=== PATIENT | male | born 1945 | race African-American/Black ===

== ENCOUNTER 2017-05-30 16:46 | Inpatient (IN) | payer MEDICARE ==
[2017-05-30] MEDS ORDERED: NORMAL SALINE 1000 ML 1,000 ML IV ONE (19:03)
--- NOTE | 2017-05-30 19:06 | ER Document Report ---
ED Medical Screen (RME) - General Chief Complaint: High Blood Pressure Stated Complaint: BLOOD PRESSURE ISSUES Time Seen by Provider: 05/30/17 19:02 Notes: Patient reports 4 days of malaise and weakness. He states he is also had fevers. He saw Dr. Newell today and patient had a fever 102 and there was blood in the urine. He states he was referred here for possible UTI. Patient denies abdominal pain, he denies vomiting, he denies diarrhea. He denies any dysuria urgency or frequency. He denies any cough cold or congestion. He denies any rashes. TRAVEL OUTSIDE OF THE [place] IN LAST 30 DAYS: No - Related Data Allergies/Adverse Reactions: No Known Allergies Allergy (Verified 05/30/17 18:52) Past Medical History - Social History Chew tobacco use (# tins/day): No Frequency of alcohol use: None Drug Abuse: None Renal/ Medical History: Denies: Hx Peritoneal Dialysis Physical Exam - Vital signs Vitals: Temp Pulse Resp BP Pulse Ox 98.5 F 121 H 20 159/96 H 96 05/30/17 17:35 05/30/17 17:35 05/30/17 17:35 05/30/17 17:35 05/30/17 17:35 Course - Vital Signs Vital signs: Temp Pulse Resp BP Pulse Ox 98.5 F 121 H 20 159/96 H 96 05/30/17 17:35 05/30/17 17:35 05/30/17 17:35 05/30/17 17:35 05/30/17 17:35
--- NOTE | 2017-05-30 19:48 | RADIOLOGY REPORT (SQ) ---
EXAM DESCRIPTION: CHEST PA/LAT COMPLETED DATE/TIME: 05/30/2017 7:40 pm REASON FOR STUDY: fever COMPARISON: None. EXAM PARAMETERS: NUMBER OF VIEWS: two views TECHNIQUE: Digital Frontal and Lateral radiographic views of the chest acquired. RADIATION DOSE: NA LIMITATIONS: none FINDINGS: LUNGS AND PLEURA: Diffuse parenchymal opacities in the left lung. Right lung is clear. MEDIASTINUM AND HILAR STRUCTURES: No masses or contour abnormalities. HEART AND VASCULAR STRUCTURES: Heart normal size. No evidence for failure. BONES: No acute findings. HARDWARE: None in the chest. OTHER: No other significant finding. IMPRESSION: Left lung pneumonia. TECHNICAL DOCUMENTATION: JOB ID: [id number] [employer]- All Rights Reserved
[2017-05-30 19:54] LABS: VENOUS BLOOD BASE EXCESS -13.5 mmol/L; VENOUS BLOOD HCO3 12.8 mmol/L (20-32); VENOUS BLOOD PCO2 31.3 mmHg (35-63); VENOUS BLOOD PH 7.23 (7.30-7.42)
[2017-05-30 20:00] LABS: HEMATOCRIT 34.3 % (37.9-51.0); HEMOGLOBIN 11.2 g/dL (13.5-17.0); HGB HCT DIFFERENCE -0.7; MEAN CORPUSCULAR HEMOGLOBIN 28.8 pg (27.0-33.4); MEAN CORPUSCULAR HGB CONC 32.6 g/dL (32.0-36.0); MEAN CORPUSCULAR VOLUME 88 fl (80-97); RED BLOOD COUNT 3.88 10^6/uL (4.35-5.55); RED CELL DISTRIBUTION WIDTH 14.6 % (11.5-14.0); WHITE BLOOD COUNT 18.5 10^3/uL (4.0-10.5)
[2017-05-30 20:12] LABS: ALANINE AMINOTRANSFERASE 30 U/L (21-72); ALBUMIN 4.2 g/dL (3.5-5.0); ALKALINE PHOSPHATASE 137 U/L (38-126); ASPARTATE AMINO TRANSFERASE 45 U/L (17-59); BILIRUBIN,DIRECT 0.5 mg/dL (0.0-0.4); BILIRUBIN,TOTAL 0.5 mg/dL (0.2-1.3); BLOOD UREA NITROGEN 91 mg/dL (7-20); CALCIUM 9.9 mg/dL (8.4-10.2); CREATININE RESULT 11.85 mg/dL (0.52-1.25)
[2017-05-30 20:19] LABS: CARBON DIOXIDE 12 mmol/L (22-30); CHLORIDE 100 mmol/L (98-107); POTASSIUM 4.5 mmol/L (3.6-5.0); SODIUM 135.5 mmol/L (137-145)
[2017-05-30 20:21] LABS: BAND NEUTROPHILS % (MANUAL) 1 % (3-5); BASOPHILS % (MANUAL) 0 % (0-2); EOSINOPHILS % (MANUAL) 0 % (0-6); LYMPHOCYTES % (MANUAL) 0 % (13-45); TOTAL CELLS COUNTED 100; TOXIC GRANULATION SLIGHT; TOXIC VACUOLATION PRESENT
[2017-05-30 20:22] LABS: ANISOCYTOSIS SLIGHT
[2017-05-30 20:23] LABS: ANION GAP 24 (5-19)
[2017-05-30 20:29] LABS: GLUCOSE 492 mg/dL (75-110)
[2017-05-30] MEDS ORDERED: CEFTRIAXONE 1 GM/D5W RTU 1 GM/50 ML RTUPB IV ONE (21:36)
[2017-05-30] MEDS ORDERED: CEFEPIME 1 GM/D5W RTU 1 GM/50 ML RTUPB IV ONE (21:38)
[2017-05-30] MEDS ORDERED: AZITHROMYCIN INJ 500 MG VIAL IV ONE (21:39)
--- NOTE | 2017-05-30 21:41 | ER Document Report ---
ED General - General Chief Complaint: High Blood Pressure Stated Complaint: BLOOD PRESSURE ISSUES Time Seen by Provider: 05/30/17 19:02 Mode of Arrival: Ambulatory Information source: Patient Notes: This is a 71-year-old man with no known medical problems who is very functional who presented to primary care doctor today with fever, chills, weakness for the past week. 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 He states that he started having fever, chills and postnasal drip after that time. He denies any shortness of breath. He denies any abdominal pain. TRAVEL OUTSIDE OF THE [place] IN LAST 30 DAYS: No - HPI Onset: Last week Onset/Duration: Gradual Quality of pain: No pain Severity: None Pain Level: Denies Associated symptoms: Chills, Fever, Weakness Exacerbated by: Denies Relieved by: Denies Similar symptoms previously: No Recently seen / treated by doctor: Yes - Related Data Allergies/Adverse Reactions: No Known Allergies Allergy (Verified 05/30/17 18:52) Past Medical History - General Information source: Patient - Social History Smoking Status: Never Smoker Cigarette use (# per day): No Chew tobacco use (# tins/day): No Frequency of alcohol use: None Drug Abuse: None Lives with: Family Family History: Reviewed & Not Pertinent Patient has suicidal ideation: No Patient has homicidal ideation: No - Medical History Medical History: Negative Renal/ Medical History: Denies: Hx Peritoneal Dialysis Surgical Hx: Negative Review of Systems - Review of Systems Constitutional: See HPI, Chills, Fever EENT: No symptoms reported Cardiovascular: No symptoms reported Respiratory: No symptoms reported Gastrointestinal: No symptoms reported Genitourinary: No symptoms reported Male Genitourinary: No symptoms reported Musculoskeletal: No symptoms reported Skin: No symptoms reported Hematologic/Lymphatic: No symptoms reported Neurological/Psychological: Weakness Physical Exam - Vital signs Vitals: Temp Pulse Resp BP Pulse Ox 98.5 F 121 H 20 159/96 H 96 05/30/17 17:35 05/30/17 17:35 05/30/17 17:35 05/30/17 17:35 05/30/17 17:35 Notes: Physical exam: GENERAL: 71-year-old man, alert and oriented 3, no acute distress HEAD: Atraumatic, normocephalic. EYES: Pupils equal round and reactive to light, extraocular movements intact, sclera anicteric, conjunctiva are normal. ENT: TMs normal, nares patent, oropharynx clear without exudates. Moist mucous membranes. NECK: Normal range of motion, supple without obvious mass or JVD. LUNGS: Crackles at the left base. HEART: Regular rate and rhythm without murmurs, rubs or gallops. ABDOMEN: Soft, normoactive bowel sounds. No tenderness to palpation. No guarding, no rebound. No masses appreciated. EXTREMITIES: Normal range of motion, no pitting or edema. No clubbing or cyanosis. NEUROLOGICAL: Cranial nerves II through XII grossly intact. Normal speech, moving all extremities. PSYCH: Normal mood, normal affect. SKIN: Warm, Dry, normal turgor, no rashes or lesions noted. Course - Re-evaluation Re-evalutation: 05/31/17 03:45 Note: I had multiple conversations with Dr. Newell about this patient. I had also discussed the case with Dr. Sevilla because of the acute renal failure. The patient was placed on IV antibiotics (broad-spectrum) for pneumonia. He was started on a bicarb drip because of acute renal failure. The general thought that this was most likely acute on chronic renal failure. The patient does apparently have a history of some high blood pressure and diabetes. Dr. Newell had agreed to admit the patient and Dr. Sevilla was going to see the patient in consultation. After arranging for a bed, the patient decided that he did not want to stay. I had to very long conversations with the patient and his son and his who are at the bedside. I made it absolutely clear that he should not go home. I made it absolutely clear that he could be risking irreversible kidney failure as well as . However, ultimately, the patient decided to go home. He signed an AMA form. His mentation was clear and he appeared competent through all of my interactions with him this evening. - Vital Signs Vital signs: Temp Pulse Resp BP Pulse Ox 98.5 F 121 H 22 H 172/123 H 100 05/30/17 17:35 05/30/17 17:35 05/30/17 23:29 05/30/17 23:29 05/30/17 23:29 - Laboratory Result Diagrams: 05/30/17 19:20 05/30/17 19:20 Laboratory results interpreted by me: 05/30/17 05/30/17 05/30/17 19:20 19:20 19:20 WBC 18.5 H RBC 3.88 L Hgb 11.2 L Hct 34.3 L RDW 14.6 H Seg Neuts % (Manual) 96 H Band Neutrophils % 1 L Lymphocytes % (Manual) 0 L Abs Neuts (Manual) 17.9 H Abs Lymphs (Manual) 0.0 L VBG pH 7.23 L VBG pCO2 31.3 L VBG HCO3 12.8 L Sodium 135.5 L Carbon Dioxide 12 L Anion Gap 24 H BUN 91 H Creatinine 11.85 H Est GFR ( Amer) 5 L Est GFR (Non-Af Amer) 4 L Glucose 492 H* Hemoglobin A1c % Direct Bilirubin 0.5 H Alkaline Phosphatase 137 H Total Protein 9.0 H 05/30/17 19:20 WBC RBC Hgb Hct RDW Seg Neuts % (Manual) Band Neutrophils % Lymphocytes % (Manual) Abs Neuts (Manual) Abs Lymphs (Manual) VBG pH VBG pCO2 VBG HCO3 Sodium Carbon Dioxide Anion Gap BUN Creatinine Est GFR ( Amer) Est GFR (Non-Af Amer) Glucose Hemoglobin A1c % 6.5 H Direct Bilirubin Alkaline Phosphatase Total Protein - Diagnostic Test Radiology reviewed: Image reviewed, Reports reviewed - Chest x-ray shows a left- sided pneumonia - EKG Interpretation by Me Rate: Tachycardia Rhythm: NSR - EKG shows sinus tachycardia with a ventricular rate of 106, signs of LVH Critical Care Note - Critical Care Note Total time excluding time spent on procedures (mins): 60 Discharge - Discharge Clinical Impression: Pneumonia, Acute renal failure Condition: Serious Disposition: AGAINST MEDICAL ADVICE Admitting Provider: Newell Unit Admitted: [facility]
--- NOTE | 2017-05-30 22:00 | RADIOLOGY REPORT (SQ) ---
EXAM DESCRIPTION: CT ABD/PELVIS NO ORAL OR IV COMPLETED DATE/TIME: 05/30/2017 9:49 pm REASON FOR STUDY: acute renal failure COMPARISON: None. TECHNIQUE: CT scan of the abdomen and pelvis performed without intravenous or oral contrast. Images reviewed with lung, soft tissue, and bone windows. Reconstructed coronal and sagittal MPR images revi ewed. All images stored on PACS. All CT scanners at this facility use dose modulation, iterative reconstruction, and/or weight based d osing when appropriate to reduce radiation dose to as low as reasonably achievable (ALARA). [facility]: Dose Right [facility]: CareDose [facility]: Dose Right [facility]: Teradose 4D [facility]: [employer] RADIATION DOSE: Up-to-date CT equipment and radiation dose reduction techniques were employed. CTDIv ol: 7.0 mGy. DLP: 394 mGy-cm.mGy. LIMITATIONS: None. FINDINGS: LOWER CHEST: Parenchymal opacity lingular segment of the left upper lobe. NON-CONTRASTED LIVER, SPLEEN, ADRENALS: Evaluation limited by lack of IV contrast. No identified sign ificant masses. PANCREAS: No masses. No peripancreatic inflammatory changes. GALLBLADDER: No identified stones by CT criteria. No inflammatory changes to suggest cholecystitis. RIGHT KIDNEY AND URETER: Simple and hemorrhagic cysts. No significant calcifications. No hydronep hrosis or hydroureter. LEFT KIDNEY AND URETER: Cysts. No significant calcifications. No hydronephrosis or hydroureter. AORTA AND RETROPERITONEUM: No aneurysm. No retroperitoneal masses or adenopathy. BOWEL AND PERITONEAL CAVITY: No obvious masses or inflammatory changes. No free fluid. APPENDIX: Normal. PELVIS, BLADDER, AND ABDOMINAL WALL:No abnormal masses. No free fluid. Bladder normal. BONES: No significant findings. OTHER: No other significant finding. IMPRESSION: NO SIGNIFICANT OR ACUTE PROCESS IN THE ABDOMEN OR PELVIS. COMMENT: Quality ID # [id number]: Final reports with documentation of one or more dose reduction techniques (e.g., Automated exposure control, adjustment of the mA and/or kV according to patient size, use of iterative reconstruction technique) TECHNICAL DOCUMENTATION: JOB ID: [id number] [employer]- All Rights Reserved
[2017-05-30] MEDS ORDERED: ONDANSETRON HCL INJ/PF 4 MG/2 ML SDV IV PRN (22:48)
[2017-05-30] MEDS ORDERED: DEXTROSE 10%-WATER 1,000 ML IV PRN (22:48)
[2017-05-30] MEDS ORDERED: ACETAMINOPHEN 325 MG TABLET PO PRN (22:48)
[2017-05-30] MEDS ORDERED: INSULIN LISPRO 100 UNIT/ML 3 ML VIAL SUBCUT PRN (22:53)
[2017-05-30] MEDS ORDERED: DEXTROSE 50%-WATER 25 GM/50 ML DISP.SYRIN IV PRN ×2 (22:53)
[2017-05-30] MEDS ORDERED: GLUCAGON,HUMAN RECOMB 1 MG INJ IM PRN (22:53)
[2017-05-30] MEDS ORDERED: DEXTROSE 40% GEL 15 GM TUBE PO PRN ×2 (22:53)
[2017-05-30] MEDS ORDERED: 1/2 NORMAL SALINE IV ONE ×2 (22:55)
[2017-05-30] MEDS ORDERED: SODIUM BICARBONATE IV ONE ×2 (22:55)
[2017-05-30] MEDS ORDERED: HYDRALAZINE HCL INJ/PF 20 MG/1 ML SDV IV PRN (23:08)
[2017-05-31 00:18] VITALS: BP 172/123
[2017-05-31] MEDS ORDERED: HEPARIN SOD (PORCINE) 5,000 UNIT/ML 1 ML SYRINGE SUBCUT SCH (06:00)
[2017-05-31] MEDS ORDERED: LANSOPRAZOLE 15 MG TAB.RAP.DR PO SCH (06:00)
--- NOTE | 2017-05-31 08:13 | EKG REPORT ---
SEVERITY:- ABNORMAL ECG - SINUS TACHYCARDIA LEFT AXIS DEVIATION LVH WITH SECONDARY REPOLARIZATION ABNORMALITY ANTERIOR ST ELEVATION, PROBABLY DUE TO LVH : Confirmed by: Silviano Caceres MD 31-May-2017 08:11:58
[2017-05-31] MEDS ORDERED: CEFEPIME 1 GM/D5W RTU 1 GM/50 ML RTUPB IV SCH (10:00)
[2017-05-31] MEDS ORDERED: DOCUSATE SODIUM 100 MG CAPSULE PO SCH (10:00)
[2017-05-31] MEDS ORDERED: AMLODIPINE BESYLATE 5 MG TABLET PO SCH ×2 (10:00)
== END 2017-05-30 23:12 | disposition left against medical advice (07) | DRG 682 ==
LOC: ER 16:46 → EH 22:48 → UNDOADMIN 23:09
PROVIDERS: ADMIT Family Medicine; ATTEND Family Medicine
DX: N17.9 Acute kidney failure, unspecified (principal); J18.9 Pneumonia, unspecified organism; E11.22 Type 2 diabetes mellitus with diabetic chronic kidney disease; I12.9 Hypertensive chronic kidney disease with stage 1 through stage 4 chronic kidney disease, or unspecified chronic kidney disease; N18.9 Chronic kidney disease, unspecified
CPT/HCPCS: 36415; 71020; 74176; 80053; 82803; 83036; 83605; 85025; 87040; 87077; 87186; 93005; 93010; 96365; 99291; J0692; J7030

== ENCOUNTER 2017-05-31 10:35 | Inpatient (IN) | payer MEDICARE ==
[2017-05-31] MEDS ORDERED: NORMAL SALINE 1000 ML 1,000 ML IV ONE (12:32)
--- NOTE | 2017-05-31 13:26 | XCELERA REPORT ---
[address] [address] Transthoracic Echocardiogram Report Name: DAMON ALEXANDER Age: 71 yrs Gender: Male : 1945 Patient Status: Inpatient Patient Location: [place] [address]^A Study Date: 05/31/2017 11:17 AM Height: 75 in Weight: 171 lb BSA: 2.1 m2 Procedure: A complete two-dimensional transthoracic echocardiogram was performed (2D, M-mode, spectral and color flow Doppler). The study was technically adequate with some images being suboptimal in quality. Reason For Study: esrd/uncontrol htn Ordering Physician: AMY ISIDRO Performed By: Baldomero Burton Interpretation Summary The left ventricular ejection fraction is normal. There is mild concentric left ventricular hypertrophy. Doppler measurements suggest pseudonormalized left ventricular relaxation, which is associated with grade II/IV or mild to moderate diastolic dysfunction The left ventricle is grossly normal size. Wall motion cannot be accurately commented on, but no definite regional wall motion abnormalities noted. The right ventricular systolic function is normal. The left atrium is borderline dilated. The right atrium is normal in size There is a trace to mild amount of mitral regurgitation There is no mitral valve stenosis. There is a trace to mild amount of aortic regurgitation There is no aortic valve stenosis There is a trace to mild amount of tricuspid regurgitation Tricuspid regurgitation jet envelope not well defined to measure RV systolic pressure accurately. The aortic root is not well visualized. The inferior vena cava was not well visualized Minimal pericardial effusion. MMode/2D Measurements & Calculations RVDd: 2.6 cm LVIDd: 4.9 cm FS: 24.8 % Ao root diam: 3.2 cm IVSd: 1.3 cm LVIDs: 3.7 cm EDV(Teich): 112.8 ml LVPWd: 1.3 cm ESV(Teich): 57.5 ml Ao root area: 7.8 cm2 EF(Teich): 49.0 % Doppler Measurements & Calculations MV E max kerry: MV dec slope: Ao V2 max: AI max kerry: 55.4 cm/sec 160.5 cm/sec 554.7 cm/sec MV A max kerry: 277.4 cm/sec2 Ao max PG: AI max P.5 cm/sec MV dec time: 10.3 mmHg 123.1 mmHg MV E/A: 0.53 0.20 sec AI dec slope: 438.1 cm/sec2 AI P1/2t: 370.8 msec LV V1 max PG: PA V2 max: TR max kerry: RAP systole: 4.5 mmHg 90.9 cm/sec 251.4 cm/sec 5.0 mmHg LV V1 max: PA max P.3 mmHgTR max P.4 cm/sec 25.3 mmHg RVSP(TR): 30.3 mmHg Left Ventricle The left ventricle is grossly normal size. There is mild concentric left ventricular hypertrophy. The left ventricular ejection fraction is normal. Doppler measurements suggest pseudonormalized left ventricular relaxation, which is associated with grade II/IV or mild to moderate diastolic dysfunction. Wall motion cannot be accurately commented on, but no definite regional wall motion abnormalities noted. Right Ventricle The right ventricle is grossly normal size. There is normal right ventricular wall thickness. The right ventricular systolic function is normal. Atria The right atrium is normal in size. The left atrium is borderline dilated. Interarterial septum not well visualized and not well dopplered. Cannot comment on ASD/PFO presence. Mitral Valve The mitral valve is grossly normal. There is no mitral valve stenosis. There is a trace to mild amount of mitral regurgitation. Aortic Valve The aortic valve is grossly normal. There is no aortic valve stenosis. There is a trace to mild amount of aortic regurgitation. Tricuspid Valve The tricuspid valve is not well visualized, but is grossly normal. There is no tricuspid stenosis. There is a trace to mild amount of tricuspid regurgitation. Tricuspid regurgitation jet envelope not well defined to measure RV systolic pressure accurately. Pulmonic Valve The pulmonic valve is not well visualized. Great Vessels The aortic root is not well visualized. The inferior vena cava was not well visualized. Effusions Minimal pericardial effusion. : AMY ISIDRO > Tano Palmer
[2017-05-31 13:52] LABS: HEMATOCRIT 32.9 % (37.9-51.0); HEMOGLOBIN 10.8 g/dL (13.5-17.0); HGB HCT DIFFERENCE -0.5; MEAN CORPUSCULAR HEMOGLOBIN 28.7 pg (27.0-33.4); MEAN CORPUSCULAR HGB CONC 32.9 g/dL (32.0-36.0); MEAN CORPUSCULAR VOLUME 87 fl (80-97); RED BLOOD COUNT 3.77 10^6/uL (4.35-5.55); RED CELL DISTRIBUTION WIDTH 14.8 % (11.5-14.0); WHITE BLOOD COUNT 17.2 10^3/uL (4.0-10.5)
[2017-05-31 14:12] LABS: BASOPHILS % (MANUAL) 0 % (0-2); EOSINOPHILS % (MANUAL) 0 % (0-6); LYMPHOCYTES % (MANUAL) 6 % (13-45); TOTAL CELLS COUNTED 100
[2017-05-31 14:15] LABS: ANISOCYTOSIS SLIGHT; POIKILOCYTOSIS 2+; TOXIC GRANULATION 1+; TOXIC VACUOLATION PRESENT
[2017-05-31 14:16] LABS: BURR CELLS 1+; OVALOCYTES 1+
[2017-05-31] MEDS ORDERED: AZITHROMYCIN INJ 500 MG VIAL IV ONE (15:11)
[2017-05-31] MEDS ORDERED: CEFTRIAXONE 1 GM/D5W RTU 1 GM/50 ML RTUPB IV ONE (15:11)
--- NOTE | 2017-05-31 15:14 | ER Document Report ---
ED General - General Chief Complaint: General Weakness Stated Complaint: BODY WEAKNESS Time Seen by Provider: 05/31/17 12:28 Notes: The patient is a 71-year-old male who presents with cough. He was in the emergency room yesterday and found to have a left lower lobe pneumonia, hyperglycemia and acute on chronic renal failure. He decided to leave AMA after extensive discussions and stated he would return today for admission. Patient denies chest pain, shortness of breath, nausea, vomiting, abdominal pain , fevers or back pain. TRAVEL OUTSIDE OF THE [place] IN LAST 30 DAYS: No - Related Data Allergies/Adverse Reactions: No Known Allergies Allergy (Verified 05/31/17 11:08) Past Medical History - General Information source: Patient - Social History Smoking Status: Former Smoker Frequency of alcohol use: None Drug Abuse: None Family History: Reviewed & Not Pertinent Renal/ Medical History: Denies: Hx Peritoneal Dialysis Review of Systems - Review of Systems Notes: REVIEW OF SYSTEMS: CONSTITUTIONAL: -fevers, -chills EENT: -eye pain, -difficulty swallowing, -nasal congestion CARDIOVASCULAR:-chest pain, -syncope. RESPIRATORY: +cough, -SOB GASTROINTESTINAL: -abdominal pain, -nausea, -vomiting, -diarrhea GENITOURINARY: -dysuria, -hematuria MUSCULOSKELETAL: -back pain, -neck pain SKIN: -rash or skin lesions. HEMATOLOGIC: -easy bruising or bleeding. LYMPHATIC: -swollen, enlarged glands. NEUROLOGICAL: -altered mental status or loss of consciousness, -headache, - neurologic symptoms PSYCHIATRIC: -anxiety, -depression. ALL OTHER SYSTEMS REVIEWED AND NEGATIVE. Physical Exam - Vital signs Vitals: Temp Pulse Resp BP Pulse Ox 98.0 F 91 18 181/90 H 98 05/31/17 11:07 05/31/17 11:07 05/31/17 11:07 05/31/17 11:07 05/31/17 11:07 - Notes Notes: PHYSICAL EXAMINATION: GENERAL: Well-appearing, well-nourished and in no acute distress. HEAD: Atraumatic, normocephalic. EYES: Pupils equal round and reactive to light, extraocular movements intact, sclera anicteric, conjunctiva are normal. ENT: nares patent, oropharynx clear without exudates. Moist mucous membranes. NECK: Normal range of motion, supple without lymphadenopathy LUNGS: No respiratory distress. LLL crackles. HEART: Regular rate and rhythm without murmurs ABDOMEN: Soft, nontender, normoactive bowel sounds. No guarding, no rebound. No masses appreciated. EXTREMITIES: Normal range of motion, no pitting or edema. No cyanosis. NEUROLOGICAL: Cranial nerves grossly intact. Normal speech, normal gait. Normal sensory and motor exams. PSYCH: Normal mood, normal affect. SKIN: Warm, Dry, normal turgor, no rashes or lesions noted. Course - Re-evaluation Re-evalutation: Patient with renal failure but no need for emergent dialysis at this time. Antibiotics started for his pneumonia discovered yesterday and he appears to be in no respiratory distress. Patient will also be restarted on a bicarb drip due to his acidosis that was recommended by Dr. Sevilla last night. Dr. Sevilla and Dr. Newell are aware of the patient. Will admit to [facility] as inpatient for further evaluation and treatment. - Vital Signs Vital signs: Temp Pulse Resp BP Pulse Ox 98.0 F 91 19 188/92 H 99 05/31/17 11:07 05/31/17 11:07 05/31/17 16:14 05/31/17 16:14 05/31/17 16:14 - Laboratory Result Diagrams: 05/31/17 13:40 05/31/17 15:25 Laboratory results interpreted by me: 05/31/17 05/31/17 13:40 15:25 WBC 17.2 H RBC 3.77 L Hgb 10.8 L Hct 32.9 L RDW 14.8 H Seg Neuts % (Manual) 90 H Lymphocytes % (Manual) 6 L Abs Neuts (Manual) 15.5 H Sodium 136.9 L Carbon Dioxide 9 L* Anion Gap 23 H BUN 92 H Creatinine 12.08 H Est GFR ( Amer) 5 L Est GFR (Non-Af Amer) 4 L Glucose 303 H Direct Bilirubin 0.5 H Albumin 3.4 L Discharge - Discharge Clinical Impression: [place] (acute kidney injury) Pneumonia Qualifiers: Pneumonia type: due to unspecified organism Laterality: left Lung location: lower lobe of lung Qualified Code(s): J18.1 - Lobar pneumonia, unspecified organism Condition: Stable Disposition: ADMITTED INPATIENT Admitting Provider: Reece Unit Admitted: [facility]
[2017-05-31 16:16] LABS: ALANINE AMINOTRANSFERASE 54 U/L (21-72); ALBUMIN 3.4 g/dL (3.5-5.0); ALKALINE PHOSPHATASE 112 U/L (38-126); ASPARTATE AMINO TRANSFERASE 53 U/L (17-59); BILIRUBIN,DIRECT 0.5 mg/dL (0.0-0.4); BILIRUBIN,TOTAL 0.5 mg/dL (0.2-1.3); BLOOD UREA NITROGEN 92 mg/dL (7-20); CALCIUM 8.7 mg/dL (8.4-10.2); CREATININE RESULT 12.08 mg/dL (0.52-1.25); GLUCOSE 303 mg/dL (75-110); TOTAL PROTEIN 6.9 g/dL (6.3-8.2)
[2017-05-31 16:28] LABS: CHLORIDE 105 mmol/L (98-107); POTASSIUM 4.4 mmol/L (3.6-5.0); SODIUM 136.9 mmol/L (137-145)
[2017-05-31 16:34] LABS: ANION GAP 23 (5-19)
[2017-05-31 16:36] LABS: CARBON DIOXIDE 9 mmol/L (22-30)
[2017-05-31] MEDS ORDERED: 1/2 NORMAL SALINE IV ONE ×2 (16:51)
[2017-05-31] MEDS ORDERED: SODIUM BICARBONATE IV ONE ×2 (16:51)
[2017-05-31] MEDS ORDERED: 1/2 NORMAL SALINE 1,000 ML IV PRN (16:55)
[2017-05-31] MEDS ORDERED: ACETAMINOPHEN 325 MG TABLET PO PRN (16:55)
[2017-05-31] MEDS ORDERED: IPRATROPIUM/ALBUTEROL 0.5-2.5 MG/3 ML AMPUL NEB PRN (16:55)
[2017-05-31] MEDS ORDERED: GLUCAGON,HUMAN RECOMB 1 MG INJ IM PRN (16:59)
[2017-05-31] MEDS ORDERED: DEXTROSE 40% GEL 15 GM TUBE PO PRN ×2 (16:59)
[2017-05-31] MEDS ORDERED: DEXTROSE 50%-WATER 25 GM/50 ML DISP.SYRIN IV PRN ×2 (16:59)
[2017-05-31] MEDS ORDERED: HYDRALAZINE HCL INJ/PF 20 MG/1 ML SDV IV PRN (17:00)
--- NOTE | 2017-05-31 17:12 | PDOC H&P ---
History of Present Illness Patient complains of: Generalized weaknessThe fever History of Present Illness: DAMON ALEXANDER is a 71 year old male This is a 71-year-old male with the no previous any medical problems not seen the physicians for a long time came to my office yesterday with a complaint of a fever and chills and not feeling well the patient's fever was 102 And at that point patient's urine was persistent with some hematuria in the sugarAnd at this point patient was sent to the emergency departments and the patient's came to the ER yesterday and patient's creatinine was more than 11 and patient's bicarb was less than 10 with a severe metabolic acidosis with the acute renal failure on possible chronic kidney diseaseAnd patient's white count was also elevated with a persistent with the pneumonia and patient was given some antibiotic and patient was started on IV sodium bicarb drip and a nephrology was consulted but patients left the ER AMA and patients came back today because patient started feeling more weak but other than that denied any chest pain denied any shortness of the breath At this time patients decided to stay and discussed with the family about patient having multiple issues with not seen physicians Recent hemoglobin A1c was 6.5 and blood sugar was 400 range yesterday Patient have echocardiogram was done yesterday was all stable Today's patient's blood work is all stable as usual yesterday and ER physician discussed with the nephrology and agree for the consult and admitting in the [facility] Social History Information Source: Patient, Relative Smoking Status: Former Smoker Frequency of Alcohol Use: None Hx Recreational Drug Use: No Hx Prescription Drug Abuse: No Family History Family History: Reviewed & Not Pertinent Parental Family History Reviewed: Yes Children Family History Reviewed: Yes Sibling(s) Family History Reviewed.: Yes Medication/Allergy Allergies/Adverse Reactions: No Known Allergies Allergy (Verified 05/31/17 11:08) Review of Systems Constitutional: PRESENT: chills, fatigue, weakness. ABSENT: fever(s), headache( s), weight gain, weight loss Eyes: ABSENT: visual disturbances Ears: ABSENT: hearing changes Cardiovascular: ABSENT: chest pain, dyspnea on exertion, edema, orthropnea, palpitations Respiratory: PRESENT: cough. ABSENT: hemoptysis Gastrointestinal: ABSENT: abdominal pain, constipation, diarrhea, hematemesis, hematochezia, nausea, vomiting Genitourinary: ABSENT: dysuria, hematuria Musculoskeletal: ABSENT: joint swelling Integumentary: ABSENT: rash, wounds Neurological: ABSENT: abnormal gait, abnormal speech, confusion, dizziness, focal weakness, syncope Psychiatric: ABSENT: anxiety, depression, homidical ideation, suicidal ideation Endocrine: ABSENT: cold intolerance, heat intolerance, menstrual abnormalities, polydipsia, polyuria Hematologic/Lymphatic: ABSENT: easy bleeding, easy bruising, lymphadenopathy Physical Exam Vital Signs: Temp Pulse Resp BP Pulse Ox 98.0 F 91 19 188/92 H 99 05/31/17 11:07 05/31/17 11:07 05/31/17 16:14 05/31/17 16:14 05/31/17 16:14 Intake & Output 05/30/17 05/31/17 06/01/17 06:59 06:59 06:59 Weight 77.9 kg General appearance: PRESENT: no acute distress, well-developed, well-nourished Head exam: PRESENT: atraumatic, normocephalic Eye exam: PRESENT: conjunctiva pink, EOMI, PERRLA. ABSENT: scleral icterus Ear exam: PRESENT: normal external ear exam Mouth exam: PRESENT: moist, tongue midline Neck exam: PRESENT: full ROM. ABSENT: carotid bruit, JVD, lymphadenopathy, thyromegaly Respiratory exam: PRESENT: clear to auscultation lala Cardiovascular exam: PRESENT: RRR. ABSENT: diastolic murmur, rubs, systolic murmur Pulses: PRESENT: normal dorsalis pedis pul, +2 pedal pulses bilateral Vascular exam: PRESENT: normal capillary refill GI/Abdominal exam: PRESENT: normal bowel sounds, soft. ABSENT: distended, guarding, mass, organolmegaly, rebound, tenderness Rectal exam: PRESENT: deferred Extremities exam: ABSENT: pedal edema Musculoskeletal exam: PRESENT: ambulatory Neurological exam: PRESENT: alert, awake, oriented to person, oriented to place , oriented to time, oriented to situation, CN II-XII grossly intact. ABSENT: motor sensory deficit Psychiatric exam: PRESENT: appropriate affect, normal mood. ABSENT: homicidal ideation, suicidal ideation Skin exam: PRESENT: dry, intact, warm. ABSENT: cyanosis, rash Results Laboratory Results: 05/31/17 13:40 05/31/17 15:25 05/31/17 05/31/17 05/31/17 13:40 13:40 15:25 WBC 17.2 H RBC 3.77 L Hgb 10.8 L Hct 32.9 L MCV 87 MCH 28.7 MCHC 32.9 RDW 14.8 H Plt Count 252 Seg Neutrophils % Not Reportable Lymphocytes % Not Reportable Monocytes % Not Reportable Eosinophils % Not Reportable Basophils % Not Reportable Absolute Neutrophils Not Reportable Absolute Lymphocytes Not Reportable Absolute Monocytes Not Reportable Absolute Eosinophils Not Reportable Absolute Basophils Not Reportable Sodium Cancelled 136.9 L Potassium Cancelled 4.4 Chloride Cancelled 105 Carbon Dioxide Cancelled 9 L* Anion Gap Cancelled 23 H BUN Cancelled 92 H Creatinine Cancelled 12.08 H Est GFR ( Amer) Cancelled 5 L Est GFR (Non-Af Amer) Cancelled 4 L Glucose Cancelled 303 H Calcium Cancelled 8.7 Total Bilirubin Cancelled 0.5 AST Cancelled 53 ALT Cancelled 54 Alkaline Phosphatase Cancelled 112 Total Protein Cancelled 6.9 Albumin Cancelled 3.4 L Assessment & Plan - Diagnosis (1) LORENA (acute kidney injury) Is this a current diagnosis for this admission?: Yes Plan: Most likely up from chronic kidney disease with acute renal failure patient's most likely needed dialysis admit the patient in the IMCU consulted Dr. Sevilla and start the patient on IV fluid and sodium bicarb drip (2) Metabolic acidosis Is this a current diagnosis for this admission?: Yes Plan: Due to the most likely acute renal failure start the patient on sodium bicarb drip (3) Type 2 diabetes mellitus Qualifiers: Diabetes mellitus complication status: with unspecified complications Is this a current diagnosis for this admission?: Yes Plan: With this new onset will continues a sliding scale (4) Fever Qualifiers: Encounter type: initial encounter Is this a current diagnosis for this admission?: Yes Plan: Most likely related to the pneumonia start the patient on IV antibiotic (5) Pneumonia Qualifiers: Pneumonia type: due to unspecified organism Laterality: left Lung location: lower lobe of lung Qualified Code(s): J18.1 - Lobar pneumonia, unspecified organism Is this a current diagnosis for this admission?: Yes Plan: Start the patient in the cefepime and Zithromax (6) Hypertension Qualifiers: Hypertension type: essential hypertension Qualified Code(s): I10 - Essential (primary) hypertension Is this a current diagnosis for this admission?: Yes Plan: The patient and the Norvasc and as needed hydralazine - Time Time Spent: 50 to 70 Minutes Medications reviewed and adjusted accordingly: Yes Anticipated discharge: Home Within: Other - Inpatient Certification Medical Necessity: Need Close Monitoring Due to Risk of Patient Decompensation, Need For IV Fluids, Need for IV Antibiotics Post Hospital Care: D/C 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
[2017-05-31] MEDS ORDERED: SODIUM BICARBONATE 8.4% INJ 50 MEQ/50 ML DISP.SYRIN ONE ×2 (17:15→17:19)
[2017-05-31] MEDS: AMLODIPINE BESYLATE 5 MG TABLET PO SCH (18:43)
--- NOTE | 2017-05-31 21:14 | PDOC CONSULTATION ---
Consultation Consult Date: 05/31/17 Attending physician:: AMY ISIDRO Consult reason:: I was asked by Dr. Isidro to see the patient because of renal failure. History of Present Illness Admission Date/PCP: 05/31/17 16:55 History of Present Illness: Patient is a 71-year-old -[place] gentleman with no known past medical history presented to the emergency room again for the second time tonight because of some worsening symptoms from yesterday. Patient said that since about a week ago he noted fever and has just not feeling well with chills. He denies any cough, shortness of breath, dysuria, abdominal pain, nausea, vomiting , no chest pains. There was a note of some loose stools which has been going on for the last 6-7 months depending on what he eats. He initially presented himself to the emergency room yesterday with above symptoms. Initial workup yesterday showed an elevated BUN of 91 and a creatinine of 11.85 with estimated GFR 5 and a CO2 of 12. She was advised admission with these findings however the patient signed out AMA. Patient said he had to take care of some things at home that is why he went home with the plan of coming back today anyways. Today he did not have any additional complaints aside from the above. He denies any urgency, urinary frequency, no gross hematuria. Patient denies any previous kidney problems or kidney nor kidney stones in the past. He denies history of hepatitis. Denies any leg swelling. confirms that for the last 3-4 days patient has decreased appetite with decreased oral solids and fluid intake. When he presented today he has a BUN of 92 and creatinine of 12.08 with estimated GFR of 5 with CO2 of 9. Fortunately his potassium level is within normal limits. CT scan of the abdomen that was done yesterday did not show any hydronephrosis. Of note the patient has not seen a doctor for many years since Dr. Hal Way left the area. He just started seeing Dr. Isidro 2-3 days prior to presentation. In the emergency room patient was noted to be hypertensive. His blood sugar was also elevated, yesterday it was 400 and today it was around 300. Patient was started on bicarbonate drip. He was also given IV antibiotics initially with ceftriaxone and now on cefepime. Patient claims that he feels better with the IV antibiotics. Past Medical History Medical History: None Past Surgical History Past Surgical History: Reports: None Social History Information Source: Patient Smoking Status: Never Smoker Frequency of Alcohol Use: None Hx Recreational Drug Use: No Hx Prescription Drug Abuse: No - Advance Directive Resuscitation Status: Full Code Family History Family History: None Parental Family History Reviewed: Yes Children Family History Reviewed: Yes Sibling(s) Family History Reviewed.: Yes Medication/Allergy Home Medications: No Home Medications 05/31/17 Allergies/Adverse Reactions: No Known Allergies Allergy (Verified 05/31/17 11:08) Review of Systems All systems: reviewed and no additional remarkable complaints except as stated Review of Systems: Constitutional: ABSENT: fatigue, headache(s), weight gain, weight loss; admits fever and chills, admits not feeling well. Eyes: ABSENT: visual disturbances Ears: ABSENT: hearing changes Cardiovascular: ABSENT: chest pain, dyspnea on exertion, edema, orthropnea, palpitations Respiratory: ABSENT: cough, dyspnea, hemoptysis Gastrointestinal: ABSENT: abdominal pain, constipation, diarrhea, hematemesis, hematochezia, nausea, vomiting Genitourinary: ABSENT: dysuria, hematuria Musculoskeletal: ABSENT: joint swelling Integumentary: ABSENT: rash, wounds Neurological: ABSENT: abnormal gait, abnormal speech, confusion, dizziness, focal weakness, numbness, syncope Psychiatric: ABSENT: anxiety, depression Endocrine: ABSENT: cold intolerance, heat intolerance, polydipsia, polyuria Hematologic/Lymphatic: ABSENT: easy bleeding, easy bruising, lymphadenopathy Physical Exam Vital Signs: Temp Pulse Resp BP Pulse Ox 98.0 F 89 20 189/104 H 98 05/31/17 11:07 05/31/17 15:14 05/31/17 20:01 05/31/17 20:01 05/31/17 20:01 Exam: General appearance: no acute distress, cooperative, well-developed, well- nourished Head exam: PRESENT: atraumatic, normocephalic Eye exam: PRESENT: Conjunctiva [place], EOMI, PERRLA. ABSENT: conjunctival injection, scleral icterus Mouth exam: PRESENT: moist, neck supple, tongue midline, he does have a uremic breath Neck exam: PRESENT: full ROM. ABSENT: carotid bruit, JVD, lymphadenopathy, thyromegaly Respiratory exam: PRESENT: clear to auscultation bilaterally. ABSENT: rales, rhonchi, stridor, wheezes Cardiovascular exam: PRESENT: RRR, +S1, +S2. ABSENT: systolic murmur Pulses: PRESENT: normal radial pulses, normal dorsalis pedis pulses GI/Abdominal exam: PRESENT: normal bowel sounds, soft. ABSENT: guarding, mass, tenderness Rectal exam: deferred Extremities exam: PRESENT: full ROM. ABSENT: calf tenderness, pedal edema Musculoskeletal: PRESENT: full ROM. ABSENT: deformity Neurological exam: PRESENT: alert, Awake, Oriented to person, Oriented to place , Oriented to time, reflexes normal, CN II-XII grossly intact. ABSENT: motor sensory deficit Psychiatric exam: PRESENT: appropriate affect, normal mood. ABSENT: homicidal ideation, suicidal ideation Skin exam: PRESENT: intact, dry, warm. ABSENT: rash Results Laboratory Results: Laboratory 05/31/17 05/31/17 05/31/17 13:40 13:40 15:25 WBC 17.2 H RBC 3.77 L Hgb 10.8 L Hct 32.9 L MCV 87 MCH 28.7 MCHC 32.9 RDW 14.8 H Plt Count 252 Total Counted 100 Seg Neutrophils % Not Reportable Seg Neuts % (Manual) 90 H Lymphocytes % Not Reportable Lymphocytes % (Manual) 6 L Monocytes % Not Reportable Monocytes % (Manual) 4 Eosinophils % Not Reportable Eosinophils % (Manual) 0 Basophils % Not Reportable Basophils % (Manual) 0 Absolute Neutrophils Not Reportable Abs Neuts (Manual) 15.5 H Absolute Lymphocytes Not Reportable Abs Lymphs (Manual) 1.0 Absolute Monocytes Not Reportable Abs Monocytes (Manual) 0.7 Absolute Eosinophils Not Reportable Absolute Eos (Manual) 0.0 Absolute Basophils Not Reportable Abs Basophils (Manual) 0.0 Toxic Granulation 1+ Toxic Vacuolation PRESENT Giant Platelets PRESENT Platelet Comment ADEQUATE Poikilocytosis 2+ Anisocytosis SLIGHT Ovalocytes 1+ [place] Cells 1+ Sodium Cancelled 136.9 L Potassium Cancelled 4.4 Chloride Cancelled 105 Carbon Dioxide Cancelled 9 L* Anion Gap Cancelled 23 H BUN Cancelled 92 H Creatinine Cancelled 12.08 H Est GFR ( Amer) Cancelled 5 L Est GFR (Non-Af Amer) Cancelled 4 L Glucose Cancelled 303 H Calcium Cancelled 8.7 Total Bilirubin Cancelled 0.5 Direct Bilirubin Cancelled 0.5 H Indirect Bilirubin Cancelled Not Reportable Neonat Total Bilirubin Cancelled Not Reportable AST Cancelled 53 ALT Cancelled 54 Alkaline Phosphatase Cancelled 112 Total Protein Cancelled 6.9 Albumin Cancelled 3.4 L Assessment & Plan - Diagnosis (1) LORENA (acute kidney injury) Is this a current diagnosis for this admission?: Yes Plan: We do not have any previous records to know what the patient's baseline kidney function is. At this time were considering that this is an acute kidney injury however there can be an possibility that the patient does have an underlying chronic kidney disease. In fact there is a high likelihood that the patient has progressive kidney disease at this point. Aside from possible acute infection there does not seem to be any other possible cause for an acute worsening of kidney function. Risk factors for chronic kidney disease include untreated and undiagnosed diabetes mellitus and hypertension. Clinically this patient seems to be doing fine without much complains of uremic symptoms yet. However with the severe metabolic acidosis, I recommended that the patient undergo an acute renal replacement therapy in the form of acute hemodialysis. I discussed what hemodialysis is with the patient in the presence of his and children at bedside. I discussed the process, benefits, and risks. However the patient wanted to see how his get up being the next couple of days and declined to do any dialysis treatment at this time. With his decline in treatment, I discussed with him and the family the risk of further worsening of kidney function to the point of overt uremia. I also discussed the serious risk of severe metabolic acidosis including cardiac toxicity. However despite that the patient still wants to wait at least the next couple days before he decides. So at this point we will hold off of any hemodialysis treatment and just monitor the patient clinically and biochemically. I recommend monitoring the patient's kidney function daily. We will check the patient's basic metabolic panel, anemia workup, intact PTH, phosphorus, urinalysis and urine protein to creatinine ratio. We will put the patient in a prerenal diet. Agree with concomitant diabetic diet. Also need to monitor urine output daily. (2) Metabolic acidosis Is this a current diagnosis for this admission?: Yes Plan: Due to acute kidney injury with possible underlying chronic kidney disease. (3) Type 2 diabetes mellitus Qualifiers: Diabetes mellitus complication status: with unspecified complications Is this a current diagnosis for this admission?: Yes Plan: Defer management to Dr. Isidro. (4) Hypertension Qualifiers: Hypertension type: essential hypertension Qualified Code(s): I10 - Essential (primary) hypertension Is this a current diagnosis for this admission?: Yes Plan: Patient was started on amlodipine. I think the patient may need more than one blood pressure medication in the next few days. (5) Anemia Is this a current diagnosis for this admission?: Yes Plan: We will do anemia workup. (6) Pneumonia Qualifiers: Pneumonia type: due to unspecified organism Laterality: left Lung location: lower lobe of lung Qualified Code(s): J18.1 - Lobar pneumonia, unspecified organism Is this a current diagnosis for this admission?: Yes Plan: Currently IV antibiotics was initiated. - Notes Notes: Thank you very much for this consultation. I will follow the patient with you. - Time Time Spent: Greater than 70 Minutes
[2017-05-31] MEDS: CEFEPIME 1 GM/D5W RTU 1 GM/50 ML RTUPB IV SCH (23:55)
[2017-05-31] MEDS: HEPARIN SOD (PORCINE) 5,000 UNIT/ML 1 ML SYRINGE SUBCUT SCH (23:56)
[2017-06-01 00:55] LABS: APPEARANCE,URINE SLIGHTLY-CLOUDY; BILIRUBIN,URINE NEGATIVE (NEGATIVE); GLUCOSE, URINE >=500 mg/dL (NEGATIVE); KETONES,URINE NEGATIVE (NEGATIVE); LEUKOCYTE ESTERASE,URINE NEGATIVE (NEGATIVE); NITRITE,URINE NEGATIVE (NEGATIVE); PROTEIN,URINE >=500 mg/dL (NEGATIVE); URINE SPECIFIC GRAVITY 1.007; UROBILINOGEN,URINE NEGATIVE mg/dL (<2.0)
[2017-06-01 01:05] LABS: URINE CREATININE 57.4 mg/dL (22-328)
[2017-06-01 01:17] LABS: URINE PROTEIN 483.8 mg/dL (<12)
[2017-06-01] MEDS ORDERED: INFLUENZA ADLT QUAD (36MOS+) 2017-18 VAC 0.5 ML SYR IM PRN (03:11)
[2017-06-01] MEDS: LANSOPRAZOLE 15 MG TAB.RAP.DR PO SCH (05:35)
[2017-06-01] MEDS: HEPARIN SOD (PORCINE) 5,000 UNIT/ML 1 ML SYRINGE SUBCUT SCH ×3 (05:36→22:47)
[2017-06-01 06:24] LABS: HEMATOCRIT 26.5 % (37.9-51.0); HEMOGLOBIN 8.9 g/dL (13.5-17.0); HGB HCT DIFFERENCE 0.2; MEAN CORPUSCULAR HEMOGLOBIN 29.1 pg (27.0-33.4); MEAN CORPUSCULAR HGB CONC 33.7 g/dL (32.0-36.0); MEAN CORPUSCULAR VOLUME 87 fl (80-97); RED BLOOD COUNT 3.06 10^6/uL (4.35-5.55); RED CELL DISTRIBUTION WIDTH 14.8 % (11.5-14.0); WHITE BLOOD COUNT 13.6 10^3/uL (4.0-10.5)
[2017-06-01 06:38] LABS: ANION GAP 19 (5-19); BLOOD UREA NITROGEN 100 mg/dL (7-20); CALCIUM 8.4 mg/dL (8.4-10.2); CARBON DIOXIDE 11 mmol/L (22-30); CHLORIDE 105 mmol/L (98-107); CREATININE RESULT 12.27 mg/dL (0.52-1.25); GLUCOSE 294 mg/dL (75-110); MAGNESIUM 1.6 mg/dL (1.6-2.3); PHOSPHORUS 6.5 mg/dL (2.5-4.5); POTASSIUM 4.4 mmol/L (3.6-5.0); SODIUM 135.3 mmol/L (137-145)
[2017-06-01 06:52] LABS: BASOPHILS % (MANUAL) 0 % (0-2); EOSINOPHILS % (MANUAL) 0 % (0-6); LYMPHOCYTES % (MANUAL) 9 % (13-45); TOTAL CELLS COUNTED 100
[2017-06-01 06:54] LABS: ANISOCYTOSIS SLIGHT; BURR CELLS 1+; OVALOCYTES SLIGHT; POIKILOCYTOSIS 2+; POLYCHROMASIA SLIGHT; SCHISTOCYTES SLIGHT; TOXIC GRANULATION SLIGHT
[2017-06-01 07:44] LABS: FOLATE 9.74 ng/mL (>2.76)
--- NOTE | 2017-06-01 08:22 | PDOC PROGRESS REPORT ---
Subjective Progress Note for:: 06/01/17 Subjective:: Patient is currently doing well. Patient's denied any chest pain without any shortness of the breathOvernight patient does not have any feverSince kidney function is currently all stable Patient seen by nephrology and asked about the dialysis and patients to think about it and again discussed with myself of the patient's need of dialysis otherwise patient's develop a possible more complication and cardiac toxicity and may be a and patient understand very well and the family understand very well Physical Exam Vital Signs: Temp Pulse Resp BP Pulse Ox 98.2 F 90 22 H 164/79 H 100 06/01/17 07:21 06/01/17 07:21 06/01/17 07:21 06/01/17 07:21 06/01/17 07:21 Intake & Output 05/31/17 06/01/17 06/02/17 06:59 06:59 06:59 Intake Total 365 Balance 365 Weight 83.5 kg General appearance: PRESENT: no acute distress, well-developed, well-nourished Head exam: PRESENT: atraumatic, normocephalic Eye exam: PRESENT: conjunctiva pink, EOMI, PERRLA. ABSENT: scleral icterus Ear exam: PRESENT: normal external ear exam Mouth exam: PRESENT: moist, tongue midline Neck exam: PRESENT: full ROM. ABSENT: carotid bruit, JVD, lymphadenopathy, thyromegaly Respiratory exam: PRESENT: clear to auscultation lala Cardiovascular exam: PRESENT: RRR. ABSENT: diastolic murmur, rubs, systolic murmur Pulses: PRESENT: normal dorsalis pedis pul, +2 pedal pulses bilateral Vascular exam: PRESENT: normal capillary refill GI/Abdominal exam: PRESENT: normal bowel sounds, soft. ABSENT: distended, guarding, mass, organolmegaly, rebound, tenderness Rectal exam: PRESENT: deferred Musculoskeletal exam: PRESENT: ambulatory Neurological exam: PRESENT: alert, awake, oriented to person, oriented to place , oriented to time, oriented to situation, CN II-XII grossly intact. ABSENT: motor sensory deficit Psychiatric exam: PRESENT: appropriate affect, normal mood. ABSENT: homicidal ideation, suicidal ideation Skin exam: PRESENT: dry, intact, warm. ABSENT: cyanosis, rash Results Laboratory Results: 06/01/17 05:43 06/01/17 05:43 06/01/17 06/01/17 06/01/17 00:30 05:43 05:43 WBC 13.6 H RBC 3.06 L Hgb 8.9 L Hct 26.5 L MCV 87 MCH 29.1 MCHC 33.7 RDW 14.8 H Plt Count 209 Seg Neutrophils % Not Reportable Lymphocytes % Not Reportable Monocytes % Not Reportable Eosinophils % Not Reportable Basophils % Not Reportable Absolute Neutrophils Not Reportable Absolute Lymphocytes Not Reportable Absolute Monocytes Not Reportable Absolute Eosinophils Not Reportable Absolute Basophils Not Reportable Retic Count (auto) 0.94 Absolute Retic 0.029 Sodium 135.3 L Potassium 4.4 Chloride 105 Carbon Dioxide 11 L Anion Gap 19 BUN 100 H Creatinine 12.27 H Est GFR ( Amer) 5 L Est GFR (Non-Af Amer) 4 L Glucose 294 H Calcium 8.4 Phosphorus 6.5 H Magnesium 1.6 Iron 71.8 TIBC 154 L % Saturation 47 Ferritin > 1000.00 H Vitamin B12 857.0 Folate 9.74 Urine Color STRAW Urine Appearance SLIGHTLY-CLOUDY Urine pH 5.0 Ur Specific [place] 1.007 Urine Protein >=500 H Urine Glucose (UA) >=500 H Urine Ketones NEGATIVE Urine Blood MODERATE H Urine Nitrite NEGATIVE Ur Leukocyte Esterase NEGATIVE Urine WBC (Auto) 5 Urine RBC (Auto) 38 Assessment & Plan - Diagnosis (1) LORENA (acute kidney injury) Is this a current diagnosis for this admission?: Yes Plan: Follow with the nephrology again discussed with the patient and the family about the possible need of dialysis and patient still think about it patients may develop a uremia and cardiac toxicity and possible and patient understand and the family understand very wellCoordinate care with the Dr. cameron (2) Metabolic acidosis Is this a current diagnosis for this admission?: Yes Plan: Due to the most likely acute renal failure start the patient on sodium bicarb drip (3) Type 2 diabetes mellitus Qualifiers: Diabetes mellitus complication status: with unspecified complications Is this a current diagnosis for this admission?: Yes Plan: With this new onset will continues a sliding scale (4) Fever Qualifiers: Encounter type: initial encounter Is this a current diagnosis for this admission?: Yes Plan: Is coming down from the pneumonia (5) Pneumonia Qualifiers: Pneumonia type: due to unspecified organism Laterality: left Lung location: lower lobe of lung Qualified Code(s): J18.1 - Lobar pneumonia, unspecified organism Is this a current diagnosis for this admission?: Yes Plan: Continues to IV antibiotic (6) Hypertension Qualifiers: Hypertension type: essential hypertension Qualified Code(s): I10 - Essential (primary) hypertension Is this a current diagnosis for this admission?: Yes Plan: The patient and the Norvasc and as needed hydralazine - Time Time Spent with patient: 15-24 minutes Medications reviewed and adjusted accordingly: Yes Anticipated discharge: Home Within: Other - Inpatient Certification Medical Necessity: Need Close Monitoring Due to Risk of Patient Decompensation, Need For IV Fluids, Need for IV Antibiotics Post Hospital Care: D/C 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
[2017-06-01] MEDS: AMLODIPINE BESYLATE 5 MG TABLET PO SCH ×2 (10:10→17:25)
[2017-06-01] MEDS: CEFEPIME 1 GM/D5W RTU 1 GM/50 ML RTUPB IV SCH ×2 (10:10→22:49)
[2017-06-01] MEDS ORDERED: SODIUM BICARBONATE IV ONE ×2 (10:30)
[2017-06-01] MEDS ORDERED: 1/2 NORMAL SALINE IV ONE ×2 (10:30)
[2017-06-01] MEDS: INSULIN LISPRO 100 UNIT/ML 3 ML VIAL SUBCUT PRN ×3 (12:13→22:47)
[2017-06-01] MEDS: AZITHROMYCIN 500 MG in DEXTROSE 5%-WATER 250 ML IV SCH (12:14)
--- NOTE | 2017-06-01 17:11 | Operative Report ---
Operative Report DATE OF SURGERY: 06/01/17 PREOPERATIVE DIAGNOSIS: 1. Renal failure acute on chronic. 2. Diabetes mellitus type 2. 3. Hypertension. POSTOPERATIVE DIAGNOSIS: 1. Renal failure acute on chronic. 2. Diabetes mellitus type 2. 3. Hypertension. OPERATION: 1. Ultrasound evaluation of the right common femoral vein. 2. Insertion of temporary hemodialysis catheter via real-time ultrasound access in the right femoral vein. SURGEON: STEVE CARVAJAL MIRROR MACHINE FEEDER: None ANESTHESIA: Local TISSUE REMOVED OR ALTERED: Not applicable COMPLICATIONS: None ESTIMATED BLOOD LOSS: 5 mL. INTRAOPERATIVE FINDINGS: Of a deep placed femoral vein, ultrasound of great value and safe access. Satisfactory access again. There was was easy egress of blood and ingress of heparinized solution. PROCEDURE: After obtaining informed consent, the patient was positioned supine at bedside. The[ left groin] and adjacent areas were prepared with chlorhexidine and draped out with sterile linen. After the universal timeout the procedure commenced. A steriley sheathed ultrasound probe was used to evaluate the right femoral vein]. Local anesthesia was infiltrated adjacent to the probe. Access into the right femoral was accomplished using a micropuncture needle followed, by micropuncture wire and then with a micropuncture catheter. This was followed by introduction of a 0.035 guidewire, the skin opening was enlarged slightly, serially larger dilators were now placed followed by introduction of a triaysis catheter. All of these transitions were smooth. Each lumen was aspirated of blood and irrigated with heparinized solution. The catheter was now sutured to the skin using 3-0 nylon. A Bio A patch was now applied, followed by sterile dressings. Caps were placed on the end of the each of the lumens. The procedure concluded. Copies dictated operative report to Dr. Steve Blank MD.
[2017-06-01] MEDS ORDERED: EPOETIN ALFA INJ 20000 UNIT/1 ML VIAL (RENAL) IV PRN (18:08)
[2017-06-01] MEDS ORDERED: NORMAL SALINE 1000 ML 1,000 ML IV PRN (18:08)
--- NOTE | 2017-06-01 18:49 | PDOC PROGRESS REPORT ---
Subjective Progress Note for:: 06/01/17 Subjective:: I saw the patient early this morning and talked to him the need for initiation of hemodialysis today due to persistent severe metabolic acidosis with renal failure. I again explained to him the risk and benefits of doing hemodialysis. I told him that the severe acidosis can cause arrhythmia and ultimately . Initially this morning the patient was still telling me that he wants to think about it. I discussed this with Dr. Newell and made him aware to the patient would not consent to initiation of dialysis yet this morning. However after his current nurse continued to talk to him about the importance of doing hemodialysis today and possibly after discussing with his family, his nurse informed me that he finally agreed to do hemodialysis at around noon time today. So immediately we made arrangements for trialysis catheter placement by her surgeon. He underwent trialysis catheter placement with the help of Dr. Jung Blank this afternoon. Currently I am seeing him on initiation of hemodialysis. He feels comfortable and confirmed that he now wanted to do this so that he can feel better. He did not really have any much complaints. His blood pressure remains to be elevated. Physical Exam Vital Signs: Temp Pulse Resp BP Pulse Ox 97.1 F 98 18 173/81 H 98 06/01/17 17:36 06/01/17 17:36 06/01/17 17:36 06/01/17 17:36 06/01/17 17:36 Intake & Output 05/31/17 06/01/17 06/02/17 06:59 06:59 06:59 Intake Total 365 1155 Balance 365 1155 Weight 83.5 kg Vital signs at this time: Blood pressure 180/83, heart rate of 85, temperature 98.2, blood flow rate 250 mL/min, dialysate flow rate 500 mL/min. Exam: General appearance: PRESENT: no acute distress, cooperative, well-developed, well-nourished Head exam: PRESENT: atraumatic, normocephalic Eye exam: PRESENT: conjunctiva slightly pale, PERRLA. ABSENT: scleral icterus Neck exam: ABSENT: JVD Respiratory exam: PRESENT: Normal breath sounds. ABSENT: crackles, rales, rhonchi, unlabored, wheezes Cardiovascular exam: PRESENT: Regular rate rhythm -+S1, +S2. ABSENT: diastolic murmur, systolic murmur GI/Abdominal exam: PRESENT: normal bowel sounds, soft. ABSENT: guarding, mass, tenderness Extremities exam: ABSENT: No edema Neurological exam: PRESENT: alert, awake, oriented to person, place and time. Skin exam: PRESENT: dry, warm, Results Laboratory Results: 06/01/17 05:43 06/01/17 05:43 06/01/17 06/01/17 06/01/17 00:30 05:43 05:43 WBC 13.6 H RBC 3.06 L Hgb 8.9 L Hct 26.5 L MCV 87 MCH 29.1 MCHC 33.7 RDW 14.8 H Plt Count 209 Seg Neutrophils % Not Reportable Lymphocytes % Not Reportable Monocytes % Not Reportable Eosinophils % Not Reportable Basophils % Not Reportable Absolute Neutrophils Not Reportable Absolute Lymphocytes Not Reportable Absolute Monocytes Not Reportable Absolute Eosinophils Not Reportable Absolute Basophils Not Reportable Retic Count (auto) 0.94 Absolute Retic 0.029 Sodium 135.3 L Potassium 4.4 Chloride 105 Carbon Dioxide 11 L Anion Gap 19 BUN 100 H Creatinine 12.27 H Est GFR ( Amer) 5 L Est GFR (Non-Af Amer) 4 L Glucose 294 H Calcium 8.4 Phosphorus 6.5 H Magnesium 1.6 Iron 71.8 TIBC 154 L % Saturation 47 Ferritin 4660.00 H Vitamin B12 857.0 Folate 9.74 Urine Color STRAW Urine Appearance SLIGHTLY-CLOUDY Urine pH 5.0 Ur Specific [place] 1.007 Urine Protein >=500 H Urine Glucose (UA) >=500 H Urine Ketones NEGATIVE Urine Blood MODERATE H Urine Nitrite NEGATIVE Ur Leukocyte Esterase NEGATIVE Urine WBC (Auto) 5 Urine RBC (Auto) 38 Assessment & Plan - Diagnosis (1) LORENA (acute kidney injury) Is this a current diagnosis for this admission?: Yes Plan: We do not have any previous records to know what the patient's baseline kidney function is. At this time were considering that this is an acute kidney injury however there can be an possibility that the patient does have an underlying chronic kidney disease. In fact there is a high likelihood that the patient has progressive kidney disease at this point. Aside from possible acute infection there does not seem to be any other possible cause for an acute worsening of kidney function. Risk factors for chronic kidney disease include untreated and undiagnosed diabetes mellitus and hypertension. Clinically this patient seems to be doing fine without much complains of uremic symptoms yet. However with the severe metabolic acidosis, I recommended that the patient undergo an acute renal replacement therapy in the form of acute hemodialysis. Patient finally consented to do hemodialysis today. Initial labs today ordered showed that the patient has urine protein to creatinine ratio significant at 8.4, he also does have anemia and hyperphosphatemia which points to underlying chronic kidney disease. The proteinuria points to likelihood of diabetic nephropathy with contribution of hypertension in this patient. We will check patient for any paraproteinemia. We will do dialysis today for 2.5 hours, using the patient's right femoral trialysis catheter, with 2 potassium bath, blood flow rate of 250 mL per minute , dialysate flow rate of 500 mL per minute, ultrafiltration 1-2 L as tolerated, no heparin and Procrit with 20,000 units units during dialysis intravenously. We will monitor the patient very closely. We will also order hepatitis panel and PPD just in case the patient ends up requiring chronic dialysis treatment moving forward. (2) Metabolic acidosis Is this a current diagnosis for this admission?: Yes Plan: Due to acute kidney injury with possible underlying chronic kidney disease. I continue the patient's sodium bicarbonate drip earlier. We will discontinue it now that we are initiating hemodialysis. (3) Type 2 diabetes mellitus Qualifiers: Diabetes mellitus complication status: with unspecified complications Is this a current diagnosis for this admission?: Yes Plan: Defer management to Dr. Newell. (4) Hypertension Qualifiers: Hypertension type: essential hypertension Qualified Code(s): I10 - Essential (primary) hypertension Is this a current diagnosis for this admission?: Yes Plan: Patient was started on amlodipine. I think the patient may need more than one blood pressure medication in the next few days. Start clonidine 0.1 mg p.o. every 12 hours. (5) Anemia Qualifiers: Chronic kidney disease stage: unspecified stage Is this a current diagnosis for this admission?: Yes Plan: We will do anemia workup. Iron panel are acceptable. We will give Procrit 20, 000 units intravenously during dialysis today. (6) Hyperphosphatemia Is this a current diagnosis for this admission?: Yes Plan: Start PhosLo 667 mg 2 capsules with meals. (7) Pneumonia Qualifiers: Pneumonia type: due to unspecified organism Laterality: left Lung location: lower lobe of lung Qualified Code(s): J18.1 - Lobar pneumonia, unspecified organism Is this a current diagnosis for this admission?: Yes Plan: Currently IV antibiotics was initiated. - Notes Notes: Patient's case has been discussed repeatedly with Dr. Newell, his floor nurse and our dialysis nurse. - Time Time with patient: Greater than 35 minutes
[2017-06-01] MEDS ORDERED: TUBERCULIN,PURIF.PROT.DERIV. 5 TU/0.1 ML TEST 1 ML VIAL ID ONE (19:00)
[2017-06-01] MEDS ORDERED: HEPARIN SOD (PORCINE) 1,000 UNIT/ML 10 ML VIAL MC PRN (19:24)
[2017-06-01] MEDS: CLONIDINE HCL 0.1 MG TABLET PO SCH (22:50)
[2017-06-02 05:45] LABS: TRANSFERRIN 101 mg/dL (200-370)
[2017-06-02 06:09] LABS: ANION GAP 18 (5-19); CARBON DIOXIDE 18 mmol/L (22-30); CHLORIDE 104 mmol/L (98-107); CREATININE RESULT 8.84 mg/dL (0.52-1.25); GLUCOSE 173 mg/dL (75-110); MAGNESIUM 1.5 mg/dL (1.6-2.3); POTASSIUM 3.7 mmol/L (3.6-5.0); SODIUM 139.7 mmol/L (137-145)
[2017-06-02 06:11] LABS: ABSOLUTE EOSINOPHILS # (AUTO) 0.1 10^3/uL (0.0-0.6); ABSOLUTE LYMPHOCYTES (AUTO) 0.7 10^3/uL (0.5-4.7); ABSOLUTE NEUT (AUTO) 8.1 10^3/uL (1.7-8.2); BASOPHILS % (AUTO) 0.1 % (0-2); EOSINOPHILS % (AUTO) 0.8 % (0-6); HEMATOCRIT 25.3 % (37.9-51.0); HEMOGLOBIN 8.7 g/dL (13.5-17.0); HGB HCT DIFFERENCE 0.8; LYMPHOCYTES % (AUTO) 6.8 % (13-45); MEAN CORPUSCULAR HGB CONC 34.4 g/dL (32.0-36.0); MEAN CORPUSCULAR VOLUME 84 fl (80-97); MONOCYTES % (AUTO) 10.4 % (3-13); RED CELL DISTRIBUTION WIDTH 14.1 % (11.5-14.0); SEGMENTED NEUTROPHILS % (AUTO) 81.9 % (42-78); WHITE BLOOD COUNT 9.9 10^3/uL (4.0-10.5)
[2017-06-02] MEDS: HEPARIN SOD (PORCINE) 5,000 UNIT/ML 1 ML SYRINGE SUBCUT SCH ×3 (06:30→21:37)
[2017-06-02] MEDS: LANSOPRAZOLE 15 MG TAB.RAP.DR PO SCH (06:30)
[2017-06-02 07:05] LABS: BLOOD UREA NITROGEN 70 mg/dL (7-20)
[2017-06-02 07:14] LABS: PTH INTACT 747 pg/mL (15-65)
--- NOTE | 2017-06-02 08:16 | PDOC PROGRESS REPORT ---
Subjective Progress Note for:: 06/02/17 Subjective:: Patient is currently doing much better. Patient underwent for the hemodialysis yesterday. Patient's acidosis is also improving Patient's denied any chest pain without any shortness of breath Patient's denied any cough and no fever Physical Exam Vital Signs: Temp Pulse Resp BP Pulse Ox 99.1 F 94 21 H 161/79 H 100 06/02/17 07:31 06/02/17 07:31 06/02/17 07:31 06/02/17 07:31 06/02/17 07:31 Intake & Output 06/01/17 06/02/17 06/03/17 06:59 06:59 06:59 Intake Total 365 1205 Output Total 1200 Balance 365 5 Weight 83.5 kg 79.1 kg General appearance: PRESENT: no acute distress, well-developed, well-nourished Head exam: PRESENT: atraumatic, normocephalic Eye exam: PRESENT: conjunctiva pink, EOMI, PERRLA. ABSENT: scleral icterus Ear exam: PRESENT: normal external ear exam Mouth exam: PRESENT: moist, tongue midline Neck exam: PRESENT: full ROM. ABSENT: carotid bruit, JVD, lymphadenopathy, thyromegaly Respiratory exam: PRESENT: clear to auscultation lala Cardiovascular exam: PRESENT: RRR. ABSENT: diastolic murmur, rubs, systolic murmur Pulses: PRESENT: normal dorsalis pedis pul, +2 pedal pulses bilateral Vascular exam: PRESENT: normal capillary refill GI/Abdominal exam: PRESENT: normal bowel sounds, soft. ABSENT: distended, guarding, mass, organolmegaly, rebound, tenderness Rectal exam: PRESENT: deferred Extremities exam: ABSENT: pedal edema Musculoskeletal exam: PRESENT: ambulatory Neurological exam: PRESENT: alert, awake, oriented to person, oriented to place , oriented to time, oriented to situation, CN II-XII grossly intact. ABSENT: motor sensory deficit Psychiatric exam: PRESENT: appropriate affect, normal mood. ABSENT: homicidal ideation, suicidal ideation Skin exam: PRESENT: dry, intact, warm. ABSENT: cyanosis, rash Results Laboratory Results: 06/02/17 04:04 06/02/17 04:04 06/01/17 06/01/17 06/02/17 05:43 05:43 04:04 WBC 9.9 RBC 3.00 L Hgb 8.7 L Hct 25.3 L MCV 84 MCH 29.0 MCHC 34.4 RDW 14.1 H Plt Count 207 Seg Neutrophils % 81.9 H Lymphocytes % 6.8 L Monocytes % 10.4 Eosinophils % 0.8 Basophils % 0.1 Absolute Neutrophils 8.1 Absolute Lymphocytes 0.7 Absolute Monocytes 1.0 Absolute Eosinophils 0.1 Absolute Basophils 0.0 Sodium Potassium Chloride Carbon Dioxide Anion Gap BUN Creatinine Est GFR ( Amer) Est GFR (Non-Af Amer) Glucose Calcium Magnesium Transferrin 101 L Ferritin 4660.00 H PTH Intact 747 H 06/02/17 04:04 WBC RBC Hgb Hct MCV MCH MCHC RDW Plt Count Seg Neutrophils % Lymphocytes % Monocytes % Eosinophils % Basophils % Absolute Neutrophils Absolute Lymphocytes Absolute Monocytes Absolute Eosinophils Absolute Basophils Sodium 139.7 Potassium 3.7 Chloride 104 Carbon Dioxide 18 L Anion Gap 18 BUN 70 H D Creatinine 8.84 H Est GFR ( Amer) 7 L Est GFR (Non-Af Amer) 6 L Glucose 173 H Calcium 8.0 L Magnesium 1.5 L Transferrin Ferritin PTH Intact Assessment & Plan - Diagnosis (1) LORENA (acute kidney injury) Is this a current diagnosis for this admission?: Yes Plan: Currently started on hemodialysis per nephrology and currently doing well (2) Metabolic acidosis Is this a current diagnosis for this admission?: Yes Plan: After the hemodialysis all improving (3) Type 2 diabetes mellitus Qualifiers: Diabetes mellitus complication status: with unspecified complications Is this a current diagnosis for this admission?: Yes Plan: Consider start the patient on the Tradjenta if the patient have a part be insurance approval otherwise will start the patient on the glipizideDischarge (4) Fever Qualifiers: Encounter type: initial encounter Is this a current diagnosis for this admission?: Yes Plan: [place] all resolved due to the pneumonia (5) Pneumonia Qualifiers: Pneumonia type: due to unspecified organism Laterality: left Lung location: lower lobe of lung Qualified Code(s): J18.1 - Lobar pneumonia, unspecified organism Is this a current diagnosis for this admission?: Yes Plan: We will repeat the chest x-ray and if is all clearing the pneumonia start the patient on the p.o. antibiotic (6) Hypertension Qualifiers: Hypertension type: essential hypertension Qualified Code(s): I10 - Essential (primary) hypertension Is this a current diagnosis for this admission?: Yes Plan: The patient and the Norvasc and as needed hydralazine - Time Time Spent with patient: 15-24 minutes Medications reviewed and adjusted accordingly: Yes Anticipated discharge: Home Within: within 24 hours - Inpatient Certification Medical Necessity: Need Close Monitoring Due to Risk of Patient Decompensation, Need for IV Antibiotics Post Hospital Care: D/C [facility] Documentation - Plan Summary Plan Summary: Discussed with the patient and the on the bedside and coordinate care with the nephrology and very extensive discussion with the son and other family member yesterday regarding the patient's current conditions Will get a chest x-ray today switch IV to the p.o. antibiotic discussed with the nursing staff to consult the telecommunications network planner regarding the how to do the outpatients dialysis coverage
--- NOTE | 2017-06-02 09:36 | RADIOLOGY REPORT (SQ) ---
EXAM DESCRIPTION: CHEST PA/LAT COMPLETED DATE/TIME: 06/02/2017 9:15 am REASON FOR STUDY: pnemonia COMPARISON: 05/30/2017 chest films EXAM PARAMETERS: NUMBER OF VIEWS: two views TECHNIQUE: Digital Frontal and Lateral radiographic views of the chest acquired. RADIATION DOSE: NA LIMITATIONS: none FINDINGS: LUNGS AND PLEURA: Partial clearing of the left upper lobe pneumonia compared to 05/30/2017. There is still increased parenchymal density at the left lung apex which should be followed to radi ographic clearing. Right lung well inflated and free of focal infiltrates. No pleural effusion. No pneumothorax. MEDIASTINUM AND HILAR STRUCTURES: No masses or contour abnormalities. HEART AND VASCULAR STRUCTURES: Heart normal size. No evidence for failure. BONES: No acute findings. HARDWARE: None in the chest. OTHER: No other significant finding. IMPRESSION: Partial clearing of the left upper lobe pneumonia compared to 05/30/2017. There is persi stent left apical parenchymal density. This should be followed to radiographic clearing to exclude u nderlying lung mass TECHNICAL DOCUMENTATION: JOB ID: [id number] [employer]- All Rights Reserved
[2017-06-02] MEDS: AMLODIPINE BESYLATE 5 MG TABLET PO SCH ×2 (10:52→21:37)
[2017-06-02] MEDS: CALCIUM ACETATE 667 MG CAPSULE PO SCH ×3 (10:53→17:28)
[2017-06-02] MEDS: CLONIDINE HCL 0.1 MG TABLET PO SCH ×2 (10:53→21:37)
[2017-06-02] MEDS: INSULIN LISPRO 100 UNIT/ML 3 ML VIAL SUBCUT PRN ×3 (10:53→21:37)
[2017-06-02] MEDS: CEFEPIME 1 GM/D5W RTU 1 GM/50 ML RTUPB IV SCH (10:54)
[2017-06-02] MEDS: AZITHROMYCIN 500 MG in DEXTROSE 5%-WATER 250 ML IV SCH (13:26)
--- NOTE | 2017-06-02 14:59 | Physician Advisory Note ---
Physician Advisor ProgressNote .: Pursuant to the plan for [facility], I have reviewed the medical record for this patient. Physician Advisor Statement: Please consider documentin. "LLL pneumonia, suspect ___" [gram-negative? gram-positive? ... - tx'ing with Zithromax & Cefepime] - Any pneumonia needs type of organism specified. 2. "Acute metabolic acidosis due to LORENA" 3. "Mild hyponatremia, suspect due to ___" Thanks! CK
[2017-06-02] MEDS ORDERED: ACETAMINOPHEN 325 MG TABLET PO PRN (15:00)
[2017-06-02] MEDS ORDERED: INFLUENZA ADLT QUAD (36MOS+) 2017-18 VAC 0.5 ML SYR IM PRN (15:00)
--- NOTE | 2017-06-02 17:39 | PDOC PROGRESS REPORT ---
Subjective Progress Note for:: 06/02/17 Subjective:: Patient said he feels better today. He denies shortness of breath nor coughing. His blood pressure is better controlled today. He still makes some urine but not quantified. He did tolerate his first hemodialysis treatment yesterday. He does not have any other complaints. Physical Exam Vital Signs: Temp Pulse Resp BP Pulse Ox 97.3 F 80 16 141/73 H 95 06/02/17 15:31 06/02/17 16:25 06/02/17 16:25 06/02/17 15:31 06/02/17 16:25 Intake & Output 06/01/17 06/02/17 06/03/17 06:59 06:59 06:59 Intake Total 365 1205 118 Output Total 1200 Balance 365 5 118 Weight 83.5 kg 79.1 kg Exam: General appearance: PRESENT: no acute distress, cooperative, well-developed, well-nourished Head exam: PRESENT: atraumatic, normocephalic Eye exam: PRESENT: conjunctiva pale, PERRLA. ABSENT: scleral icterus Neck exam: ABSENT: JVD Respiratory exam: PRESENT: Normal breath sounds. ABSENT: crackles, rales, rhonchi, unlabored, wheezes Cardiovascular exam: PRESENT: Regular rate rhythm -+S1, +S2. ABSENT: diastolic murmur, systolic murmur GI/Abdominal exam: PRESENT: normal bowel sounds, soft. ABSENT: guarding, mass, tenderness Extremities exam: ABSENT: No edema Neurological exam: PRESENT: alert, awake, oriented to person, place and time. Skin exam: PRESENT: dry, warm, Results Laboratory Results: 06/02/17 04:04 06/02/17 04:04 06/01/17 06/02/17 06/02/17 05:43 04:04 04:04 WBC 9.9 RBC 3.00 L Hgb 8.7 L Hct 25.3 L MCV 84 MCH 29.0 MCHC 34.4 RDW 14.1 H Plt Count 207 Seg Neutrophils % 81.9 H Lymphocytes % 6.8 L Monocytes % 10.4 Eosinophils % 0.8 Basophils % 0.1 Absolute Neutrophils 8.1 Absolute Lymphocytes 0.7 Absolute Monocytes 1.0 Absolute Eosinophils 0.1 Absolute Basophils 0.0 Sodium 139.7 Potassium 3.7 Chloride 104 Carbon Dioxide 18 L Anion Gap 18 BUN 70 H D Creatinine 8.84 H Est GFR ( Amer) 7 L Est GFR (Non-Af Amer) 6 L Glucose 173 H Calcium 8.0 L Magnesium 1.5 L Transferrin 101 L PTH Intact 747 H Impressions: Chest X-Ray 06/02/17 00:00 IMPRESSION: Partial clearing of the left upper lobe pneumonia compared to 2016. There is persistent left apical parenchymal density. This should be followed to radiographic clearing to exclude underlying lung mass Assessment & Plan - Diagnosis (1) LORENA (acute kidney injury) Is this a current diagnosis for this admission?: Yes Plan: We do not have any previous records to know what the patient's baseline kidney function is. At this time were considering that this is an acute kidney injury however there can be an possibility that the patient does have an underlying chronic kidney disease. In fact there is a high likelihood that the patient has progressive kidney disease at this point. Aside from possible acute infection there does not seem to be any other possible cause for an acute worsening of kidney function. Risk factors for chronic kidney disease include untreated and undiagnosed diabetes mellitus and hypertension. Clinically this patient seems to be doing fine without much complains of uremic symptoms yet. He tolerated dialysis yesterday and course was unremarkable. Initial labs today ordered showed that the patient has urine protein to creatinine ratio significant at 8.4, he also does have anemia and hyperphosphatemia which points to underlying chronic kidney disease. The proteinuria points to likelihood of diabetic nephropathy with contribution of hypertension in this patient. We will check patient for any paraproteinemia. We will plan for another hemodialysis treatment tomorrow. We will then monitor the patient's kidney function over the weekend. I feel strongly that this is actually a chronic progressive kidney disease and not only an acute kidney injury. So there is a high likelihood that the patient would need chronic hemodialysis treatment after this hospitalization. We will decide on further need for outpatient hemodialysis treatment early next week and plan for PermCath placement and arrangement for outpatient hemodialysis at [facility]. (2) Metabolic acidosis Is this a current diagnosis for this admission?: Yes Plan: Due to acute kidney injury with possible underlying chronic kidney disease. Improved after dialysis but still suboptimal. (3) Type 2 diabetes mellitus Qualifiers: Diabetes mellitus complication status: with unspecified complications Is this a current diagnosis for this admission?: Yes (4) Hypertension Qualifiers: Hypertension type: essential hypertension Qualified Code(s): I10 - Essential (primary) hypertension Is this a current diagnosis for this admission?: Yes Plan: Patient was started on amlodipine. I started clonidine 0.1 mg p.o. every 12 hours. Currently improved. (5) Anemia Qualifiers: Chronic kidney disease stage: unspecified stage Is this a current diagnosis for this admission?: Yes Plan: Iron panel are acceptable. We will give Procrit 20,000 units intravenously during dialysis as needed. (6) Hyperphosphatemia Is this a current diagnosis for this admission?: Yes Plan: Start PhosLo 667 mg 2 capsules with meals. (7) Pneumonia Qualifiers: Pneumonia type: due to unspecified organism Laterality: left Lung location: lower lobe of lung Qualified Code(s): J18.1 - Lobar pneumonia, unspecified organism Is this a current diagnosis for this admission?: Yes Plan: Currently IV antibiotics was initiated. (8) Secondary hyperparathyroidism (of renal origin) Is this a current diagnosis for this admission?: Yes Plan: We will give Zemplar intravenously during dialysis. - Time Time with patient: 15-25 minutes
[2017-06-02] MEDS ORDERED: FOLIC ACID/VITAMIN B COMP W-C CAPSULE PO ONE (18:00)
[2017-06-02] MEDS ORDERED: MAGNESIUM OXIDE 400 MG TABLET PO ONE (18:30)
[2017-06-03] MEDS ORDERED: HEPARIN SOD (PORCINE) 1,000 UNIT/ML 10 ML VIAL IV PRN (05:00)
[2017-06-03] MEDS ORDERED: EPOETIN ALFA INJ 20000 UNIT/1 ML VIAL (RENAL) IV PRN (05:00)
[2017-06-03] MEDS ORDERED: NORMAL SALINE 1000 ML 1,000 ML IV PRN (05:00)
[2017-06-03] MEDS ORDERED: PARICALCITOL INJ/PF 5 MCG/1 ML SDV IV PRN (05:00)
[2017-06-03] MEDS: HEPARIN SOD (PORCINE) 5,000 UNIT/ML 1 ML SYRINGE SUBCUT SCH ×3 (05:14→21:38)
[2017-06-03] MEDS: LANSOPRAZOLE 15 MG TAB.RAP.DR PO SCH (05:14)
[2017-06-03 05:31] LABS: HEMOGLOBIN 8.2 g/dL (13.5-17.0); HGB HCT DIFFERENCE 0.6; MEAN CORPUSCULAR HEMOGLOBIN 29.3 pg (27.0-33.4); MEAN CORPUSCULAR HGB CONC 34.3 g/dL (32.0-36.0); MEAN CORPUSCULAR VOLUME 85 fl (80-97); RED BLOOD COUNT 2.81 10^6/uL (4.35-5.55); RED CELL DISTRIBUTION WIDTH 14.6 % (11.5-14.0); WHITE BLOOD COUNT 10.1 10^3/uL (4.0-10.5)
[2017-06-03 05:42] LABS: ANION GAP 16 (5-19); BLOOD UREA NITROGEN 87 mg/dL (7-20); CALCIUM 7.6 mg/dL (8.4-10.2); CARBON DIOXIDE 18 mmol/L (22-30); CHLORIDE 102 mmol/L (98-107); CREATININE RESULT 10.81 mg/dL (0.52-1.25); GLUCOSE 246 mg/dL (75-110); MAGNESIUM 1.5 mg/dL (1.6-2.3); POTASSIUM 3.6 mmol/L (3.6-5.0)
[2017-06-03 06:09] LABS: BASOPHILS % (MANUAL) 0 % (0-2); EOSINOPHILS % (MANUAL) 2 % (0-6); LYMPHOCYTES % (MANUAL) 13 % (13-45); TOTAL CELLS COUNTED 100
[2017-06-03 06:11] LABS: ANISOCYTOSIS SLIGHT; OVALOCYTES SLIGHT; PLATELET CLUMPS PRESENT; POIKILOCYTOSIS SLIGHT
[2017-06-03] MEDS: INSULIN LISPRO 100 UNIT/ML 3 ML VIAL SUBCUT PRN ×4 (06:18→21:37)
--- NOTE | 2017-06-03 08:13 | EKG REPORT ---
SEVERITY:- ABNORMAL ECG - SINUS RHYTHM LEFT AXIS DEVIATION LVH WITH SECONDARY REPOLARIZATION ABNORMALITY BORDERLINE PROLONGED QT INTERVAL : Confirmed by: Silviano Caceres MD 03-Jun-2017 08:12:46
--- NOTE | 2017-06-03 08:30 | PDOC PROGRESS REPORT ---
Subjective Progress Note for:: 06/03/17 Subjective:: Patient is currently doing fair. Patient's denied any chest pain without any shortness of the breath Recent is currently on hemodialysis scheduled today [facility] the [facility] patients going to stay in a weekend and will continues to monitor the patient's kidney functions and anemia and reevaluate on a Tuesday for further dialysis Physical Exam Vital Signs: Temp Pulse Resp BP Pulse Ox 97.6 F 87 19 142/79 H 100 06/03/17 07:37 06/03/17 07:37 06/03/17 07:37 06/03/17 07:37 06/03/17 07:37 Intake & Output 06/02/17 06/03/17 06/04/17 06:59 06:59 06:59 Intake Total 1205 1510 Output Total 1200 Balance 5 1510 Weight 79.1 kg 80.3 kg General appearance: PRESENT: no acute distress, well-developed, well-nourished Head exam: PRESENT: atraumatic, normocephalic Eye exam: PRESENT: conjunctiva pink, EOMI, PERRLA. ABSENT: scleral icterus Ear exam: PRESENT: normal external ear exam Mouth exam: PRESENT: moist, tongue midline Neck exam: PRESENT: full ROM. ABSENT: carotid bruit, JVD, lymphadenopathy, thyromegaly Respiratory exam: PRESENT: clear to auscultation lala Cardiovascular exam: PRESENT: RRR. ABSENT: diastolic murmur, rubs, systolic murmur Pulses: PRESENT: normal dorsalis pedis pul, +2 pedal pulses bilateral Vascular exam: PRESENT: normal capillary refill GI/Abdominal exam: PRESENT: normal bowel sounds, soft. ABSENT: distended, guarding, mass, organolmegaly, rebound, tenderness Rectal exam: PRESENT: deferred Extremities exam: ABSENT: pedal edema Musculoskeletal exam: PRESENT: ambulatory Neurological exam: PRESENT: alert, awake, oriented to person, oriented to place , oriented to time, oriented to situation, CN II-XII grossly intact. ABSENT: motor sensory deficit Psychiatric exam: PRESENT: appropriate affect, normal mood. ABSENT: homicidal ideation, suicidal ideation Skin exam: PRESENT: dry, intact, warm. ABSENT: cyanosis, rash Results Laboratory Results: 06/03/17 04:54 06/03/17 04:54 10/13/17 10/13/17 04:54 04:54 WBC 10.1 RBC 2.81 L Hgb 8.2 L Hct 24.0 L MCV 85 MCH 29.3 MCHC 34.3 RDW 14.6 H Plt Count 208 Seg Neutrophils % Not Reportable Lymphocytes % Not Reportable Monocytes % Not Reportable Eosinophils % Not Reportable Basophils % Not Reportable Absolute Neutrophils Not Reportable Absolute Lymphocytes Not Reportable Absolute Monocytes Not Reportable Absolute Eosinophils Not Reportable Absolute Basophils Not Reportable Sodium 136.0 L Potassium 3.6 Chloride 102 Carbon Dioxide 18 L Anion Gap 16 BUN 87 H Creatinine 10.81 H Est GFR ( Amer) 6 L Est GFR (Non-Af Amer) 5 L Glucose 246 H Calcium 7.6 L Magnesium 1.5 L Impressions: Chest X-Ray 06/02/17 00:00 IMPRESSION: Partial clearing of the left upper lobe pneumonia compared to 2016. There is persistent left apical parenchymal density. This should be followed to radiographic clearing to exclude underlying lung mass Assessment & Plan - Diagnosis (1) LORENA (acute kidney injury) Is this a current diagnosis for this admission?: Yes Plan: Currently on hemodialysis (2) Metabolic acidosis Is this a current diagnosis for this admission?: Yes Plan: Due to the above conditions currently all resolved (3) Type 2 diabetes mellitus Qualifiers: Diabetes mellitus complication status: with unspecified complications Is this a current diagnosis for this admission?: Yes Plan: The patient on the glipizide and continues a sliding scale (4) Fever Qualifiers: Encounter type: initial encounter Is this a current diagnosis for this admission?: Yes Plan: The pneumonia currently all resolved (5) Pneumonia Qualifiers: Pneumonia type: due to unspecified organism Laterality: left Lung location: lower lobe of lung Qualified Code(s): J18.1 - Lobar pneumonia, unspecified organism Is this a current diagnosis for this admission?: Yes Plan: Continues to antibiotic (6) Hypertension Qualifiers: Hypertension type: essential hypertension Qualified Code(s): I10 - Essential (primary) hypertension Is this a current diagnosis for this admission?: Yes Plan: Continues current medication - Time Time Spent with patient: 15-24 minutes Medications reviewed and adjusted accordingly: Yes Anticipated discharge: Home Within: Other - Inpatient Certification Medical Necessity: Need Close Monitoring Due to Risk of Patient Decompensation, Need for IV Antibiotics Post Hospital Care: D/C Wrapper [facility] Documentation - Plan Summary Plan Summary: Discussed with the patient and the about current conditions and patients going to stay in the weekend in the hospital
[2017-06-03] MEDS: MAGNESIUM OXIDE 400 MG TABLET PO SCH (12:09)
[2017-06-03] MEDS: GLIPIZIDE XL 2.5 MG TAB.ER.24 PO SCH ×2 (12:09→16:30)
[2017-06-03] MEDS: AMLODIPINE BESYLATE 5 MG TABLET PO SCH ×2 (12:10→21:38)
[2017-06-03] MEDS: CALCIUM ACETATE 667 MG CAPSULE PO SCH ×3 (12:10→16:30)
[2017-06-03] MEDS: CLONIDINE HCL 0.1 MG TABLET PO SCH ×2 (12:10→21:38)
[2017-06-03] MEDS: AZITHROMYCIN 500 MG in DEXTROSE 5%-WATER 250 ML IV SCH (12:11)
[2017-06-03] MEDS: CEFEPIME 1 GM/D5W RTU 1 GM/50 ML RTUPB IV SCH (12:18)
--- NOTE | 2017-06-03 14:07 | PDOC PROGRESS REPORT ---
Subjective Progress Note for:: 06/03/17 Subjective:: I saw the patient during dialysis at around 8:30 AM this morning. Patient is doing well and does not have any complaints. He reports that he is feeling " excellent". He tolerated the whole dialysis well this morning. His blood pressure is improved. Physical Exam Vital Signs: Temp Pulse Resp BP Pulse Ox 97.3 F 98 20 169/92 H 100 06/03/17 12:42 06/03/17 12:42 06/03/17 12:42 06/03/17 12:42 06/03/17 12:42 Intake & Output 06/02/17 06/03/17 06/04/17 06:59 06:59 06:59 Intake Total 1205 1510 Output Total 1200 1200 Balance 5 1510 -1200 Weight 79.1 kg 80.3 kg Vitals during dialysis this morning: Blood pressure 167/82, heart rate of 77, blood flow rate of 250 mL/min, dialysate flow rate 500 mL/min. Exam: General appearance: PRESENT: no acute distress, cooperative, well-developed, well-nourished Head exam: PRESENT: atraumatic, normocephalic Eye exam: PRESENT: conjunctiva slightly pale, PERRLA. ABSENT: scleral icterus Neck exam: ABSENT: JVD Respiratory exam: PRESENT: Normal breath sounds. ABSENT: crackles, rales, rhonchi, unlabored, wheezes Cardiovascular exam: PRESENT: Regular rate rhythm -+S1, +S2. ABSENT: diastolic murmur, systolic murmur GI/Abdominal exam: PRESENT: normal bowel sounds, soft. ABSENT: guarding, mass, tenderness Extremities exam: ABSENT: No edema Neurological exam: PRESENT: alert, awake, oriented to person, place and time. Skin exam: PRESENT: dry, warm, Results Laboratory Results: 06/03/17 04:54 06/03/17 04:54 06/03/17 06/03/17 04:54 04:54 WBC 10.1 RBC 2.81 L Hgb 8.2 L Hct 24.0 L MCV 85 MCH 29.3 MCHC 34.3 RDW 14.6 H Plt Count 208 Seg Neutrophils % Not Reportable Lymphocytes % Not Reportable Monocytes % Not Reportable Eosinophils % Not Reportable Basophils % Not Reportable Absolute Neutrophils Not Reportable Absolute Lymphocytes Not Reportable Absolute Monocytes Not Reportable Absolute Eosinophils Not Reportable Absolute Basophils Not Reportable Sodium 136.0 L Potassium 3.6 Chloride 102 Carbon Dioxide 18 L Anion Gap 16 BUN 87 H Creatinine 10.81 H Est GFR ( Amer) 6 L Est GFR (Non-Af Amer) 5 L Glucose 246 H Calcium 7.6 L Magnesium 1.5 L 06/01/17 00:30 Clean Catch Midstream Urine Culture - Final NO GROWTH 2 DAYS 06/01/17 00:25 Sputum Gram Stain - Final 06/01/17 00:25 Sputum Sputum Culture - Final NORMAL BENJI Impressions: Chest X-Ray 06/02/17 00:00 IMPRESSION: Partial clearing of the left upper lobe pneumonia compared to 2016. There is persistent left apical parenchymal density. This should be followed to radiographic clearing to exclude underlying lung mass Assessment & Plan - Diagnosis (1) LORENA (acute kidney injury) Is this a current diagnosis for this admission?: Yes Plan: We do not have any previous records to know what the patient's baseline kidney function is. At this time were considering that this is an acute kidney injury however there can be an possibility that the patient does have an underlying chronic kidney disease. In fact there is a high likelihood that the patient has progressive kidney disease at this point. Aside from possible acute infection there does not seem to be any other possible cause for an acute worsening of kidney function. Risk factors for chronic kidney disease include untreated and undiagnosed diabetes mellitus and hypertension. Clinically this patient seems to be doing fine without much complains of uremic symptoms yet. He tolerated dialysis yesterday and course was unremarkable. Initial labs today ordered showed that the patient has urine protein to creatinine ratio significant at 8.4, he also does have anemia and hyperphosphatemia which points to underlying chronic kidney disease. The proteinuria points to likelihood of diabetic nephropathy with contribution of hypertension in this patient. We will check patient for any paraproteinemia. We will then monitor the patient's kidney function over the weekend. I feel strongly that this is actually a chronic progressive kidney disease and not only an acute kidney injury. So there is a high likelihood that the patient would need chronic hemodialysis treatment after this hospitalization. We will decide on further need for outpatient hemodialysis treatment early next week and plan for PermCath placement and arrangement for outpatient hemodialysis at [facility]. We did will do dialysis today for 3 hours, using the patient's trialysis catheter, with 3 potassium bath, blood flow rate of 250 mL per minute, dialysate flow rate of 500 mL per minute, ultrafiltration 1-2 L as tolerated, no heparin and Procrit with 20,000 units during dialysis intravenously. Patient is also given 3 calcium bath. (2) Metabolic acidosis Is this a current diagnosis for this admission?: Yes Plan: Due to acute kidney injury with possible underlying chronic kidney disease. Improved after dialysis but still suboptimal. (3) Type 2 diabetes mellitus Qualifiers: Diabetes mellitus complication status: with unspecified complications Is this a current diagnosis for this admission?: Yes Plan: Defer management to Dr. Newell. (4) Hypertension Qualifiers: Hypertension type: essential hypertension Qualified Code(s): I10 - Essential (primary) hypertension Is this a current diagnosis for this admission?: Yes Plan: Patient was started on amlodipine. I started clonidine 0.1 mg p.o. every 12 hours. Currently improved. (5) Anemia Qualifiers: Chronic kidney disease stage: unspecified stage Is this a current diagnosis for this admission?: Yes Plan: Iron panel are acceptable. We will give Procrit 20,000 units intravenously during dialysis as needed. (6) Hyperphosphatemia Is this a current diagnosis for this admission?: Yes Plan: Start PhosLo 667 mg 2 capsules with meals. (7) Pneumonia Qualifiers: Pneumonia type: due to unspecified organism Laterality: left Lung location: lower lobe of lung Qualified Code(s): J18.1 - Lobar pneumonia, unspecified organism Is this a current diagnosis for this admission?: Yes Plan: Currently IV antibiotics was initiated. (8) Secondary hyperparathyroidism (of renal origin) Is this a current diagnosis for this admission?: Yes Plan: We will give Zemplar intravenously during dialysis. - Time Time with patient: 15-25 minutes
[2017-06-03 15:38] LABS: HEPATITIS C QUANTITATION HCV Not Detected IU/mL (.)
[2017-06-03] MEDS: FOLIC ACID/VITAMIN B COMP W-C CAPSULE PO SCH (16:30)
[2017-06-04] MEDS: HEPARIN SOD (PORCINE) 5,000 UNIT/ML 1 ML SYRINGE SUBCUT SCH ×3 (06:40→21:33)
[2017-06-04] MEDS: LANSOPRAZOLE 15 MG TAB.RAP.DR PO SCH (06:41)
[2017-06-04] MEDS: CALCIUM ACETATE 667 MG CAPSULE PO SCH ×3 (08:03→17:21)
[2017-06-04] MEDS: GLIPIZIDE XL 2.5 MG TAB.ER.24 PO SCH ×2 (08:03→17:21)
[2017-06-04] MEDS: INSULIN LISPRO 100 UNIT/ML 3 ML VIAL SUBCUT PRN ×4 (08:04→23:48)
[2017-06-04] MEDS: CEFEPIME 1 GM/D5W RTU 1 GM/50 ML RTUPB IV SCH (09:49)
[2017-06-04] MEDS: AMLODIPINE BESYLATE 5 MG TABLET PO SCH ×2 (09:49→21:33)
[2017-06-04] MEDS: MAGNESIUM OXIDE 400 MG TABLET PO SCH (09:49)
[2017-06-04] MEDS: CLONIDINE HCL 0.1 MG TABLET PO SCH ×2 (09:49→21:33)
[2017-06-04] MEDS: AZITHROMYCIN 500 MG in DEXTROSE 5%-WATER 250 ML IV SCH (09:50)
--- NOTE | 2017-06-04 17:08 | PDOC PROGRESS REPORT ---
Subjective Progress Note for:: 06/04/17 Subjective:: Patient was seen by the bedside, he was admitted for the management of pneumonia , acute kidney injury probable chronic kidney disease. He denies any complaint today. Physical Exam Vital Signs: Temp Pulse Resp BP Pulse Ox 98.0 F 78 18 140/64 H 100 06/04/17 16:35 06/04/17 16:35 06/04/17 16:35 06/04/17 16:35 06/04/17 16:35 Intake & Output 06/03/17 06/04/17 06/05/17 06:59 06:59 06:59 Intake Total 1510 1699 658 Output Total 1200 Balance 1510 499 658 Weight 80.3 kg 78.4 kg General appearance: PRESENT: no acute distress, well-developed, well-nourished Head exam: PRESENT: atraumatic, normocephalic Eye exam: PRESENT: conjunctiva pink, EOMI, PERRLA Ear exam: PRESENT: normal external ear exam Mouth exam: PRESENT: moist, tongue midline Neck exam: PRESENT: full ROM Respiratory exam: PRESENT: clear to auscultation lala Cardiovascular exam: PRESENT: RRR, +S1, +S2 Pulses: PRESENT: normal dorsalis pedis pul, +2 pedal pulses bilateral Vascular exam: PRESENT: normal capillary refill GI/Abdominal exam: PRESENT: normal bowel sounds, soft Rectal exam: PRESENT: deferred Neurological exam: PRESENT: alert, awake, oriented to person, oriented to place , oriented to time, oriented to situation, CN II-XII grossly intact. ABSENT: motor sensory deficit Psychiatric exam: PRESENT: appropriate affect, normal mood Skin exam: PRESENT: dry, intact, warm. ABSENT: cyanosis, rash Results Laboratory Results: 06/03/17 04:54 06/03/17 04:54 Impressions: Chest X-Ray 06/02/17 00:00 IMPRESSION: Partial clearing of the left upper lobe pneumonia compared to 2016. There is persistent left apical parenchymal density. This should be followed to radiographic clearing to exclude underlying lung mass Assessment & Plan - Diagnosis (1) LORENA (acute kidney injury) Is this a current diagnosis for this admission?: Yes (2) Anemia Qualifiers: Chronic kidney disease stage: unspecified stage Is this a current diagnosis for this admission?: Yes (3) Fever Qualifiers: Encounter type: initial encounter Is this a current diagnosis for this admission?: Yes (4) Hyperphosphatemia Is this a current diagnosis for this admission?: Yes (5) Hypertension Qualifiers: Hypertension type: essential hypertension Qualified Code(s): I10 - Essential (primary) hypertension Is this a current diagnosis for this admission?: Yes (6) Metabolic acidosis Is this a current diagnosis for this admission?: Yes (7) Pneumonia Qualifiers: Pneumonia type: due to unspecified organism Laterality: left Lung location: lower lobe of lung Qualified Code(s): J18.1 - Lobar pneumonia, unspecified organism Is this a current diagnosis for this admission?: Yes (8) Secondary hyperparathyroidism (of renal origin) Is this a current diagnosis for this admission?: Yes - Plan Summary Plan Summary: Continue IV antibiotic and other treatment
[2017-06-04] MEDS: FOLIC ACID/VITAMIN B COMP W-C CAPSULE PO SCH (17:21)
[2017-06-05] MEDS: LANSOPRAZOLE 15 MG TAB.RAP.DR PO SCH (06:12)
[2017-06-05] MEDS: HEPARIN SOD (PORCINE) 5,000 UNIT/ML 1 ML SYRINGE SUBCUT SCH ×2 (06:12→16:56)
[2017-06-05 06:21] LABS: ANION GAP 14 (5-19); BLOOD UREA NITROGEN 63 mg/dL (7-20); CALCIUM 8.6 mg/dL (8.4-10.2); CARBON DIOXIDE 23 mmol/L (22-30); CHLORIDE 98 mmol/L (98-107); CREATININE RESULT 8.78 mg/dL (0.52-1.25); GLUCOSE 188 mg/dL (75-110); POTASSIUM 3.4 mmol/L (3.6-5.0); SODIUM 134.5 mmol/L (137-145)
[2017-06-05] MEDS: CALCIUM ACETATE 667 MG CAPSULE PO SCH ×3 (08:12→16:50)
[2017-06-05] MEDS: INSULIN LISPRO 100 UNIT/ML 3 ML VIAL SUBCUT PRN ×3 (08:13→16:53)
[2017-06-05] MEDS: GLIPIZIDE XL 2.5 MG TAB.ER.24 PO SCH ×2 (08:13→16:50)
[2017-06-05] MEDS: CEFEPIME 1 GM/D5W RTU 1 GM/50 ML RTUPB IV SCH (09:07)
[2017-06-05] MEDS: CLONIDINE HCL 0.1 MG TABLET PO SCH ×2 (09:08→22:15)
[2017-06-05] MEDS: MAGNESIUM OXIDE 400 MG TABLET PO SCH (09:08)
[2017-06-05] MEDS: AMLODIPINE BESYLATE 5 MG TABLET PO SCH ×2 (09:08→22:14)
[2017-06-05] MEDS: AZITHROMYCIN 500 MG in DEXTROSE 5%-WATER 250 ML IV SCH (09:08)
[2017-06-05] MEDS ORDERED: POTASSIUM CHLORIDE 10 MEQ TABLET.SA PO ONE (14:45)
[2017-06-05] MEDS: FOLIC ACID/VITAMIN B COMP W-C CAPSULE PO SCH (16:50)
[2017-06-05] MEDS ORDERED: CEFAZOLIN 1 GM/D5W RTU 1 GM/50 ML RTUPB IV SCH (19:00)
--- NOTE | 2017-06-05 20:58 | PDOC PROGRESS REPORT ---
Subjective Progress Note for:: 06/05/17 Subjective:: Patient was seen by the bedside, there is no new complaints Physical Exam Vital Signs: Temp Pulse Resp BP Pulse Ox 97.4 F 80 20 157/71 H 99 06/05/17 19:22 06/05/17 19:22 06/05/17 19:22 06/05/17 19:22 06/05/17 19:22 Intake & Output 06/04/17 06/05/17 06/06/17 06:59 06:59 06:59 Intake Total 1699 1977 718 Output Total 1200 350 200 Balance 499 1627 518 Weight 78.4 kg 79.4 kg General appearance: PRESENT: no acute distress, well-developed, well-nourished Head exam: PRESENT: atraumatic, normocephalic Eye exam: PRESENT: conjunctiva pink, EOMI, PERRLA Ear exam: PRESENT: normal external ear exam Mouth exam: PRESENT: moist, tongue midline Neck exam: PRESENT: full ROM Respiratory exam: PRESENT: clear to auscultation lala Cardiovascular exam: PRESENT: RRR, +S1, +S2 Vascular exam: PRESENT: normal capillary refill GI/Abdominal exam: PRESENT: normal bowel sounds, soft Rectal exam: PRESENT: deferred Neurological exam: PRESENT: alert, CN II-XII grossly intact Psychiatric exam: PRESENT: appropriate affect, normal mood Skin exam: PRESENT: dry, intact, warm. ABSENT: cyanosis, rash Results Laboratory Results: 06/03/17 04:54 06/05/17 05:28 06/05/17 05:28 Sodium 134.5 L Potassium 3.4 L Chloride 98 Carbon Dioxide 23 Anion Gap 14 BUN 63 H Creatinine 8.78 H Est GFR ( Amer) 7 L Est GFR (Non-Af Amer) 6 L Glucose 188 H Calcium 8.6 05/31/17 19:46 Blood Blood Culture - Final NO GROWTH IN 5 DAYS Impressions: Chest X-Ray 06/02/17 00:00 IMPRESSION: Partial clearing of the left upper lobe pneumonia compared to 2016. There is persistent left apical parenchymal density. This should be followed to radiographic clearing to exclude underlying lung mass Assessment & Plan - Diagnosis (1) LORENA (acute kidney injury) Is this a current diagnosis for this admission?: Yes (2) Anemia Qualifiers: Chronic kidney disease stage: unspecified stage Is this a current diagnosis for this admission?: Yes (3) Fever Qualifiers: Encounter type: initial encounter Is this a current diagnosis for this admission?: Yes (4) Hyperphosphatemia Is this a current diagnosis for this admission?: Yes (5) Hypertension Qualifiers: Hypertension type: essential hypertension Qualified Code(s): I10 - Essential (primary) hypertension Is this a current diagnosis for this admission?: Yes (6) Metabolic acidosis Is this a current diagnosis for this admission?: Yes (7) Pneumonia Qualifiers: Pneumonia type: due to unspecified organism Laterality: left Lung location: lower lobe of lung Qualified Code(s): J18.1 - Lobar pneumonia, unspecified organism Is this a current diagnosis for this admission?: Yes (8) Secondary hyperparathyroidism (of renal origin) Is this a current diagnosis for this admission?: Yes
[2017-06-06] MEDS ORDERED: PARICALCITOL INJ/PF 5 MCG/1 ML SDV IV PRN (05:00)
[2017-06-06] MEDS ORDERED: NORMAL SALINE 1000 ML 1,000 ML IV PRN (05:00)
[2017-06-06] MEDS ORDERED: HEPARIN SOD (PORCINE) 1,000 UNIT/ML 10 ML VIAL IV PRN (05:00)
[2017-06-06] MEDS ORDERED: EPOETIN ALFA INJ 20000 UNIT/1 ML VIAL (RENAL) IV PRN (05:00)
[2017-06-06] MEDS: LANSOPRAZOLE 15 MG TAB.RAP.DR PO SCH (05:15)
[2017-06-06 05:34] LABS: HEMATOCRIT 24.3 % (37.9-51.0); HGB HCT DIFFERENCE -0.3; MEAN CORPUSCULAR HEMOGLOBIN 28.7 pg (27.0-33.4); MEAN CORPUSCULAR VOLUME 87 fl (80-97); RED CELL DISTRIBUTION WIDTH 13.9 % (11.5-14.0); WHITE BLOOD COUNT 12.8 10^3/uL (4.0-10.5)
[2017-06-06 05:37] LABS: ANION GAP 16 (5-19); BLOOD UREA NITROGEN 67 mg/dL (7-20); CARBON DIOXIDE 21 mmol/L (22-30); CHLORIDE 94 mmol/L (98-107); CREATININE RESULT 9.09 mg/dL (0.52-1.25); GLUCOSE 248 mg/dL (75-110); SODIUM 131.1 mmol/L (137-145)
[2017-06-06 06:08] LABS: BAND NEUTROPHILS % (MANUAL) 1 % (3-5); BASOPHILS % (MANUAL) 0 % (0-2); EOSINOPHILS % (MANUAL) 2 % (0-6); LYMPHOCYTES % (MANUAL) 13 % (13-45); TOTAL CELLS COUNTED 100
[2017-06-06 06:10] LABS: ANISOCYTOSIS SLIGHT; HYPOCHROMASIA SLIGHT; OVALOCYTES SLIGHT; POIKILOCYTOSIS SLIGHT; TOXIC GRANULATION 1+
--- NOTE | 2017-06-06 08:50 | PDOC PROGRESS REPORT ---
Subjective Progress Note for:: 06/06/17 Subjective:: Patient is currently doing well patient's denied any chest pain denied any cough denied any shortness of the breath. Patient's currently on hemodialysis discussed with the nephrology going for the permacath placement Physical Exam Vital Signs: Temp Pulse Resp BP Pulse Ox 98.6 F 81 16 142/68 H 99 06/06/17 04:06 06/06/17 07:00 06/06/17 04:06 06/06/17 04:06 06/06/17 04:06 Intake & Output 06/05/17 06/06/17 06/07/17 06:59 06:59 06:59 Intake Total 1977 738 Output Total 350 200 Balance 1627 538 Weight 79.4 kg 80.2 kg General appearance: PRESENT: no acute distress, well-developed, well-nourished Head exam: PRESENT: atraumatic, normocephalic Eye exam: PRESENT: conjunctiva pink, EOMI, PERRLA. ABSENT: scleral icterus Ear exam: PRESENT: normal external ear exam Mouth exam: PRESENT: moist, tongue midline Neck exam: PRESENT: full ROM. ABSENT: carotid bruit, JVD, lymphadenopathy, thyromegaly Respiratory exam: PRESENT: clear to auscultation lala Cardiovascular exam: PRESENT: RRR. ABSENT: diastolic murmur, rubs, systolic murmur Pulses: PRESENT: normal dorsalis pedis pul, +2 pedal pulses bilateral Vascular exam: PRESENT: normal capillary refill GI/Abdominal exam: PRESENT: normal bowel sounds, soft. ABSENT: distended, guarding, mass, organolmegaly, rebound, tenderness Rectal exam: PRESENT: deferred Extremities exam: ABSENT: pedal edema Musculoskeletal exam: PRESENT: ambulatory Neurological exam: PRESENT: alert, awake, oriented to person, oriented to place , oriented to time, oriented to situation, CN II-XII grossly intact. ABSENT: motor sensory deficit Psychiatric exam: PRESENT: appropriate affect, normal mood. ABSENT: homicidal ideation, suicidal ideation Skin exam: PRESENT: dry, intact, warm. ABSENT: cyanosis, rash Results Laboratory Results: 06/06/17 04:58 06/06/17 04:58 06/06/17 06/06/17 04:58 04:58 WBC 12.8 H RBC 2.80 L Hgb 8.0 L Hct 24.3 L MCV 87 MCH 28.7 MCHC 33.0 RDW 13.9 Plt Count 262 Seg Neutrophils % Not Reportable Lymphocytes % Not Reportable Monocytes % Not Reportable Eosinophils % Not Reportable Basophils % Not Reportable Absolute Neutrophils Not Reportable Absolute Lymphocytes Not Reportable Absolute Monocytes Not Reportable Absolute Eosinophils Not Reportable Absolute Basophils Not Reportable Sodium 131.1 L Potassium 4.0 Chloride 94 L Carbon Dioxide 21 L Anion Gap 16 BUN 67 H Creatinine 9.09 H Est GFR ( Amer) 7 L Est GFR (Non-Af Amer) 6 L Glucose 248 H Calcium 9.0 05/31/17 19:46 Blood Blood Culture - Final NO GROWTH IN 5 DAYS Impressions: Chest X-Ray 06/02/17 00:00 IMPRESSION: Partial clearing of the left upper lobe pneumonia compared to 2016. There is persistent left apical parenchymal density. This should be followed to radiographic clearing to exclude underlying lung mass Assessment & Plan - Diagnosis (1) LORENA (acute kidney injury) Is this a current diagnosis for this admission?: Yes Plan: on hd per nephrology (2) Metabolic acidosis Is this a current diagnosis for this admission?: Yes (3) Type 2 diabetes mellitus Qualifiers: Diabetes mellitus complication status: with unspecified complications Is this a current diagnosis for this admission?: Yes Plan: Will get the dietary consult some diabetic education's (4) Fever Qualifiers: Encounter type: initial encounter Is this a current diagnosis for this admission?: Yes Plan: The pneumonia currently all resolved (5) Pneumonia Qualifiers: Pneumonia type: due to unspecified organism Laterality: left Lung location: lower lobe of lung Qualified Code(s): J18.1 - Lobar pneumonia, unspecified organism Is this a current diagnosis for this admission?: Yes Plan: We will repeat the chest x-ray and switch to the p.o. antibiotic (6) Hypertension Qualifiers: Hypertension type: essential hypertension Qualified Code(s): I10 - Essential (primary) hypertension Is this a current diagnosis for this admission?: Yes Plan: Continues current medication - Time Time Spent with patient: 15-24 minutes Medications reviewed and adjusted accordingly: Yes Anticipated discharge: Home Within: within 24 hours - Inpatient Certification Medical Necessity: Need Close Monitoring Due to Risk of Patient Decompensation, Need for IV Antibiotics Post Hospital Care: D/C Manager [facility] Documentation - Plan Summary Plan Summary: Discussed with the nephrology patient is going for the permacath placement and according to the nephrology patient's current discharge later
[2017-06-06] MEDS ORDERED: MIDAZOLAM 2 MG/2 ML INJ ONE (11:08)
[2017-06-06] MEDS ORDERED: FENTANYL CITRATE INJ/PF 100 MCG/2 ML AMPUL ONE (11:08)
[2017-06-06] MEDS ORDERED: PROPOFOL INJ 200 MG/20 ML VIAL IV ONE (11:09)
[2017-06-06] MEDS ORDERED: BUPIVACAINE HCL 0.25 % INJ/PF (2.5 MG/1 ML) 30 ML VIAL ONE (13:00)
[2017-06-06] MEDS ORDERED: BACITRACIN INJ 50,000 UNIT VIAL ONE (13:00)
[2017-06-06] MEDS ORDERED: LIDOCAINE 0.5% INJ-PF (5 MG/ML) 50 ML SDV ONE (13:00)
[2017-06-06] MEDS: AZITHROMYCIN 500 MG in DEXTROSE 5%-WATER 250 ML IV SCH (13:06)
[2017-06-06] MEDS: CEFEPIME 1 GM/D5W RTU 1 GM/50 ML RTUPB IV SCH (13:07)
[2017-06-06] MEDS ORDERED: CEFAZOLIN INJ 1 GM VIAL ONE (13:58)
[2017-06-06] MEDS ORDERED: OXYCODONE-ACETAMINOPHEN 5-325 MG TABLET PO PRN ×3 (14:58→16:15)
[2017-06-06] MEDS ORDERED: DIPHENHYDRAMINE HCL 50 MG/ML VIAL IV PRN (14:58)
[2017-06-06] MEDS ORDERED: PROMETHAZINE HCL INJ 25 MG/1 ML VIAL IV PRN ×2 (14:58)
[2017-06-06] MEDS ORDERED: MEPERIDINE HCL/PF INJ 25 MG/1 ML DISP.SYRIN IV PRN (14:58)
[2017-06-06] MEDS ORDERED: FENTANYL CITRATE INJ/PF 100 MCG/2 ML AMPUL IV PRN ×3 (14:58)
[2017-06-06] MEDS ORDERED: MORPHINE SULFATE 10 MG/ML INJ IV PRN (14:58)
--- NOTE | 2017-06-06 16:02 | Operative Report ---
Operative Report DATE OF SURGERY: 06/06/17 PREOPERATIVE DIAGNOSIS: 1. Renal failure acute on chronic. 2. Diabetes mellitus type 2. 3. Hypertension. POSTOPERATIVE DIAGNOSIS: 1. Renal failure acute on chronic. 2. Diabetes mellitus type 2. 3. Hypertension. OPERATION: 1. Ultrasound evaluation of the right internal jugular vein. 2. Insertion of permacatheter catheter via real-time ultrasound access in the right internal jugular vein. 3. Angiogram and interpretation. SURGEON: STEVE CARVAJAL SURFACE ROOM SHOP OPTICIAN: None ANESTHESIA: LMAC TISSUE REMOVED OR ALTERED: Not applicable COMPLICATIONS: None ESTIMATED BLOOD LOSS: 5 mL. INTRAOPERATIVE FINDINGS: Of a satisfactory right internal jugular vein, ultrasound of great value and safe access. Satisfactory access again. There was was easy egress of blood and ingress of heparinized solution. The catheter actually had its tip down in the hepatic system and was withdrawn to within the right atrium. The right atrium is on the small side and one of the 2 ports is a little difficult to put back on. This may be difficult to amend because of the patient's relatively small sized right atrium. PROCEDURE: After obtaining informed consent, the patient was taken to the [Fire Supervisor] and positioned supine. The [right neck] and chest were prepared with chlorhexidine and draped out with sterile linen. After the " universal timeout", in which it was verified that the patient continued to receive antibiotic, the procedure commenced. A steriley sheathed ultrasound probe was used to evaluate the [ right internal jugular] vein. Local anesthesia was infiltrated adjacent to the probe. Access into the [right internal jugular] vein was obtained using a micropuncture needle, followed by micropuncture wire and then a micropuncture catheter. This was followed by introduction of a 0.035 guidewire the tip of which was placed down into the inferior vena cava . A 23 cm long [split catheter] was now positioned over the chest and an exit site marked and locally anesthetized ,the catheter was placed between the 2 incisions. Proximally, the catheter was now positioned using a peel-away sheath, after dilation. Easy ingress of heparinized solution and egress of blood obtained through both ports. A completion angiogram was done by injecting contrast. The findings were as dictated. The chest incision was extended through 3 cm allowing for pulling back catheter 3 cm. It was closed with interrupted 3-0 PDS to the subcutaneous tissues and continuous 4-0 Monocryl to the skin. Reinforced with Steri-Strips. The neck incision was now closed using interrupted 3-0 PDS to the subcutaneous tissues, the catheter was anchored at the exit site using 3-0 PDS. A Biopatch device was now placed adjacent to the catheter. Dressings were applied and the procedure concluded. Exposure time: [1.3 minutes]. Exposure: [13.1 mg] per centimeters squared. Contrast amount: [18 mL] of [id number] low osmolality. Copies of the dictated operative report for Dr. Steve Blank MD.concluded. Copies of the dictated operative report for Dr. Steve Blank MD.
--- NOTE | 2017-06-06 16:03 | RADIOLOGY REPORT (SQ) ---
EXAM DESCRIPTION: CHEST SINGLE VIEW COMPLETED DATE/TIME: 06/06/2017 3:50 pm REASON FOR STUDY: S/P PERMCATH COMPARISON: 06/02/2017 EXAM PARAMETERS: NUMBER OF VIEWS: One view. TECHNIQUE: Single frontal radiographic view of the chest acquired. RADIATION DOSE: NA LIMITATIONS: None. FINDINGS: LUNGS AND PLEURA: No opacities, masses or pneumothorax. No pleural effusion. MEDIASTINUM AND HILAR STRUCTURES: No masses. Contour normal. HEART AND VASCULAR STRUCTURES: Heart normal in size. Normal vasculature. BONES: No acute findings. HARDWARE: A dual-lumen catheter is present on the right. OTHER: No other significant finding. IMPRESSION: A dual-lumen catheter is in good position. TECHNICAL DOCUMENTATION: JOB ID: [id number]
--- NOTE | 2017-06-06 16:05 | RADIOLOGY REPORT (SQ) ---
EXAM DESCRIPTION: FLUORO/CV PLACEMENT COMPLETED DATE/TIME: 06/06/2017 3:56 pm REASON FOR STUDY: PERMCATH COMPARISON: AP chest 06/02/2017 FLUOROSCOPY TIME: 1.3 minutes 4 digital C-arm images saved to PACS. TECHNIQUE: Intra-operative images acquired during surgical procedure to evaluate progress. NUMBER OF IMAGES: Cine fluoroscopic images. LIMITATIONS: None. FINDINGS: Intra procedural imaging and fluoro during placement of a right subclavian central venous dialysis catheter by Dr. Blank. Please see the operative report for further details IMPRESSION: Intra procedural imaging and fluoro COMMENT: Quality ID [id number]: Final reports for procedures using fluoroscopy that document radiation exp osure indices, or exposure time and number of fluorographic images (if radiation exposure indices are not available) Please consult full operative report of the attending physician for description of the procedure. TECHNICAL DOCUMENTATION: JOB ID: [id number] [employer]- All Rights Reserved
[2017-06-06] MEDS: FOLIC ACID/VITAMIN B COMP W-C CAPSULE PO SCH (17:54)
[2017-06-06] MEDS: GLIPIZIDE XL 2.5 MG TAB.ER.24 PO SCH (17:54)
[2017-06-06] MEDS: CALCIUM ACETATE 667 MG CAPSULE PO SCH ×2 (17:54→18:47)
[2017-06-06] MEDS: MAGNESIUM OXIDE 400 MG TABLET PO SCH (17:54)
[2017-06-06] MEDS: AMLODIPINE BESYLATE 5 MG TABLET PO SCH ×2 (17:55→22:00)
[2017-06-06] MEDS: CLONIDINE HCL 0.1 MG TABLET PO SCH ×2 (17:56→22:02)
--- NOTE | 2017-06-06 18:23 | PDOC PROGRESS REPORT ---
Subjective Progress Note for:: 06/06/17 Subjective:: I saw the patient is morning at around 8:25 AM while he is receiving hemodialysis treatment. He was doing fine and has no complaints currently. He said he feels pretty good. He was a little anxious about the PermCath placement that took place later this afternoon. Other than that his blood pressure seems to be better. He does not have any other complaints. Physical Exam Vital Signs: Temp Pulse Resp BP Pulse Ox 98.1 F 90 18 142/69 H 100 06/06/17 16:52 06/06/17 16:52 06/06/17 16:52 06/06/17 16:52 06/06/17 16:52 Intake & Output 06/05/17 06/06/17 06/07/17 06:59 06:59 06:59 Intake Total 3950 235 5768 Output Total 944 052 0491 Balance 1627 538 -100 Weight 79.4 kg 80.2 kg Vitals during dialysis: Blood pressure 171/80, heart rate of 90, blood flow rate of 250 mL/min, dialysate flow rate of 500 mL/min. Exam: General appearance: PRESENT: no acute distress, cooperative, well-developed, well-nourished Head exam: PRESENT: atraumatic, normocephalic Eye exam: PRESENT: conjunctiva pink, PERRLA. ABSENT: scleral icterus Neck exam: ABSENT: JVD Respiratory exam: PRESENT: Normal breath sounds. ABSENT: crackles, rales, rhonchi, unlabored, wheezes Cardiovascular exam: PRESENT: Regular rate rhythm -+S1, +S2. ABSENT: diastolic murmur, systolic murmur GI/Abdominal exam: PRESENT: normal bowel sounds, soft. ABSENT: guarding, mass, tenderness Extremities exam: ABSENT: No edema Neurological exam: PRESENT: alert, awake, oriented to person, place and time. Skin exam: PRESENT: dry, warm, Results Laboratory Results: 06/06/17 04:58 06/06/17 04:58 06/06/17 06/06/17 04:58 04:58 WBC 12.8 H RBC 2.80 L Hgb 8.0 L Hct 24.3 L MCV 87 MCH 28.7 MCHC 33.0 RDW 13.9 Plt Count 262 Seg Neutrophils % Not Reportable Lymphocytes % Not Reportable Monocytes % Not Reportable Eosinophils % Not Reportable Basophils % Not Reportable Absolute Neutrophils Not Reportable Absolute Lymphocytes Not Reportable Absolute Monocytes Not Reportable Absolute Eosinophils Not Reportable Absolute Basophils Not Reportable Sodium 131.1 L Potassium 4.0 Chloride 94 L Carbon Dioxide 21 L Anion Gap 16 BUN 67 H Creatinine 9.09 H Est GFR ( Amer) 7 L Est GFR (Non-Af Amer) 6 L Glucose 248 H Calcium 9.0 05/31/17 19:46 Blood Blood Culture - Final NO GROWTH IN 5 DAYS Impressions: Chest X-Ray 06/06/17 00:00 IMPRESSION: A dual-lumen catheter is in good position. Guidance Fluoroscopy 06/06/17 00:00 IMPRESSION: Intra procedural imaging and fluoro Assessment & Plan - Diagnosis (1) Chronic kidney disease, stage V requiring chronic dialysis Is this a current diagnosis for this admission?: Yes Plan: Initially thought to be secondary to acute kidney injury due to absence of any previous records since the patient has not seen a doctor for 10 years. However considering the patient's course here in the hospital I think the patient does have end-stage renal disease now requiring chronic hemodialysis treatment. He has nephrotic range proteinuria consistent with diabetic nephropathy with contribution of hypertensive nephrosclerosis. Protein electrophoresis is still pending. His kidney function has not really significantly improved despite dialysis since last week. His kidney function is still at the level of stage V. He has all the complications of chronic kidney disease including anemia, hyperphosphatemia, initial hyperkalemia, and metabolic acidosis. We did dialysis today for 3 hours, using the patient's right groin trialysis catheter, with 3 potassium bath, blood flow rate of 250 mL per minute, dialysate flow rate of 500 mL per minute, ultrafiltration 1-2 L as tolerated, no heparin and Procrit with 20,000 units during dialysis intravenously. Patient will have PermCath placement this afternoon care of Dr. Blank. We are awaiting acceptance of the patient at [facility] outpatient hemodialysis center for continued chronic dialysis treatment. Once the patient is accepted by [facility] I think patient can be discharged home. Explained the plan to the patient and the need for chronic dialysis treatment. Patient understood. (2) Metabolic acidosis Is this a current diagnosis for this admission?: Yes Plan: Due to acute kidney injury with possible underlying chronic kidney disease. Improved after dialysis but still suboptimal. (3) Type 2 diabetes mellitus Qualifiers: Diabetes mellitus complication status: with unspecified complications Is this a current diagnosis for this admission?: Yes Plan: Defer management to Dr. Newell. (4) Hypertension Qualifiers: Hypertension type: essential hypertension Qualified Code(s): I10 - Essential (primary) hypertension Is this a current diagnosis for this admission?: Yes Plan: Patient was started on amlodipine. I started clonidine 0.1 mg p.o. every 12 hours. Currently improved. (5) Anemia Qualifiers: Chronic kidney disease stage: unspecified stage Is this a current diagnosis for this admission?: Yes Plan: Iron panel are acceptable. We will give Procrit 20,000 units intravenously during dialysis as needed. (6) Hyperphosphatemia Is this a current diagnosis for this admission?: Yes Plan: Start PhosLo 667 mg 2 capsules with meals. (7) Pneumonia Qualifiers: Pneumonia type: due to unspecified organism Laterality: left Lung location: lower lobe of lung Qualified Code(s): J18.1 - Lobar pneumonia, unspecified organism Is this a current diagnosis for this admission?: Yes (8) Secondary hyperparathyroidism (of renal origin) Is this a current diagnosis for this admission?: Yes Plan: We will give Zemplar intravenously during dialysis. - Notes Notes: Discussed plan with Dr. Newell and the patient. - Time Time with patient: 15-25 minutes
[2017-06-06] MEDS: INSULIN LISPRO 100 UNIT/ML 3 ML VIAL SUBCUT PRN ×2 (18:49→22:00)
[2017-06-07] MEDS: LANSOPRAZOLE 15 MG TAB.RAP.DR PO SCH (05:05)
[2017-06-07 06:40] LABS: HEMATOCRIT 23.8 % (37.9-51.0); HGB HCT DIFFERENCE -0.1; MEAN CORPUSCULAR HEMOGLOBIN 28.8 pg (27.0-33.4); MEAN CORPUSCULAR HGB CONC 33.1 g/dL (32.0-36.0); MEAN CORPUSCULAR VOLUME 87 fl (80-97); RED BLOOD COUNT 2.73 10^6/uL (4.35-5.55); RED CELL DISTRIBUTION WIDTH 13.7 % (11.5-14.0); WHITE BLOOD COUNT 13.6 10^3/uL (4.0-10.5)
[2017-06-07 06:44] LABS: HEMOGLOBIN 7.9 g/dL (13.5-17.0)
[2017-06-07 06:50] LABS: ANION GAP 13 (5-19); BLOOD UREA NITROGEN 51 mg/dL (7-20); CALCIUM 9.2 mg/dL (8.4-10.2); CARBON DIOXIDE 25 mmol/L (22-30); CHLORIDE 98 mmol/L (98-107); CREATININE RESULT 8.02 mg/dL (0.52-1.25); GLUCOSE 137 mg/dL (75-110); POTASSIUM 3.9 mmol/L (3.6-5.0); SODIUM 136.1 mmol/L (137-145)
[2017-06-07 07:37] LABS: BASOPHILS % (MANUAL) 0 % (0-2); EOSINOPHILS % (MANUAL) 4 % (0-6); LYMPHOCYTES % (MANUAL) 4 % (13-45); TOTAL CELLS COUNTED 100
[2017-06-07 07:38] LABS: OVALOCYTES SLIGHT; POLYCHROMASIA SLIGHT; TOXIC GRANULATION SLIGHT
[2017-06-07] MEDS: GLIPIZIDE XL 2.5 MG TAB.ER.24 PO SCH ×2 (08:21→17:28)
[2017-06-07] MEDS: CALCIUM ACETATE 667 MG CAPSULE PO SCH ×3 (08:22→17:28)
--- NOTE | 2017-06-07 09:05 | PDOC PROGRESS REPORT ---
Subjective Progress Note for:: 06/07/17 Subjective:: Patient is currently doing much better. Patient underwent for the permacath placements Patient's denied any chest pain denied any shortness of the breath Physical Exam Vital Signs: Temp Pulse Resp BP Pulse Ox 98.6 F 95 18 165/72 H 100 06/07/17 08:11 06/07/17 08:11 06/07/17 08:11 06/07/17 08:11 06/07/17 08:11 Intake & Output 06/06/17 06/07/17 06/08/17 06:59 06:59 06:59 Intake Total 738 1401 Output Total 200 1310 Balance 538 91 Weight 80.2 kg 79.3 kg General appearance: PRESENT: no acute distress, well-developed, well-nourished Head exam: PRESENT: atraumatic, normocephalic Eye exam: PRESENT: conjunctiva pink, EOMI, PERRLA. ABSENT: scleral icterus Ear exam: PRESENT: normal external ear exam Mouth exam: PRESENT: moist, tongue midline Neck exam: PRESENT: full ROM. ABSENT: carotid bruit, JVD, lymphadenopathy, thyromegaly Respiratory exam: PRESENT: clear to auscultation lala Cardiovascular exam: PRESENT: RRR. ABSENT: diastolic murmur, rubs, systolic murmur Pulses: PRESENT: normal dorsalis pedis pul, +2 pedal pulses bilateral Vascular exam: PRESENT: normal capillary refill GI/Abdominal exam: PRESENT: normal bowel sounds, soft. ABSENT: distended, guarding, mass, organolmegaly, rebound, tenderness Rectal exam: PRESENT: deferred Extremities exam: ABSENT: pedal edema Musculoskeletal exam: PRESENT: ambulatory Neurological exam: PRESENT: alert, awake, oriented to person, oriented to place , oriented to time, oriented to situation, CN II-XII grossly intact. ABSENT: motor sensory deficit Psychiatric exam: PRESENT: appropriate affect, normal mood. ABSENT: homicidal ideation, suicidal ideation Skin exam: PRESENT: dry, intact, warm. ABSENT: cyanosis, rash Results Laboratory Results: 06/07/17 05:49 06/07/17 05:49 06/07/17 06/07/17 05:49 05:49 WBC 13.6 H RBC 2.73 L Hgb 7.9 L Hct 23.8 L MCV 87 MCH 28.8 MCHC 33.1 RDW 13.7 Plt Count 273 Seg Neutrophils % Not Reportable Lymphocytes % Not Reportable Monocytes % Not Reportable Eosinophils % Not Reportable Basophils % Not Reportable Absolute Neutrophils Not Reportable Absolute Lymphocytes Not Reportable Absolute Monocytes Not Reportable Absolute Eosinophils Not Reportable Absolute Basophils Not Reportable Sodium 136.1 L Potassium 3.9 Chloride 98 Carbon Dioxide 25 Anion Gap 13 BUN 51 H Creatinine 8.02 H Est GFR ( Amer) 8 L Est GFR (Non-Af Amer) 7 L Glucose 137 H Calcium 9.2 Impressions: Chest X-Ray 06/06/17 00:00 IMPRESSION: A dual-lumen catheter is in good position. Guidance Fluoroscopy 06/06/17 00:00 IMPRESSION: Intra procedural imaging and fluoro Assessment & Plan - Diagnosis (1) LORENA (acute kidney injury) Is this a current diagnosis for this admission?: Yes Plan: Currently on hemodialysis (2) Metabolic acidosis Is this a current diagnosis for this admission?: Yes Plan: All resolved (3) Type 2 diabetes mellitus Qualifiers: Diabetes mellitus complication status: with unspecified complications Is this a current diagnosis for this admission?: Yes Plan: Continues current medications (4) Fever Qualifiers: Encounter type: initial encounter Is this a current diagnosis for this admission?: Yes (5) Pneumonia Qualifiers: Pneumonia type: due to unspecified organism Laterality: left Lung location: lower lobe of lung Qualified Code(s): J18.1 - Lobar pneumonia, unspecified organism Is this a current diagnosis for this admission?: Yes Plan: Start the patient on a p.o. antibiotic (6) Hypertension Qualifiers: Hypertension type: essential hypertension Qualified Code(s): I10 - Essential (primary) hypertension Is this a current diagnosis for this admission?: Yes Plan: Continues current medication (7) Anemia Qualifiers: Chronic kidney disease stage: unspecified stage Is this a current diagnosis for this admission?: Yes Plan: Transfused 1 unit of the blood - Time Time Spent with patient: 15-24 minutes Medications reviewed and adjusted accordingly: Yes Anticipated discharge: Home Within: within 24 hours - Inpatient Certification Medical Necessity: Need Close Monitoring Due to Risk of Patient Decompensation Post Hospital Care: D/C Intelligence Clerk Documentation - Plan Summary Plan Summary: Discussed with the patient's and the family regarding the patient's current conditions
[2017-06-07] MEDS ORDERED: AZITHROMYCIN 250 MG TABLET PO SCH (10:00)
[2017-06-07] MEDS: AMLODIPINE BESYLATE 5 MG TABLET PO SCH ×2 (10:19→22:54)
[2017-06-07] MEDS: CLONIDINE HCL 0.1 MG TABLET PO SCH ×2 (10:20→22:55)
[2017-06-07] MEDS: CEFEPIME 1 GM/D5W RTU 1 GM/50 ML RTUPB IV SCH (10:20)
[2017-06-07] MEDS: MAGNESIUM OXIDE 400 MG TABLET PO SCH (10:20)
[2017-06-07 17:11] LABS: HEMATOCRIT 30.8 % (37.9-51.0); HGB HCT DIFFERENCE -0.2; MEAN CORPUSCULAR HEMOGLOBIN 29.2 pg (27.0-33.4); MEAN CORPUSCULAR HGB CONC 33.1 g/dL (32.0-36.0); MEAN CORPUSCULAR VOLUME 88 fl (80-97); RED BLOOD COUNT 3.49 10^6/uL (4.35-5.55); RED CELL DISTRIBUTION WIDTH 14.5 % (11.5-14.0); WHITE BLOOD COUNT 13.5 10^3/uL (4.0-10.5)
[2017-06-07 17:13] LABS: HEMOGLOBIN 10.2 g/dL (13.5-17.0)
[2017-06-07] MEDS: INSULIN LISPRO 100 UNIT/ML 3 ML VIAL SUBCUT PRN ×2 (17:25→22:54)
[2017-06-07] MEDS: FOLIC ACID/VITAMIN B COMP W-C CAPSULE PO SCH (17:28)
[2017-06-07 17:49] LABS: BAND NEUTROPHILS % (MANUAL) 1 % (3-5); BASOPHILS % (MANUAL) 0 % (0-2); EOSINOPHILS % (MANUAL) 3 % (0-6); LYMPHOCYTES % (MANUAL) 8 % (13-45); TOTAL CELLS COUNTED 100
[2017-06-07 17:51] LABS: ANISOCYTOSIS SLIGHT; POIKILOCYTOSIS SLIGHT; POLYCHROMASIA SLIGHT; STOMATOCYTES SLIGHT; TOXIC GRANULATION SLIGHT
--- NOTE | 2017-06-07 19:59 | PDOC PROGRESS REPORT ---
Subjective Progress Note for:: 06/07/17 Subjective:: Patient is doing well and stable. said that the patient seems to be eating better. Patient denies any chest pains no shortness of breath no any other complaints. Physical Exam Vital Signs: Temp Pulse Resp BP Pulse Ox 98.0 F 81 18 148/66 H 99 06/07/17 15:49 06/07/17 15:49 06/07/17 15:49 06/07/17 15:49 06/07/17 15:49 Intake & Output 06/06/17 06/07/17 06/08/17 06:59 06:59 06:59 Intake Total 738 1401 1768 Output Total 200 1310 0 Balance 742 38 3900 Weight 80.2 kg 79.3 kg Exam: General appearance: PRESENT: no acute distress, cooperative, well-developed, well-nourished Head exam: PRESENT: atraumatic, normocephalic Eye exam: PRESENT: conjunctiva pink, PERRLA. ABSENT: scleral icterus Neck exam: ABSENT: JVD; PermCath in place in the right side of the chest Respiratory exam: PRESENT: Normal breath sounds. ABSENT: crackles, rales, rhonchi, unlabored, wheezes Cardiovascular exam: PRESENT: Regular rate rhythm -+S1, +S2. ABSENT: diastolic murmur, systolic murmur GI/Abdominal exam: PRESENT: normal bowel sounds, soft. Right groin trialysis catheter still present. ABSENT: guarding, mass, tenderness Extremities exam: ABSENT: No edema Neurological exam: PRESENT: alert, awake, oriented to person, place and time. Skin exam: PRESENT: dry, warm, Results Laboratory Results: 06/07/17 16:54 06/07/17 05:49 06/07/17 06/07/17 06/07/17 05:49 05:49 09:27 WBC 13.6 H RBC 2.73 L Hgb 7.9 L Hct 23.8 L MCV 87 MCH 28.8 MCHC 33.1 RDW 13.7 Plt Count 273 Seg Neutrophils % Not Reportable Lymphocytes % Not Reportable Monocytes % Not Reportable Eosinophils % Not Reportable Basophils % Not Reportable Absolute Neutrophils Not Reportable Absolute Lymphocytes Not Reportable Absolute Monocytes Not Reportable Absolute Eosinophils Not Reportable Absolute Basophils Not Reportable Sodium 136.1 L Potassium 3.9 Chloride 98 Carbon Dioxide 25 Anion Gap 13 BUN 51 H Creatinine 8.02 H Est GFR ( Amer) 8 L Est GFR (Non-Af Amer) 7 L Glucose 137 H Calcium 9.2 Blood Type O POSITIVE Antibody Screen NEGATIVE 06/07/17 16:54 WBC 13.5 H RBC 3.49 L Hgb 10.2 L D Hct 30.8 L MCV 88 MCH 29.2 MCHC 33.1 RDW 14.5 H Plt Count 302 Seg Neutrophils % Not Reportable Lymphocytes % Not Reportable Monocytes % Not Reportable Eosinophils % Not Reportable Basophils % Not Reportable Absolute Neutrophils Not Reportable Absolute Lymphocytes Not Reportable Absolute Monocytes Not Reportable Absolute Eosinophils Not Reportable Absolute Basophils Not Reportable Sodium Potassium Chloride Carbon Dioxide Anion Gap BUN Creatinine Est GFR ( Amer) Est GFR (Non-Af Amer) Glucose Calcium Blood Type Antibody Screen Impressions: Chest X-Ray 06/06/17 00:00 IMPRESSION: A dual-lumen catheter is in good position. Guidance Fluoroscopy 06/06/17 00:00 IMPRESSION: Intra procedural imaging and fluoro Assessment & Plan - Diagnosis (1) Chronic kidney disease, stage V requiring chronic dialysis Is this a current diagnosis for this admission?: Yes Plan: Initially thought to be secondary to acute kidney injury due to absence of any previous records since the patient has not seen a doctor for 10 years. However considering the patient's course here in the hospital I think the patient does have end-stage renal disease now requiring chronic hemodialysis treatment. He has nephrotic range proteinuria consistent with diabetic nephropathy with contribution of hypertensive nephrosclerosis. Protein electrophoresis is still pending. His kidney function has not really significantly improved despite dialysis since last week. His kidney function is still at the level of stage V. He has all the complications of chronic kidney disease including anemia, hyperphosphatemia, initial hyperkalemia, and metabolic acidosis. Explained to the patient and regarding the need for chronic dialysis treatment. We are awaiting acceptance by [facility] for chronic dialysis treatment. I also discussed the option of kidney transplant today. Patient is not sure if he would want to have that so he will think about it. Patient and understood. We will plan to do dialysis tomorrow. If patient is accepted at [facility] tomorrow then I think patient can be discharged home tomorrow afternoon after dialysis at the earliest if not . (2) Metabolic acidosis Is this a current diagnosis for this admission?: Yes Plan: Due to acute kidney injury with possible underlying chronic kidney disease. Resolved.. (3) Type 2 diabetes mellitus Qualifiers: Diabetes mellitus complication status: with unspecified complications Is this a current diagnosis for this admission?: Yes Plan: Defer management to Dr. Newell. (4) Hypertension Qualifiers: Hypertension type: essential hypertension Qualified Code(s): I10 - Essential (primary) hypertension Is this a current diagnosis for this admission?: Yes Plan: Patient was started on amlodipine. I started clonidine 0.1 mg p.o. every 12 hours. Currently improved. (5) Anemia Qualifiers: Chronic kidney disease stage: unspecified stage Is this a current diagnosis for this admission?: Yes Plan: Iron panel are acceptable. I transfuse the patient 1 unit of packed RBC today. We will continue to give the patient Procrit as needed during dialysis. (6) Hyperphosphatemia Is this a current diagnosis for this admission?: Yes Plan: Start PhosLo 667 mg 2 capsules with meals. (7) Pneumonia Qualifiers: Pneumonia type: due to unspecified organism Laterality: left Lung location: lower lobe of lung Qualified Code(s): J18.1 - Lobar pneumonia, unspecified organism Is this a current diagnosis for this admission?: Yes Plan: Currently IV antibiotics was initiated. (8) Secondary hyperparathyroidism (of renal origin) Is this a current diagnosis for this admission?: Yes Plan: We will give Zemplar intravenously during dialysis. - Time Time with patient: 15-25 minutes
[2017-06-07] MEDS: CEPHALEXIN 500 MG CAPSULE PO SCH (22:54)
[2017-06-08] MEDS ORDERED: PARICALCITOL INJ/PF 5 MCG/1 ML SDV IV PRN (05:00)
[2017-06-08] MEDS ORDERED: EPOETIN ALFA INJ 20000 UNIT/1 ML VIAL (RENAL) IV PRN (05:00)
[2017-06-08] MEDS ORDERED: HEPARIN SOD (PORCINE) 1,000 UNIT/ML 10 ML VIAL IV PRN ×2 (05:00→10:30)
[2017-06-08] MEDS ORDERED: EPOETIN ALFA 10,000 UNIT in SYRINGE, DISPOSABLE, 1 EACH IV PRN (05:00)
[2017-06-08] MEDS ORDERED: NORMAL SALINE 1000 ML 1,000 ML IV PRN (05:00)
[2017-06-08] MEDS: CEPHALEXIN 500 MG CAPSULE PO SCH ×3 (05:19→21:21)
[2017-06-08] MEDS: LANSOPRAZOLE 15 MG TAB.RAP.DR PO SCH (05:19)
[2017-06-08 05:37] LABS: HEMATOCRIT 27.7 % (37.9-51.0); HEMOGLOBIN 9.2 g/dL (13.5-17.0); HGB HCT DIFFERENCE -0.1; MEAN CORPUSCULAR HGB CONC 33.4 g/dL (32.0-36.0); MEAN CORPUSCULAR VOLUME 87 fl (80-97); RED BLOOD COUNT 3.19 10^6/uL (4.35-5.55); RED CELL DISTRIBUTION WIDTH 14.2 % (11.5-14.0); WHITE BLOOD COUNT 14.6 10^3/uL (4.0-10.5)
[2017-06-08 05:51] LABS: ANION GAP 15 (5-19); BLOOD UREA NITROGEN 61 mg/dL (7-20); CARBON DIOXIDE 23 mmol/L (22-30); CHLORIDE 100 mmol/L (98-107); CREATININE RESULT 9.18 mg/dL (0.52-1.25); GLUCOSE 152 mg/dL (75-110); SODIUM 137.7 mmol/L (137-145)
[2017-06-08] MEDS: GLIPIZIDE XL 2.5 MG TAB.ER.24 PO SCH ×2 (07:41→16:38)
[2017-06-08] MEDS: CALCIUM ACETATE 667 MG CAPSULE PO SCH ×3 (07:41→17:14)
[2017-06-08] MEDS: CLONIDINE HCL 0.1 MG TABLET PO SCH ×2 (11:58→21:21)
[2017-06-08] MEDS: MAGNESIUM OXIDE 400 MG TABLET PO SCH (11:58)
[2017-06-08] MEDS: AMLODIPINE BESYLATE 5 MG TABLET PO SCH ×2 (11:58→21:21)
--- NOTE | 2017-06-08 12:59 | PDOC PROGRESS REPORT ---
Subjective Progress Note for:: 06/08/17 Subjective:: Patient is currently doing well. Patient's denied any chest pain without any shortness of breath Patient underwent for hemodialysis today Patient's white count is slightly elevated today Since denied any chest pain denied any shortness of the breath Physical Exam Vital Signs: Temp Pulse Resp BP Pulse Ox 99.1 F 80 18 156/65 H 97 06/08/17 07:30 06/08/17 07:30 06/08/17 07:30 06/08/17 07:30 06/08/17 07:30 Intake & Output 06/07/17 06/08/17 06/09/17 06:59 06:59 06:59 Intake Total 1401 1773 Output Total 1310 1300 Balance 91 473 Weight 79.3 kg 78.4 kg General appearance: PRESENT: no acute distress, well-developed, well-nourished Head exam: PRESENT: atraumatic, normocephalic Eye exam: PRESENT: conjunctiva pink, EOMI, PERRLA. ABSENT: scleral icterus Ear exam: PRESENT: normal external ear exam Mouth exam: PRESENT: moist, tongue midline Neck exam: PRESENT: full ROM. ABSENT: carotid bruit, JVD, lymphadenopathy, thyromegaly Respiratory exam: PRESENT: clear to auscultation lala Cardiovascular exam: PRESENT: RRR. ABSENT: diastolic murmur, rubs, systolic murmur Pulses: PRESENT: normal dorsalis pedis pul, +2 pedal pulses bilateral Vascular exam: PRESENT: normal capillary refill GI/Abdominal exam: PRESENT: normal bowel sounds, soft. ABSENT: distended, guarding, mass, organolmegaly, rebound, tenderness Rectal exam: PRESENT: deferred Extremities exam: ABSENT: pedal edema Musculoskeletal exam: PRESENT: ambulatory Neurological exam: PRESENT: alert, awake, oriented to person, oriented to place , oriented to time, oriented to situation, CN II-XII grossly intact. ABSENT: motor sensory deficit Psychiatric exam: PRESENT: appropriate affect, normal mood. ABSENT: homicidal ideation, suicidal ideation Skin exam: PRESENT: dry, intact, warm. ABSENT: cyanosis, rash Results Laboratory Results: 06/08/17 04:56 06/08/17 04:56 06/07/17 06/08/17 06/08/17 16:54 04:56 04:56 WBC 13.5 H 14.6 H RBC 3.49 L 3.19 L Hgb 10.2 L D 9.2 L Hct 30.8 L 27.7 L MCV 88 87 MCH 29.2 29.0 MCHC 33.1 33.4 RDW 14.5 H 14.2 H Plt Count 302 296 Seg Neutrophils % Not Reportable Lymphocytes % Not Reportable Monocytes % Not Reportable Eosinophils % Not Reportable Basophils % Not Reportable Absolute Neutrophils Not Reportable Absolute Lymphocytes Not Reportable Absolute Monocytes Not Reportable Absolute Eosinophils Not Reportable Absolute Basophils Not Reportable Sodium 137.7 Potassium 4.0 Chloride 100 Carbon Dioxide 23 Anion Gap 15 BUN 61 H Creatinine 9.18 H Est GFR ( Amer) 7 L Est GFR (Non-Af Amer) 6 L Glucose 152 H Calcium 9.0 Impressions: Chest X-Ray 06/06/17 00:00 IMPRESSION: A dual-lumen catheter is in good position. Guidance Fluoroscopy 06/06/17 00:00 IMPRESSION: Intra procedural imaging and fluoro Assessment & Plan - Diagnosis (1) LORENA (acute kidney injury) Is this a current diagnosis for this admission?: Yes Plan: Currently on hemodialysis (2) Metabolic acidosis Is this a current diagnosis for this admission?: Yes Plan: All resolved (3) Type 2 diabetes mellitus Qualifiers: Diabetes mellitus complication status: with unspecified complications Is this a current diagnosis for this admission?: Yes Plan: Continues current medications (4) Fever Qualifiers: Encounter type: initial encounter Is this a current diagnosis for this admission?: Yes Plan: The pneumonia currently all resolved (5) Pneumonia Qualifiers: Pneumonia type: due to unspecified organism Laterality: left Lung location: lower lobe of lung Qualified Code(s): J18.1 - Lobar pneumonia, unspecified organism Is this a current diagnosis for this admission?: Yes Plan: We will get the CT of the chest (6) Hypertension Qualifiers: Hypertension type: essential hypertension Qualified Code(s): I10 - Essential (primary) hypertension Is this a current diagnosis for this admission?: Yes Plan: Continues current medication (7) Anemia Qualifiers: Chronic kidney disease stage: unspecified stage Is this a current diagnosis for this admission?: Yes Plan: Transfused 1 unit of the blood - Time Time Spent with patient: 15-24 minutes Medications reviewed and adjusted accordingly: Yes Anticipated discharge: Home Within: within 24 hours - Inpatient Certification Medical Necessity: Need Close Monitoring Due to Risk of Patient Decompensation Post Hospital Care: D/C [employer] Documentation - Plan Summary Plan Summary: We will check a CT of the chestRepeat the CBC in the morning
--- NOTE | 2017-06-08 14:13 | RADIOLOGY REPORT (SQ) ---
EXAM DESCRIPTION: CT CHEST WITHOUT COMPLETED DATE/TIME: 06/08/2017 1:47 pm REASON FOR STUDY: pnemonia COMPARISON: Chest x-ray dated 06/06/2017 TECHNIQUE: CT scan performed of the chest without intravenous contrast. Images reviewed with lung, soft tissue and bone windows. Reconstructed coronal and sagittal MPR images reviewed. All images st ored on PACS. All CT scanners at this facility use dose modulation, iterative reconstruction, and/or weight based d osing when appropriate to reduce radiation dose to as low as reasonably achievable (ALARA). [facility]: Dose Right [facility]: CareDose [facility]: Dose Right [facility]: Teradose 4D [facility]: Smart [employer] Products RADIATION DOSE: Up-to-date CT equipment and radiation dose reduction techniques were employed. CTDIv ol: 6.5 mGy. DLP: 229 mGy-cm. mGy. LIMITATIONS: No technical limitations. FINDINGS: LUNGS AND PLEURA: There are irregular somewhat linear areas of increased density in the le ft upper lobe which appear chronic in nature although the possibility of an acute process superimpose d on chronic underlying changes cannot be excluded. Remaining lung javier are clear. No pleural eff usions are identified. No pneumothorax is seen HILAR AND MEDIASTINAL STRUCTURES: Couple borderline enlarged mediastinal lymph nodes are identified. HEART AND VASCULAR STRUCTURES: No aneurysm. No pericardial effusion. UPPER ABDOMEN: No significant findings. Limited exam. THYROID AND OTHER SOFT TISSUES: There is diffuse enlargement of the thyroid gland suggesting a thyroi d goiter. BONES: No significant finding. HARDWARE: Dual lumen central line is identified. OTHER: No other significant findings. IMPRESSION: There are regular somewhat linear areas of increased density in the left upper lobe as n oted above which appear chronic in nature although the possibility of an acute process superimposed o n chronic underlying changes cannot be excluded. Remaining lung javier are clear. Other findings as noted above TECHNICAL DOCUMENTATION: JOB ID: [id number] Quality ID # [id number]: Final reports with documentation of one or more dose reduction techniques (e.g., Au tomated exposure control, adjustment of the mA and/or kV according to patient size, use of iterative reconstruction technique) 2010 [employer]- All Rights Reserved
[2017-06-08 15:39] LABS: ALBUMIN 3 2.2 g/dL (2.9-4.4); ALPHA-1-GLOBULIN 0.4 g/dL (0.0-0.4); ALPHA-2-GLOBULIN 3 1.2 g/dL (0.4-1.0); BETA GLOBULIN 0.9 g/dL (0.7-1.3); GLOBULIN TTL 3.5 g/dL (2.2-3.9); IMMUNOGLOBULIN A 265 mg/dL (61-437); IMMUNOGLOBULIN G 993 mg/dL (700-1600); IMMUNOGLOBULIN M 55 mg/dL (15-143); MONOCLONAL-SPIKE Not Observed g/dL (Not Observed); PROTEIN TOTAL SERUM 5.7 g/dL (6.0-8.5)
[2017-06-08] MEDS ORDERED: LEVOFLOXACIN 500 MG TABLET PO ONE (16:00)
[2017-06-08] MEDS: FOLIC ACID/VITAMIN B COMP W-C CAPSULE PO SCH (16:38)
--- NOTE | 2017-06-08 16:53 | PDOC PROGRESS REPORT ---
Subjective Progress Note for:: 06/08/17 Subjective:: I saw the patient during dialysis at around 8:45 AM this morning. He is very comfortable and does not really have much complaints. He is afebrile and has been tolerating dialysis well without any problems. Patient does have slowly rising white count. Physical Exam Vital Signs: Temp Pulse Resp BP Pulse Ox 97.8 F 86 18 166/79 H 100 06/08/17 11:59 06/08/17 14:00 06/08/17 11:59 06/08/17 11:59 06/08/17 11:59 Intake & Output 06/07/17 06/08/17 06/09/17 06:59 06:59 06:59 Intake Total 1401 1773 222 Output Total 1310 1300 0 Balance 91 473 222 Weight 79.3 kg 78.4 kg Vitals during dialysis when I saw him: Blood pressure 135/75, heart rate of 82, blood flow rate of 250 mL/min, dialysate flow rate of 500 mL/min. Exam: General appearance: PRESENT: no acute distress, cooperative, well-developed, well-nourished Head exam: PRESENT: atraumatic, normocephalic Eye exam: PRESENT: conjunctiva slightly pale, PERRLA. ABSENT: scleral icterus Neck exam: ABSENT: JVD Respiratory exam: PRESENT: Diminished breath sounds. ABSENT: crackles, rales, rhonchi, unlabored, wheezes Cardiovascular exam: PRESENT: Regular rate rhythm -+S1, +S2. ABSENT: diastolic murmur, systolic murmur GI/Abdominal exam: PRESENT: normal bowel sounds, soft. ABSENT: guarding, mass, tenderness Extremities exam: ABSENT: No edema Neurological exam: PRESENT: alert, awake, oriented to person, place and time. Skin exam: PRESENT: dry, warm, Results Laboratory Results: 06/08/17 04:56 06/08/17 04:56 06/07/17 06/08/17 06/08/17 16:54 04:56 04:56 WBC 13.5 H 14.6 H RBC 3.49 L 3.19 L Hgb 10.2 L D 9.2 L Hct 30.8 L 27.7 L MCV 88 87 MCH 29.2 29.0 MCHC 33.1 33.4 RDW 14.5 H 14.2 H Plt Count 302 296 Seg Neutrophils % Not Reportable Lymphocytes % Not Reportable Monocytes % Not Reportable Eosinophils % Not Reportable Basophils % Not Reportable Absolute Neutrophils Not Reportable Absolute Lymphocytes Not Reportable Absolute Monocytes Not Reportable Absolute Eosinophils Not Reportable Absolute Basophils Not Reportable Sodium 137.7 Potassium 4.0 Chloride 100 Carbon Dioxide 23 Anion Gap 15 BUN 61 H Creatinine 9.18 H Est GFR ( Amer) 7 L Est GFR (Non-Af Amer) 6 L Glucose 152 H Calcium 9.0 Impressions: Chest X-Ray 06/06/17 00:00 IMPRESSION: A dual-lumen catheter is in good position. Guidance Fluoroscopy 06/06/17 00:00 IMPRESSION: Intra procedural imaging and fluoro Chest CT 06/08/17 00:00 IMPRESSION: There are regular somewhat linear areas of increased density in the left upper lobe as noted above which appear chronic in nature although the possibility of an acute process superimposed on chronic underlying changes cannot be excluded. Remaining lung javier are clear. Other findings as noted above Assessment & Plan - Diagnosis (1) Chronic kidney disease, stage V requiring chronic dialysis Is this a current diagnosis for this admission?: Yes Plan: Initially thought to be secondary to acute kidney injury due to absence of any previous records since the patient has not seen a doctor for 10 years. However considering the patient's course here in the hospital I think the patient does have end-stage renal disease now requiring chronic hemodialysis treatment. He has nephrotic range proteinuria consistent with diabetic nephropathy with contribution of hypertensive nephrosclerosis. Protein electrophoresis is still pending. His kidney function has not really significantly improved despite dialysis since last week. His kidney function is still at the level of stage V. He has all the complications of chronic kidney disease including anemia, hyperphosphatemia, initial hyperkalemia, and metabolic acidosis. Explained to the patient and regarding the need for chronic dialysis treatment. I also discussed the option of kidney transplant today. Patient is not sure if he would want to have that so he will think about it. Patient and understood. Patient has been accepted to [facility] for chronic outpatient hemodialysis treatment. We did dialysis today for 3 hours, using the patient's right IJ PermCath, with 3 potassium bath, blood flow rate of 250 until 300 mL per minute, dialysate flow rate of 500 mL per minute, ultrafiltration up to dry weight of 77 kg, no heparin and Procrit with 10,000 units during dialysis intravenously. If patient gets discharged tomorrow his next dialysis will be at [facility] on Tuesday. He needs to be there at 2 PM for paperwork's and subsequent hemodialysis treatment. However if the patient stays here for whatever reason then his next dialysis will be on Tuesday here in the hospital. (2) Metabolic acidosis Is this a current diagnosis for this admission?: Yes Plan: Due to acute kidney injury with possible underlying chronic kidney disease. Resolved.. (3) Type 2 diabetes mellitus Qualifiers: Diabetes mellitus complication status: with unspecified complications Is this a current diagnosis for this admission?: Yes Plan: Defer management to Dr. Newell. (4) Hypertension Qualifiers: Hypertension type: essential hypertension Qualified Code(s): I10 - Essential (primary) hypertension Is this a current diagnosis for this admission?: Yes Plan: Patient was started on amlodipine. I started clonidine 0.1 mg p.o. every 12 hours. Currently improved. (5) Anemia Qualifiers: Chronic kidney disease stage: unspecified stage Is this a current diagnosis for this admission?: Yes Plan: Iron panel are acceptable. I transfuse the patient 1 unit of packed RBC today. We will continue to give the patient Procrit as needed during dialysis. (6) Hyperphosphatemia Is this a current diagnosis for this admission?: Yes Plan: Start PhosLo 667 mg 2 capsules with meals. (7) Pneumonia Qualifiers: Pneumonia type: due to unspecified organism Laterality: left Lung location: lower lobe of lung Qualified Code(s): J18.1 - Lobar pneumonia, unspecified organism Is this a current diagnosis for this admission?: Yes Plan: Currently IV antibiotics was initiated. Patient is slowly rising WBC count. CT scan was done today which shows left upper lobe infiltrates. Defer to Dr. Newell for management. (8) Secondary hyperparathyroidism (of renal origin) Is this a current diagnosis for this admission?: Yes Plan: We will give Zemplar intravenously during dialysis. - Time Time with patient: 15-25 minutes
[2017-06-08] MEDS ORDERED: TUBERCULIN,PURIF.PROT.DERIV. 5 TU/0.1 ML TEST 1 ML VIAL ID ONE (17:00)
[2017-06-08] MEDS: INSULIN LISPRO 100 UNIT/ML 3 ML VIAL SUBCUT PRN ×2 (17:14→21:33)
[2017-06-09] MEDS: LANSOPRAZOLE 15 MG TAB.RAP.DR PO SCH (05:16)
[2017-06-09] MEDS: CEPHALEXIN 500 MG CAPSULE PO SCH (05:16)
[2017-06-09 05:54] LABS: ABSOLUTE BASOPHILS # (AUTO) 0.1 10^3/uL (0.0-0.2); ABSOLUTE EOSINOPHILS # (AUTO) 0.2 10^3/uL (0.0-0.6); ABSOLUTE LYMPHOCYTES (AUTO) 1.3 10^3/uL (0.5-4.7); ABSOLUTE MONOCYTES (AUTO) 1.4 10^3/uL (0.1-1.4); ABSOLUTE NEUT (AUTO) 9.5 10^3/uL (1.7-8.2); BASOPHILS % (AUTO) 0.5 % (0-2); EOSINOPHILS % (AUTO) 1.7 % (0-6); HEMATOCRIT 27.6 % (37.9-51.0); HEMOGLOBIN 9.2 g/dL (13.5-17.0); LYMPHOCYTES % (AUTO) 10.4 % (13-45); MEAN CORPUSCULAR HEMOGLOBIN 29.3 pg (27.0-33.4); MEAN CORPUSCULAR HGB CONC 33.4 g/dL (32.0-36.0); MEAN CORPUSCULAR VOLUME 88 fl (80-97); MONOCYTES % (AUTO) 11.4 % (3-13); RED BLOOD COUNT 3.15 10^6/uL (4.35-5.55); RED CELL DISTRIBUTION WIDTH 14.3 % (11.5-14.0); WHITE BLOOD COUNT 12.6 10^3/uL (4.0-10.5)
[2017-06-09 06:11] LABS: ANION GAP 14 (5-19); BLOOD UREA NITROGEN 39 mg/dL (7-20); CARBON DIOXIDE 28 mmol/L (22-30); CHLORIDE 98 mmol/L (98-107); CREATININE RESULT 6.52 mg/dL (0.52-1.25); GLUCOSE 209 mg/dL (75-110); POTASSIUM 4.3 mmol/L (3.6-5.0); SODIUM 139.8 mmol/L (137-145)
[2017-06-09] MEDS: INSULIN LISPRO 100 UNIT/ML 3 ML VIAL SUBCUT PRN (07:36)
[2017-06-09] MEDS: CALCIUM ACETATE 667 MG CAPSULE PO SCH ×2 (07:36→11:51)
[2017-06-09] MEDS: GLIPIZIDE XL 2.5 MG TAB.ER.24 PO SCH (07:36)
[2017-06-09] MEDS: MAGNESIUM OXIDE 400 MG TABLET PO SCH (09:17)
[2017-06-09] MEDS: AMLODIPINE BESYLATE 5 MG TABLET PO SCH (09:17)
[2017-06-09] MEDS: CLONIDINE HCL 0.1 MG TABLET PO SCH (09:17)
[2017-06-09 09:36] VITALS: BP 153/66
--- NOTE | 2017-06-09 13:03 | PDOC DISCHARGE SUMMARY ---
General - Admit/Disc Date/PCP Admission Date/Primary Care Provider: 05/31/17 16:55 Discharge Date: 06/09/17 - Discharge Diagnosis (1) LORENA (acute kidney injury) Is this a current diagnosis for this admission?: Yes Summary: Currently on hemodialysisFollow outpatient hemodialysis and follow with the nephrology (2) Metabolic acidosis Is this a current diagnosis for this admission?: Yes Summary: All resolved (3) Type 2 diabetes mellitus Is this a current diagnosis for this admission?: Yes Summary: Currently the glipizide 2.5 mg p.o. twice a day and adjust the medications next week (4) Fever Is this a current diagnosis for this admission?: Yes Summary: Due to the pneumonia all resolved (5) Pneumonia Is this a current diagnosis for this admission?: Yes Summary: Currently all resolving continues to p.o. antibiotic for another 7 days (6) Hypertension Is this a current diagnosis for this admission?: Yes Summary: Continues to current medications (7) Anemia Is this a current diagnosis for this admission?: Yes Summary: Chronic kidney disease currently stable follow outpatient may need endoscopy and colonoscopy for further evaluations - Additional Information Resuscitation Status: Full Code Discharge Diet: Cardiac Discharge Activity: Activity As Tolerated Home Medications: Amlodipine Besylate [Norvasc 5 mg Tablet] 5 mg PO Q12 #60 tablet 06/09/17 Blood Sugar Diagnostic [Blood Glucose Test Strip] 1 strip [facility] PRN #1 Cephalexin Monohydrate [Keflex 500 mg Capsule] 500 mg PO Q8 #15 capsule Clonidine HCl [Catapres 0.1 mg Tablet] 0.1 mg PO Q12 #60 tablet 06/09/17 Glipizide [Glucotrol Xl 2.5 mg Tab.er] 2.5 mg PO BIDACBS #60 tab.er.24 06/09/17 Levofloxacin [Levaquin 250 mg Tablet] 250 mg PO Q2DAYS@1000 #7 tablet 06/09/17 Magnesium Oxide [Mag-Ox 400 mg Tablet] 400 mg PO DAILY #30 tablet 06/09/17 History of Present Illness History of Present Illness: DAMON ALEXANDER is a 71 year old male This is a 71-year-old male with the no previous any medical problems not seen the physicians for a long time came to my office yesterday with a complaint of a fever and chills and not feeling well the patient's fever was 102 And at that point patient's urine was persistent with some hematuria in the sugarAnd at this point patient was sent to the emergency departments and the patient's came to the ER yesterday and patient's creatinine was more than 11 and patient's bicarb was less than 10 with a severe metabolic acidosis with the acute renal failure on possible chronic kidney diseaseAnd patient's white count was also elevated with a persistent with the pneumonia and patient was given some antibiotic and patient was started on IV sodium bicarb drip and a nephrology was consulted but patients left the ER AMA and patients came back today because patient started feeling more weak but other than that denied any chest pain denied any shortness of the breath At this time patients decided to stay and discussed with the family about patient having multiple issues with not seen physicians Recent hemoglobin A1c was 6.5 and blood sugar was 400 range yesterday Patient have echocardiogram was done yesterday was all stable Today's patient's blood work is all stable as usual yesterday and ER physician discussed with the nephrology and agree for the consult and admitting in the [facility] Hospital Course Hospital Course: This is a 71-year-old male presenting the emergency department with the fever within no medical history in the past diagnosed with a pneumonia and the renal failurePatient have most likely underlying chronic kidney disease patient underwent for the hemodialysis Patient also initially put on IV antibiotics for the pneumonia and change the p.o. antibiotic Patients remain afebrile white count is coming down Patient also underwent for the permacath placement Patient also diagnosed with a type 2 diabetes Patient all have a diabetic educations and dietary education is given in the hospital with his Patient's already arranged for the hemodialysis tomorrow as outpatient Very extensive discussed with the patient and the regarding the patient's current condition all test present in all prescriptions given to the patient Also discussed with the nephrology Physical Exam Vital Signs: Temp Pulse Resp BP Pulse Ox 98.5 F 73 18 153/66 H 96 06/09/17 09:34 06/09/17 09:34 06/09/17 09:34 06/09/17 09:34 06/09/17 09:34 Intake & Output 06/08/17 06/09/17 06/10/17 06:59 06:59 06:59 Intake Total 1773 1132 Output Total 1300 900 Balance 473 232 Weight 78.4 kg 77.5 kg General appearance: PRESENT: no acute distress, well-developed, well-nourished Head exam: PRESENT: atraumatic, normocephalic Eye exam: PRESENT: conjunctiva pink, EOMI, PERRLA. ABSENT: scleral icterus Ear exam: PRESENT: normal external ear exam Mouth exam: PRESENT: moist, tongue midline Neck exam: PRESENT: full ROM. ABSENT: carotid bruit, JVD, lymphadenopathy, thyromegaly Respiratory exam: PRESENT: clear to auscultation lala Cardiovascular exam: PRESENT: RRR. ABSENT: diastolic murmur, rubs, systolic murmur Pulses: PRESENT: normal dorsalis pedis pul, +2 pedal pulses bilateral Vascular exam: PRESENT: normal capillary refill GI/Abdominal exam: PRESENT: normal bowel sounds, soft. ABSENT: distended, guarding, mass, organolmegaly, rebound, tenderness Rectal exam: PRESENT: deferred Extremities exam: ABSENT: pedal edema Musculoskeletal exam: PRESENT: ambulatory Neurological exam: PRESENT: alert, awake, oriented to person, oriented to place , oriented to time, oriented to situation, CN II-XII grossly intact. ABSENT: motor sensory deficit Psychiatric exam: PRESENT: appropriate affect, normal mood. ABSENT: homicidal ideation, suicidal ideation Skin exam: PRESENT: dry, intact, warm. ABSENT: cyanosis, rash Results Laboratory Results: 06/09/17 05:13 06/09/17 05:13 06/02/17 06/09/17 06/09/17 04:04 05:13 05:13 WBC 12.6 H RBC 3.15 L Hgb 9.2 L Hct 27.6 L MCV 88 MCH 29.3 MCHC 33.4 RDW 14.3 H Plt Count 297 Seg Neutrophils % 76.0 Lymphocytes % 10.4 L Monocytes % 11.4 Eosinophils % 1.7 Basophils % 0.5 Absolute Neutrophils 9.5 H Absolute Lymphocytes 1.3 Absolute Monocytes 1.4 Absolute Eosinophils 0.2 Absolute Basophils 0.1 Sodium 139.8 Potassium 4.3 Chloride 98 Carbon Dioxide 28 Anion Gap 14 BUN 39 H Creatinine 6.52 H Est GFR ( Amer) 10 L Est GFR (Non-Af Amer) 8 L Glucose 209 H Calcium 9.0 Total Protein 5.7 L Albumin 2.2 L Impressions: Chest X-Ray 06/06/17 00:00 IMPRESSION: A dual-lumen catheter is in good position. Guidance Fluoroscopy 06/06/17 00:00 IMPRESSION: Intra procedural imaging and fluoro Chest CT 06/08/17 00:00 IMPRESSION: There are regular somewhat linear areas of increased density in the left upper lobe as noted above which appear chronic in nature although the possibility of an acute process superimposed on chronic underlying changes cannot be excluded. Remaining lung javier are clear. Other findings as noted above Plan Time Spent: Greater than 30 Minutes - Patient's discharge home with the stable conditions follow-up outpatients. Just the diabetes medications Follow hemodialysis tomorrow Repeat chest x-ray in a one-week
[2017-06-10] MEDS ORDERED: LEVOFLOXACIN 250 MG TABLET PO SCH (10:00)
== END 2017-06-09 13:11 | disposition home or self-care (01) | DRG 682 ==
LOC: ER 10:35 → EH 16:55 → UNDOADMIN 17:21 → 3S 21:19
PROVIDERS: ADMIT Family Medicine; ATTEND Family Medicine
PROC: 06HY33Z Insertion of Infusion Device into Lower Vein, Percutaneous Approach (ICD-10-PCS; principal; 2017-06-01)
PROC: 3E0F73Z Introduction of Anti-inflammatory into Respiratory Tract, Via Natural or Artificial Opening (ICD-10-PCS; 2017-06-01)
PROC: 5A1D70Z Performance of Urinary Filtration, Intermittent, Less than 6 Hours Per Day (ICD-10-PCS; 2017-06-01)
PROC: 5A1D70Z Performance of Urinary Filtration, Intermittent, Less than 6 Hours Per Day (ICD-10-PCS; 2017-06-03)
PROC: 06H033Z Insertion of Infusion Device into Inferior Vena Cava, Percutaneous Approach (ICD-10-PCS; 2017-06-06)
PROC: B549ZZA Ultrasonography of Inferior Vena Cava, Guidance (ICD-10-PCS; 2017-06-06)
PROC: 5A1D80Z Performance of Urinary Filtration, Prolonged Intermittent, 6-18 hours Per Day (ICD-10-PCS; 2017-06-06)
PROC: 30233N1 Transfusion of Nonautologous Red Blood Cells into Peripheral Vein, Percutaneous Approach (ICD-10-PCS; 2017-06-07)
PROC: 5A1D70Z Performance of Urinary Filtration, Intermittent, Less than 6 Hours Per Day (ICD-10-PCS; 2017-06-08)
DX: N17.9 Acute kidney failure, unspecified (principal); J18.1 Lobar pneumonia, unspecified organism; E87.2 Acidosis; I12.0 Hypertensive chronic kidney disease with stage 5 chronic kidney disease or end stage renal disease; N25.81 Secondary hyperparathyroidism of renal origin; N18.5 Chronic kidney disease, stage 5; E11.22 Type 2 diabetes mellitus with diabetic chronic kidney disease; D63.1 Anemia in chronic kidney disease; R31.9 Hematuria, unspecified; E83.39 Other disorders of phosphorus metabolism; Z79.899 Other long term (current) drug therapy; Z87.891 Personal history of nicotine dependence
CPT/HCPCS: 36415; 36430; 532; 71010; 71020; 71250; 77001; 80048; 80053; 81001; 82570; 82607; 82728; 82746; 82962; 83036; 83540; 83550; 83735; 83970; 84100; 84156; 84466; 85025; 85027; 85045; 86317; 86320; 86704; 86850; 86900; 86901; 86920; 87040; 87070; 87086; 87205; 87340; 87522; 93005; 93010; 93306; 96361; 96365; 96367; 99285; C1713; C1752; J0360; J0456; J0690; J0692; J0696; J1644; J1815; J2250; J2501; J2704; J3010; J3490; J7030; J7060; P9016; Q4081; Q9967

== ENCOUNTER 2017-07-05 05:15 | Day surgery (SDC) | payer MEDICARE ==
[2017-06-28 11:04] LABS: HEMATOCRIT 34.3 % (37.9-51.0); HEMOGLOBIN 11.3 g/dL (13.5-17.0); HGB HCT DIFFERENCE -0.4; MEAN CORPUSCULAR HGB CONC 32.9 g/dL (32.0-36.0); MEAN CORPUSCULAR VOLUME 88 fl (80-97); RED BLOOD COUNT 3.89 10^6/uL (4.35-5.55); RED CELL DISTRIBUTION WIDTH 14.8 % (11.5-14.0)
[2017-06-28 11:21] LABS: ANION GAP 15 (5-19); BLOOD UREA NITROGEN 24 mg/dL (7-20); CALCIUM 9.6 mg/dL (8.4-10.2); CARBON DIOXIDE 29 mmol/L (22-30); CHLORIDE 100 mmol/L (98-107); GLUCOSE 139 mg/dL (75-110); POTASSIUM 3.8 mmol/L (3.6-5.0); SODIUM 144.1 mmol/L (137-145)
--- NOTE | 2017-06-28 13:11 | EKG REPORT ---
SEVERITY:- ABNORMAL ECG - SINUS RHYTHM LEFT AXIS DEVIATION = LAFB LEFT VENTRICULAR HYPERTROPHY NONSPECIFIC ST-T CHANGES- INFEROLATERAL LEADS : Confirmed by: Silviano Caceres MD 28-Jun-2017 13:11:10
[~2017-07-05 05:15] MED LIST: CEFAZOLIN 1 GM/D5W RTU 1 GM/50 ML RTUPB IV PRN; NORMAL SALINE 1000 ML (RENAL PATIENTS) IV PRN
[2017-07-05] MEDS ORDERED: BUPIVACAINE HCL 0.25 % INJ/PF (2.5 MG/1 ML) 30 ML VIAL ONE (06:41)
[2017-07-05] MEDS ORDERED: LIDOCAINE 1% INJ-PF (10 MG/ML) 30 ML SDV ONE (06:41)
[2017-07-05] MEDS ORDERED: BACITRACIN INJ 50,000 UNIT VIAL ONE (06:41)
[2017-07-05] MEDS ORDERED: LIDOCAINE 0.5% INJ-PF (5 MG/ML) 50 ML SDV ONE (06:41)
[2017-07-05] MEDS ORDERED: HEPARIN SOD (PORCINE) 1,000 UNIT/ML 10 ML VIAL ONE (06:41)
[2017-07-05] MEDS ORDERED: KETAMINE HCL INJ 500 MG/10 ML VIAL ONE (06:55)
[2017-07-05] MEDS ORDERED: DEXMEDETOMIDINE INJ 80 MCG/20 ML VIAL IV ONE (06:56)
[2017-07-05] MEDS ORDERED: ACETAMINOPHEN 100 ML IV ONE (06:56)
[2017-07-05] MEDS ORDERED: PROPOFOL INJ 200 MG/20 ML VIAL IV ONE (06:56)
[2017-07-05] MEDS ORDERED: MIDAZOLAM 2 MG/2 ML INJ ONE ×2 (06:56→06:59)
[2017-07-05] MEDS ORDERED: FENTANYL CITRATE INJ/PF 100 MCG/2 ML AMPUL ONE (06:56)
[2017-07-05] MEDS ORDERED: NITROGLYCERIN/D5W 50 MG/250 ML RTUINJ IV ONE (07:20)
[2017-07-05] MEDS ORDERED: FENTANYL CITRATE INJ/PF 100 MCG/2 ML AMPUL IV PRN ×3 (08:35)
[2017-07-05] MEDS ORDERED: DIPHENHYDRAMINE HCL 50 MG/ML VIAL IV PRN (08:35)
[2017-07-05] MEDS ORDERED: PROMETHAZINE HCL INJ 25 MG/1 ML VIAL IV PRN (08:35)
[2017-07-05] MEDS ORDERED: MORPHINE SULFATE 10 MG/ML INJ IV PRN (08:35)
--- NOTE | 2017-07-05 09:52 | PDOC DISCHARGE SUMMARY ---
Discharge Summary (SDC) - Discharge Final Diagnosis: #[address] 2. End-stage renal disease on hemodialysis. 2. 3. Diabetes mellitus type 2. 4. Hypertension. Date of Surgery: 07/05/17 Discharge Date: 07/05/17 Condition: Fair Treatment or Instructions: Discharge home [after recovery per ASU criteria]. Diet , [renal],as tolerated, when fully awake advance as tolerated. Activities within moderation encouraged. Follow up in my office by appointment in about [1 week]. Call for appointment. Leave wounds [covered], [keep clean and dry, until office visit in 1 week]. Meds per med rec. Hold of on school/work [until evaluation in office]. May shower [in 48 hrs], [try to keep operated area as dry as possible]. Prescriptions: Oxycodone HCl/Acetaminophen [Percocet 5-325 mg Tablet] 1 tab PO ASDIR PRN #15 tab PRN Reason: Referrals: AMY ISIDRO MD [Primary Care Provider] - Discharge Diet: Other (Comments) - Renal Respiratory Treatments at Home: Deep Breathing/Coughing Discharge Activity: Activity As Tolerated Report the Following to Your Physician Immediately: Shortness of Breath, Unusual Bleeding
--- NOTE | 2017-07-05 09:58 | Operative Report ---
Operative Report DATE OF SURGERY: 07/05/17 PREOPERATIVE DIAGNOSIS: #[address] 2. End-stage renal disease on hemodialysis. 3. Diabetes mellitus type 2. 4. Hypertension. POSTOPERATIVE DIAGNOSIS: #[address] 2. End-stage renal disease on hemodialysis. 3. Diabetes mellitus type 2. 4. Hypertension. OPERATION: Insertion of left radiocephalic fistula, transposed. SURGEON: STEVE CARVAJAL SUPERINTENDENT INSTITUTION: None ANESTHESIA: LMAC TISSUE REMOVED OR ALTERED: Not applicable COMPLICATIONS: None ESTIMATED BLOOD LOSS: 5 mL. INTRAOPERATIVE FINDINGS: Of a very robust and thick-walled but relatively disease-free radial artery. Of a acceptable radial artery in the distal third of the forearm accepting a 3 mm coronary dilator without difficulty. Good bruit and good pulse in the vein after the procedure. The anatomy such that the cephalic vein ends up in the basilic, the cephalic and arm seems absent. The hope is for maturation to use in about 4 weeks. Otherwise maturation angioplasty may be needed. PROCEDURE: Operative Report PROCEDURE: After reviewing the procedure with the patient, he was taken to the operating room. The patient was sedated and the left upper extremity] prepared with chlorhexidine and draped out with sterile linen. After the "" universal timeout", in which it was verified that the patient [received IV antibiotics] the procedure commenced. The sterilely sheathed ultrasound probe was used to evaluate the left venous and arterial systems, pertinent to the previously done vein mapping. Local anesthesia was infiltrated and a longitudinal incision made over the distal third of forearm, over the most distal reasonable looking radial artery and cephalic vein. Dissection proceeded through the subcutaneous tissues down to the radial artery. This was dissected out proximally and distally for about 2 cm. . Rubber loops were placed on either end. The cephalic vein was now dissected out for a distance of about 6 cm, through a separate incision. The patient was given 2500 units of heparin intravenously. The cephalic vein was transected and irrigated with heparinized solution, after moving it medially to oppose the radial artery. The distal branches were clipped Coronary dilators were accepted [up to 3.0 mm]. The artery was controlled proximally and distally with rubber loops. The vein was transposed into the arterial incision . An arteriotomy approximately 1.2 cm in length was made, the artery was irrigated proximally and distally with heparinized solution. The transected vein was now opened adjacent to the artery and irrigated with heparinized solution and with nitroglycerin solution. An end vein to side artery anastomosis conducted in a single layer. This was done using a continuous suture of 6-0 Prolene. Controls of the fistula were now released and it was analyzed using a Doppler probe. Hemostasis was secured once optimal function was assured, the wound was irrigated with antibiotic containing solution and closed. Closure was done using interrupted 3-0 PDS for the subcutaneous tissues. The skin was closed, in either wound, using a continuous subcutaneous suture of 4-0 Monocryl which was reinforced with Steri-Strips over benzoin. I then left the operative field and returned with a stethoscope covered with a sterile Tegaderm dressing. This allowed external auscultation of the fistula. Auscultation was [satisfactory]. The procedure was concluded by applying a dressing over the surgical site. DICTATING PHYSICIAN: STEVE HURST M.D.
[2017-07-05 11:31] VITALS: BP 159/88
[2017-07-05] MEDS ORDERED: LIDOCAINE 2% INJ-PF (20 MG/ML) 2 ML AMPUL ONE (13:09)
== END 2017-07-05 11:30 | disposition home or self-care (01) ==
LOC: OROUT 05:15
PROVIDERS: ATTEND Surgery
PROC: 05SF0ZZ Reposition Left Cephalic Vein, Open Approach (ICD-10-PCS; principal; 2017-07-05 07:30)
DX: I12.0 Hypertensive chronic kidney disease with stage 5 chronic kidney disease or end stage renal disease (principal); E11.22 Type 2 diabetes mellitus with diabetic chronic kidney disease; N18.6 End stage renal disease; Z99.2 Dependence on renal dialysis; Z87.01 Personal history of pneumonia (recurrent); Z79.899 Other long term (current) drug therapy
CPT/HCPCS: 36821; 93005; 36415 ×2; 82962; 84132; 85027; 80048; 93010; J2250; J3490 ×6; J0690; J3010; J1644; J2704; J0131; 1844

== ENCOUNTER 2017-09-06 11:52 | Day surgery (SDC) | payer SELFPAY ==
[2017-09-06] MEDS ORDERED: OXYCODONE-ACETAMINOPHEN 5-325 MG TABLET ONE (12:42)
[2017-09-06] MEDS ORDERED: DIAZEPAM 5 MG TABLET ONE (12:42)
[2017-09-06] MEDS ORDERED: DIAZEPAM 5 MG TABLET PO ONE (12:45)
[2017-09-06] MEDS ORDERED: OXYCODONE-ACETAMINOPHEN 5-325 MG TABLET PO ONE (12:45)
[2017-09-06 13:05] LABS: HEMATOCRIT 37.7 % (37.9-51.0); HEMOGLOBIN 12.6 g/dL (13.5-17.0); MEAN CORPUSCULAR HEMOGLOBIN 28.9 pg (27.0-33.4); MEAN CORPUSCULAR HGB CONC 33.4 g/dL (32.0-36.0); MEAN CORPUSCULAR VOLUME 87 fl (80-97); PLATELET COUNT 202 10^3/uL (150-450); RED BLOOD COUNT 4.36 10^6/uL (4.35-5.55); RED CELL DISTRIBUTION WIDTH 16.2 % (11.5-14.0); WHITE BLOOD COUNT 6.3 10^3/uL (4.0-10.5)
[2017-09-06 13:37] LABS: ANION GAP 17 (5-19); BLOOD UREA NITROGEN 48 mg/dL (7-20); CALCIUM 9.9 mg/dL (8.4-10.2); CARBON DIOXIDE 25 mmol/L (22-30); CHLORIDE 101 mmol/L (98-107); GLUCOSE 101 mg/dL (75-110); SODIUM 142.8 mmol/L (137-145)
[2017-09-06] MEDS ORDERED: LIDOCAINE 0.5% INJ-PF (5 MG/ML) 50 ML SDV ONE (13:48)
[2017-09-06] MEDS ORDERED: HEPARIN SOD (PORCINE) 5,000 UNIT/ML 1 ML SYRINGE ONE (14:03)
[2017-09-06] MEDS ORDERED: FENTANYL CITRATE INJ/PF 100 MCG/2 ML AMPUL ONE (14:04)
[2017-09-06] MEDS ORDERED: MIDAZOLAM 2 MG/2 ML INJ ONE (14:04)
--- NOTE | 2017-09-06 15:44 | PDOC DISCHARGE SUMMARY ---
Discharge Summary (SDC) - Discharge Final Diagnosis: #1 malfunctioning AV fistula, left brachiocephalic. 2. End-stage renal disease on hemodialysis. 3. PermCath in place. 4. Diabetes mellitus type 2. 5. Hypertension. Date of Surgery: 09/06/17 Discharge Date: 09/06/17 Condition: Good Treatment or Instructions: Discharge home [after recovery per ASU criteria]. Diet , [renal],as tolerated, when fully awake advance as tolerated. Activities within moderation encouraged. Follow up in my office by appointment on in 2 weeks. Call for appointment. Leave wounds [covered], [keep clean and dry, until office visit in 1 week]. Hold of on school/work [until evaluation in office]. Meds per med rec. Remove icepack to left forearm at about 1600 hrs. No need to replace. May shower [in 48 hrs], [try to keep operated area as dry as possible]. Referrals: AMY ISIDRO MD [Primary Care Provider] - Discharge Diet: Other (Comments) - Renal diabetic. Respiratory Treatments at Home: Deep Breathing/Coughing Discharge Activity: Activity As Tolerated Report the Following to Your Physician Immediately: Shortness of Breath, Unusual Bleeding
--- NOTE | 2017-09-06 16:34 | RADIOLOGY REPORT (SQ) ---
EXAM DESCRIPTION: FISTULAGRAM W/PLASTY COMPLETED DATE/TIME: 09/06/2017 3:45 pm REASON FOR STUDY: T82.858A T82.858A STENOSIS OF OTHER VASCULAR PROSTH DEV/GRFT, INIT COMPARISON: None. FLUOROSCOPY TIME: 0.6 minutes 71 images saved to PACS. TECHNIQUE: Intra-operative images acquired during surgical procedure to evaluate progress. NUMBER OF IMAGES: 71 LIMITATIONS: None. FINDINGS: Intra procedural imaging and fluoro during evaluation and plasty of left upper extremity d ialysis access by Dr. Blank IMPRESSION: Intra procedural imaging and fluoro COMMENT: Quality ID [id number]: Final reports for procedures using fluoroscopy that document radiation exp osure indices, or exposure time and number of fluorographic images (if radiation exposure indices are not available) Please consult full operative report of the attending physician for description of the procedure. TECHNICAL DOCUMENTATION: JOB ID: [id number] [employer]- All Rights Reserved
[2017-09-06 17:27] VITALS: BP 138/60
--- NOTE | 2017-09-06 18:34 | Operative Report ---
Operative Report DATE OF SURGERY: 09/06/17 PREOPERATIVE DIAGNOSIS: #1 malfunctioning AV fistula, left brachiocephalic. 2. End-stage renal disease on hemodialysis. 3. PermCath in place. 4. Diabetes mellitus type 2. 5. Hypertension. POSTOPERATIVE DIAGNOSIS: #1 malfunctioning AV fistula, left brachiocephalic. 2. End-stage renal disease on hemodialysis. 3. PermCath in place. 4. Diabetes mellitus type 2. 5. Hypertension. OPERATION: 1. Ultrasound evaluation and real-time access into AV fistula. Left radiocephalic. 2. Fistula angioplasty. 3. Angiogram and interpretation. SURGEON: STEVE CARVAJAL BINDER STRIPPER MACHINE: None ANESTHESIA: Moderate Sedation TISSUE REMOVED OR ALTERED: Not applicable. COMPLICATIONS: Seemingly limited extravasation from fistula. After angioplasty. ESTIMATED BLOOD LOSS: 10 mL. INTRAOPERATIVE FINDINGS: Of a well founded left forearm radiocephalic fistula. Transposed. Quite good pulse in it but very narrow. Dilated using a 4 mm angioplasty balloon with satisfactory result. Between 5 and 15 cm for a 10 cm segment. Dilatation with a 6 mm balloon resulted in extravasation and the procedure was noted at that point. PROCEDURE: PROCEDURE: After verifying the procedure and having obtained informed consent, the patient's left arm and forearm were prepared with Chlorhexidine and draped out with sterile linen. Local anesthesia infiltrated. Percutaneous access into the fistula ,[retrograde], obtained about [20 cm] from the arteriovenous anastomosis using a micro puncture needle followed by micro puncture wire and then a micro puncture catheter. This was done on ultrasound guidance using real-time access into the vein. Ultrasound was also used to size the vein. Angiogram demonstrated the aforementioned findings. Angioplasty was elected. A 0.035 [place] wire was inserted, and over this, a 5 Latvian short introducer was placed, this was followed by a [4] millimeter angioplasty balloon . Angioplasty was now done, sequentially from 5 cm up to 15 cm as measured from the anastomosis. This was done very carefully using a 3 mL syringe and sustained for 2 minutes. Angiogram demonstrated improved outcome. The balloon was now swapped over the wire for a 6 mm angioplasty balloon. Angioplasty was Done at the distal 5-9 cm segment. Inflating with a 3 mils syringe for 2 minutes. The balloon was then moved up to the neck segment and inflation done. At this point a hematoma was noted and the procedure was rapidly concluded with gentle application of external pressure and cold compress this was sustained for about 20 minutes. At this time the fistula appeared to be functional with no further apparent extravasation.]. Dressings applied, procedure concluded. DICTATING PHYSICIAN: STEVE HURST M.D. cc: STEVE HURST M.D. ([id number]) >>
== END 2017-09-06 17:15 | disposition home or self-care (01) ==
LOC: CCL 11:52
PROVIDERS: ATTEND Surgery
PROC: 057F3DZ Dilation of Left Cephalic Vein with Intraluminal Device, Percutaneous Approach (ICD-10-PCS; principal; 2017-09-06)
DX: T82.858A Stenosis of other vascular prosthetic devices, implants and grafts, initial encounter (principal); Y83.2 Surgical operation with anastomosis, bypass or graft as the cause of abnormal reaction of the patient, or of later complication, without mention of misadventure at the time of the procedure; I12.0 Hypertensive chronic kidney disease with stage 5 chronic kidney disease or end stage renal disease; N18.6 End stage renal disease; E11.22 Type 2 diabetes mellitus with diabetic chronic kidney disease; Z79.899 Other long term (current) drug therapy
CPT/HCPCS: 36415; 82962; 85027; 80048; 36902; 76937; C1752; C1887; C1725; Q9967; C1769; J2250; J1644 ×2; J3010; J3490

== ENCOUNTER 2017-11-15 10:36 | Day surgery (SDC) | payer MEDICARE ==
[~2017-11-15 10:36] MED LIST changes: -CEFAZOLIN 1 GM/D5W RTU 1 GM/50 ML RTUPB IV PRN; +DIAZEPAM 5 MG TABLET PO PRN; -NORMAL SALINE 1000 ML (RENAL PATIENTS) IV PRN
[2017-11-15 11:38] LABS: HEMATOCRIT 30.6 % (37.9-51.0); HEMOGLOBIN 10.1 g/dL (13.5-17.0); MEAN CORPUSCULAR HEMOGLOBIN 28.8 pg (27.0-33.4); MEAN CORPUSCULAR VOLUME 87 fl (80-97); PLATELET COUNT 354 10^3/uL (150-450); RED CELL DISTRIBUTION WIDTH 15.8 % (11.5-14.0); WHITE BLOOD COUNT 8.5 10^3/uL (4.0-10.5)
[2017-11-15 12:02] LABS: ANION GAP 9 (5-19); BLOOD UREA NITROGEN 45 mg/dL (7-20); CALCIUM 10.6 mg/dL (8.4-10.2); CARBON DIOXIDE 31 mmol/L (22-30); CHLORIDE 101 mmol/L (98-107); GLUCOSE 111 mg/dL (75-110)
[2017-11-15] MEDS ORDERED: FENTANYL CITRATE INJ/PF 100 MCG/2 ML AMPUL ONE (12:51)
[2017-11-15] MEDS ORDERED: LIDOCAINE 0.5% INJ-PF (5 MG/ML) 50 ML SDV ONE (12:51)
[2017-11-15] MEDS ORDERED: HEPARIN SOD (PORCINE) 5,000 UNIT/ML 1 ML SYRINGE ONE (12:51)
[2017-11-15] MEDS ORDERED: MIDAZOLAM 2 MG/2 ML INJ ONE (12:51)
--- NOTE | 2017-11-15 14:49 | PDOC H&P ---
General Chief Complaint: The patient presents for angiogram and angioplasty in his existing left radiocephalic fistula. It is proved not sufficiently useful for removal of his CVC. - Current Medications/Allergies Allergies/Adverse Reactions: No Known Allergies Allergy (Verified 11/15/17 12:08) Past Medical History Cardiac Medical History: Reports: Hypertension Denies: Coronary Artery Disease, Myocardial Infarction Pulmonary Medical History: Reports: Pneumonia Denies: Asthma, Bronchitis, Chronic Obstructive Pulmonary Disease (COPD) Neurological Medical History: Denies: Seizures Musculoskeltal Medical History: Denies: Arthritis Hematology: Reports: Anemia Family History Family History: Reviewed & Not Pertinent Parental Family History Reviewed: No Children Family History Reviewed: No Sibling(s) Family History Reviewed.: No Social History Smoking Status: Never Smoker Frequency of Alcohol Use: None Hx Recreational Drug Use: No Hx Prescription Drug Abuse: No Physical Exam Vital Signs: Temp Pulse Resp BP Pulse Ox 97.7 F 77 16 151/69 H 98 11/15/17 11:30 11/15/17 11:30 11/15/17 11:30 11/15/17 11:30 11/15/17 11:30 Intake & Output 11/14/17 11/15/17 11/16/17 06:59 06:59 06:59 Weight 78.925 kg 78.93 kg Additional comments: Constitutional: Well-developed well-nourished -[place] gentleman, slim build. No apparent acute distress. Eyes: Mucous membranes pink and moist, pupils equal and reactive to light. Conjunctiva normal. Cornea normal. ENT: Hearing grossly normal. External pinna normal to inspection. Teeth mostly intact. Tongue normal to inspection. Cardiac: Heart sounds 1 and 2 normal. Respiratory breath sounds are present bilaterally, normal. Normal respiratory effort. Psychiatric: Judgment, memory, insight seem normal. Mood is pleasant and appropriate. Extremities: Upper extremities show normal range of movement. Pulses present noted to the radial arteries. Capillary refill normal. No cyanosis noted. No muscle wasting noted. Left upper extremity radiocephalic fistula in place. Easily palpable but for limited extent about 6 cm. Impression/Plan Plan: Angioplasty is recommended in this patient whose fistula is only partially matured. The plan is to get it useful so that his PermCath can be removed.
--- NOTE | 2017-11-15 14:50 | Discharge Summary ---
Discharge Summary (SDC) - Discharge Final Diagnosis: #1 malfunctioning AV fistula, left radiocephalic. 2. End-stage renal disease on hemodialysis. 3. Diabetes mellitus type 2. 4. Hypertension. Date of Surgery: 11/15/17 Discharge Date: 11/15/17 Condition: Good Treatment or Instructions: Discharge home [after recovery per ASU criteria]. Diet , [renal],as tolerated, when fully awake advance as tolerated. Activities within moderation encouraged. Follow up in my office by appointment in about [1 week]. Call for appointment. Leave wounds [covered], [keep clean and dry, until hemodialysis]. Hold of on school/work [until evaluation in office]. Meds per med rec. May shower [in 48 hrs], [try to keep operated area as dry as possible]. Referrals: AMY ISIDRO MD [Primary Care Provider] - Discharge Diet: Other (Comments) - Renal, diabetic. Respiratory Treatments at Home: Deep Breathing/Coughing Discharge Activity: Activity As Tolerated Report the Following to Your Physician Immediately: Shortness of Breath, Unusual Bleeding
--- NOTE | 2017-11-15 14:51 | RADIOLOGY REPORT (SQ) ---
EXAM DESCRIPTION: FISTULAGRAM W/PLASTY COMPLETED DATE/TIME: 11/15/2017 2:34 pm REASON FOR STUDY: T82.858A T82.858A STENOSIS OF OTHER VASCULAR PROSTH DEV/GRFT, INIT COMPARISON: None. FLUOROSCOPY TIME: 2.3 minutes 133 images saved to PACS. TECHNIQUE: Intra-operative images acquired during surgical procedure to evaluate progress. NUMBER OF IMAGES: Cine fluoroscopic images. LIMITATIONS: None. FINDINGS: Selected images from arteriography and balloon angioplasty forearm dialysis graft. IMPRESSION: IMAGE(S) OBTAINED DURING PROCEDURE. COMMENT: Quality ID 145: Final reports for procedures using fluoroscopy that document radiation exp osure indices, or exposure time and number of fluorographic images (if radiation exposure indices are not available) Please consult full operative report of the attending physician for description of the procedure. TECHNICAL DOCUMENTATION: JOB ID: [id number] [employer]- All Rights Reserved Reading location - IP/workstation name: [email or web address]
--- NOTE | 2017-11-15 15:11 | Operative Report ---
Operative Report DATE OF SURGERY: 11/15/17 PREOPERATIVE DIAGNOSIS: #1 malfunctioning AV fistula, left radiocephalic. 2. End-stage renal disease on hemodialysis. 3. Diabetes mellitus type 2. 4. Hypertension. POSTOPERATIVE DIAGNOSIS: #1 malfunctioning AV fistula, left radiocephalic. 2. End-stage renal disease on hemodialysis. 3. Diabetes mellitus type 2. 4. Hypertension. OPERATION: 1. Ultrasound evaluation and ultrasound-guided access into the arteriovenous fistula, left forearm. 2. Angioplasty. 3. Angiogram and interpretation. SURGEON: STEVE CARVAJAL BOOK JOGGER: None ANESTHESIA: Moderate Sedation TISSUE REMOVED OR ALTERED: Not applicable. COMPLICATIONS: None. ESTIMATED BLOOD LOSS: 5 mL. INTRAOPERATIVE FINDINGS: Of a well founded left forearm AV fistula. Easily palpable for about 6 cm only. Ultrasound demonstrated satisfactory dilatation in the short area. Otherwise the vein was really quite small 2.8 mm up to the elbow. After dilatation it was easily palpable and much larger. Real-time access was obtained in the vein under ultrasound guidance. Angiogram demonstrates a tight stenosis from the anastomosis for about the initial 4 cm of the fistula. The radial artery distal to the anastomosis was quite narrow. Proximally very nicely dilated. The anastomosis itself looks fine. Two veins draining the fistula from about 10 cm. The one accessed was dilated up to 6 mm with a very nice palpable nature after dilatation. Also noticed was typical edema after dilatation. The other major branch has a stenosis at its very origin and may need to be addressed at another time. It could be the major draining vessel. Overall the area of the fistula available for angioplasty should be increased to about 10 cm. The inflow was increased to allow for satisfactory access. Otherwise subsequently an antegrade approach to the secondary vein may be indicated. PROCEDURE: PROCEDURE: After verifying the procedure and having obtained informed consent, the patient's left arm and forearm were prepared with Chlorhexidine and draped out with sterile linen. Local anesthesia infiltrated. Percutaneous access into the fistula ,[retrograde], obtained about [20 cm] from the arteriovenous anastomosis using a micro puncture needle followed by micro puncture wire and then a micro puncture catheter. This was done on ultrasound guidance using real-time access into the vein. Ultrasound was also used to size the vein. Angiogram demonstrated the aforementioned findings. Angioplasty was elected. A 0.035 [place] wire was inserted, and over this, a 5 Luxembourgish short introducer was placed, this was followed by a Janay catheter which allowed access to into the [place] artery distal to the anastomosis. Based on the angiographic findings angioplasty was elected. [4] angioplasty balloon . Angioplasty was now done at the distal radial artery just before the anastomosis and over the anastomotic and perianastomotic segment. This was done very carefully using a 3 mils syringe, hand injection sustained for 2 minutes. Angiogram demonstrated successful outcome. The balloon was now swapped over the wire for a 6 mm angioplasty balloon. Angioplasty was serially done from the perianastomotic fistula up to the introducer. Inflating with a 3 mils syringe for 1-2 minutes at a time.]. Completion angiogram demonstrated [satisfactory result]. The instrumentation was now withdrawn over hand pressure for 10 minutes . Dressings applied, procedure concluded. DICTATING PHYSICIAN: STEVE HURST M.D. cc: STEVE HURST M.D. ([id number]) >>
[2017-11-15 16:59] VITALS: BP 156/79
== END 2017-11-15 16:00 | disposition home or self-care (01) ==
LOC: CCL 10:36
PROVIDERS: ATTEND Surgery
DX: T82.858A Stenosis of other vascular prosthetic devices, implants and grafts, initial encounter (principal); Y83.2 Surgical operation with anastomosis, bypass or graft as the cause of abnormal reaction of the patient, or of later complication, without mention of misadventure at the time of the procedure; I12.0 Hypertensive chronic kidney disease with stage 5 chronic kidney disease or end stage renal disease; E11.22 Type 2 diabetes mellitus with diabetic chronic kidney disease; D63.1 Anemia in chronic kidney disease; N18.6 End stage renal disease; Z99.2 Dependence on renal dialysis; Z87.01 Personal history of pneumonia (recurrent)
CPT/HCPCS: 36415; 82962; 85027; 80048; 36902; 76937; C1752; C1887; C1725; Q9967; C1769; J2250; J1644 ×2; A9270; J3010; J3490

== ENCOUNTER 2018-01-10 08:25 | Day surgery (SDC) | payer MEDICARE ==
[2018-01-10 11:55] LABS: HEMATOCRIT 35.9 % (37.9-51.0); MEAN CORPUSCULAR HEMOGLOBIN 30.6 pg (27.0-33.4); MEAN CORPUSCULAR HGB CONC 33.3 g/dL (32.0-36.0); MEAN CORPUSCULAR VOLUME 92 fl (80-97); PLATELET COUNT 310 10^3/uL (150-450); RED BLOOD COUNT 3.91 10^6/uL (4.35-5.55); RED CELL DISTRIBUTION WIDTH 14.4 % (11.5-14.0); WHITE BLOOD COUNT 6.6 10^3/uL (4.0-10.5)
[2018-01-10] MEDS ORDERED: DIAZEPAM 5 MG TABLET ONE (12:05)
[2018-01-10 12:11] LABS: BLOOD UREA NITROGEN 84 mg/dL (7-20); CALCIUM 9.9 mg/dL (8.4-10.2); CARBON DIOXIDE 25 mmol/L (22-30); CHLORIDE 99 mmol/L (98-107); GLUCOSE 137 mg/dL (75-110); POTASSIUM 4.6 mmol/L (3.6-5.0)
[2018-01-10 12:17] LABS: ANION GAP 20 (5-19)
[2018-01-10] MEDS ORDERED: LIDOCAINE 0.5% INJ-PF (5 MG/ML) 50 ML SDV ONE ×2 (12:23→15:10)
[2018-01-10] MEDS ORDERED: FENTANYL CITRATE INJ/PF 100 MCG/2 ML AMPUL ONE ×2 (12:24→15:44)
[2018-01-10] MEDS ORDERED: HEPARIN SOD (PORCINE) 5,000 UNIT/ML 1 ML SYRINGE ONE (12:24)
[2018-01-10] MEDS ORDERED: MIDAZOLAM 2 MG/2 ML INJ ONE (12:24)
[2018-01-10] MEDS ORDERED: ALTEPLASE INJ 2 MG VIAL (CATH CLEARANCE) ONE (13:36)
[2018-01-10] MEDS ORDERED: BACITRACIN INJ 50,000 UNIT VIAL ONE (15:10)
[2018-01-10] MEDS ORDERED: CEFAZOLIN INJ 1 GM VIAL ONE (15:11)
--- NOTE | 2018-01-10 16:09 | Discharge Summary ---
Discharge Summary (SDC) - Discharge Final Diagnosis: #1 clotted arteriovenous fistula left forearm. 2. End-stage renal disease on hemodialysis. 3. Diabetes mellitus type 2. 4. Hypertension. Date of Surgery: 01/10/18 Discharge Date: 01/10/18 Condition: Fair Forms: ASU Anesthesia D/C Instruction, Discharge POC-Surgical Service Treatment or Instructions: Discharge home [after recovery per ASU criteria]. Diet , [renal],as tolerated, when fully awake advance as tolerated. Activities within moderation encouraged. Follow up in my office by appointment in about [1 week]. Call for appointment. Leave wounds [covered], [keep clean and dry, until office visit in 1 week]. Hold of on school/work [until evaluation in office]. Meds per med rec. May shower [in 48 hrs], [try to keep operated area as dry as possible]. Referrals: STEVE HURST MD [ACTIVE STAFF] - Discharge Diet: Other (Comments) - Renal. Respiratory Treatments at Home: Deep Breathing/Coughing Discharge Activity: Activity As Tolerated Report the Following to Your Physician Immediately: Shortness of Breath
--- NOTE | 2018-01-10 16:21 | Operative Report ---
Operative Report DATE OF SURGERY: 01/10/18 PREOPERATIVE DIAGNOSIS: #1 clotted arteriovenous fistula left forearm. 2. End- stage renal disease on hemodialysis. 3. Diabetes mellitus type 2. 4. Hypertension. POSTOPERATIVE DIAGNOSIS: #1 clotted arteriovenous fistula left forearm. 2. End -stage renal disease on hemodialysis. 3. Diabetes mellitus type 2. 4. Hypertension. OPERATION: 1. Ultrasound evaluation and real-time access into the left forearm AV fistula. 2. Needle access into left forearm AV fistula. 3. Second needle access into left arm arteriovenous fistula. 3. AngioJet thrombectomy. 4. Balloon angioplasty. 5. Angiogram and interpretation. SURGEON: STEVE CARVAJAL ACCOUNTANT: None. ANESTHESIA: Moderate Sedation TISSUE REMOVED OR ALTERED: Thrombus. COMPLICATIONS: Failure of fistula. ESTIMATED BLOOD LOSS: 20 mL. INTRAOPERATIVE FINDINGS: Of a completely clotted left forearm radial to cephalic fistula. This was suggested by palpation and auscultation, there was no initial bruit. Evaluation by ultrasound showed that there was clot throughout the entire fistula up to the arteriovenous anastomosis. Antegrade access under ultrasound and the insertion of a 0.035 Glidewire to the level of the axilla without difficulty. Attempted antegrade angiogram showed only retrograde flow towards the artery. This antegrade venous anatomy was revealed by injecting a small amount 2 mg of cath flow. This was followed by 10 minutes of massage and aspiration and then AngioJet thrombectomy followed by angiogram. The angiographic findings were off very poor cephalic vein is very thin including an almost occluded segment just below the elbow. These were all dilated up to 6 mm which was anatomically successful. The flow through the fistula was very poor. Retrograde access was now obtained and angioplasty done at an area of 80% stenosis just above the arteriovenous anastomosis this resulted in very rewarding flow in the fistula itself however with relatively poor outflow. All of this was at the conclusion of about 2 hours of diligent work with thrombectomy, angioplasty and other ancillary measures. Based on the above it was decided to insert a PermCath as the fistula has almost certainly failed. PROCEDURE: PROCEDURE: After verifying the procedure and having obtained informed consent, the patient's left arm was prepared with Chlorhexidine and draped out with sterile linen. Local anesthesia infiltrated. Percutaneous access into the fistula ,[ antegrade], obtained about [2 cm] from the arteriovenous anastomosis using a micro puncture needle followed by micro puncture wire and then a micro puncture catheter. Under ultrasound guidance angiogram demonstrated the aforementioned findings. Ultrasound evaluation of the fistula was also done. Thrombectomy was elected. A 0.035 [place] wire was inserted, and over this, a 6 Guamanian short introducer was placed, this was followed by a AngioJet thrombectomy device angioplasty was now done at the area thrombosis from just below the elbow to the introducer. Angiogram was done demonstrating the tight extrinsic stenosis and relatively poor although multiple outflow. Angioplasty was now done with a 6 mm high- pressure balloon inflating for 2 minutes each segment with a 3 mils syringe. Completion angiogram was very satisfactory angiographically. There was some flow through the fistula although slow with only a faint pulse. It was therefore decided to do a retrograde access which was done about 3 cm below the elbow and under ultrasound guidance. A 6 Guamanian introducer was placed and a Glidewire was successfully passed through this into the lumbee arterial system. A [place] catheter was now to obtain angiograms and described the arteriovenous anastomosis. Based on this a 5 mm angioplasty balloon was inserted and placed over the culprit area. Inflation consult confirmed a significant waist. Inflation was done using a 3 mils syringe minutes. On release excellent pulses throughout the entire system. At this point maximal efforts had been taken. The procedure had taken two hours thus long and it was accepted. Hand-held for 10 minutes and then released. The system was analyzed and at this point although is pulsatile there was really no bruit.. Dressings applied , procedure concluded. Exposure time: 2.7 minutes Radiation: 18.82 Vikki xiong. Contrast: 55 mils of Isovue-300, low osmolality. Please note that these totals are for this procedure and the subsequent one of insertion of a permacatheter. DICTATING PHYSICIAN: STEVE HURST M.D. cc: STEVE HURST M.D. ([id number]) >>
--- NOTE | 2018-01-10 16:23 | Operative Report ---
Operative Report DATE OF SURGERY: 01/10/18 PREOPERATIVE DIAGNOSIS: #1 clotted arteriovenous fistula left forearm. 2. End- stage renal disease on hemodialysis. 3. Diabetes mellitus type 2. 4. Hypertension. POSTOPERATIVE DIAGNOSIS: #1 clotted arteriovenous fistula left forearm. 2. End -stage renal disease on hemodialysis. 3. Diabetes mellitus type 2. 4. Hypertension. OPERATION: 1. Ultrasound evaluation and real-time access into the right internal jugular vein. 2. Insertion of a permacatheter via real-time ultrasound guidance into the right internal jugular vein. 3. Angiogram and interpretation. SURGEON: STEVE CARVAJAL DIVERSITY INTERN: None. ANESTHESIA: Moderate Sedation TISSUE REMOVED OR ALTERED: None. COMPLICATIONS: None. ESTIMATED BLOOD LOSS: 5 mL. INTRAOPERATIVE FINDINGS: Of a satisfactory right internal jugular vein, right over the carotid artery. Ultrasound was of significant benefit in gaining safe access. Satisfactory access into the right internal jugular vein with good position the tip of the catheter just down in the right atrium. Easy egress of blood and ingress of heparinized solution through both ports. Angiogram demonstrates a relatively small atrium. Smooth smooth flow of contrast through the right atrium, ventricle and pulmonary outflow tract.
--- NOTE | 2018-01-10 16:25 | RADIOLOGY REPORT (SQ) ---
EXAM DESCRIPTION: FISTULAGRAM W/PLASTY/THROMBECT; GUIDANCE FLUOROSCOPIC COMPLETED DATE/TIME: 01/10/2018 4:03 pm; 01/10/2018 3:11 pm REASON FOR STUDY: T82.858A; NEED FOR VASCULAR ACCESS T82.858A STENOSIS OF OTHER VASCULAR PROSTH DEV /GRFT, INIT COMPARISON: 11/15/2017 FLUOROSCOPY TIME: 2.4 minutes 117 digital images saved to PACS. TECHNIQUE: Intra-operative images acquired during surgical procedure to evaluate progress. NUMBER OF IMAGES: 117 images LIMITATIONS: None. FINDINGS: Intra procedural imaging and fluoro during evaluation of left upper extremity dialysis acc ess. Please see the operative report from Dr. Blank IMPRESSION: Intra procedural imaging and fluoro COMMENT: Quality ID 145: Final reports for procedures using fluoroscopy that document radiation exp osure indices, or exposure time and number of fluorographic images (if radiation exposure indices are not available) Please consult full operative report of the attending physician for description of the procedure. TECHNICAL DOCUMENTATION: JOB ID: [id number] [employer]- All Rights Reserved Reading location - IP/workstation name: [email or web address]
--- NOTE | 2018-01-10 16:25 | RADIOLOGY REPORT (SQ) ---
EXAM DESCRIPTION: FISTULAGRAM W/PLASTY/THROMBECT; GUIDANCE FLUOROSCOPIC COMPLETED DATE/TIME: 01/10/2018 4:03 pm; 01/10/2018 3:11 pm REASON FOR STUDY: T82.858A; NEED FOR VASCULAR ACCESS T82.858A STENOSIS OF OTHER VASCULAR PROSTH DEV /GRFT, INIT COMPARISON: 11/15/2017 FLUOROSCOPY TIME: 2.4 minutes 117 digital images saved to PACS. TECHNIQUE: Intra-operative images acquired during surgical procedure to evaluate progress. NUMBER OF IMAGES: 117 images LIMITATIONS: None. FINDINGS: Intra procedural imaging and fluoro during evaluation of left upper extremity dialysis acc ess. Please see the operative report from Dr. Blank IMPRESSION: Intra procedural imaging and fluoro COMMENT: Quality ID 145: Final reports for procedures using fluoroscopy that document radiation exp osure indices, or exposure time and number of fluorographic images (if radiation exposure indices are not available) Please consult full operative report of the attending physician for description of the procedure. TECHNICAL DOCUMENTATION: JOB ID: [id number] [employer]- All Rights Reserved Reading location - IP/workstation name: [facility]-[email or web address]
--- NOTE | 2018-01-10 16:30 | RADIOLOGY REPORT (SQ) ---
EXAM DESCRIPTION: TUNNELED CENTRAL LINE COMPLETED DATE/TIME: 01/10/2018 4:03 pm REASON FOR STUDY: NEED FOR VASCULAR ACCESS T82.858A STENOSIS OF OTHER VASCULAR PROSTH DEV/GRFT, INI T COMPARISON: Left arm fistulogram same date FLUOROSCOPY TIME: 0.3 minutes 14 digital radiographic images saved to PACS. TECHNIQUE: Intra-operative images acquired during surgical procedure to evaluate progress. NUMBER OF IMAGES: 14 digital radiographic images LIMITATIONS: None. FINDINGS: Intra procedural imaging and fluoro during placement of a right-sided central venous dialy sis catheter with the tip in the right atrium. Please see the operative report for further details IMPRESSION: Intra procedural imaging and fluoro COMMENT: Quality ID 145: Final reports for procedures using fluoroscopy that document radiation exp osure indices, or exposure time and number of fluorographic images (if radiation exposure indices are not available) Please consult full operative report of the attending physician for description of the procedure. TECHNICAL DOCUMENTATION: JOB ID: [id number] [employer]- All Rights Reserved Reading location - IP/workstation name: [email or web address]
[2018-01-10 17:28] VITALS: BP 134/81
== END 2018-01-10 17:20 | disposition home or self-care (01) ==
LOC: CCL 08:25
PROVIDERS: ATTEND Surgery
DX: T82.858A Stenosis of other vascular prosthetic devices, implants and grafts, initial encounter (principal); Y83.2 Surgical operation with anastomosis, bypass or graft as the cause of abnormal reaction of the patient, or of later complication, without mention of misadventure at the time of the procedure; I12.0 Hypertensive chronic kidney disease with stage 5 chronic kidney disease or end stage renal disease; E11.22 Type 2 diabetes mellitus with diabetic chronic kidney disease; N18.6 End stage renal disease; Z99.2 Dependence on renal dialysis; Z87.01 Personal history of pneumonia (recurrent); Z79.899 Other long term (current) drug therapy
CPT/HCPCS: 36415; 85027; 80048; 36905; 36558; 76937; 77001; C1713; C1752; Q9967; J2997; J2250; J3490 ×2; J1644 ×2; J0690; A9270; J3010

== ENCOUNTER 2018-02-07 10:04 | Day surgery (SDC) | payer MEDICARE ==
[2018-02-02 11:20] LABS: HEMOGLOBIN 11.9 g/dL (13.5-17.0); MEAN CORPUSCULAR HEMOGLOBIN 30.2 pg (27.0-33.4); MEAN CORPUSCULAR VOLUME 91 fl (80-97); PLATELET COUNT 351 10^3/uL (150-450); RED BLOOD COUNT 3.94 10^6/uL (4.35-5.55); WHITE BLOOD COUNT 8.1 10^3/uL (4.0-10.5)
[2018-02-02 11:33] LABS: BLOOD UREA NITROGEN 34 mg/dL (7-20); CALCIUM 10.3 mg/dL (8.4-10.2); GLUCOSE 170 mg/dL (75-110); POTASSIUM 4.6 mmol/L (3.6-5.0)
[2018-02-02 11:44] LABS: ANION GAP 17 (5-19); CARBON DIOXIDE 31 mmol/L (22-30); CHLORIDE 98 mmol/L (98-107); SODIUM 146.2 mmol/L (137-145)
--- NOTE | 2018-02-02 12:27 | EKG REPORT ---
SEVERITY:- ABNORMAL ECG - SINUS RHYTHM LEFT AXIS DEVIATION LEFT VENTRICULAR HYPERTROPHY : Confirmed by: Silviano Caceres MD 02-Feb-2018 12:26:39
[~2018-02-07 10:04] MED LIST changes: +BACITRACIN INJ 50,000 UNIT VIAL ONE; +CEFAZOLIN 1 GM/D5W RTU 1 GM/50 ML RTUPB IV PRN; -DIAZEPAM 5 MG TABLET PO PRN; +HEPARIN SOD (PORCINE) 1,000 UNIT/ML 1 ML VIAL ONE; +HEPARIN SOD (PORCINE) 1,000 UNIT/ML 10 ML VIAL ONE; +LIDOCAINE 0.5% INJ-PF (5 MG/ML) 50 ML SDV ONE; +LIDOCAINE 1% INJ-PF (10 MG/ML) 30 ML SDV ONE; +NORMAL SALINE 1000 ML (RENAL PATIENTS) IV PRN
[2018-02-07] MEDS ORDERED: NITROGLYCERIN/D5W 0 MG/0 ML RTUINJ IV ONE (11:14)
[2018-02-07] MEDS ORDERED: FENTANYL CITRATE INJ/PF 100 MCG/2 ML AMPUL ONE (11:38)
[2018-02-07] MEDS ORDERED: PROPOFOL INJ 200 MG/20 ML VIAL IV ONE (11:39)
[2018-02-07] MEDS ORDERED: MIDAZOLAM 2 MG/2 ML INJ ONE ×2 (11:39)
[2018-02-07] MEDS ORDERED: MORPHINE SULFATE 10 MG/ML INJ IV PRN (12:31)
[2018-02-07] MEDS ORDERED: MEPERIDINE HCL/PF INJ 25 MG/1 ML DISP.SYRIN IV PRN (12:31)
[2018-02-07] MEDS ORDERED: DIPHENHYDRAMINE HCL 50 MG/ML VIAL IV PRN (12:31)
[2018-02-07] MEDS ORDERED: FENTANYL CITRATE INJ/PF 100 MCG/2 ML AMPUL IV PRN ×3 (12:31)
[2018-02-07] MEDS ORDERED: PROMETHAZINE HCL INJ 25 MG/1 ML VIAL IV PRN ×2 (12:31)
[2018-02-07] MEDS: BUPIVACAINE HCL 0.25 % INJ/PF (2.5 MG/1 ML) 30 ML VIAL ONE ×2 (12:54→12:57)
--- NOTE | 2018-02-07 13:42 | Discharge Summary ---
Discharge Summary (SDC) - Discharge Final Diagnosis: #[address] 2. End-stage renal disease on hemodialysis. 3. Diabetes mellitus type 2. 4. Hypertension. Date of Surgery: 02/07/18 Discharge Date: 02/07/18 Condition: Good Treatment or Instructions: Discharge home [after recovery per ASU criteria]. Diet , [renal],as tolerated, when fully awake advance as tolerated. Activities within moderation encouraged. Follow up in my office by appointment in about [1 week]. Call for appointment. Leave wounds [covered], [keep clean and dry, until office visit in 1 week]. Hold of on school/work [until evaluation in office]. Meds per med rec. Percocet. May shower [in 48 hrs], [try to keep operated area as dry as possible]. Prescriptions: Oxycodone HCl/Acetaminophen [Percocet 5-325 mg Tablet] 1 tab PO ASDIR PRN #15 tab PRN Reason: Referrals: AMY ISIDRO MD [Primary Care Provider] - Discharge Diet: Other (Comments) - Renal Respiratory Treatments at Home: Deep Breathing/Coughing Discharge Activity: Activity As Tolerated Report the Following to Your Physician Immediately: Shortness of Breath, Unusual Bleeding
--- NOTE | 2018-02-07 15:16 | Operative Report ---
Operative Report DATE OF SURGERY: 02/07/18 PREOPERATIVE DIAGNOSIS: #[address] 2. End-stage renal disease on hemodialysis. 3. Diabetes mellitus type 2. 4. Hypertension. POSTOPERATIVE DIAGNOSIS: #[address] 2. End-stage renal disease on hemodialysis. 3. Diabetes mellitus type 2. 4. Hypertension. OPERATION: Insertion of first stage basilic fistula in the right upper extremity. SURGEON: STEVE CARVAJAL MECHANIC INSULATOR: . None. ANESTHESIA: LMAC TISSUE REMOVED OR ALTERED: Not applicable. COMPLICATIONS: None. ESTIMATED BLOOD LOSS: 5 mL. INTRAOPERATIVE FINDINGS: Of a cephalic vein just below the antecubital fossa which measured out a 3.1 mm in ultrasound. Unfortunately the this vein was unusable for fistula as it would not accept a 3 mm coronary dilator and did not dilate. A somewhat thick-walled basilic which was attached to it was instead used for outflow and attached to the brachial artery which is immediately adjacent to it. This resulted in a satisfactory dilatation, dopplerable signal. The plan is to evaluate in about a week and then in 3 weeks for possible second stage transposition. PROCEDURE: Operative Report PROCEDURE: After reviewing the procedure with the patient, he was taken to the operating room. The patient was sedated and the [right upper extremity] prepared with chlorhexidine and draped out with sterile linen. After the "" universal timeout", in which it was verified that the patient [received IV antibiotics] the procedure commenced. The sterilely sheathed ultrasound probe was used to evaluate the right upper venous and arterial systems, pertinent to the previously done vein mapping. Local anesthesia was infiltrated and a l horizontal incision made just below the the antecubital fossa. Dissection proceeded through the subcutaneous tissues down to the cephalic vein and brachial vessels. The vein was dissected out proximally and distally for about 4 cm. It was now clipped at the junction with the basilic vein and opened. It was dilated with heparinized solution and then coronary dilator dilators passed. Unfortunately it was unable to accept a 3 mm which predicts an unacceptable vein. The opening in the vein was now closed using interrupted sutures of 6-0 Prolene. The clip was removed. The brachial artery dissected out for a distance of about 1.5 cm. Rubber loops were placed on either end. The patient was given 2500 units of heparin intravenously. An arteriotomy approximately [1.5 cm] in length was made, the artery was irrigated proximally and distally with heparinized solution. The transected vein was now spatulated, it was then anastomosed end to end to side into the brachial artery. This was done using a continuous suture of 6-0 Prolene. Controls of the fistula were now released and it was analyzed using a Doppler probe. Hemostasis was secured once optimal function was assured, the wound was irrigated with antibiotic containing solution and closed. Closure was done using interrupted 3-0 PDS for the subcutaneous tissues. The skin was closed using a continuous subcutaneous suture of 4-0 Monocryl which was reinforced with Steri-Strips over benzoin. I then left the operative field and returned with a stethoscope covered with a sterile Tegaderm dressing. This allowed external auscultation of the fistula. Auscultation was acceptable. The procedure was concluded by applying a Kerlix dressing over the surgical site. DICTATING PHYSICIAN: STEVE HURST M.D.
[2018-02-07 15:21] VITALS: BP 109/62
== END 2018-02-07 15:30 | disposition home or self-care (01) ==
LOC: OROUT 10:04
PROVIDERS: ATTEND Surgery
DX: E11.22 Type 2 diabetes mellitus with diabetic chronic kidney disease (principal); I12.0 Hypertensive chronic kidney disease with stage 5 chronic kidney disease or end stage renal disease; N18.6 End stage renal disease; Z99.2 Dependence on renal dialysis; Z79.01 Long term (current) use of anticoagulants; Z79.84 Long term (current) use of oral hypoglycemic drugs; Z79.899 Other long term (current) drug therapy
CPT/HCPCS: 93005; 36415; 82962; 85027; 80048; 93010; 36821; J2250; J3490 ×3; J0690; J3010; J1644; J2704; 1844

== ENCOUNTER 2018-03-21 10:34 | Day surgery (SDC) | payer MEDICARE ==
[2018-03-14 10:52] LABS: HEMATOCRIT 36.8 % (37.9-51.0); HEMOGLOBIN 12.3 g/dL (13.5-17.0); MEAN CORPUSCULAR HGB CONC 33.5 g/dL (32.0-36.0); MEAN CORPUSCULAR VOLUME 90 fl (80-97); PLATELET COUNT 303 10^3/uL (150-450); RED BLOOD COUNT 4.11 10^6/uL (4.35-5.55); RED CELL DISTRIBUTION WIDTH 14.2 % (11.5-14.0); WHITE BLOOD COUNT 8.2 10^3/uL (4.0-10.5)
[2018-03-14 11:08] LABS: ANION GAP 18 (5-19); BLOOD UREA NITROGEN 29 mg/dL (7-20); CALCIUM 10.5 mg/dL (8.4-10.2); CARBON DIOXIDE 31 mmol/L (22-30); CHLORIDE 95 mmol/L (98-107); GLUCOSE 152 mg/dL (75-110); POTASSIUM 4.1 mmol/L (3.6-5.0)
[~2018-03-21 10:34] MED LIST changes: +BUPIVACAINE HCL 0.25 % INJ/PF (2.5 MG/1 ML) 30 ML VIAL ONE; -HEPARIN SOD (PORCINE) 1,000 UNIT/ML 1 ML VIAL ONE
[2018-03-21] MEDS ORDERED: PHENYLEPHRINE HCL INJ/PF 10 MG/1 ML SDV ONE (11:21)
[2018-03-21] MEDS ORDERED: LIDOCAINE 0.5% INJ-PF (5 MG/ML) 50 ML SDV ONE (11:33)
[2018-03-21 12:02] LABS: POTASSIUM 4.3 mmol/L (3.6-5.0)
[2018-03-21] MEDS ORDERED: DIPHENHYDRAMINE HCL 50 MG/ML VIAL IV PRN (13:17)
[2018-03-21] MEDS ORDERED: FENTANYL CITRATE INJ/PF 100 MCG/2 ML AMPUL IV PRN ×3 (13:17)
[2018-03-21] MEDS ORDERED: PROMETHAZINE HCL INJ 25 MG/1 ML VIAL IV PRN (13:17)
--- NOTE | 2018-03-21 14:43 | Discharge Summary ---
Discharge Summary (SDC) - Discharge Final Diagnosis: 1. Immature arteriovenous fistula, left first stage transposed basilic. 2. End-stage renal disease on hemodialysis. 3. Diabetes mellitus type 2. 4. Hypertension. Date of Surgery: 03/21/18 Discharge Date: 03/21/18 Condition: Good Treatment or Instructions: Discharge home [after recovery per ASU criteria]. Diet , [renal],as tolerated, when fully awake advance as tolerated. Activities within moderation encouraged. Follow up in my office by appointment in about [1 week]. Call for appointment. Leave wounds [covered], [keep clean and dry, until office visit in 1 week]. Hold of on school/work [until evaluation in office]. Meds per med rec. Percocet. May shower [in 48 hrs], [try to keep operated area as dry as possible]. Prescriptions: Oxycodone HCl/Acetaminophen [Percocet 5-325 mg Tablet] 1 tab PO ASDIR PRN #15 tab PRN Reason: Referrals: AMY ISIDRO MD [Primary Care Provider] - Discharge Diet: Other (Comments) - Renal, diabetic. Respiratory Treatments at Home: Deep Breathing/Coughing Discharge Activity: Activity As Tolerated Report the Following to Your Physician Immediately: Shortness of Breath, Unusual Bleeding
[2018-03-21] MEDS ORDERED: MIDAZOLAM 2 MG/2 ML INJ ONE (14:57)
[2018-03-21] MEDS ORDERED: FENTANYL CITRATE INJ/PF 100 MCG/2 ML AMPUL ONE (14:57)
[2018-03-21] MEDS ORDERED: PROPOFOL INJ 200 MG/20 ML VIAL IV ONE (14:57)
--- NOTE | 2018-03-21 16:21 | Operative Report ---
Operative Report DATE OF SURGERY: 03/21/18 PREOPERATIVE DIAGNOSIS: 1. Immature arteriovenous fistula, left first stage transposed basilic. 2. End-stage renal disease on hemodialysis. 3. Diabetes mellitus type 2. 4. Hypertension. POSTOPERATIVE DIAGNOSIS: 1. Immature arteriovenous fistula, left first stage transposed basilic. 2. End-stage renal disease on hemodialysis. 3. Diabetes mellitus type 2. 4. Hypertension. OPERATION: Second stage right arm transposed basilic vein insertion. SURGEON: STEVE CARVAJAL ACCOUNTS PAYABLE OR RECEIVABLE CLERK: None. ANESTHESIA: LMAC TISSUE REMOVED OR ALTERED: Not applicable. COMPLICATIONS: None. ESTIMATED BLOOD LOSS: 20 mL. INTRAOPERATIVE FINDINGS: Of a well established basilic vein fistula. The vein dilated such that axis may well be possibly functional. The adjacent nerve studiously preserved. PROCEDURE: Operative Report PROCEDURE: After reviewing the procedure with the patient, and his family, he was taken to the operating room. The patient was sedated and the left upper extremity prepared with chlorhexidine and draped out with sterile linen. After the "" universal timeout", in which it was verified that the patient [received IV antibiotics] the procedure commenced. The sterilely sheathed ultrasound probe was used to evaluate the size and topographic location of the existing veins. The fistula function was noted. This was transcribed topographical using a marking pen. Local anesthesia was infiltrated and a longitudinal incision started just above the elbow and dissection proceeded down to the vein. Sequential infiltration of local anesthesia, incision and dissection of the vein proceeded up to the axillary fold. The basilic vein was now dissected away from its branches which were either clipped and/or ligated and divided. In this way the basilic vein was freed up for its entire visible length. Its length was now measured with a dry umbilical tape which was used to transpose a tunnel onto the skin anteriorly and laterally. With this marked in ink, local anesthesia was infiltrated in the skin and subcutaneous tissue of the tunnel. A Boone tunneler was now inserted and the tunnel exposed. Serial sutures of 3-0 PDS were placed at about 3 cm intervals and placed on clamps. These gave lateral traction. Cautery was now used to incise the subcutaneous tissues so as to reveal the Boone tunneler. The length of the basilic vein was now shifted into the tunnel and sustained there by interrupted sutures of 3-0 PDS placed from the subcutaneous tissue on one side of the tunnel to the other. Once this was done the lateral flap was now approximated to the medial flap using interrupted sutures of 3-0 PDS. The fistula was interrogated from time to time to make sure that it was patent. A 15 Lithuanian Anthony drain was placed deep in the wound and exiting inferiorly the it was sutured using 2-0 Prolene. The skin was closed with a continuous subcutaneous suture of 4-0 Monocryl. Steri-Strips were applied over benzoin and then a Kerlix wrap. The procedure was concluded. Copies dictated operative report to Dr. Steve Blank MD thank you. DICTATING PHYSICIAN: STEVE BLANK M.D
[2018-03-21 16:52] VITALS: BP 112/67
== END 2018-03-21 16:20 | disposition home or self-care (01) ==
LOC: OROUT 10:34
PROVIDERS: ATTEND Surgery
DX: T85.858A Stenosis due to other internal prosthetic devices, implants and grafts, initial encounter (principal); Y83.2 Surgical operation with anastomosis, bypass or graft as the cause of abnormal reaction of the patient, or of later complication, without mention of misadventure at the time of the procedure; I12.0 Hypertensive chronic kidney disease with stage 5 chronic kidney disease or end stage renal disease; E11.22 Type 2 diabetes mellitus with diabetic chronic kidney disease; N18.6 End stage renal disease; Z99.2 Dependence on renal dialysis; M19.90 Unspecified osteoarthritis, unspecified site; Z79.84 Long term (current) use of oral hypoglycemic drugs; Z79.899 Other long term (current) drug therapy
CPT/HCPCS: 36821; 36415 ×2; 82947; 84132; 85027; 80048; J2250; J3490 ×3; J0690; J3010; J1644; J2370; J2704; 1844

== ENCOUNTER → 2018-04-13 | Outpatient (CLI) | payer MEDICARE ==
--- NOTE | 2018-04-15 14:54 | XCELERA REPORT ---
[address] [address] Lower Extremity Arterial Evaluation Name: DAMON ALEXANDER JR Age: 72 yrs Gender: Male : 1945 Patient Status: Outpatient Patient Location: [facility] Study Date: 04/13/2018 02:26 PM Procedure: A color flow and duplex scan of the lower extremity arteries was performed bilaterally with velocity and waveform anaylsis. Reason For Study: ULCER Ordering Physician: STEVE BLANK Performed By: Ebony Chaudhari Measurements and Calculations Right Left CATERING SOUS CHEF PSV -81.1 131.2 cm/sec Prox PFA PSV 46.1 -119.4cm/sec Prox SFA PSV 49.6 -99.9 cm/sec Mid SFA PSV 84.0 -53.0 cm/sec Dist SFA PSV -63.3 -41.3 cm/sec Dist Pop A PSV -33.3 -27.9 cm/sec Mid CHAU PSV 12.2 cm/sec Mid BRICK PAVER PSV 41.8 -25.9 cm/sec Jay Pedis PSV 25.5 13.4 cm/sec Right Side Arterial Evaluation Normal velocity and triphasic waveforms noted in the Common Femoral artery. Biphasic with decreased waveforms from Popliteal to the Posterior Tibial. Monophasic with minimal flow in the Anterior Tibial artery.. 20-49% stenosis at the Femoral artery. With sequential changes. Ankle Brachial index was not done. Left Side Arterial Evaluation Normal velocity and triphasic waveforms noted in the Common Femoral artery. Biphasic with decreased waveforms from Popliteal to the Posterior Tibial. Monophasic with minimal flow in the Anterior Tibial artery.. 20-49% stenosis at the Femoral artery. With sequential changes. Ankle Brachial index was not done. Interpretation Summary Severe hemodynamically significant lesions in the bilateral lower extremities, on duplex imaging, at rest. Exhibiting, mostly distal, sequential disease. : STEVE BLANK > Steve Blank
== END ==
LOC: SP 14:32
PROVIDERS: ATTEND Surgery
DX: R09.89 Other specified symptoms and signs involving the circulatory and respiratory systems (principal); L97.509 Non-pressure chronic ulcer of other part of unspecified foot with unspecified severity
CPT/HCPCS: 93925

== ENCOUNTER 2018-04-17 16:53 | Inpatient (IN) | payer MEDICARE ==
--- NOTE | 2018-04-17 17:43 | ER Document Report ---
ED Medical Screen (RME) - General Chief Complaint: General Weakness Stated Complaint: WEAKNESS Time Seen by Provider: 04/17/18 17:33 Notes: 72-year-old male to the emergency department for evaluation of weakness and dizziness. Patient was very weak at dialysis. Had a hard time standing up. Complaining of pain in the right foot right foot swelling. Had a ultrasound/ vascular study performed on Tuesday. Has significant stenosis bilateral lower extremities. Followed by Dr. Isidro. I have greeted and performed a rapid initial assessment of this patient. A comprehensive ED assessment and evaluation of the patient, analysis of test results and completion of the medical decision making process will be conducted by additional ED providers. TRAVEL OUTSIDE OF THE [place] IN LAST 30 DAYS: No - Related Data Allergies/Adverse Reactions: No Known Allergies Allergy (Verified 02/02/18 09:14) Past Medical History - Past Medical History Cardiac Medical History: Reports: Hx Hypertension - ON MEDS Denies: Hx Coronary Artery Disease, Hx Heart Attack Pulmonary Medical History: Reports: Hx Pneumonia - HX. OF Denies: Hx Asthma, Hx Bronchitis, Hx COPD Neurological Medical History: Denies: Hx Cerebrovascular Accident, Hx Seizures Renal/ Medical History: Denies: Hx Peritoneal Dialysis Musculoskeltal Medical History: Denies Hx Arthritis - Immunizations Hx Diphtheria, Pertussis, Tetanus Vaccination: No History of Influenza Vaccine for 05/2017 - 10/2017 Season: No Physical Exam - Vital signs Vitals: Temp Pulse Resp BP Pulse Ox 99.4 F 99 16 121/67 97 04/17/18 17:06 04/17/18 17:06 04/17/18 17:06 04/17/18 17:06 04/17/18 17:06 - Extremities General lower extremity: Other - Right lower extremity with ulcer on the bottom of the right foot with necrotic looking third toe on the right foot. Extremely foul odor Course - Vital Signs Vital signs: Temp Pulse Resp BP Pulse Ox 99.4 F 99 16 121/67 97 04/17/18 17:06 04/17/18 17:06 04/17/18 17:06 04/17/18 17:06 04/17/18 17:06 Doctor's Discharge - Discharge Referrals: AMY ISIDRO MD [Primary Care Provider] - Follow up as needed
--- NOTE | 2018-04-17 18:42 | RADIOLOGY REPORT (SQ) ---
EXAM DESCRIPTION: FOOT RIGHT 2 VIEWS COMPLETED DATE/TIME: 04/17/2018 6:29 pm REASON FOR STUDY: foot ulcer COMPARISON: None. NUMBER OF VIEWS: Two views. TECHNIQUE: AP and lateral radiographic images acquired of the right foot. LIMITATIONS: None. FINDINGS: MINERALIZATION: Normal. BONES: No fracture. No evidence of osteomyelitis. JOINTS: No effusions. SOFT TISSUES: There is air in the soft tissues. OTHER: No other significant finding. IMPRESSION: There is air in the soft tissues. No acute osseous abnormalities demonstrated. TECHNICAL DOCUMENTATION: JOB ID: [id number] [employer]- All Rights Reserved Reading location - IP/workstation name: [email or web address]
--- NOTE | 2018-04-17 19:29 | EKG REPORT ---
SEVERITY:- ABNORMAL ECG - SINUS RHYTHM LEFT AXIS DEVIATION LVH WITH SECONDARY REPOLARIZATION ABNORMALITY : Confirmed by: Silviano Caceres MD 17-Apr-2018 19:28:40
[2018-04-17] MEDS ORDERED: VANCOMYCIN HCL INJ 1000 MG VIAL IV ONE (20:20)
[2018-04-17] MEDS ORDERED: PIPERACILLIN/TAZOBACTAM 2.25 GM VIAL IV ONE (20:20)
[2018-04-17 20:22] LABS: HEMATOCRIT 27.4 % (37.9-51.0); MEAN CORPUSCULAR HEMOGLOBIN 28.8 pg (27.0-33.4); MEAN CORPUSCULAR HGB CONC 32.9 g/dL (32.0-36.0); MEAN CORPUSCULAR VOLUME 88 fl (80-97); PLATELET COUNT 395 10^3/uL (150-450); RED BLOOD COUNT 3.13 10^6/uL (4.35-5.55); RED CELL DISTRIBUTION WIDTH 15.4 % (11.5-14.0); WHITE BLOOD COUNT 27.6 10^3/uL (4.0-10.5)
[2018-04-17 20:40] LABS: ABSOLUTE LYMPHOCYTES# (MANUAL) 1.7 10^3/uL (0.5-4.7); ABSOLUTE MONOCYTES # (MANUAL) 1.4 10^3/uL (0.1-1.4); ABSOLUTE NEUTROPHILS# (MANUAL) 24.6 10^3/uL (1.7-8.2); BASOPHILS % (MANUAL) 0 % (0-2); EOSINOPHILS % (MANUAL) 0 % (0-6); LYMPHOCYTES % (MANUAL) 6 % (13-45); MONOCYTES % (MANUAL) 5 % (3-13); SEGMENTED NEUTROPHILS % (MAN) 89 % (42-78); TOTAL CELLS COUNTED 100
[2018-04-17 20:42] LABS: ANISOCYTOSIS SLIGHT; PLATELET CLUMPS PRESENT; PLATELET COMMENT ADEQUATE
[2018-04-17 20:43] LABS: ALANINE AMINOTRANSFERASE 26 U/L (21-72); ALBUMIN 3.3 g/dL (3.5-5.0); ALKALINE PHOSPHATASE 122 U/L (38-126); ANION GAP 18 (5-19); ASPARTATE AMINO TRANSFERASE 26 U/L (17-59); BILIRUBIN,DIRECT 0.7 mg/dL (0.0-0.4); BILIRUBIN,TOTAL 0.7 mg/dL (0.2-1.3); BLOOD UREA NITROGEN 44 mg/dL (7-20); CALCIUM 9.5 mg/dL (8.4-10.2); CARBON DIOXIDE 28 mmol/L (22-30); CHLORIDE 94 mmol/L (98-107); GLUCOSE 240 mg/dL (75-110); POTASSIUM 3.3 mmol/L (3.6-5.0); SODIUM 140.4 mmol/L (137-145); TOTAL PROTEIN 7.1 g/dL (6.3-8.2)
--- NOTE | 2018-04-17 20:45 | ER Document Report ---
ED General - General Chief Complaint: General Weakness Stated Complaint: WEAKNESS Time Seen by Provider: 04/17/18 17:33 Notes: Patient is a 72-year-old male with a past medical history of diabetes, hypertension, dialysis dependent secondary to chronic kidney disease, peripheral arterial disease, who presents with low blood pressure and feeling very weak during dialysis. The patient is a poor historian as is his entire family. However patient states that he felt very weak and apparently could hardly even stand at dialysis prompting to bring him here to the emergency department. He has no history of similar symptoms in the past. Patient reports that he has several wounds to his right foot that have been followed by the vascular surgeon. He states that he has almost no sensation in his feet but does complain of a throbbing, aching, constant pain to the right foot worsened by attempts at walking. He has not had fever or constitutional symptoms at home. TRAVEL OUTSIDE OF THE [place] IN LAST 30 DAYS: No - Related Data Allergies/Adverse Reactions: No Known Allergies Allergy (Verified 02/02/18 09:14) Past Medical History - General Information source: Patient - Social History Smoking Status: Never Smoker Frequency of alcohol use: None Drug Abuse: None Lives with: Family Family History: Reviewed & Not Pertinent Patient has suicidal ideation: No Patient has homicidal ideation: No - Past Medical History Cardiac Medical History: Reports: Hx Hypertension - ON MEDS Denies: Hx Coronary Artery Disease, Hx Heart Attack Pulmonary Medical History: Reports: Hx Pneumonia - HX. OF Denies: Hx Asthma, Hx Bronchitis, Hx COPD Neurological Medical History: Denies: Hx Cerebrovascular Accident, Hx Seizures Renal/ Medical History: Denies: Hx Peritoneal Dialysis Musculoskeletal Medical History: Denies Hx Arthritis - Immunizations Hx Diphtheria, Pertussis, Tetanus Vaccination: No Review of Systems - Review of Systems Notes: Constitutional: Negative for fever. HENT: Negative for sore throat. Eyes: Negative for visual changes. Cardiovascular: Negative for chest pain. Positive for lightheadedness Respiratory: Negative for shortness of breath. Gastrointestinal: Negative for abdominal pain, vomiting or diarrhea. Genitourinary: Negative for dysuria. Musculoskeletal: Positive for right foot pain Skin: Positive for draining wounds of the right foot Neurological: Negative for headaches, weakness or numbness. 10 point ROS negative except as marked above and in HPI. Physical Exam - Vital signs Vitals: Temp Pulse Resp BP Pulse Ox 99.4 F 99 16 121/67 97 04/17/18 17:06 04/17/18 17:06 04/17/18 17:06 04/17/18 17:06 04/17/18 17:06 Interpretation: Normal Notes: PHYSICAL EXAMINATION: GENERAL: Chronically ill in appearance but in no acute distress HEAD: Atraumatic, normocephalic. EYES: Pupils equal round and reactive to light, extraocular movements intact, sclera anicteric, conjunctiva are normal. ENT: nares patent, oropharynx clear without exudates. Moderately dry mucous membranes. NECK: Normal range of motion, supple without lymphadenopathy LUNGS: Breath sounds clear to auscultation bilaterally and equal. No wheezes rales or rhonchi. HEART: Regular rate and rhythm, systolic ejection murmur ABDOMEN: Soft, nontender, normoactive bowel sounds. No guarding, no rebound. No masses appreciated. EXTREMITIES: There is diffuse swelling and crepitus of the distal right lower extremity starting just above the level of the ankle and over the entirety of the foot. There is a wound in the middle plantar surface of the right foot that is draining foul pus. There is multiple areas of necrotic skin tissue over both the dorsal and plantar surface of the foot. The second and third digits of the right foot are completely necrotic. There is no palpable pulse to the foot. NEUROLOGICAL: No focal neurological deficits. Moves all extremities spontaneously and on command. PSYCH: Normal mood, normal affect. SKIN: Warm, Dry, normal turgor, see above Course - Re-evaluation Re-evalutation: 04/17/18 20:44 The patient presents with generalized weakness worsening over the last 1 week. He had a venous and arterial Doppler of his bilateral lower extremities approximately 5 days ago that showed effectively no blood flow to either foot. He comes in today with a very malodorous, draining wound in the mid plantar surface of the foot, diffuse necrosis of the overlying dorsal plantar surface, and a necrotic second digit of the right toe. The entire foot is notably more swollen versus the left. An x-ray of the area does show gas in the soft tissue. His vitals are within acceptable limits at the time of my initial assessment without fever, tachycardia or hypotension. His lactate is normal. He does however have a marked leukocytosis. Patient is a dialysis patient, did have dialysis today. He is a difficult IV access candidate. We are working to establish definitive IV access at this time point. Will begin IV Zosyn, vancomycin, consult with the surgeon dimensional inspector and request admission through the hospitalist service given his multiple medical comorbidities and sepsis. 04/17/18 21:31 I have discussed with the surgeon dimensional inspector who has evaluated the patient. He plans to take the patient to the operating room of surgical management of the right foot. I will also discuss with the hospitalist for medical management. 04/17/18 21:[address] Newell who has accepted has accepted the patient for management after the patient has come out of the operating room in conjunction with surgical consultation. 04/17/18 23:08 I have spent over 40 minutes at the bedside with Dr. Eddy and Dr. Newell speaking to the patient and his family at length regarding the severity of his diagnosis and his guaranteed mortality with refusal of treatment. I have emphasized to the patient that he has a gangrenous infection of his right foot with minimal blood flow to the foot. I have emphasized that he is septic with an elevated white blood cell count and low blood pressure. We have reviewed the recommended treatment based on the opinion of both the surgeon Dr. Eddy , me as his treating emergency room physician, as well as his [facility] primary care doctor Dr. Newell of debridement versus possible amputation of his foot, inpatient admission for IV antibiotics, and transfer thereafter for revascularization of the limb. I have explained to the patient that without these interventions the infection will spread, he will develop progressive sepsis, and . The patient repeatedly states that he needs more time to think about the recommended treatment plan. We have emphasized at length that time is of the essence given his diagnosis and that delay of treatment could result in worsening course or . We have tried at length to understand any barriers to the care plan for any additional questions that the patient may have that he would like to think about. We have expressed everything to the patient's family as well and they have likewise tried to convince the patient. Despite these measures the patient has refused and will leave AGAINST MEDICAL ADVICE. The patient has capacity. He is alert, oriented 4. He states the reason he does not wish to have surgery is that he needs more time to think about such a large intervention. He has verbalized back to me an understanding that his infection will progress and lead to and that him going home increases the chance of these outcomes. - Vital Signs Vital signs: Temp Pulse Resp BP Pulse Ox 98.0 F 99 20 136/80 H 84 L 04/17/18 23:30 04/17/18 17:06 04/17/18 23:30 04/17/18 23:30 04/17/18 23:00 - Laboratory Result Diagrams: 04/17/18 19:50 04/17/18 19:50 Laboratory results interpreted by me: 04/17/18 04/17/18 19:50 19:50 WBC 27.6 H RBC 3.13 L Hgb 9.0 L Hct 27.4 L RDW 15.4 H Seg Neuts % (Manual) 89 H Lymphocytes % (Manual) 6 L Abs Neuts (Manual) 24.6 H ESR 118 H Potassium 3.3 L Chloride 94 L BUN 44 H Creatinine 7.14 H Est GFR ( Amer) 9 L Est GFR (Non-Af Amer) 8 L Glucose 240 H Direct Bilirubin 0.7 H C-Reactive Protein 348.2 H Albumin 3.3 L - Diagnostic Test Radiology reviewed: Image reviewed, Reports reviewed Radiology results interpreted by me: 04/18/18 04:28 Right foot x-ray: Soft tissue with gas Critical Care Note - Critical Care Note Total time excluding time spent on procedures (mins): 78 Comments: Critical care time spent obtaining history from patient or surrogate, discussions with consultants, development of treatment plan with patient or surrogate, evaluation of patient's response to treatment, examination of patient , ordering and performing treatments and interventions, ordering and review of laboratory studies, re-evaluation of patient's condition, ordering and review of radiographic studies and review of old charts Discharge - Discharge Clinical Impression: Chronic kidney disease, stage V requiring chronic dialysis, Gas gangrene, Right foot infection Condition: Critical Disposition: AGAINST MEDICAL ADVICE Admitting Provider: Reece - Unit Admitted: [facility]
[2018-04-17 20:59] LABS: ERYTHROCYTE SEDIMENTATION RATE 118 mm/hr (0-20)
[2018-04-17 21:23] LABS: C-REACTIVE PROTEIN 348.2 mg/L (<10.0)
[2018-04-17] MEDS ORDERED: NORMAL SALINE 500 ML IV ONE (21:40)
[2018-04-17] MEDS ORDERED: ONDANSETRON HCL INJ/PF 4 MG/2 ML SDV IV PRN (22:04)
[2018-04-17] MEDS ORDERED: LIDOCAINE 1% INJ-PF (10 MG/ML) 30 ML SDV ONE (22:04)
[2018-04-17] MEDS ORDERED: IPRATROPIUM/ALBUTEROL 0.5-2.5 MG/3 ML AMPUL NEB PRN (22:04)
[2018-04-17] MEDS ORDERED: ACETAMINOPHEN 325 MG TABLET PO PRN (22:04)
[2018-04-17] MEDS ORDERED: OXYCODONE-ACETAMINOPHEN 5-325 MG TABLET PO PRN (22:04)
[2018-04-17] MEDS ORDERED: DEXTROSE 50%-WATER 25 GM/50 ML DISP.SYRIN IV PRN ×2 (22:11)
[2018-04-17] MEDS ORDERED: INSULIN LISPRO 100 UNIT/ML 3 ML VIAL SUBCUT PRN (22:11)
[2018-04-17] MEDS ORDERED: DEXTROSE 40% GEL 15 GM TUBE PO PRN ×2 (22:11)
[2018-04-17] MEDS ORDERED: GLUCAGON,HUMAN RECOMB 1 MG INJ IM PRN (22:11)
[2018-04-17] MEDS ORDERED: VANCOMYCIN HCL 0 MG in DEXTROSE 5%-WATER 250 ML IV NR (22:15)
[2018-04-17] MEDS ORDERED: HEPARIN SOD (PORCINE) 5,000 UNIT/ML 1 ML SYRINGE SUBCUT ONE (22:30)
[2018-04-17] MEDS ORDERED: FAMOTIDINE INJ/PF 20 MG/2 ML SDV IV ONE (22:30)
--- NOTE | 2018-04-17 22:30 | PDOC CONSULTATION ---
Consultation Consult Date: 04/17/18 Attending physician:: DL TIPTON Consult reason:: Gangrene right foot History of Present Illness Admission Date/PCP: 04/17/18 21:44 AMY NEWELL MD History of Present Illness: DAMON ALEXANDER JR is a 72 year old male Presents emergency department via ground rescue complaining of inability to walk , pain and swelling right foot. Patient is a poor historian, and his capacity to carry on a conversation is poor. Apparently has been having pains in his right foot for some time. He is evaluated by Dr. Yasmin Blank, is a surgical clinic and had an arterial duplex study performed 4 days ago which shows severe peripheral vascular disease in the infrageniculate vessels. According to the patient arrangements were being made to transfer the patient to [facility], [place] to the care of Dr. Wan Bonilla, vascular surgeon. Patient dialyzes Tuesday and Tuesday, dialyzed today. His dialysis was cut short due to low blood pressure. Apparently reports he drives to dialysis, but required transportation home today. Patient seen in the emergency department where he is found to have a foul-smelling wet gangrenous right second toe, swelling tenderness, profound leukocytosis and foot x-ray showing gas gangrene. Surgery was consulted slightly after 9 PM for evaluation and treatment. Past Medical History Cardiac Medical History: Reports: Hypertension - ON MEDS Denies: Coronary Artery Disease, Myocardial Infarction Pulmonary Medical History: Reports: Pneumonia - HX. OF Denies: Asthma, Bronchitis, Chronic Obstructive Pulmonary Disease (COPD) Neurological Medical History: Denies: Seizures Musculoskeltal Medical History: Denies: Arthritis Hematology: Reports: Anemia Social History Smoking Status: Never Smoker Frequency of Alcohol Use: None Hx Recreational Drug Use: No Hx Prescription Drug Abuse: No Family History Family History: Reviewed & Not Pertinent Parental Family History Reviewed: Yes Children Family History Reviewed: Yes Sibling(s) Family History Reviewed.: Yes Medication/Allergy Home Medications: Amlodipine Besylate [Norvasc 5 mg Tablet] 5 mg PO Q12 #60 tablet 06/09/17 Clonidine HCl [Catapres 0.1 mg Tablet] 0.1 mg PO Q12 #60 tablet 06/09/17 Glipizide [Glucotrol Xl 2.5 mg Tab.er] 2.5 mg PO BIDACBS #60 tab.er.24 06/09/17 Magnesium Oxide [Mag-Ox 400 mg Tablet] 400 mg PO DAILY #30 tablet 06/09/17 Calcium Carbonate [Calcium] 500 mg PO DAILY 02/02/18 Cinacalcet HCl [Sensipar 30 mg Tablet] 30 mg PO DAILY 02/07/18 Oxycodone HCl/Acetaminophen [Percocet 5-325 mg Tablet] 1 tab PO ASDIR PRN #15 tab 03/21/18 Allergies/Adverse Reactions: No Known Allergies Allergy (Verified 02/02/18 09:14) Review of Systems ROS unobtainable: Due to mental status Physical Exam Vital Signs: Temp Pulse Resp BP Pulse Ox 99.6 F 99 15 139/69 H 97 04/17/18 22:01 04/17/18 17:06 04/17/18 22:01 04/17/18 22:00 04/17/18 17:06 General appearance: PRESENT: no acute distress Head exam: PRESENT: normocephalic Eye exam: PRESENT: EOMI Mouth exam: PRESENT: dry mucosa Neck exam: PRESENT: full ROM Respiratory exam: PRESENT: rales Cardiovascular exam: PRESENT: RRR Pulses: PRESENT: normal carotid pulses, normal radial pulses, normal femoral pulses, other - Palpable popliteal pulses right greater than left; no palpable pulses in the feet Musculoskeletal exam: PRESENT: other - Generalized swelling and tenderness; diabetic skin lesions bilaterally. Neurological exam: PRESENT: alert, awake, oriented to person, oriented to place , oriented to situation Psychiatric exam: PRESENT: other - Calm, alert and oriented 3; Wanders Focused psych exam: PRESENT: other - Some flight of ideas somewhat difficult to follow at times Results Impressions: Foot X-Ray 04/17/18 17:41 IMPRESSION: There is air in the soft tissues. No acute osseous abnormalities demonstrated. Assessment & Plan - Diagnosis (1) Gas gangrene Is this a current diagnosis for this admission?: Yes Plan: Impression: Wet gangrene of the right second toe with superimposed diabetic foot infection; forefoot in jeopardy,: Compromised vascular supply to the foot; recalcitrant personality Recommendations: 1. Explained to the patient, patient's , and son on 2 occasions over a 25 minute. The magnitude of this infection, extending beyond the right second toe to the forefoot, in a compromised diabetic end-stage renal failure patient. I explained the patient needs damage control sepsis source infection management which requires operative debridement at least of the second toe likely of more than the second toe possibly the forefoot. 2. Furthermore the patient had an arterial duplex study 4 days ago showing severe bilateral infrageniculate arterial disease. The patient will likely not heal a partial foot amputation and will require revascularization. I explained this to the patient and his family. 3. I provisionally made arrangements for the patient to be admitted to Dr. Newell,, with surgery consulting. I called in the operating room team who arrived with Malcolm. The patient was called from the emergency department but refused to come down to the operating room because he wanted more time to think about the action plan. I explained to the patient earlier that waiting 01/27/10 or 12 hours would put his foot in jeopardy and possibly his life. Dr. Newell has agreed to come in and speak to the patient. (2) Chronic kidney disease, stage V requiring chronic dialysis Is this a current diagnosis for this admission?: Yes - Time Time Spent: 50 to 70 Minutes Smoking Cessation Education: over 10 minutes Medications reviewed and adjusted accordingly: Yes Anticipated discharge: Home - Inpatient Certification Based on my medical assessment, after consideration of the patient's comorbidities, presenting symptoms, or acuity I expect that the services needed warrant INPATIENT care.: Yes I certify that my determination is in accordance with my understanding of Medicare's requirements for reasonable and necessary INPATIENT services [42 CFR 412.3e].: Yes Medical Necessity: Need For IV Fluids, Need for Pain Control, Need for IV Antibiotics, Need for Surgery
--- NOTE | 2018-04-17 22:55 | PDOC H&P ---
History of Present Illness Admission Date/PCP: 04/17/18 21:44 AMY ISIDRO MD Patient complains of: Weakness the right foot pain History of Present Illness: DAMON ALEXANDER JR is a 72 year old male This is a 72-year-old male with end-stage renal disease currently on hemodialysis type 2 diabetes mellitus with a hemoglobin A1c is 7.6 history of the hypertensions history of the hyperlipidemia history of the peripheral vascular disease currently noticed a right foot ulcer seen by Dr. Blank last week have ultrasound for the lower extremities done was to the severe hemodynamic stenosis patients went to the dialysis today not is very weak not feeling well came to the emergency department with the patient have a right second toe gangrene with a white count was 27,000 At this point patient seen by the general surgery and strongly suggest a surgical interventions because of the septic and a ganglion and the patient and family discussed about whether go for surgery or not even myself general surgery in the ER physicians long discussions with the patient and her family about not going to be surgery causing the septic shock and the within the next few hours patient understand very well family also understand very well will wait for the family at this point and the patient's to decide for going for the surgery Waiting for the surgery causing the disaster for the patient which no make any sense Patient's Leticia understand very well and the son understand very well patient still refusing going for the surgery Past Medical History Cardiac Medical History: Reports: Hypertension - ON MEDS Denies: Coronary Artery Disease, Myocardial Infarction Pulmonary Medical History: Reports: Pneumonia - HX. OF Denies: Asthma, Bronchitis, Chronic Obstructive Pulmonary Disease (COPD) Neurological Medical History: Denies: Seizures Endocrine Medical History: Reports: Diabetes Mellitus Type 2 Renal/ Medical History: Reports: Chronic Kidney Disease, End Stage Renal Disease Musculoskeltal Medical History: Denies: Arthritis Hematology: Reports: Anemia Past Surgical History Past Surgical History: Reports: Vascular Surgery Social History Smoking Status: Never Smoker Frequency of Alcohol Use: None Hx Recreational Drug Use: No Hx Prescription Drug Abuse: No Family History Family History: Reviewed & Not Pertinent Parental Family History Reviewed: Yes Children Family History Reviewed: Yes Sibling(s) Family History Reviewed.: Yes Medication/Allergy Home Medications: Amlodipine Besylate [Norvasc 5 mg Tablet] 5 mg PO Q12 #60 tablet 06/09/17 Clonidine HCl [Catapres 0.1 mg Tablet] 0.1 mg PO Q12 #60 tablet 06/09/17 Glipizide [Glucotrol Xl 2.5 mg Tab.er] 2.5 mg PO BIDACBS #60 tab.er.24 06/09/17 Magnesium Oxide [Mag-Ox 400 mg Tablet] 400 mg PO DAILY #30 tablet 06/09/17 Calcium Carbonate [Calcium] 500 mg PO DAILY 02/02/18 Cinacalcet HCl [Sensipar 30 mg Tablet] 30 mg PO DAILY 02/07/18 Oxycodone HCl/Acetaminophen [Percocet 5-325 mg Tablet] 1 tab PO ASDIR PRN #15 tab 03/21/18 Allergies/Adverse Reactions: No Known Allergies Allergy (Verified 02/02/18 09:14) Review of Systems Constitutional: PRESENT: weakness. ABSENT: chills, fever(s), headache(s), weight gain, weight loss Eyes: ABSENT: visual disturbances Ears: ABSENT: hearing changes Cardiovascular: ABSENT: chest pain, dyspnea on exertion, edema, orthropnea, palpitations Respiratory: ABSENT: cough, hemoptysis Gastrointestinal: ABSENT: abdominal pain, constipation, diarrhea, hematemesis, hematochezia, nausea, vomiting Genitourinary: ABSENT: dysuria, hematuria Musculoskeletal: ABSENT: joint swelling Integumentary: ABSENT: rash, wounds Neurological: ABSENT: abnormal gait, abnormal speech, confusion, dizziness, focal weakness, syncope Psychiatric: ABSENT: anxiety, depression, homidical ideation, suicidal ideation Endocrine: ABSENT: cold intolerance, heat intolerance, menstrual abnormalities, polydipsia, polyuria Hematologic/Lymphatic: ABSENT: easy bleeding, easy bruising, lymphadenopathy Physical Exam Vital Signs: Temp Pulse Resp BP Pulse Ox 99.6 F 99 15 139/69 H 97 04/17/18 22:01 04/17/18 17:06 04/17/18 22:01 04/17/18 22:00 04/17/18 17:06 General appearance: PRESENT: no acute distress Head exam: PRESENT: atraumatic, normocephalic Eye exam: PRESENT: conjunctiva pink, EOMI, PERRLA. ABSENT: scleral icterus Ear exam: PRESENT: normal external ear exam Mouth exam: PRESENT: moist, tongue midline Neck exam: PRESENT: full ROM. ABSENT: carotid bruit, JVD, lymphadenopathy, thyromegaly Respiratory exam: PRESENT: clear to auscultation lala Cardiovascular exam: PRESENT: RRR. ABSENT: diastolic murmur, rubs, systolic murmur Pulses: PRESENT: normal dorsalis pedis pul, +2 pedal pulses bilateral Vascular exam: PRESENT: normal capillary refill GI/Abdominal exam: PRESENT: normal bowel sounds, soft. ABSENT: distended, guarding, mass, organolmegaly, rebound, tenderness Rectal exam: PRESENT: deferred Additional comments: Right second toe black discolorations tender to touch foul-smelling wound is present Neurological exam: PRESENT: alert, awake, oriented to person, oriented to place , CN II-XII grossly intact. ABSENT: motor sensory deficit Psychiatric exam: PRESENT: appropriate affect, normal mood. ABSENT: homicidal ideation, suicidal ideation Skin exam: PRESENT: dry, intact, warm. ABSENT: cyanosis, rash Results Impressions: Foot X-Ray 04/17/18 17:41 IMPRESSION: There is air in the soft tissues. No acute osseous abnormalities demonstrated. Assessment & Plan - Diagnosis (1) Sepsis Qualifiers: Sepsis type: sepsis due to unspecified organism Qualified Code(s): A41.9 - Sepsis, unspecified organism Is this a current diagnosis for this admission?: Yes Plan: Due to the most likely for the gas gangrene Start the patient on IV Zosyn's and the vancomycin Patient understand that patients definitely need a surgery per surgical recommendations (2) Gas gangrene Is this a current diagnosis for this admission?: Yes Plan: Follow with the surgery (3) Right foot infection Is this a current diagnosis for this admission?: Yes (4) Hypertension Qualifiers: Hypertension type: essential hypertension Qualified Code(s): I10 - Essential (primary) hypertension Is this a current diagnosis for this admission?: Yes (5) Type 2 diabetes mellitus Qualifiers: Diabetes mellitus assisted insulin use: without longwall foreman use Is this a current diagnosis for this admission?: Yes Plan: Continues a sliding scale (6) End stage renal disease Is this a current diagnosis for this admission?: Yes Plan: Hemodialysis - Time Time Spent: Greater than 70 Minutes Medications reviewed and adjusted accordingly: Yes - AMA benefit there is no way Anticipated discharge: Other Within: Other - Inpatient Certification Medical Necessity: Need Close Monitoring Due to Risk of Patient Decompensation - Talk to him at [place], Need for IV Antibiotics Post Hospital Care: D/C [employer] [facility] Documentation - Plan Summary Plan Summary: Admit the patient in the IMCU Started on broad-spectrum antibiotic Patient still refusing for the surgery Which I do not see any make any sense Patient understand very well delaying the surgery causing the septic shock and potentially Family understand very well More than 70 minutes spent in the emergency department very extensive discussions with the patient and the family about the critical conditions not going for the surgery leached for potential complication and the
--- NOTE | 2018-04-17 23:18 | PDOC PROGRESS REPORT ---
Subjective Reason For Visit: SEPSIS See comments below Physical Exam Vital Signs: Temp Pulse Resp BP Pulse Ox 99.6 F 99 15 139/69 H 97 04/17/18 22:01 04/17/18 17:06 04/17/18 22:01 04/17/18 22:00 04/17/18 17:06 Results Impressions: Foot X-Ray 04/17/18 17:41 IMPRESSION: There is air in the soft tissues. No acute osseous abnormalities demonstrated. Assessment & Plan - Diagnosis (1) Gas gangrene Is this a current diagnosis for this admission?: Yes Plan: After approximately an hour and a half of IV fluids intravenous antibiotics and multiple discussions with nursing staff, physicians including Dr. TIPTON of the emergency department, Dr. Eddy, general surgeon, and Dr. Newell, internal medicine who came in from [facility], the patient adamantly refuses to undergo surgery. He states he needs to think about it some more. Multiple healthcare providers attempted to explain patient and his family that he was in a decision AGAINST MEDICAL ADVICE, and putting his leg and life in jeopardy. I have made no attempt to transfer this patient elsewhereas I feel it would be inappropriate as we have the resources to take care of him here night, specifically damage control surgical debridement and sepsis management. (2) Chronic kidney disease, stage V requiring chronic dialysis Is this a current diagnosis for this admission?: Yes (6) Type 2 diabetes mellitus Qualifiers: Diabetes mellitus desk assistant insulin use: without care home use Is this a current diagnosis for this admission?: Yes
[2018-04-17 23:40] VITALS: BP 136/80
[2018-04-18] MEDS ORDERED: PIPERACILLIN SODIUM/TAZOBACTAM 2.25 GM in NORMAL SALINE 50 ML IV SCH (03:00)
[2018-04-18] MEDS ORDERED: HEPARIN SOD (PORCINE) 5,000 UNIT/ML 1 ML SYRINGE SUBCUT SCH (06:00)
[2018-04-18] MEDS ORDERED: DOCUSATE SODIUM 100 MG CAPSULE PO SCH (10:00)
[2018-04-18] MEDS ORDERED: FAMOTIDINE INJ/PF 20 MG/2 ML SDV IV SCH (10:00)
== END 2018-04-18 05:06 | disposition left against medical advice (07) | DRG 871 ==
LOC: ER 16:53 → EH 21:44
PROVIDERS: ADMIT Internal Medicine; ATTEND Internal Medicine
DX: A41.9 Sepsis, unspecified organism (principal); A48.0 Gas gangrene; E11.52 Type 2 diabetes mellitus with diabetic peripheral angiopathy with gangrene; I12.0 Hypertensive chronic kidney disease with stage 5 chronic kidney disease or end stage renal disease; N18.5 Chronic kidney disease, stage 5; L97.518 Non-pressure chronic ulcer of other part of right foot with other specified severity; E11.621 Type 2 diabetes mellitus with foot ulcer; E11.22 Type 2 diabetes mellitus with diabetic chronic kidney disease; I73.9 Peripheral vascular disease, unspecified; R53.1 Weakness; Z99.2 Dependence on renal dialysis; Z79.84 Long term (current) use of oral hypoglycemic drugs; Z79.899 Other long term (current) drug therapy
CPT/HCPCS: 36415; 80053; 83605; 85025; 85652; 86140; 87040; 93005; 93010; 96365; J2543; J3370; J3490; J7040

== ENCOUNTER 2018-04-18 10:45 | Emergency (ER) | payer MEDICARE ==
--- NOTE | 2018-04-18 11:28 | ER Document Report ---
ED Medical Screen (RME) - General Chief Complaint: Foot Pain Stated Complaint: FOOT PAIN Time Seen by Provider: 04/18/18 11:16 Notes: RAPID MEDICAL EVALUATION DISCLOSURE I have seen this patient as part of a Rapid Medical Evaluation and, if applicable, placed any initially appropriate orders. The patient will be seen and fully evaluated, including a full history and physical exam, by a provider ( in Main ED or Fast Track) when a room becomes available. 72-year-old male with infected right foot was seen here yesterday however left against medical advice after ED staff and surgeon as well as career services director spoke with the patient about admission for surgical debridement and IV antibiotics. Patient states he had to go home and think about it and has returned because he is now agreeable to the recommendations from yesterday. EXAM Infected right foot (distal) TRAVEL OUTSIDE OF THE [place] IN LAST 30 DAYS: No - Related Data Allergies/Adverse Reactions: No Known Allergies Allergy (Verified 04/18/18 10:51) Past Medical History - Past Medical History Cardiac Medical History: Reports: Hx Hypertension - ON MEDS Denies: Hx Coronary Artery Disease, Hx Heart Attack Pulmonary Medical History: Reports: Hx Pneumonia - HX. OF Denies: Hx Asthma, Hx Bronchitis, Hx COPD Neurological Medical History: Denies: Hx Cerebrovascular Accident, Hx Seizures Endocrine Medical History: Reports: Hx Diabetes Mellitus Type 2 Renal/ Medical History: Reports: Hx End Stage Renal Disease. Denies: Hx Peritoneal Dialysis Musculoskeltal Medical History: Denies Hx Arthritis Past Surgical History: Reports: Hx Vascular Surgery - Immunizations Hx Diphtheria, Pertussis, Tetanus Vaccination: No History of Influenza Vaccine for 05/2017 - 10/2017 Season: No Doctor's Discharge - Discharge Referrals: AMY ISIDRO MD [Primary Care Provider] - Follow up as needed
[2018-04-18] MEDS ORDERED: PIPERACILLIN/TAZOBACTAM 2.25 GM VIAL IV ONE (12:15)
--- NOTE | 2018-04-18 12:16 | ER Document Report ---
ED Extremity Problem, Lower - General Chief Complaint: Foot Pain Stated Complaint: FOOT PAIN Time Seen by Provider: 04/18/18 11:16 Mode of Arrival: Wheelchair Information source: Patient, Relative Notes: Patient presents stating that he was here yesterday for sepsis as well as a diabetic foot ulcer and was told that he needed to have surgery due to concerns about gaseous gangrene. Patient states that initially he was concerned he would have to have the leg amputated and that he needed to go home and think about things. Patient states that he has had a chance to think about things and would like to have surgery to his foot. Patient denies taking any additional antibiotics since in the hospital AMA early this morning. Patient does admit to eating breakfast around 8:00 the family states that he did not eat much of it. Patient has not had any fever. Patient is a dialysis patient and normally dialyzes on Wednesdays and Fridays. Patient did dialyze on Tuesday. TRAVEL OUTSIDE OF THE [place] IN LAST 30 DAYS: No - HPI Patient complains to provider of: Other - Diabetic foot wound Location: Foot Quality of pain: Achy Pain Level: 1 Recent injury: No Associated symptoms: Unable to bear weight Exacerbated by: Movement - Related Data Allergies/Adverse Reactions: No Known Allergies Allergy (Verified 04/18/18 10:51) Past Medical History - General Information source: Patient, Relative - Social History Smoking Status: Former Smoker Chew tobacco use (# tins/day): No Frequency of alcohol use: None Drug Abuse: None Occupation: None Lives with: Family Family History: Reviewed & Not Pertinent Patient has suicidal ideation: No Patient has homicidal ideation: No - Past Medical History Cardiac Medical History: Reports: Hx Hypertension - ON MEDS Denies: Hx Coronary Artery Disease, Hx Heart Attack Pulmonary Medical History: Reports: Hx Pneumonia - HX. OF Denies: Hx Asthma, Hx Bronchitis, Hx COPD Neurological Medical History: Denies: Hx Cerebrovascular Accident, Hx Seizures Endocrine Medical History: Reports: Hx Diabetes Mellitus Type 2 Renal/ Medical History: Reports: Hx End Stage Renal Disease, Hx Hemodialysis. Denies: Hx Peritoneal Dialysis Musculoskeletal Medical History: Denies Hx Arthritis Past Surgical History: Reports: Hx Vascular Surgery - Immunizations Hx Diphtheria, Pertussis, Tetanus Vaccination: No Review of Systems - Review of Systems Constitutional: Recent illness - Septic from diabetic foot ulcer. denies: Fever EENT: No symptoms reported Cardiovascular: No symptoms reported Respiratory: No symptoms reported. denies: Cough, Short of breath Gastrointestinal: Vomiting - Occasionally after eating per family. denies: Abdominal pain Genitourinary: No symptoms reported Male Genitourinary: No symptoms reported Musculoskeletal: Other - Right foot ulcer Skin: Other - Diabetic foot ulcer to right foot Hematologic/Lymphatic: No symptoms reported Neurological/Psychological: No symptoms reported Physical Exam - Vital signs Vitals: Temp Pulse Resp BP Pulse Ox 99.1 F 86 16 135/57 H 98 04/18/18 11:00 04/18/18 11:00 04/18/18 11:00 04/18/18 11:00 04/18/18 11:00 - General General appearance: Appears well, Alert In distress: None - HEENT Head: Normocephalic, Atraumatic Eyes: Normal Nasal: Normal Mouth/Lips: Normal Mucous membranes: Normal Neck: Normal, Supple. No: Lymphadenopathy - Respiratory Respiratory status: No respiratory distress Chest status: Nontender Breath sounds: Normal. No: Rales, Rhonchi, Stridor, Wheezing Chest palpation: Normal - Cardiovascular Rhythm: Regular Heart sounds: S1 appreciated, S2 appreciated Pulses: Decreased: Dorsalis pedis - Right dorsalis pedis pulse obtained with Doppler - Abdominal Inspection: Normal Distension: No distension Tenderness: Nontender - Back Back: Normal, Nontender. No: CVA tenderness - Extremities General upper extremity: Normal ROM, Other - Dialysis graft site to right upper extremity General lower extremity: Normal ROM, Other - Diabetic foot ulcer to right foot Foot: Edema, Other - Patient with diabetic foot ulcer to plantar surface of right foot with a wound between the right great and second toes. Patient with 2 + edema and erythema extending up dorsal aspect of foot. Foul odor to wound, dorsalis pedis pulse obtained with Doppler - Neurological Neuro grossly intact: Yes Cognition: Normal [place] Com[place] Scale Eye Opening: Spontaneous [place] Com[place] Scale Verbal: Oriented [place] Com[place] Scale Motor: Obeys Commands [place] Coma Scale Total: 15 - Psychological Associated symptoms: Normal affect, Normal mood - Skin Skin Temperature: Warm Skin Moisture: Dry Skin Color: Erythema - Right foot Skin irregularity: other - Diabetic foot ulcer to plantar surface of right foot , wound is malodorous and draining serous purulent drainage, macerated area between right great toe and second toe Irregularity with: Warmth, Inflammation Course - Re-evaluation Re-evalutation: 04/18/18 12:15 Grain Packer paged patient's doctor Dr. Newell. Awaiting return call for likely readmission. 04/18/18 12:[address] Newell who states that patient needs to be transferred to a facility that has vascular surgery capabilities and that we cannot manage his condition here. Consulted with Dr. Eddy regarding patient presentation as Dr. Quiroz is involved in other surgical cases and cannot consult on patient presently and Dr. Eddy had just seen the patient earlier this morning. Dr. Eddy states that he will attempt to contact Dr. Bonilla to see if he will accept patient for transfer. 04/18/18 12:45 Call placed to transfer center, Dr. Bonilla is on-call for general surgery there. 04/18/18 13:08 Dr Eddy reports that Dr bonilla has agreed to accept pt for transfer, but requests giving report to Dr Rios PA, as dr Bonilla is presently in surgery. 04/18/18 13:25 Transfer center called stating that they have agreed to accept patient for transfer via air and patient will go to the OR. 04/18/18 13:25 Patient and family updated and agreeable with plan of care. RN is at bedside attempting vascular access. 04/18/18 13:54 Dr. Carter to bedside for evaluation, patient stable for transfer. Repeat vitals stable. Consulted with Dr. Bonilla and report given. - Vital Signs Vital signs: Temp Pulse Resp BP Pulse Ox 97.6 F 90 18 143/58 H 100 04/18/18 13:47 04/18/18 13:47 04/18/18 13:47 04/18/18 13:47 04/18/18 13:47 - Laboratory Laboratory results interpreted by me: Reviewed labs from yesterday's ER visit and admission - Diagnostic Test Radiology reviewed: Reports reviewed - Reviewed reports from yesterday's ER visit and admission Discharge - Discharge Clinical Impression: Right foot infection, End stage renal disease, Gas gangrene Type 2 diabetes mellitus Qualifiers: Diabetes mellitus ocean transportation intermediary insulin use: unspecified ocean transportation intermediary insulin use status Diabetes mellitus complication status: with skin complications Diabetes mellitus complication detail: with foot ulcer Qualified Code(s): E11.621 - Type 2 diabetes mellitus with foot ulcer Condition: Fair Disposition: [facility] Referrals: AMY NEWELL MD [Primary Care Provider] - Follow up as needed
[2018-04-18 19:27] VITALS: BP 143/58
== END 2018-04-18 13:55 | disposition short-term general hospital (02) ==
LOC: ER 10:45
DX: E11.621 Type 2 diabetes mellitus with foot ulcer (principal); L97.519 Non-pressure chronic ulcer of other part of right foot with unspecified severity; E11.52 Type 2 diabetes mellitus with diabetic peripheral angiopathy with gangrene; A48.0 Gas gangrene; E11.22 Type 2 diabetes mellitus with diabetic chronic kidney disease; I12.0 Hypertensive chronic kidney disease with stage 5 chronic kidney disease or end stage renal disease; N18.6 End stage renal disease; Z99.2 Dependence on renal dialysis; Z87.891 Personal history of nicotine dependence; R11.10 Vomiting, unspecified
CPT/HCPCS: 99285; 96365; 36415; 87040; J2543

== ENCOUNTER 2018-09-26 06:47 | Day surgery (SDC) | payer MEDICARE ==
[~2018-09-26 06:47] MED LIST changes: -BACITRACIN INJ 50,000 UNIT VIAL ONE; -BUPIVACAINE HCL 0.25 % INJ/PF (2.5 MG/1 ML) 30 ML VIAL ONE; -CEFAZOLIN 1 GM/D5W RTU 1 GM/50 ML RTUPB IV PRN; +DIAZEPAM 5 MG TABLET ONE; +DIAZEPAM 5 MG TABLET PO PRN; -HEPARIN SOD (PORCINE) 1,000 UNIT/ML 10 ML VIAL ONE; -LIDOCAINE 0.5% INJ-PF (5 MG/ML) 50 ML SDV ONE; -LIDOCAINE 1% INJ-PF (10 MG/ML) 30 ML SDV ONE; -NORMAL SALINE 1000 ML (RENAL PATIENTS) IV PRN; +OXYCODONE-ACETAMINOPHEN 5-325 MG TABLET ONE; +OXYCODONE-ACETAMINOPHEN 5-325 MG TABLET PO PRN
[2018-09-26 08:25] LABS: HEMATOCRIT 38.2 % (37.9-51.0); HEMOGLOBIN 11.9 g/dL (13.5-17.0); MEAN CORPUSCULAR HEMOGLOBIN 25.2 pg (27.0-33.4); MEAN CORPUSCULAR HGB CONC 31.1 g/dL (32.0-36.0); MEAN CORPUSCULAR VOLUME 81 fl (80-97); PLATELET COUNT 416 10^3/uL (150-450); RED BLOOD COUNT 4.71 10^6/uL (4.35-5.55); RED CELL DISTRIBUTION WIDTH 18.8 % (11.5-14.0); WHITE BLOOD COUNT 10.3 10^3/uL (4.0-10.5)
[2018-09-26 08:46] LABS: ANION GAP 11 (5-19); BLOOD UREA NITROGEN 32 mg/dL (7-20); CALCIUM 10.6 mg/dL (8.4-10.2); CARBON DIOXIDE 28 mmol/L (22-30); CHLORIDE 103 mmol/L (98-107); GLUCOSE 146 mg/dL (75-110); POTASSIUM 4.7 mmol/L (3.6-5.0); SODIUM 142.4 mmol/L (137-145)
[2018-09-26] MEDS ORDERED: HEPARIN SOD (PORCINE) 5,000 UNIT/ML 1 ML SYRINGE ONE (09:18)
[2018-09-26] MEDS ORDERED: FENTANYL CITRATE INJ/PF 100 MCG/2 ML AMPUL ONE (09:18)
[2018-09-26] MEDS ORDERED: LIDOCAINE 0.5% INJ-PF (5 MG/ML) 50 ML SDV ONE (09:18)
[2018-09-26] MEDS ORDERED: MIDAZOLAM 2 MG/2 ML INJ ONE (09:18)
--- NOTE | 2018-09-26 10:42 | PDOC H&P ---
General Chief Complaint: This patient was referred across because of decreased blood flows on hemodialysis. - Diagnosis (1) Dialysis AV fistula malfunction Is this a Current Diagnosis?: Yes (2) PAD (peripheral artery disease) Is this a Current Diagnosis?: Yes (3) Chronic kidney disease, stage V requiring chronic dialysis Is this a Current Diagnosis?: Yes - Current Medications/Allergies Home Medications: Cinacalcet HCl [Sensipar 30 mg Tablet] 30 mg PO DAILY 02/07/18 Amlodipine Besylate [Norvasc 5 mg Tablet] 10 mg PO DAILY 09/25/18 Aspirin [Aspirin 81 mg Chewable Tablet] 81 mg PO DAILY 09/25/18 Calcium Carbonate [Tums Chewable 500 mg Tab.chew] 500 mg PO DAILY 09/25/18 Insulin Detemir [Levemir Insulin 300 Units/3 ml Insuln.pen] 5 unit SUBCUT QAM 09/25/18 Insulin Lispro [Humalog Insulin 100 Unit/1 ml 3 ml Vial] unit SUBCUT .ASDIR 09/25/18 Linagliptin [Tradjenta] 5 mg PO DAILY 09/25/18 Sitagliptin Phosphate [Januvia 25 mg Tablet] 25 mg PO DAILY 09/25/18 Allergies/Adverse Reactions: No Known Allergies Allergy (Verified 04/18/18 10:51) Past Medical History Cardiac Medical History: Reports: Myocardial Infarction, Hypertension Denies: Coronary Artery Disease - PVD Pulmonary Medical History: Reports: Pneumonia - Hx of Denies: Asthma, Bronchitis, Chronic Obstructive Pulmonary Disease (COPD) Neurological Medical History: Denies: Seizures Endocrine Medical History: Reports: Diabetes Mellitus Type 2 Renal/ Medical History: Reports: End Stage Renal Disease GI Medical History: Reports: Gastroesophageal Reflux Disease Musculoskeltal Medical History: Denies: Arthritis Hematology: Reports: Anemia Past Surgical History Past Surgical History: Reports: Vascular Surgery Family History Family History: Reviewed & Not Pertinent Parental Family History Reviewed: No Children Family History Reviewed: No Sibling(s) Family History Reviewed.: No Social History Smoking Status: Never Smoker Frequency of Alcohol Use: None Hx Recreational Drug Use: No Hx Prescription Drug Abuse: No Physical Exam Vital Signs: Temp Pulse Resp BP Pulse Ox 97.8 F 84 16 151/67 H 99 09/26/18 08:30 09/26/18 08:30 09/26/18 08:30 09/26/18 08:30 09/26/18 08:30 Additional comments: Constitutional: Well-developed well-nourished -Senegalese gentleman. No apparent acute distress. Eyes: Mucous membranes pink and moist, pupils equal and reactive to light. Conjunctiva normal. Cornea normal. ENT: Hearing grossly normal. External pinna normal to inspection. Teeth partially intact. Tongue normal to inspection. Cardiac: Heart sounds normal Respiratory breath: Normal respiratory effort. Psychiatric: Judgment, memory, insight seem normal. Mood is pleasant and appropriate. Extremities: Upper extremities show normal range of movement. Pulses present noted to the radial arteries. Capillary refill normal. No cyanosis noted. No muscle wasting noted. Right arm transposed basilic vein fistula perhaps slightly soft. Medial area of firmness suggestive of wall calcification noted. Lower extremities show right below-knee amputation, old. Impression/Plan Plan: In this patient with decreased fistula function, angiogram evaluation and possible angioplasty when indicated. The goal is preservation of vascular access.
--- NOTE | 2018-09-26 10:44 | Discharge Summary ---
Discharge Summary (SDC) - Discharge Final Diagnosis: #1 malfunctioning AV fistula, right arm. 2. End-stage renal disease on hemodialysis. 3. Peripheral arterial disease. 4. Hypertension. Date of Surgery: 09/26/18 Discharge Date: 09/26/18 Condition: Good Treatment or Instructions: Discharge home [after recovery per ASU criteria]. Diet , [renal],as tolerated, when fully awake advance as tolerated. Activities within moderation encouraged. Follow up in my office by appointment in about [1 week]. Call for appointment. Leave wounds [covered], [keep clean and dry, until office visit in 1 week]. Hold of on school/work [until evaluation in office]. Meds per med rec. May shower [in 48 hrs], [try to keep operated area as dry as possible]. Referrals: MITCH LEONARD MD [Primary Care Provider] - Discharge Diet: Other (Comments) - Renal. Respiratory Treatments at Home: Deep Breathing/Coughing Discharge Activity: Activity As Tolerated Report the Following to Your Physician Immediately: Shortness of Breath
--- NOTE | 2018-09-26 10:49 | Operative Report ---
Operative Report DATE OF SURGERY: 09/26/18 PREOPERATIVE DIAGNOSIS: #1 malfunctioning AV fistula, right arm. 2. End-stage renal disease on hemodialysis. 3. Peripheral arterial disease. 4. Hypertension. POSTOPERATIVE DIAGNOSIS: #1 malfunctioning AV fistula, right arm. 2. End-stage renal disease on hemodialysis. 3. Peripheral arterial disease. 4. Hypertension. OPERATION: 1. Needle access into arteriovenous fistula. 2. Second retrograde access into arteriovenous fistula. 3. Angioplasty. 4. Angiogram and interpretation. SURGEON: STEVE CARVAJAL CLOSET BUILDER: None. ANESTHESIA: Moderate Sedation TISSUE REMOVED OR ALTERED: Not applicable. COMPLICATIONS: None. ESTIMATED BLOOD LOSS: 5 mL. INTRAOPERATIVE FINDINGS: Of a well founded transposed basilic vein fistula in the right arm. Somewhat soft initially and blood flow antegrade through the cannula seems a bit slow. Antegrade angiogram demonstrates no flow up to the level of the superior vena cava. Retrograde evaluation shows possible 30-40% stenosis near the arteriovenous anastomosis and some ragged irregularities about 6-8 cm away from the anastomosis. These may be hemodynamically significant based on slight hyper pulsatility proximally and relatively less distally. Despite absence of a waist on angioplasty there was improvement in the subjective pressure noted distal to the area of angioplasty. I believe this should improve the antegrade flow in the fistula. PROCEDURE: PROCEDURE: After verifying the procedure and having obtained informed consent, the patient's right arm and forearm were prepared with Chlorhexidine and draped out with sterile linen. Local anesthesia infiltrated. Percutaneous abscess was done antegrade about 4 cm away from the arteriovenous anastomosis. This was done with the inner cannula of micropuncture catheter. Angiogram was now done through this. Findings as dictated. Percutaneous access into the fistula ,[retrograde], obtained about [20 cm] from the arteriovenous anastomosis using a micro puncture needle followed by micro puncture wire and then a micro puncture catheter. A 0.035 Dalhart wire was inserted, and over this, a 6 Romanian short introducer was placed. Angiogram demonstrated the aforementioned findings. Angioplasty was elected., this was followed by a 5 mm angioplasty balloon . Angioplasty was now done at the perianastomotic segment. This was done very carefully using a 3 mils syringe sustained for 1 minute. Angiogram demonstrated successful outcome. The balloon was now swapped over the wire for a 7 mm angioplasty balloon. Angioplasty was At the somewhat ragged area between about 6 and 8 cm. Inflating with a 3 mils syringe for 1 minute.]. Completion angiogram demonstrated [satisfactory result]. The instrumentation was now withdrawn over hand pressure for 10 minutes . Dressings applied, procedure concluded. Exposure time: 1.65 minutes Radiation: 4.49 Inna xiong. Contrast: 25 mL of Isovue-M 300 low osmolality. DICTATING PHYSICIAN: STEVE HURST M.D. cc: STEVE HURST M.D. ([id number]) >>
[2018-09-26 12:25] VITALS: BP 150/82
--- NOTE | 2018-09-26 15:52 | RADIOLOGY REPORT (SQ) ---
EXAM DESCRIPTION: FISTULAGRAM W/PLASTY COMPLETED DATE/TIME: 09/26/2018 10:32 am REASON FOR STUDY: T82.858A T82.858A STENOSIS OF OTHER VASCULAR PROSTH DEV/GRFT, INIT COMPARISON: None. FLUOROSCOPY TIME: 0.6 minutes 26 images saved to PACS. TECHNIQUE: Intra-operative images acquired during surgical procedure to evaluate progress. NUMBER OF IMAGES: 26 LIMITATIONS: None. FINDINGS: Intraprocedural imaging obtained to evaluate progress. Please see operative report for de tailed description of the procedure. IMPRESSION: IMAGE(S) OBTAINED DURING PROCEDURE. COMMENT: Quality ID [id number]: Final reports for procedures using fluoroscopy that document radiation exp osure indices, or exposure time and number of fluorographic images (if radiation exposure indices are not available) Please consult full operative report of the attending physician for description of the procedure. TECHNICAL DOCUMENTATION: JOB ID: [id number] [employer]- All Rights Reserved Reading location - IP/workstation name: [email or web address]
== END 2018-09-26 12:15 | disposition home or self-care (01) ==
LOC: CCL 06:47
PROVIDERS: ATTEND Surgery
DX: T82.858A Stenosis of other vascular prosthetic devices, implants and grafts, initial encounter (principal); Y83.2 Surgical operation with anastomosis, bypass or graft as the cause of abnormal reaction of the patient, or of later complication, without mention of misadventure at the time of the procedure; I12.0 Hypertensive chronic kidney disease with stage 5 chronic kidney disease or end stage renal disease; N18.6 End stage renal disease; Z99.2 Dependence on renal dialysis; I73.9 Peripheral vascular disease, unspecified; I25.2 Old myocardial infarction; E11.22 Type 2 diabetes mellitus with diabetic chronic kidney disease; K21.9 Gastro-esophageal reflux disease without esophagitis; D64.9 Anemia, unspecified; E11.621 Type 2 diabetes mellitus with foot ulcer; Z89.519 Acquired absence of unspecified leg below knee; Z79.84 Long term (current) use of oral hypoglycemic drugs; Z01.818 Encounter for other preprocedural examination; Z79.4 Long term (current) use of insulin; Z79.82 Long term (current) use of aspirin; Z79.899 Other long term (current) drug therapy
CPT/HCPCS: 36415; 85027; 80048; 36902; C1752; C1725 ×2; C1887; Q9967; C1769; J2250; J1644 ×2; A9270 ×2; J3010; J3490

== ENCOUNTER 2018-12-06 16:31 | Emergency (ER) | payer MEDICARE ==
[2018-12-06 16:46] VITALS: BP 132/51
--- NOTE | 2018-12-06 17:36 | ER Document Report ---
ED Medical Screen (RME) - General Chief Complaint: Toe Injury Stated Complaint: TOE PAIN Time Seen by Provider: 12/06/18 17:30 Primary Care Provider: MITCH LEONARD MD [Primary Care Provider] - Follow up as needed Information source: Patient, Relative TRAVEL OUTSIDE OF THE [place] IN LAST 30 DAYS: No - HPI Notes: 12/06/18 17:37 73-year-old male with a history of diabetes, chronic renal failure, pvd, hypertension presents to the ED Dr. Leonard for evaluation of left pinky toe that is necrotic and discolored, he was seen today at dialysis, and the nurse did place a wound on the left 5th toe. Patient does have a history of right foot amputation due to diabetic ulceration and necrosis. No OTC medications tried for pain. 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 Blank although he has not been seen for this issue at podiatry. exam: left 5th toe with ulceration, black in color, delayed cap refill >3 seconds with erythema of dorsal foot. lungs cta, s1s2 regular. I have greeted and performed a rapid initial assessment of this patient. A comprehensive ED assessment and evaluation of the patient, analysis of test results and completion of medical decision making process will be conducted by an additional ED providers. - Related Data Allergies/Adverse Reactions: No Known Allergies Allergy (Verified 12/06/18 17:29) Past Medical History - Past Medical History Cardiac Medical History: Reports: Hx Heart Attack, Hx Hypertension Denies: Hx Coronary Artery Disease - PVD Pulmonary Medical History: Reports: Hx Pneumonia - Hx of Denies: Hx Asthma, Hx Bronchitis, Hx COPD Neurological Medical History: Denies: Hx Cerebrovascular Accident, Hx Seizures Endocrine Medical History: Reports: Hx Diabetes Mellitus Type 2 Renal/ Medical History: Reports: Hx End Stage Renal Disease, Hx Hemodialysis. Denies: Hx Peritoneal Dialysis GI Medical History: Reports: Hx Gastroesophageal Reflux Disease Musculoskeltal Medical History: Denies Hx Arthritis Past Surgical History: Reports: Hx Vascular Surgery - Immunizations Hx Diphtheria, Pertussis, Tetanus Vaccination: No History of Influenza Vaccine for 05/2017 - 10/2017 Season: Unknown Physical Exam - Vital signs Vitals: Temp Pulse Resp BP Pulse Ox 99.0 F 88 16 132/51 H 99 12/06/18 16:45 12/06/18 16:45 12/06/18 16:45 12/06/18 16:45 12/06/18 16:45 Course - Vital Signs Vital signs: Temp Pulse Resp BP Pulse Ox 99.0 F 88 16 132/51 H 99 12/06/18 16:45 12/06/18 16:45 12/06/18 16:45 12/06/18 16:45 12/06/18 16:45 Doctor's Discharge - Discharge Referrals: MITCH LEONARD MD [Primary Care Provider] - Follow up as needed
--- NOTE | 2018-12-06 17:58 | RADIOLOGY REPORT (SQ) ---
EXAM DESCRIPTION: FOOT LEFT COMPLETE COMPLETED DATE/TIME: 12/06/2018 5:16 pm REASON FOR STUDY: necrosis to 5th toe COMPARISON: None. NUMBER OF VIEWS: Three views. TECHNIQUE: AP, lateral and oblique radiographic images acquired of the left foot. LIMITATIONS: None. FINDINGS: MINERALIZATION: Normal. BONES: No acute fracture or dislocation. No worrisome bone lesions. JOINTS: No effusions. SOFT TISSUES: There is soft tissue gas over the 5th toe, without retained radiopaque foreign body or underlying bony erosion or acute bony injury OTHER: No other significant finding. IMPRESSION: There is soft tissue gas over the 5th toe, without retained radiopaque foreign body or u nderlying bony erosion or acute bony injury TECHNICAL DOCUMENTATION: JOB ID: [id number] [employer]- All Rights Reserved Reading location - IP/workstation name: [email or web address]
[2018-12-06 21:46] LABS: HEMATOCRIT 40.1 % (37.9-51.0); HEMOGLOBIN 13.1 g/dL (13.5-17.0); MEAN CORPUSCULAR HGB CONC 32.7 g/dL (32.0-36.0); MEAN CORPUSCULAR VOLUME 89 fl (80-97); RED BLOOD COUNT 4.53 10^6/uL (4.35-5.55); WHITE BLOOD COUNT 12.3 10^3/uL (4.0-10.5)
[2018-12-06 22:03] LABS: ABSOLUTE LYMPHOCYTES# (MANUAL) 2.2 10^3/uL (0.5-4.7); ABSOLUTE MONOCYTES # (MANUAL) 1.1 10^3/uL (0.1-1.4); ABSOLUTE NEUTROPHILS# (MANUAL) 8.7 10^3/uL (1.7-8.2); BASOPHILS % (MANUAL) 0 % (0-2); EOSINOPHILS % (MANUAL) 2 % (0-6); LYMPHOCYTES % (MANUAL) 18 % (13-45); MONOCYTES % (MANUAL) 9 % (3-13); SEGMENTED NEUTROPHILS % (MAN) 71 % (42-78); TOTAL CELLS COUNTED 100
[2018-12-06 22:04] LABS: ANISOCYTOSIS 2+; PLATELET COMMENT ADEQUATE; PLATELET COUNT 246 10^3/uL (150-450); POIKILOCYTOSIS SLIGHT; TOXIC GRANULATION SLIGHT
[2018-12-06 22:41] LABS: ALANINE AMINOTRANSFERASE 11 U/L (21-72); ALBUMIN 3.5 g/dL (3.5-5.0); ALKALINE PHOSPHATASE 108 U/L (38-126); ANION GAP 11 (5-19); ASPARTATE AMINO TRANSFERASE 12 U/L (17-59); BILIRUBIN,DIRECT 0.4 mg/dL (0.0-0.4); BILIRUBIN,TOTAL 0.4 mg/dL (0.2-1.3); BLOOD UREA NITROGEN 27 mg/dL (7-20); CARBON DIOXIDE 32 mmol/L (22-30); CHLORIDE 97 mmol/L (98-107); GLUCOSE 170 mg/dL (75-110); POTASSIUM 3.6 mmol/L (3.6-5.0); SODIUM 139.8 mmol/L (137-145); TOTAL PROTEIN 7.7 g/dL (6.3-8.2)
[2018-12-06 22:57] LABS: C-REACTIVE PROTEIN 177.6 mg/L (<10.0)
[2018-12-06] MEDS ORDERED: CIPROFLOXACIN HCL 500 MG TABLET PO ONE (23:18)
[2018-12-06] MEDS ORDERED: DOXYCYCLINE HYCLATE 100 MG TABLET PO ONE (23:18)
--- NOTE | 2018-12-06 23:27 | ER Document Report ---
ED General - General Chief Complaint: Toe Injury Stated Complaint: TOE PAIN Time Seen by Provider: 12/06/18 17:30 Primary Care Provider: MITCH LEONARD MD [ACTIVE STAFF] - Follow up as needed Notes: Patient is a 73-year-old male who [facility] because of necrotic appearing left toe. Patient says this is occurred over the last couple days. 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 He is actually had his right lower extremity amputated. He is a penitentiary because of rehab from having that performed. He has no history of dementia. He does have a history of diabetes. He is also end-stage renal disease and on dialysis. Patient denies any fevers. He has no other complaints at this time. TRAVEL OUTSIDE OF THE [place] IN LAST 30 DAYS: No - Related Data Allergies/Adverse Reactions: No Known Allergies Allergy (Verified 12/06/18 17:29) Past Medical History - General Information source: Patient, Relative - Social History Smoking Status: Never Smoker Frequency of alcohol use: None Drug Abuse: None Family History: Reviewed & Not Pertinent Patient has suicidal ideation: No Patient has homicidal ideation: No - Past Medical History Cardiac Medical History: Reports: Hx Heart Attack, Hx Hypertension Denies: Hx Coronary Artery Disease - PVD Pulmonary Medical History: Reports: Hx Pneumonia - Hx of Denies: Hx Asthma, Hx Bronchitis, Hx COPD Neurological Medical History: Denies: Hx Cerebrovascular Accident, Hx Seizures Endocrine Medical History: Reports: Hx Diabetes Mellitus Type 2 Renal/ Medical History: Reports: Hx End Stage Renal Disease, Hx Hemodialysis. Denies: Hx Peritoneal Dialysis GI Medical History: Reports: Hx Gastroesophageal Reflux Disease Musculoskeletal Medical History: Denies Hx Arthritis Past Surgical History: Reports: Hx Orthopedic Surgery - right BKA, Hx Vascular Surgery - Immunizations Hx Diphtheria, Pertussis, Tetanus Vaccination: No Review of Systems - Review of Systems Notes: My Normal Review Basic REVIEW OF SYSTEMS: CONSTITUTIONAL : Denies fever, chills, or sweats. Denies recent illness. RESPIRATORY: Denies cough, cold, or chest congestion. Denies shortness of breath, difficulty breathing, or wheezing. GASTROINTESTINAL: Denies abdominal pain. Denies nausea, vomiting, or diarrhea. Denies constipation. Last BM: MUSCULOSKELETAL: Necrosis of left fifth toe. SKIN: Denies rash or skin lesions. NEUROLOGICAL: Has some chronic neuropathy of the feet but denies any new weakness or numbness. ALL OTHER SYSTEMS REVIEWED AND NEGATIVE. Physical Exam - Vital signs Vitals: Temp Pulse Resp BP Pulse Ox 99.0 F 88 16 132/51 H 99 12/06/18 16:45 12/06/18 16:45 12/06/18 16:45 12/06/18 16:45 12/06/18 16:45 - Notes Notes: General Appearance: Well nourished, alert, cooperative, no acute distress, no obvious discomfort. Well-appearing. Vitals: reviewed, See vital signs table. Head: no swelling or tenderness to the head Eyes: PERRL, EOMI, Conjuctiva clear Neck: Supple, no neck tenderness, No thyromegaly Lungs: No wheezing, No rales, No rhonci, No accessory muscle use, good air exchange bilaterally. Heart: Normal rate, Regular rythm, No murmur, no rub Abdomen: Normal BS, soft, No rigidity, No abdominal tenderness, No guarding, no rebound, no abdominal masses, no organomegaly Extremities: strength 5/5 in all extremities, good pulses in all extremities, patient has obvious acute necrosis of the left fifth digit. He started have a little bit swelling into the distal foot. No swelling into the leg itself. No abnormal warmth. He does have faint dorsalis pedis pulses. I was able to Doppler them with the ultrasound. He has slightly decreased capillary refill in the other 4 toes of the left foot. Skin: warm, dry, appropriate color, no rash Neuro: speech clear, oriented x 3, normal affect, responds appropriately to questions. Course - Re-evaluation Re-evalutation: 12/06/18 23:27 Patient has what appears to be necrotic left toe. Patient has a history of peripheral vascular disease also has diabetes and is on stage renal disease. The swelling progressed to become worse. I spent over 20 minutes speaking with him and his try to convince him to stay in the hospital. I informed him that if he does not stay that he will have infection that progresses into his foot and likely into his leg and he could lose his whole foot or leg. I told him if he stays now he will likely only lose the toe. Patient continues to stay does not want to stay. He demonstrates that he is awake and alert and appropriate. He is able to answer questions appropriately. I looked through his records and does not have history of dementia according to his penitentiary records. His is at bedside is try to convince him otherwise. She is understanding also that he will likely do worse if he goes back to penitentiary tonight and delays surgical treatment and says that he obviously just does not want treatment done at this time and she says it will be difficult to convince him otherwise. She was unable to convince him to stay the otherwise. I had patient repeat to me several times that he is aware that going home will likely lead to him losing his foot to potentially his entire leg and could potentially make him very sick. Patient shows complete understanding of this but still refuses to stay. I will still place him on antibiotics as I want to give him the best chance of improvement. I informed him that even though is not staying we want what is best for him and therefore want him to come back immediately or any time so that we can reassess and get him the treatment he needs. Patient is agreeable to this. I did call and speak with his primary care physician, Dr. Leonard, I made him aware that the patient refused to stay and that I suspect that likely his infection will progress up his foot and into his leg and will likely cause him to become worse. Dr. Leonard is aware and will continue to follow the patient in the penitentiary as well. I have prescribed doxycycline and Cipro. Cipro to cover for potential Pseudomonas pain he is a diabetic. I will have him hold his Januvia while he is on the Cipro so that he does not get potential hypoglycemic side effects. Patient will be discharged home AGAINST MEDICAL ADVICE as he requests. Dictation of this chart was performed using voice recognition software; therefore, there may be some unintended grammatical errors. - Vital Signs Vital signs: Temp Pulse Resp BP Pulse Ox 99.0 F 88 16 132/51 H 99 12/06/18 16:45 12/06/18 16:45 12/06/18 16:45 12/06/18 16:45 12/06/18 16:45 - Laboratory Result Diagrams: 12/06/18 21:20 12/06/18 22:08 Laboratory results interpreted by me: 12/06/18 12/06/18 21:20 22:08 WBC 12.3 H Hgb 13.1 L RDW 18.0 H Abs Neuts (Manual) 8.7 H Chloride 97 L Carbon Dioxide 32 H BUN 27 H Creatinine 4.04 H Est GFR ( Amer) 18 L Est GFR (Non-Af Amer) 15 L Glucose 170 H AST 12 L ALT 11 L C-Reactive Protein 177.6 H Discharge - Discharge Clinical Impression: Necrosis of toe, PAD (peripheral artery disease), Chronic kidney disease, stage V requiring chronic dialysis, Toe infection Condition: Serious Disposition: AGAINST MEDICAL ADVICE Additional Instructions: As discussed with Mr. Louis I suspect that he will have progressive necrosis and infection that goes from his little toe into his foot and into his leg. He could potentially lose his foot or his entire leg. He can also become very sick. Want him to return to ER immediately if he has progressive redness or swelling or if he decides to have any time to return to the ER so we can give him definitive surgical treatment to help remove the infected necrotic areas of his foot or toe. I spoke with Dr. Leonard who is aware of the patient's decision to go back to penitentiary instead of staying in the hospital. Please hold the patient's Januvia while taking the Ciprofloxacin keep a close eye on his blood sugars. Return to the ER anytime for reevaluation and treatment. Prescriptions: RX: Ciprofloxacin HCl [Cipro 500 mg Tablet] 500 mg PO BID #14 tablet RX: Doxycycline Hyclate 100 mg PO BID #14 capsule Referrals: MITCH LEONARD MD [ACTIVE STAFF] - Follow up as needed
--- NOTE | 2018-12-07 08:17 | RADIOLOGY REPORT (SQ) ---
EXAM DESCRIPTION: VENOUS UNILATERAL LOWER COMPLETED DATE/TIME: 12/06/2018 8:18 pm REASON FOR STUDY: left foot/ankle, r/o dvt COMPARISON: None. TECHNIQUE: Dynamic and static xiong scale and color images acquired of the left leg venous system. Se lected spectral images acquired with additional compression and augmentation maneuvers. The contralat eral common femoral vein and saphenofemoral junction were also imaged. Images stored on PACS. LIMITATIONS: None. FINDINGS: LEFT COMMON FEMORAL: Normal phasicity, compression and augmentation. No visualized echogenic material on g ray scale. No defects on color images. FEMORAL: Normal compression and augmentation. No visualized echogenic material on xiong scale. No defe cts on color images. POPLITEAL: Normal compression, augmentation. No visualized echogenic material on xiong scale. No defec ts on color images. CALF VESSELS: Normal compression, augmentation. No visualized echogenic material on xiong scale. No de fects on color images. GSV and SSV: Normal compression, augmentation. No visualized echogenic material on xiong scale. No def ects on color images. ANY DEEP VENOUS INSUFFICIENCY: Not evaluated. ANY EVIDENCE OF POPLITEAL CYST: No. OTHER: No other significant finding. RIGHT COMMON FEMORAL VEIN AND SAPHENOFEMORAL JUNCTION: Normal phasicity, compression and augmentation. No visualized echogenic material on xiong scale. No de fects on color images. IMPRESSION: NO EVIDENCE OF DVT OR SVT IN THE LEFT LEG. TECHNICAL DOCUMENTATION: JOB ID: [id number] [employer]- All Rights Reserved Reading location - IP/workstation name: [email or web address]
== END 2018-12-06 23:48 | disposition left against medical advice (07) ==
LOC: ER 16:31
DX: E11.52 Type 2 diabetes mellitus with diabetic peripheral angiopathy with gangrene (principal); I96 Gangrene, not elsewhere classified; L08.9 Local infection of the skin and subcutaneous tissue, unspecified; I12.0 Hypertensive chronic kidney disease with stage 5 chronic kidney disease or end stage renal disease; N18.5 Chronic kidney disease, stage 5; I73.9 Peripheral vascular disease, unspecified; Z99.2 Dependence on renal dialysis; Z89.511 Acquired absence of right leg below knee; I25.2 Old myocardial infarction
CPT/HCPCS: 99284; 36415; 83605; 85025; 86140; 80053; 93971; 73630; A9270 ×2

== ENCOUNTER 2018-12-07 16:02 | Inpatient (IN) | payer MEDICARE ==
--- NOTE | 2018-12-07 16:44 | ER Document Report ---
ED Medical Screen (RME) - General Chief Complaint: Wound Infection Stated Complaint: LEFT FOOT PAIN Time Seen by Provider: 12/07/18 16:41 Primary Care Provider: AMY ISIDRO MD [Primary Care Provider] - Follow up as needed Mode of Arrival: Wheelchair Information source: Patient Notes: 73-year-old male presented to ED for a necrotic infected toe. He was seen yeste deepak and Dr. Maldonado tried to convince him to get admitted. Patient and were confused and decided to go home. He does have a necrotic toe. They have come back today to be admitted to treat the necrotic toe. He does have a history of renal failure, diabetes, peripheral vascular disease. Patient's is with him. states that he is due for dialysis tomorrow. I have greeted and performed a rapid initial assessment of this patient. A comprehensive ED assessment and evaluation of the patient, analysis of test results and completion of medical decision making process will be conducted by an additional ED providers. TRAVEL OUTSIDE OF THE [place] IN LAST 30 DAYS: No - Related Data Allergies/Adverse Reactions: No Known Allergies Allergy (Verified 12/07/18 16:06) Past Medical History - Past Medical History Cardiac Medical History: Reports: Hx Heart Attack, Hx Hypertension Denies: Hx Coronary Artery Disease - PVD Pulmonary Medical History: Reports: Hx Pneumonia - Hx of Denies: Hx Asthma, Hx Bronchitis, Hx COPD Neurological Medical History: Denies: Hx Cerebrovascular Accident, Hx Seizures Endocrine Medical History: Reports: Hx Diabetes Mellitus Type 2 Renal/ Medical History: Reports: Hx End Stage Renal Disease, Hx Hemodialysis. Denies: Hx Peritoneal Dialysis GI Medical History: Reports: Hx Gastroesophageal Reflux Disease Musculoskeltal Medical History: Denies Hx Arthritis Past Surgical History: Reports: Hx Orthopedic Surgery - right BKA, Hx Vascular Surgery - Immunizations Hx Diphtheria, Pertussis, Tetanus Vaccination: No History of Influenza Vaccine for 05/2017 - 10/2017 Season: Unknown Physical Exam - Vital signs Vitals: Temp Pulse Resp BP Pulse Ox 99.7 F 97 16 160/56 H 100 12/07/18 16:17 12/07/18 16:17 12/07/18 16:17 12/07/18 16:17 12/07/18 16:17 Course - Vital Signs Vital signs: Temp Pulse Resp BP Pulse Ox 99.7 F 97 16 160/56 H 100 12/07/18 16:17 12/07/18 16:17 12/07/18 16:17 12/07/18 16:17 12/07/18 16:17 Doctor's Discharge - Discharge Referrals: AMY ISIDRO MD [Primary Care Provider] - Follow up as needed
[2018-12-07 18:33] LABS: ABSOLUTE BASOPHILS # (AUTO) 0.1 10^3/uL (0.0-0.2); ABSOLUTE EOSINOPHILS # (AUTO) 0.1 10^3/uL (0.0-0.6); ABSOLUTE LYMPHOCYTES (AUTO) 0.8 10^3/uL (0.5-4.7); ABSOLUTE MONOCYTES (AUTO) 1.4 10^3/uL (0.1-1.4); ABSOLUTE NEUT (AUTO) 9.9 10^3/uL (1.7-8.2); BASOPHILS % (AUTO) 0.4 % (0-2); EOSINOPHILS % (AUTO) 0.7 % (0-6); HEMATOCRIT 35.9 % (37.9-51.0); HEMOGLOBIN 11.6 g/dL (13.5-17.0); LYMPHOCYTES % (AUTO) 6.2 % (13-45); MEAN CORPUSCULAR HEMOGLOBIN 28.5 pg (27.0-33.4); MEAN CORPUSCULAR HGB CONC 32.4 g/dL (32.0-36.0); MEAN CORPUSCULAR VOLUME 88 fl (80-97); MONOCYTES % (AUTO) 11.7 % (3-13); PLATELET COUNT 315 10^3/uL (150-450); RED BLOOD COUNT 4.08 10^6/uL (4.35-5.55); RED CELL DISTRIBUTION WIDTH 17.8 % (11.5-14.0); TOTAL CELLS COUNTED % (AUTO) 100 %; WHITE BLOOD COUNT 12.2 10^3/uL (4.0-10.5)
[2018-12-07 18:47] LABS: ALANINE AMINOTRANSFERASE 9 U/L (21-72); ALBUMIN 3.8 g/dL (3.5-5.0); ALKALINE PHOSPHATASE 108 U/L (38-126); ANION GAP 11 (5-19); ASPARTATE AMINO TRANSFERASE 29 U/L (17-59); BILIRUBIN,DIRECT 0.6 mg/dL (0.0-0.4); BILIRUBIN,TOTAL 0.7 mg/dL (0.2-1.3); BLOOD UREA NITROGEN 39 mg/dL (7-20); CALCIUM 9.6 mg/dL (8.4-10.2); CARBON DIOXIDE 29 mmol/L (22-30); CHLORIDE 98 mmol/L (98-107); GLUCOSE 88 mg/dL (75-110); POTASSIUM 3.9 mmol/L (3.6-5.0); SODIUM 137.8 mmol/L (137-145); TOTAL PROTEIN 8.5 g/dL (6.3-8.2)
--- NOTE | 2018-12-07 22:54 | ER Document Report ---
ED Wound - General Chief Complaint: Wound Infection Stated Complaint: LEFT FOOT PAIN Time Seen by Provider: 12/07/18 16:41 Primary Care Provider: AMY NEWELL MD [Primary Care Provider] - Follow up as needed Mode of Arrival: Wheelchair Information source: Patient, Relative Notes: Patient is a 73-year-old male who returns to the emergency room with a complaint of left foot infection. Patient is from [facility] and was seen on 12/07/[address] Maldonado in the emergency room and patient had extensive work-up that showed on x-ray patient had some soft tissue gas over the fifth toe on the left side. Further evaluation of toe showed to have moderate amount of necrotic tissue and cellulitis. Dr. Maldonado had a discussed the case with the patient about being admitted and the patient family decided they did not want to stay at that time and so he left AGAINST MEDICAL ADVICE. He did treat him with doxycycline and Cipro and patient and stated that they did receive antibiotics at [place] today. They are back because they feel like he needs more attention now. Patient denies any increasing shortness of breath or fevers patient has an extensive medical history to include hypertension CAD, end-stage renal failure with dialysis, insulin-dependent diabetic. Patient has a history of a recent AKA done from what family tell me down in [place] in 2018. TRAVEL OUTSIDE OF THE [place] IN LAST 30 DAYS: No - HPI Patient complains to provider of: Wound infection Occurred: Other - Unknown origin date Onset/Duration: Gradual, Persistent, Worse Quality of pain: Sharp, Throbbing Severity: Moderate Pain Level: 3 Context: Spontaneous Skin Temperature: Warm Skin Color: Erythema, Albert Capillary refill: > 3 seconds Sensations intact: No - Neuropathy noted Distal pulses present: Yes - Related Data Allergies/Adverse Reactions: No Known Allergies Allergy (Verified 12/07/18 16:06) Past Medical History - General Information source: Patient - Social History Smoking Status: Never Smoker Chew tobacco use (# tins/day): No Frequency of alcohol use: None Drug Abuse: None Family History: Reviewed & Not Pertinent Patient has suicidal ideation: No Patient has homicidal ideation: No - Past Medical History Cardiac Medical History: Reports: Hx Heart Attack, Hx Hypertension Denies: Hx Coronary Artery Disease - PVD Pulmonary Medical History: Reports: Hx Pneumonia - Hx of Denies: Hx Asthma, Hx Bronchitis, Hx COPD Neurological Medical History: Denies: Hx Cerebrovascular Accident, Hx Seizures Endocrine Medical History: Reports: Hx Diabetes Mellitus Type 2 Renal/ Medical History: Reports: Hx End Stage Renal Disease, Hx Hemodialysis. Denies: Hx Peritoneal Dialysis GI Medical History: Reports: Hx Gastroesophageal Reflux Disease Musculoskeletal Medical History: Denies Hx Arthritis Past Surgical History: Reports: Hx Orthopedic Surgery - right BKA, Hx Vascular Surgery - Immunizations Hx Diphtheria, Pertussis, Tetanus Vaccination: No Review of Systems - Review of Systems Constitutional: No symptoms reported EENT: No symptoms reported Cardiovascular: No symptoms reported Respiratory: No symptoms reported Gastrointestinal: No symptoms reported Genitourinary: No symptoms reported Male Genitourinary: No symptoms reported Musculoskeletal: See HPI, Joint pain Skin: See HPI, Other - Cellulitis Hematologic/Lymphatic: No symptoms reported Neurological/Psychological: No symptoms reported -: Yes All other systems reviewed and negative Physical Exam - Vital signs Vitals: Temp Pulse Resp BP Pulse Ox 99.7 F 97 16 160/56 H 100 12/07/18 16:17 12/07/18 16:17 12/07/18 16:17 12/07/18 16:17 12/07/18 16:17 Interpretation: Hypertensive - Notes Notes: PHYSICAL EXAMINATION: GENERAL: Well-appearing, well-nourished and in no acute distress. HEAD: Atraumatic, normocephalic. EYES: Pupils equal round and reactive to light, extraocular movements intact, sclera anicteric, conjunctiva are normal. NECK: Normal range of motion, supple without lymphadenopathy LUNGS: Breath sounds clear to auscultation bilaterally and equal. No wheezes rales or rhonchi. HEART: Regular rate and rhythm without murmurs Musculoskeletal: Examination patient's area of concern is his left foot primarily the lateral side lateral aspect of the left foot fifth digit. There appears to be acute necrosis of the left fifth digit. There is some mild swelling on the distal foot as well. With moderate amount of erythema. Patient has fairly extensive neuropathy so the sensation is decreased as well. Cap refill is slightly decreased in all toes on the left foot. NEUROLOGICAL: Normal speech, normal gait. Normal sensory, motor exams PSYCH: Normal mood, normal affect. SKIN: Warm, Dry, normal turgor, no rashes or lesions noted. Course - Re-evaluation Re-evalutation: 12/07/18 22:58 Patient family been here for an extended period of time secondary to back up in the emergency room and beds to the floors. At basically picked patient's chart up and was able to find out his history of being here recently I contacted Dr. Newell who told me he had discharge the patient from his practice a year ago. I did contact Dr. Gutierrez who is familiar with the patient and knows that he has a history of dialysis as well and he has accepted patient for admission. He is asked me to contact Dr. Liang the surgeon for consult and evaluation of patient's area. I have done so and will see patient here in the pit area. I have informed the family that there may be a long wait down here but to the benefit at least we can get the admission started and all the physicians on board. Patient will be due for a room as soon as one comes available. I will further include any updates if Dr. Liang has any suggestions after seeing the patient. - Vital Signs Vital signs: Temp Pulse Resp BP Pulse Ox 99.7 F 97 16 160/56 H 100 12/07/18 16:17 12/07/18 16:17 12/07/18 16:17 12/07/18 16:17 12/07/18 16:17 - Laboratory Result Diagrams: 12/07/18 17:50 12/07/18 17:50 Laboratory results interpreted by me: 12/07/18 12/07/18 17:50 17:50 WBC 12.2 H RBC 4.08 L Hgb 11.6 L Hct 35.9 L RDW 17.8 H Seg Neutrophils % 81.0 H Lymphocytes % 6.2 L Absolute Neutrophils 9.9 H BUN 39 H Creatinine 5.72 H Est GFR ( Amer) 12 L Est GFR (Non-Af Amer) 10 L Direct Bilirubin 0.6 H ALT 9 L Total Protein 8.5 H Discharge - Discharge Clinical Impression: Necrosis of left fifth toe, Cellulitis of left foot Condition: Fair Disposition: ADMITTED INPATIENT Admitting Provider: Matt Unit Admitted: Medical Floor Referrals: AMY NEWELL MD [Primary Care Provider] - Follow up as needed
[2018-12-07] MEDS ORDERED: DEXTROSE 50%-WATER 25 GM/50 ML DISP.SYRIN IV PRN (23:05)
[2018-12-07] MEDS ORDERED: DEXTROSE 40% GEL 15 GM TUBE PO PRN ×2 (23:05)
[2018-12-07] MEDS ORDERED: GLUCAGON,HUMAN RECOMB 1 MG INJ IM PRN (23:05)
[2018-12-07] MEDS ORDERED: CLINDAMYCIN 600 MG/D5W RTU 600 MG/50 ML RTUPB IV ONE (23:30)
[2018-12-07] MEDS ORDERED: INSULIN LISPRO 100 UNIT/ML 3 ML VIAL SUBCUT ONE (23:30)
[2018-12-08 00:43] LABS: INTERNATIONAL RATION (INR) 1.15; PROTHROMBIN TIME 15.3 SEC (11.4-15.4)
[2018-12-08 00:44] LABS: PARTIAL THROMBOPLASTIN TIME 35.9 SEC (23.5-35.8)
[2018-12-08 00:54] LABS: LIPASE 37.6 U/L (23-300); PHOSPHORUS 5.6 mg/dL (2.5-4.5)
[2018-12-08 01:36] LABS: TROPONIN I 0.041 ng/mL
[2018-12-08 01:56] LABS: FREE T4 (FREE THYROXINE) 2.11 ng/dL (0.78-2.19)
[2018-12-08 02:01] LABS: CREATINE KINASE MB < 0.22 ng/mL (<4.55)
[2018-12-08 02:10] LABS: THYROID STIMULATING HORMONE 0.48 uIU/mL (0.47-4.68)
[2018-12-08] MEDS: HEPARIN SOD (PORCINE) 5,000 UNIT/ML 1 ML SYRINGE SUBCUT SCH ×3 (05:30→22:16)
[2018-12-08] MEDS: CLINDAMYCIN 600 MG/D5W RTU 600 MG/50 ML RTUPB IV SCH ×3 (05:32→22:16)
[2018-12-08] MEDS: DEXTROSE 50%-WATER 25 GM/50 ML DISP.SYRIN IV PRN ×2 (07:06→11:30)
[2018-12-08 07:34] LABS: ABSOLUTE BASOPHILS # (AUTO) 0.1 10^3/uL (0.0-0.2); ABSOLUTE EOSINOPHILS # (AUTO) 0.1 10^3/uL (0.0-0.6); ABSOLUTE MONOCYTES (AUTO) 1.3 10^3/uL (0.1-1.4); ABSOLUTE NEUT (AUTO) 9.1 10^3/uL (1.7-8.2); BASOPHILS % (AUTO) 0.5 % (0-2); EOSINOPHILS % (AUTO) 1.1 % (0-6); HEMATOCRIT 33.3 % (37.9-51.0); HEMOGLOBIN 10.7 g/dL (13.5-17.0); LYMPHOCYTES % (AUTO) 8.9 % (13-45); MEAN CORPUSCULAR HEMOGLOBIN 28.3 pg (27.0-33.4); MEAN CORPUSCULAR HGB CONC 32.2 g/dL (32.0-36.0); MEAN CORPUSCULAR VOLUME 88 fl (80-97); MONOCYTES % (AUTO) 11.3 % (3-13); PLATELET COUNT 315 10^3/uL (150-450); RED BLOOD COUNT 3.78 10^6/uL (4.35-5.55); RED CELL DISTRIBUTION WIDTH 17.7 % (11.5-14.0); SEGMENTED NEUTROPHILS % (AUTO) 78.2 % (42-78); TOTAL CELLS COUNTED % (AUTO) 100 %; WHITE BLOOD COUNT 11.6 10^3/uL (4.0-10.5)
[2018-12-08 07:56] LABS: ALANINE AMINOTRANSFERASE 9 U/L (21-72); ALKALINE PHOSPHATASE 80 U/L (38-126); ANION GAP 13 (5-19); ASPARTATE AMINO TRANSFERASE 11 U/L (17-59); BILIRUBIN,DIRECT 0.5 mg/dL (0.0-0.4); BILIRUBIN,TOTAL 0.7 mg/dL (0.2-1.3); BLOOD UREA NITROGEN 44 mg/dL (7-20); CALCIUM 9.8 mg/dL (8.4-10.2); CARBON DIOXIDE 25 mmol/L (22-30); CHLORIDE 101 mmol/L (98-107); CHOLESTEROL 99.51 mg/dL (0-200); CREATINE KINASE 26 U/L (55-170); POTASSIUM 3.8 mmol/L (3.6-5.0); SODIUM 139.1 mmol/L (137-145); TOTAL PROTEIN 6.7 g/dL (6.3-8.2); TRIGLYCERIDES 43 mg/dL (<150)
[2018-12-08 08:07] LABS: DIRECT LDL 36 mg/dL (<100)
[2018-12-08 08:12] LABS: GLUCOSE 52 mg/dL (75-110)
[2018-12-08 08:17] LABS: TROPONIN I 0.046 ng/mL
[2018-12-08 08:21] LABS: CREATINE KINASE MB < 0.22 ng/mL (<4.55)
[2018-12-08] MEDS: INSULIN LISPRO 100 UNIT/ML 3 ML VIAL SUBCUT SCH ×4 (08:37→22:16)
--- NOTE | 2018-12-08 08:39 | CONSULTATION REPORT E ---
Consultation Report NAME: DAMON ALEXANDER JR : 1945 AGE: 73Y DATE: 12/08/2018 TO: AMIE VASQUEZ M.D. FROM: NOLA BELL PA-C Requesting Physician REASON FOR CONSULTATION: Patient with wet gangrene of the left fifth toe. HISTORY OF PRESENT ILLNESS: This is a 73-year-old male, known diabetic and on hemodialysis status post right BKA, bumped his left fifth toe on a wheelchair about 4 days ago while at [facility] for rehab. He had a previous right BKA at [place] in April and has been at [facility] for rehab. PAST MEDICAL HISTORY: History of diabetes mellitus and on hemodialysis. PAST SURGICAL HISTORY: Right below-knee amputation April 2018 at [facility]. REVIEW OF SYSTEMS: Denies any fever, chills, nausea, vomiting, diarrhea, constipation, nausea or vomiting or chest pains or cough. Admits to having pains along the fifth toe space only when touched. ALLERGIES: None known. FAMILY HISTORY: No history of diabetes. PHYSICAL EXAMINATION: GENERAL: A well-developed, somewhat thin 73-year-old male alert and oriented and complaining of pains along the left fifth toe. NECK: Supple. No thyromegaly. LUNGS: Clear. HEART: Regular sinus rhythm. ABDOMEN: Soft, nontender. EXTREMITIES: He had a right below-knee amputation. On the left foot, there is dark discoloration of the left fifth toe with some foul-smelling discharge. This appears to be a wet gangrene. I could not feel pulses along the left ankle or the left popliteal artery. IMPRESSION: 1. Wet gangrene of the left fifth toe. 2. Diabetes mellitus. 3. Renal failure on hemodialysis. RECOMMENDATIONS: The patient will need at least an amputation of the left fifth toe and possibly left below-knee amputation if the blood supply is really that good. Unfortunately, he already had a right below-knee amputation and will try to save the foot, if possible. I would start him on IV antibiotics for multiple organisms. The left big toe was foul smelling, but also patient is a diabetic. Hemoglobin and electrolytes are normal as well as the blood sugar. DICTATING PHYSICIAN: AMIE VASQUEZ M.D. [id number] PHY#: [id number] ID: [id number] JOB#: [id number] ACCT: [id number] cc:AMIE VASQUEZ M.D. >
[2018-12-08] MEDS ORDERED: DEXTROSE 10%-WATER 1,000 ML IV PRN (12:18)
--- NOTE | 2018-12-08 12:49 | PDOC CONSULTATION ---
Consultation Consult Date: 12/08/18 Consult reason:: ESRD for hemodialysis History of Present Illness Admission Date/PCP: 12/07/18 23:11 AMY ISIDRO MD History of Present Illness: DAMON ALEXANDER JR is a 73 year old male with a history of long-standing complicated diabetes mellitus, hypertension, ESRD on hemodialysis, peripheral vascular disease with a history of multiple diabetic ulcers status post right BKA , history of severe noncompliance with diet ,medications and physician orders comes in with altered mental status and progressive infection of his left foot. He is been found to have an infected right foot/wet gangrene by the surgeon and plan to have elective surgery today after dialysis. Patient is currently undergoing dialysis without any issues. Is very cooperative. Vital signs are stable. Patient however is pleasantly confused and disoriented. Earlier this morning his blood sugars were low and apparently he was given an amp of D50. Patient does not look to be in any distress. Labs and medications were reviewed. Dialysis orders were discussed with the treating dialysis nurse. Past Medical History Cardiac Medical History: Reports: Hypertension-primary, Myocardial Infarction Denies: Coronary Artery Disease - PVD Pulmonary Medical History: Reports: Pneumonia - Hx of Denies: Asthma, Bronchitis, Chronic Obstructive Pulmonary Disease (COPD) Neurological Medical History: Denies: Seizures Endocrine Medical History: Reports: Diabetes Mellitus Type 2 Renal/ Medical History: Reports: End Stage Renal Disease, Secondary Hyperparathyroidism GI Medical History: Reports: Gastroesophageal Reflux Disease Musculoskeltal Medical History: Denies: Arthritis Psychiatric Medical History: Denies: Depression Hematology Medical History: Reports Anemia of Chronic Kidney Disease Past Surgical History Past Surgical History: Reports: Orthopedic Surgery - right BKA, Vascular Surgery Social History Smoking Status: Former Smoker Frequency of Alcohol Use: None Hx Recreational Drug Use: No Drugs: None Hx Prescription Drug Abuse: No Family History Parental Family History Reviewed: No Children Family History Reviewed: No Sibling(s) Family History Reviewed.: No Medication/Allergy Home Medications: Magnesium Oxide [Mag-Ox 400 mg Tablet] 400 mg PO DAILY #30 tablet 06/09/17 Cinacalcet HCl [Sensipar 30 mg Tablet] 30 mg PO DAILY 02/07/18 Calcium Carbonate [Tums Chewable 500 mg Tab.chew] 500 mg PO DAILY 09/25/18 Insulin Detemir [Levemir Insulin 100 units/mL] 5 unit SUBCUT QAM 09/25/18 Insulin Lispro [Humalog Insulin (Lispro) 100 unit/mL] 3 unit SUBCUT MEALS 09/25/18 Linagliptin [Tradjenta] 5 mg PO DAILY 09/25/18 Sitagliptin Phosphate [Januvia 25 mg Tablet] 25 mg PO DAILY 09/25/18 Amlodipine Besylate [Norvasc 10 mg Tablet] 10 mg PO DAILY 12/08/18 Aspirin [Ecotrin 81 mg EC Tablet] 81 mg PO DAILY 12/08/18 Insulin Lispro [Humalog Insulin 100 Unit/1 ml 3 ml Vial] 0 unit SUBCUT .SLD SCALE 12/08/18 Nut.tx.impaired Renal Fxn,Soy [Novasource Renal 2 Gigi] 237 ml PO MEALS 12/08/18 Allergies/Adverse Reactions: No Known Allergies Allergy (Verified 12/07/18 16:06) Review of Systems ROS unobtainable: Due to mental status Review of Systems: Chart review was done. Physical Exam Vital Signs: Temp Pulse Resp BP Pulse Ox 98.5 F 80 19 146/55 H 98 12/08/18 03:48 12/08/18 07:00 12/08/18 03:48 12/08/18 03:48 12/08/18 03:48 Intake & Output 12/07/18 12/08/18 12/09/18 06:59 06:59 06:59 Intake Total 100 Balance 100 Weight 65.4 kg General appearance: PRESENT: no acute distress Eye exam: PRESENT: EOMI, PERRLA Mouth exam: PRESENT: moist, neck supple Neck exam: ABSENT: lymphadenopathy, meningismus, tenderness, thyromegaly, trac heal deviation Respiratory exam: PRESENT: clear to auscultation lala. ABSENT: crackles Cardiovascular exam: PRESENT: +S1, +S2 GI/Abdominal exam: PRESENT: normal bowel sounds, soft. ABSENT: organomegaly, tenderness Extremities exam: ABSENT: pedal edema - Has a right BKA. Neurological exam: PRESENT: altered Psychiatric exam: ABSENT: anxious Skin exam: ABSENT: abrasion, cyanosis, erythema, mottled, rash Results Laboratory Results: 12/08/18 06:45 12/08/18 06:45 12/07/18 12/07/18 12/08/18 17:50 17:50 00:15 WBC 12.2 H RBC 4.08 L Hgb 11.6 L Hct 35.9 L MCV 88 MCH 28.5 MCHC 32.4 RDW 17.8 H Plt Count 315 Seg Neutrophils % 81.0 H Lymphocytes % 6.2 L Monocytes % 11.7 Eosinophils % 0.7 Basophils % 0.4 Absolute Neutrophils 9.9 H Absolute Lymphocytes 0.8 Absolute Monocytes 1.4 Absolute Eosinophils 0.1 Absolute Basophils 0.1 Sodium 137.8 Potassium 3.9 Chloride 98 Carbon Dioxide 29 Anion Gap 11 BUN 39 H Creatinine 5.72 H Est GFR ( Amer) 12 L Est GFR (Non-Af Amer) 10 L Glucose 88 Calcium 9.6 Phosphorus 5.6 H Magnesium 2.1 Total Bilirubin 0.7 AST 29 ALT 9 L Alkaline Phosphatase 108 Ammonia Total Protein 8.5 H Albumin 3.8 Triglycerides Cholesterol LDL Cholesterol Direct VLDL Cholesterol HDL Cholesterol Amylase 83 Lipase 37.6 TSH Free T4 12/08/18 12/08/18 12/08/18 00:15 00:15 06:45 WBC RBC Hgb Hct MCV MCH MCHC RDW Plt Count Seg Neutrophils % Lymphocytes % Monocytes % Eosinophils % Basophils % Absolute Neutrophils Absolute Lymphocytes Absolute Monocytes Absolute Eosinophils Absolute Basophils Sodium 139.1 Potassium 3.8 Chloride 101 Carbon Dioxide 25 Anion Gap 13 BUN 44 H Creatinine 6.33 H Est GFR ( Amer) 11 L Est GFR (Non-Af Amer) 9 L Glucose 52 L Calcium 9.8 Phosphorus Magnesium Total Bilirubin 0.7 AST 11 L ALT 9 L Alkaline Phosphatase 80 Ammonia < 8.7 L Total Protein 6.7 Albumin 3.0 L Triglycerides 43 Cholesterol 99.51 LDL Cholesterol Direct 36 VLDL Cholesterol 9.0 L HDL Cholesterol 34 L Amylase Lipase TSH 0.48 Free T4 2.11 12/08/18 06:45 WBC 11.6 H RBC 3.78 L Hgb 10.7 L Hct 33.3 L MCV 88 MCH 28.3 MCHC 32.2 RDW 17.7 H Plt Count 315 Seg Neutrophils % 78.2 H Lymphocytes % 8.9 L Monocytes % 11.3 Eosinophils % 1.1 Basophils % 0.5 Absolute Neutrophils 9.1 H Absolute Lymphocytes 1.0 Absolute Monocytes 1.3 Absolute Eosinophils 0.1 Absolute Basophils 0.1 Sodium Potassium Chloride Carbon Dioxide Anion Gap BUN Creatinine Est GFR ( Amer) Est GFR (Non-Af Amer) Glucose Calcium Phosphorus Magnesium Total Bilirubin AST ALT Alkaline Phosphatase Ammonia Total Protein Albumin Triglycerides Cholesterol LDL Cholesterol Direct VLDL Cholesterol HDL Cholesterol Amylase Lipase TSH Free T4 12/08/18 12/08/18 12/08/18 00:15 00:15 06:45 Creatine Kinase 33 L 26 L CK-MB (CK-2) < 0.22 Troponin I 0.041 12/08/18 06:45 Creatine Kinase CK-MB (CK-2) < 0.22 Troponin I 0.046 Assessment & Plan - Diagnosis (1) Diabetic foot infection Plan: Patient has infected/wet gangrene of his left foot. Patient seen by surgeon and plan to have elective surgery.Further management as per hospitalist/surgicalist. (2) Anemia Plan: Stable. No indications for erythropoietin. Monitor. (3) Chronic kidney disease, stage V requiring chronic dialysis Plan: Patient currently undergoing dialysis without any distress. However he is c onfused because of hypoglycemia which was detected and treated. We will plan to remove 1-2 L as tolerated. Vital signs are stable. Dialysis is being supervised to ensure safe and smooth procedure. Dialysis orders were reviewed and discussed with the treating dialysis nurse. (4) Hypertension Qualifiers: Plan: Stable. Monitor (5) Hypoglycemia Plan: Symptomatic. Treated with D50. Suggested patient be on D10 especially if he is going for surgery following dialysis.
[2018-12-08] MEDS ORDERED: DEXTROSE 50%-WATER 25 GM/50 ML DISP.SYRIN IV ONE (13:00)
[2018-12-08 14:16] LABS: CREATINE KINASE MB 0.25 ng/mL (<4.55); TROPONIN I 0.041 ng/mL
--- NOTE | 2018-12-08 14:32 | PDOC H&P ---
History of Present Illness Admission Date/PCP: 12/07/18 23:11 AMY ISIDRO MD History of Present Illness: DAMON ALEXANDER JR is a 73 year old male, He has a history of peripheral vascular disease, end-stage renal disease on maintenance hemodialysis, right leg amputation below the knee, resident of the shelter , he came to the emergency room last night for evaluation of gangrene of left big toe. He apparently was emergency room a day before, 12/06/2018 for the same problem, was prescribed doxycycline and Cipro, he left AGAINST MEDICAL ADVICE for the shelter but he change his mind when he got back to the shelter. He wants to proceed with the recommended treatment option which is basically amputation of the big toe was offered admission into the hospital for further evaluation and management Past Medical History Cardiac Medical History: Reports: Myocardial Infarction, Hypertension, Peripheral Vascular Disease Pulmonary Medical History: Reports: Pneumonia - Hx of Endocrine Medical History: Reports: Diabetes Mellitus Type 2 Renal/ Medical History: Reports: End Stage Renal Disease GI Medical History: Reports: Gastroesophageal Reflux Disease Musculoskeltal Medical History: Denies: Arthritis Hematology: Reports: Anemia Past Surgical History Past Surgical History: Reports: Orthopedic Surgery - right BKA, Vascular Surgery Social History Smoking Status: Former Smoker Frequency of Alcohol Use: None Hx Recreational Drug Use: No Drugs: None Hx Prescription Drug Abuse: No Family History Family History: Reviewed & Not Pertinent Parental Family History Reviewed: Yes Children Family History Reviewed: Yes Sibling(s) Family History Reviewed.: Yes Medication/Allergy Home Medications: Magnesium Oxide [Mag-Ox 400 mg Tablet] 400 mg PO DAILY #30 tablet 06/09/17 Cinacalcet HCl [Sensipar 30 mg Tablet] 30 mg PO DAILY 02/07/18 Calcium Carbonate [Tums Chewable 500 mg Tab.chew] 500 mg PO DAILY 09/25/18 Insulin Detemir [Levemir Insulin 100 units/mL] 5 unit SUBCUT QAM 09/25/18 Insulin Lispro [Humalog Insulin (Lispro) 100 unit/mL] 3 unit SUBCUT MEALS 09/25/18 Linagliptin [Tradjenta] 5 mg PO DAILY 09/25/18 Sitagliptin Phosphate [Januvia 25 mg Tablet] 25 mg PO DAILY 09/25/18 Amlodipine Besylate [Norvasc 10 mg Tablet] 10 mg PO DAILY 12/08/18 Aspirin [Ecotrin 81 mg EC Tablet] 81 mg PO DAILY 12/08/18 Insulin Lispro [Humalog Insulin 100 Unit/1 ml 3 ml Vial] 0 unit SUBCUT .SLD SCALE 12/08/18 Nut.tx.impaired Renal Fxn,Soy [Novasource Renal 2 Gigi] 237 ml PO MEALS 12/08/18 Allergies/Adverse Reactions: No Known Allergies Allergy (Verified 12/07/18 16:06) Review of Systems Constitutional: ABSENT: chills, fever(s), headache(s), weight gain, weight loss Eyes: ABSENT: visual disturbances Ears: ABSENT: hearing changes Cardiovascular: ABSENT: chest pain, dyspnea on exertion, edema, orthropnea, palpitations Respiratory: ABSENT: cough, hemoptysis Gastrointestinal: ABSENT: abdominal pain, constipation, diarrhea, hematemesis, hematochezia, nausea, vomiting Genitourinary: ABSENT: dysuria, hematuria Musculoskeletal: ABSENT: joint swelling Integumentary: ABSENT: rash, wounds Neurological: ABSENT: abnormal gait, abnormal speech, confusion, dizziness, focal weakness, syncope Psychiatric: ABSENT: anxiety, depression, homidical ideation, suicidal ideation Endocrine: ABSENT: cold intolerance, heat intolerance, menstrual abnormalities, polydipsia, polyuria Hematologic/Lymphatic: ABSENT: easy bleeding, easy bruising, lymphadenopathy Physical Exam Vital Signs: Temp Pulse Resp BP Pulse Ox 98.5 F 80 19 146/55 H 98 12/08/18 03:48 12/08/18 07:00 12/08/18 03:48 12/08/18 03:48 12/08/18 03:48 Intake & Output 12/07/18 12/08/18 12/09/18 06:59 06:59 06:59 Intake Total 100 Balance 100 Weight 65.4 kg General appearance: PRESENT: no acute distress Head exam: PRESENT: atraumatic, normocephalic Eye exam: PRESENT: conjunctiva pink, EOMI, PERRLA Ear exam: PRESENT: normal external ear exam Mouth exam: PRESENT: moist, tongue midline Neck exam: PRESENT: full ROM Respiratory exam: PRESENT: clear to auscultation lala Cardiovascular exam: PRESENT: RRR, +S1, +S2 Vascular exam: PRESENT: normal capillary refill GI/Abdominal exam: PRESENT: normal bowel sounds, soft Rectal exam: PRESENT: deferred Extremities exam: PRESENT: right BKA, other - gangrene of the left big toe Neurological exam: PRESENT: alert, CN II-XII grossly intact Psychiatric exam: PRESENT: appropriate affect, normal mood Skin exam: PRESENT: dry, intact, warm Results Laboratory Results: 12/08/18 06:45 12/08/18 06:45 12/07/18 12/07/18 12/08/18 17:50 17:50 00:15 WBC 12.2 H RBC 4.08 L Hgb 11.6 L Hct 35.9 L MCV 88 MCH 28.5 MCHC 32.4 RDW 17.8 H Plt Count 315 Seg Neutrophils % 81.0 H Lymphocytes % 6.2 L Monocytes % 11.7 Eosinophils % 0.7 Basophils % 0.4 Absolute Neutrophils 9.9 H Absolute Lymphocytes 0.8 Absolute Monocytes 1.4 Absolute Eosinophils 0.1 Absolute Basophils 0.1 Sodium 137.8 Potassium 3.9 Chloride 98 Carbon Dioxide 29 Anion Gap 11 BUN 39 H Creatinine 5.72 H Est GFR ( Amer) 12 L Est GFR (Non-Af Amer) 10 L Glucose 88 Calcium 9.6 Phosphorus 5.6 H Magnesium 2.1 Total Bilirubin 0.7 AST 29 ALT 9 L Alkaline Phosphatase 108 Ammonia Total Protein 8.5 H Albumin 3.8 Triglycerides Cholesterol LDL Cholesterol Direct VLDL Cholesterol HDL Cholesterol Amylase 83 Lipase 37.6 TSH Free T4 12/08/18 12/08/18 12/08/18 00:15 00:15 06:45 WBC RBC Hgb Hct MCV MCH MCHC RDW Plt Count Seg Neutrophils % Lymphocytes % Monocytes % Eosinophils % Basophils % Absolute Neutrophils Absolute Lymphocytes Absolute Monocytes Absolute Eosinophils Absolute Basophils Sodium 139.1 Potassium 3.8 Chloride 101 Carbon Dioxide 25 Anion Gap 13 BUN 44 H Creatinine 6.33 H Est GFR ( Amer) 11 L Est GFR (Non-Af Amer) 9 L Glucose 52 L Calcium 9.8 Phosphorus Magnesium Total Bilirubin 0.7 AST 11 L ALT 9 L Alkaline Phosphatase 80 Ammonia < 8.7 L Total Protein 6.7 Albumin 3.0 L Triglycerides 43 Cholesterol 99.51 LDL Cholesterol Direct 36 VLDL Cholesterol 9.0 L HDL Cholesterol 34 L Amylase Lipase TSH 0.48 Free T4 2.11 12/08/18 06:45 WBC 11.6 H RBC 3.78 L Hgb 10.7 L Hct 33.3 L MCV 88 MCH 28.3 MCHC 32.2 RDW 17.7 H Plt Count 315 Seg Neutrophils % 78.2 H Lymphocytes % 8.9 L Monocytes % 11.3 Eosinophils % 1.1 Basophils % 0.5 Absolute Neutrophils 9.1 H Absolute Lymphocytes 1.0 Absolute Monocytes 1.3 Absolute Eosinophils 0.1 Absolute Basophils 0.1 Sodium Potassium Chloride Carbon Dioxide Anion Gap BUN Creatinine Est GFR ( Amer) Est GFR (Non-Af Amer) Glucose Calcium Phosphorus Magnesium Total Bilirubin AST ALT Alkaline Phosphatase Ammonia Total Protein Albumin Triglycerides Cholesterol LDL Cholesterol Direct VLDL Cholesterol HDL Cholesterol Amylase Lipase TSH Free T4 12/08/18 12/08/18 12/08/18 00:15 00:15 06:45 Creatine Kinase 33 L 26 L CK-MB (CK-2) < 0.22 Troponin I 0.041 12/08/18 12/08/18 06:45 13:08 Creatine Kinase 25 L CK-MB (CK-2) < 0.22 Troponin I 0.046 Assessment & Plan - Diagnosis (1) Gangrene of left foot Is this a current diagnosis for this admission?: Yes Plan: Start IV antibiotic, consultation will be obtained from surgery (2) Gangrene of toe Is this a current diagnosis for this admission?: Yes (3) Hypoglycemia Is this a current diagnosis for this admission?: Yes (4) End stage chronic kidney disease Is this a current diagnosis for this admission?: Yes Plan: Consult from nephrology (5) PAD (peripheral artery disease) Is this a current diagnosis for this admission?: Yes (6) T2DM (type 2 diabetes mellitus) Qualifiers: Diabetes mellitus retirement insulin use: with vermin exterminator use Rishabh crook complication status: with kidney complications Diabetes mellitus comp lication detail: with chronic kidney disease Chronic kidney disease stage: on chronic dialysis Qualified Code(s): E11.22 - Type 2 diabetes mellitus with diabetic chronic kidney disease; N18.6 - End stage renal disease; Z79.4 - vermin exterminator (current) use of insulin; Z99.2 - Dependence on renal dialysis Is this a current diagnosis for this admission?: Yes
[2018-12-08] MEDS ORDERED: FENTANYL CITRATE INJ/PF 100 MCG/2 ML AMPUL ONE (14:53)
[2018-12-08] MEDS ORDERED: MIDAZOLAM 2 MG/2 ML INJ ONE (14:53)
[2018-12-08] MEDS ORDERED: LIDOCAINE 2% INJ-PF (100 MG/5 ML) SYRINGE ONE (14:53)
[2018-12-08] MEDS ORDERED: PROPOFOL INJ 200 MG/20 ML VIAL IV ONE (14:54)
[2018-12-08] MEDS ORDERED: ONDANSETRON HCL INJ/PF 4 MG/2 ML SDV ONE (14:54)
[2018-12-08] MEDS ORDERED: BUPIVACAINE HCL 0.5 % INJ/PF 30 ML SDV ONE (15:55)
[2018-12-08] MEDS ORDERED: ONDANSETRON HCL INJ/PF 4 MG/2 ML SDV IV PRN (16:11)
[2018-12-08] MEDS ORDERED: MEPERIDINE HCL/PF INJ 25 MG/1 ML DISP.SYRIN IV PRN (16:11)
[2018-12-08] MEDS ORDERED: PROMETHAZINE HCL INJ 25 MG/1 ML VIAL IV PRN ×2 (16:11)
[2018-12-08] MEDS ORDERED: DIPHENHYDRAMINE HCL 50 MG/ML VIAL IV PRN (16:11)
[2018-12-08] MEDS ORDERED: FENTANYL CITRATE INJ/PF 100 MCG/2 ML AMPUL IV PRN ×3 (16:11)
--- NOTE | 2018-12-08 16:35 | Operative Report ---
Nonrecallable Operative Report DATE OF SURGERY: 12/08/18 PREOPERATIVE DIAGNOSIS: gangrene left foot POSTOPERATIVE DIAGNOSIS: gangrene left foot OPERATION: left 5th and 4th toe amputation SURGEON: JAIDEN FAYE ANESTHESIA: Moderate Sedation TISSUE REMOVED OR ALTERED: left 5th and 4th toe. COMPLICATIONS: none ESTIMATED BLOOD LOSS: 10cc INTRAOPERATIVE FINDINGS: necrotic forefoot extending up to mid foot. PROCEDURE: see dictation
--- NOTE | 2018-12-08 17:19 | OPERATIVE REPORT E ---
Operative Report NAME: DAMON ALEXANDER JR : 1945 AGE: 73Y DATE OF SURGERY: 12/08/2018 ROOM: 425 PREOPERATIVE DIAGNOSIS: GANGRENE LEFT FOOT. POSTOPERATIVE DIAGNOSIS: GANGRENE LEFT FOOT. OPERATIVE PROCEDURE: Left fifth and fourth toe amputations and debridement left foot. SURGEON: JAIDEN FAYE M.D. INDICATIONS FOR OPERATION: This is a 73-year-old -[place] male who is a residential patient who was found to have a necrotic left toe and has a history of peripheral vascular disease, end-stage renal disease on maintenance hemodialysis. He is status post a right leg below the knee amputation. He apparently was in the emergency room on 12/06/18 for problems with necrosis of his left toe and a foot infection. He left against medical advice per the residential, but he changed his mind when he got back to the residential and came back for admission. He has obvious gangrene of the left fifth toe and surgery was consulted for possible toe amputation. I saw the patient prior to his surgery. He was previously seen by a different surgeon and told that he needed a left fifth toe amputation. However, upon my examination he had no distal pulses. His forefoot was warm but his fifth and fourth toe were obviously necrotic and the forefoot was necrotic. He had been scheduled for surgery for his left fifth toe amputation and I explained to him at bedside that he would be better served with a left below the knee amputation, that I did not feel that the foot is viable. He refused that and wanted to proceed with the fifth toe amputation. I explained to him and his , who was at bedside, that this will most likely not heal and he will need the below the knee amputation. He stated that if I would remove the toe at this point and wanted to see how far he could progress with just medical treatment and, therefore, he was brought into the operating room for this procedure. PROCEDURE IN DETAIL: The patient brought to the operating in awake, alert, and stable condition and given IV sedation for the procedure. After appropriate timeout and site verification the left foot was prepped and draped in the usual sterile fashion and 1% lidocaine plain anesthetic was used as a digital block between the fourth and the fifth toes, and then a tennis racket incision was made from the interspace between the third and fourth toe to the lateral aspect of the foot approximately the mid metatarsal area. This was carried down through subcutaneous tissue with a knife. It was quite obvious that he had some necrotic subcutaneous tissue and skin more medially and up onto the forefoot and we had to extend the incision with a 10 blade to debride the subcutaneous tissue and skin. This was extended up to almost the base of the third metatarsal. Once this was done we used the periosteal elevator and bone cutter to divide the metatarsal fifth and fourth, and was able to remove the specimen. The foot did not bleed well. However, I was able to get above all the tissue necrosis. We irrigated it with normal saline and I was unable to close it secondary to the amount of skin loss. We were able to reapproximate the wound edges slightly with interrupted placed 3-0 Nylon sutures. A lightly soaked Betadine pack was placed on the wound and then it was wrapped with a sterile gauze, which completed the procedure. Estimated blood loss was less than 25 mL. Sponge and needle counts were correct x2. He was transferred to recovery in stable condition. I notified the after surgery that I do not feel that this would heal and I feel that he would be better served with a below the knee amputation. She understands this and stated that she will talk to her more about it. DICTATING PHYSICIAN: JAIDEN FAYE M.D. [id number] LULA#: [id number] ID: [id number] JOB#: [id number] ACCT: [id number] cc:JAIDEN FAYE M.D. >
--- NOTE | 2018-12-08 19:31 | EKG REPORT ---
SEVERITY:- ABNORMAL ECG - SINUS RHYTHM LEFT AXIS DEVIATION LVH WITH SECONDARY REPOLARIZATION ABNORMALITY : Confirmed by: Sandra Hough MD 08-Dec-2018 19:30:59
[2018-12-09 05:30] LABS: ABSOLUTE BASOPHILS # (AUTO) 0.1 10^3/uL (0.0-0.2); ABSOLUTE EOSINOPHILS # (AUTO) 0.1 10^3/uL (0.0-0.6); ABSOLUTE LYMPHOCYTES (AUTO) 1.2 10^3/uL (0.5-4.7); ABSOLUTE MONOCYTES (AUTO) 0.9 10^3/uL (0.1-1.4); ABSOLUTE NEUT (AUTO) 7.3 10^3/uL (1.7-8.2); BASOPHILS % (AUTO) 0.7 % (0-2); EOSINOPHILS % (AUTO) 1.5 % (0-6); HEMATOCRIT 31.6 % (37.9-51.0); HEMOGLOBIN 10.3 g/dL (13.5-17.0); LYMPHOCYTES % (AUTO) 12.1 % (13-45); MEAN CORPUSCULAR HEMOGLOBIN 28.7 pg (27.0-33.4); MEAN CORPUSCULAR HGB CONC 32.7 g/dL (32.0-36.0); MEAN CORPUSCULAR VOLUME 88 fl (80-97); MONOCYTES % (AUTO) 9.5 % (3-13); PLATELET COUNT 320 10^3/uL (150-450); RED BLOOD COUNT 3.59 10^6/uL (4.35-5.55); RED CELL DISTRIBUTION WIDTH 17.9 % (11.5-14.0); SEGMENTED NEUTROPHILS % (AUTO) 76.2 % (42-78); TOTAL CELLS COUNTED % (AUTO) 100 %; WHITE BLOOD COUNT 9.7 10^3/uL (4.0-10.5)
[2018-12-09 06:04] LABS: ALANINE AMINOTRANSFERASE 17 U/L (21-72); ALBUMIN 2.8 g/dL (3.5-5.0); ALKALINE PHOSPHATASE 81 U/L (38-126); ANION GAP 12 (5-19); ASPARTATE AMINO TRANSFERASE 12 U/L (17-59); BILIRUBIN,DIRECT 0.6 mg/dL (0.0-0.4); BILIRUBIN,TOTAL 0.6 mg/dL (0.2-1.3); BLOOD UREA NITROGEN 33 mg/dL (7-20); CALCIUM 9.1 mg/dL (8.4-10.2); CARBON DIOXIDE 28 mmol/L (22-30); CHLORIDE 97 mmol/L (98-107); GLUCOSE 81 mg/dL (75-110); POTASSIUM 4.3 mmol/L (3.6-5.0); SODIUM 137.3 mmol/L (137-145); TOTAL PROTEIN 6.4 g/dL (6.3-8.2)
[2018-12-09] MEDS: HEPARIN SOD (PORCINE) 5,000 UNIT/ML 1 ML SYRINGE SUBCUT SCH ×3 (06:15→22:47)
[2018-12-09] MEDS: CLINDAMYCIN 600 MG/D5W RTU 600 MG/50 ML RTUPB IV SCH ×3 (06:15→22:52)
[2018-12-09] MEDS: INSULIN LISPRO 100 UNIT/ML 3 ML VIAL SUBCUT SCH ×4 (08:03→22:52)
--- NOTE | 2018-12-09 11:45 | PDOC PROGRESS REPORT ---
Subjective Progress Note for:: 12/09/18 Reason For Visit: GANGRENE LEFT FOOT,ESRD Physical Exam Vital Signs: Temp Pulse Resp BP Pulse Ox 98.8 F 79 16 98/36 L 92 12/09/18 08:25 12/09/18 08:25 12/09/18 08:25 12/09/18 08:25 12/09/18 08:25 Intake & Output 12/08/18 12/09/18 12/10/18 06:59 06:59 06:59 Intake Total 100 700 50 Output Total 2105 Balance 100 -1405 50 Weight 65.4 kg 63.5 kg Results Laboratory Results: 12/09/18 04:40 12/09/18 04:40 12/09/18 12/09/18 04:40 04:40 WBC 9.7 RBC 3.59 L Hgb 10.3 L Hct 31.6 L MCV 88 MCH 28.7 MCHC 32.7 RDW 17.9 H Plt Count 320 Seg Neutrophils % 76.2 Lymphocytes % 12.1 L Monocytes % 9.5 Eosinophils % 1.5 Basophils % 0.7 Absolute Neutrophils 7.3 Absolute Lymphocytes 1.2 Absolute Monocytes 0.9 Absolute Eosinophils 0.1 Absolute Basophils 0.1 Sodium 137.3 Potassium 4.3 Chloride 97 L Carbon Dioxide 28 Anion Gap 12 BUN 33 H Creatinine 5.44 H Est GFR ( Amer) 13 L Est GFR (Non-Af Amer) 10 L Glucose 81 Calcium 9.1 Total Bilirubin 0.6 AST 12 L ALT 17 L Alkaline Phosphatase 81 Total Protein 6.4 Albumin 2.8 L 12/08/18 12/08/18 12/08/18 00:15 00:15 06:45 Creatine Kinase 33 L 26 L CK-MB (CK-2) < 0.22 Troponin I 0.041 12/08/18 12/08/18 12/08/18 06:45 13:08 13:08 Creatine Kinase 25 L CK-MB (CK-2) < 0.22 0.25 Troponin I 0.046 0.041 Assessment & Plan - Diagnosis (1) Diabetic foot infection Is this a current diagnosis for this admission?: Yes (2) Gangrene of left foot Is this a current diagnosis for this admission?: Yes - Plan Summary Plan Summary: This is a 73-year-old male status post amputation of a portion of the left lateral foot for a necrotizing diabetic foot infection. The wound is open. I have removed the dressing and inspected it today. There is no evidence of necrosis or purulence at present. The remaining tissue appears healthy. Begin damp dressing changes twice daily. The patient may benefit from wound VAC therapy. The patient's foot is still considered threatened due to the large wound currently present. I have discussed this with the patient and his at length. The patient will require a significant amount of rehabilitation and wound care, which may ultimately be unsuccessful. The patient wishes to continue on with this course of action, in an attempt to save the foot. He understands that it may be ultimately unsuccessful.
--- NOTE | 2018-12-09 17:54 | PDOC PROGRESS REPORT ---
Subjective Progress Note for:: 12/09/18 Subjective:: No fever or chills. He denied any pain in his left gangrenous foot. No chest pain or difficulty with breathing. No nausea, vomiting or abdominal pain. Tolerating oral feeding. Reason For Visit: GANGRENE LEFT FOOT,ESRD Physical Exam Vital Signs: Temp Pulse Resp BP Pulse Ox 98.5 F 81 14 131/49 H 97 12/09/18 15:47 12/09/18 15:47 12/09/18 15:47 12/09/18 15:47 12/09/18 15:47 Intake & Output 12/08/18 12/09/18 12/10/18 06:59 06:59 06:59 Intake Total 100 700 100 Output Total 2105 Balance 100 -1405 100 Weight 65.4 kg 63.5 kg General appearance: PRESENT: no acute distress, thin Head exam: PRESENT: atraumatic, normocephalic Eye exam: PRESENT: conjunctiva pink. ABSENT: scleral icterus Mouth exam: PRESENT: moist Teeth exam: PRESENT: poor dentation Respiratory exam: PRESENT: clear to auscultation lala Cardiovascular exam: PRESENT: RRR. ABSENT: diastolic murmur, rubs, systolic murmur GI/Abdominal exam: PRESENT: normal bowel sounds, soft. ABSENT: distended, guarding, mass, organolmegaly, rebound, tenderness Extremities exam: PRESENT: right BKA, other - left foot gangreneous ulcer Neurological exam: PRESENT: alert, awake, oriented to person, oriented to place, oriented to time, oriented to situation, CN II-XII grossly intact. ABSENT: motor sensory deficit Psychiatric exam: PRESENT: appropriate affect, normal mood. ABSENT: homicidal ideation, suicidal ideation Skin exam: PRESENT: dry, warm Results Laboratory Results: 12/09/18 04:40 12/09/18 04:40 12/09/18 12/09/18 04:40 04:40 WBC 9.7 RBC 3.59 L Hgb 10.3 L Hct 31.6 L MCV 88 MCH 28.7 MCHC 32.7 RDW 17.9 H Plt Count 320 Seg Neutrophils % 76.2 Lymphocytes % 12.1 L Monocytes % 9.5 Eosinophils % 1.5 Basophils % 0.7 Absolute Neutrophils 7.3 Absolute Lymphocytes 1.2 Absolute Monocytes 0.9 Absolute Eosinophils 0.1 Absolute Basophils 0.1 Sodium 137.3 Potassium 4.3 Chloride 97 L Carbon Dioxide 28 Anion Gap 12 BUN 33 H Creatinine 5.44 H Est GFR ( Amer) 13 L Est GFR (Non-Af Amer) 10 L Glucose 81 Calcium 9.1 Total Bilirubin 0.6 AST 12 L ALT 17 L Alkaline Phosphatase 81 Total Protein 6.4 Albumin 2.8 L 12/08/18 12/08/18 12/08/18 00:15 00:15 06:45 Creatine Kinase 33 L 26 L CK-MB (CK-2) < 0.22 Troponin I 0.041 12/08/18 12/08/18 12/08/18 06:45 13:08 13:08 Creatine Kinase 25 L CK-MB (CK-2) < 0.22 0.25 Troponin I 0.046 0.041 Assessment & Plan - Diagnosis (1) Gangrene of left foot Is this a current diagnosis for this admission?: Yes Plan: Continue IV Clindamycin coverage. Follow up on culture findings. (2) T2DM (type 2 diabetes mellitus) Qualifiers: Diabetes mellitus usp insulin use: with usp use Diabetes mellitus complication status: with kidney complications Diabetes mellitus complication detail: with chronic kidney disease Chronic kidney disease stage: on chronic dialysis Qualified Code(s): E11.22 - Type 2 diabetes mellitus with diabetic chronic kidney disease; N18.6 - End stage renal disease; Z79.4 - termination clerk (current) use of insulin; Z99.2 - Dependence on renal dialysis Is this a current diagnosis for this admission?: Yes Plan: Continue current medication management. (3) Chronic kidney disease, stage V requiring chronic dialysis Is this a current diagnosis for this admission?: Yes Plan: Continue current medication management and dialysis support as scheduled. - Time Time Spent with patient: 25-34 minutes Medications reviewed and adjusted accordingly: Yes Anticipated discharge: Home with Homehealth Within: Other - Inpatient Certification Based on my medical assessment, after consideration of the patient's comorbidities, presenting symptoms, or acuity I expect that the services needed warrant INPATIENT care.: Yes I certify that my determination is in accordance with my understanding of Medicare's requirements for reasonable and necessary INPATIENT services [42 CFR 412.3e].: Yes Medical Necessity: Significant Comorbidiites Make Outpatient Treatment Too Risky, Need Close Monitoring Due to Risk of Patient Decompensation, Need For IV Fluids, Need For Continuous Telemetry Monitoring, Need for IV Antibiotics, Risk of Complication if Not Cared For in Hospital, Risk of Diagnosis Which Will Requi re Inpatient Eval/Care/Monitoring Post Hospital Care: D/C or Transfer Summary - Plan Summary Plan Summary: Continue current medication management.
[2018-12-10 05:27] LABS: ABSOLUTE BASOPHILS # (AUTO) 0.1 10^3/uL (0.0-0.2); ABSOLUTE EOSINOPHILS # (AUTO) 0.1 10^3/uL (0.0-0.6); ABSOLUTE LYMPHOCYTES (AUTO) 1.1 10^3/uL (0.5-4.7); ABSOLUTE NEUT (AUTO) 5.7 10^3/uL (1.7-8.2); BASOPHILS % (AUTO) 0.6 % (0-2); EOSINOPHILS % (AUTO) 1.7 % (0-6); HEMOGLOBIN 9.9 g/dL (13.5-17.0); LYMPHOCYTES % (AUTO) 14.3 % (13-45); MEAN CORPUSCULAR HEMOGLOBIN 28.9 pg (27.0-33.4); MEAN CORPUSCULAR HGB CONC 33.1 g/dL (32.0-36.0); MEAN CORPUSCULAR VOLUME 87 fl (80-97); MONOCYTES % (AUTO) 12.2 % (3-13); PLATELET COUNT 368 10^3/uL (150-450); RED BLOOD COUNT 3.44 10^6/uL (4.35-5.55); RED CELL DISTRIBUTION WIDTH 17.4 % (11.5-14.0); SEGMENTED NEUTROPHILS % (AUTO) 71.2 % (42-78); TOTAL CELLS COUNTED % (AUTO) 100 %
[2018-12-10 05:44] LABS: ALANINE AMINOTRANSFERASE 15 U/L (21-72); ALBUMIN 2.8 g/dL (3.5-5.0); ALKALINE PHOSPHATASE 87 U/L (38-126); ANION GAP 13 (5-19); ASPARTATE AMINO TRANSFERASE 12 U/L (17-59); BILIRUBIN,DIRECT 0.4 mg/dL (0.0-0.4); BILIRUBIN,TOTAL 0.4 mg/dL (0.2-1.3); CALCIUM 9.4 mg/dL (8.4-10.2); CARBON DIOXIDE 26 mmol/L (22-30); CHLORIDE 99 mmol/L (98-107); GLUCOSE 138 mg/dL (75-110); POTASSIUM 4.6 mmol/L (3.6-5.0); SODIUM 137.5 mmol/L (137-145); TOTAL PROTEIN 6.4 g/dL (6.3-8.2)
[2018-12-10 06:11] LABS: BLOOD UREA NITROGEN 53 mg/dL (7-20)
[2018-12-10] MEDS: CLINDAMYCIN 600 MG/D5W RTU 600 MG/50 ML RTUPB IV SCH ×3 (06:12→21:54)
[2018-12-10] MEDS: HEPARIN SOD (PORCINE) 5,000 UNIT/ML 1 ML SYRINGE SUBCUT SCH ×3 (06:12→21:49)
[2018-12-10] MEDS: INSULIN LISPRO 100 UNIT/ML 3 ML VIAL SUBCUT SCH ×4 (08:35→21:49)
--- NOTE | 2018-12-10 14:01 | PDOC PROGRESS REPORT ---
Subjective Progress Note for:: 12/10/18 Subjective:: No fever or chills. He denied any pain in his left gangrenous foot. No chest pain or difficulty with breathing. No nausea, vomiting or abdominal pain. Tolerating oral feeding. Reason For Visit: GANGRENE LEFT FOOT,ESRD Physical Exam Vital Signs: Temp Pulse Resp BP Pulse Ox 97.8 F 72 16 149/57 H 98 12/10/18 12:06 12/10/18 12:06 12/10/18 12:06 12/10/18 12:06 12/10/18 12:06 Intake & Output 12/09/18 12/10/18 12/11/18 06:59 06:59 06:59 Intake Total 700 1180 1050 Output Total 2105 Balance -1405 1180 1050 Weight 63.5 kg 63.6 kg Physical Exam: General appearance: PRESENT: no acute distress, thin Head exam: PRESENT: atraumatic, normocephalic Eye exam: PRESENT: conjunctiva pink. ABSENT: pallor, scleral icterus Mouth exam: PRESENT: moist Teeth exam: PRESENT: poor dentition Respiratory exam: PRESENT: clear to auscultation lala Cardiovascular exam: PRESENT: RRR. ABSENT: diastolic murmur, rubs, systolic murmur GI/Abdominal exam: PRESENT: normal bowel sounds, soft. ABSENT: distended, guarding, mass, organomegaly, rebound, tenderness Extremities exam: PRESENT: right BKA, other - left foot gangrenous ulcer Neurological exam: PRESENT: alert, awake, oriented to person, oriented to place, oriented to time, oriented to situation, CN II-XII grossly intact. ABSENT: motor sensory deficit Psychiatric exam: PRESENT: appropriate affect, normal mood. ABSENT: homicidal ideation, suicidal ideation Skin exam: PRESENT: dry, warm Results Laboratory Results: 12/10/18 04:25 12/10/18 04:25 12/10/18 12/10/18 04:25 04:25 WBC 8.0 RBC 3.44 L Hgb 9.9 L Hct 30.0 L MCV 87 MCH 28.9 MCHC 33.1 RDW 17.4 H Plt Count 368 Seg Neutrophils % 71.2 Lymphocytes % 14.3 Monocytes % 12.2 Eosinophils % 1.7 Basophils % 0.6 Absolute Neutrophils 5.7 Absolute Lymphocytes 1.1 Absolute Monocytes 1.0 Absolute Eosinophils 0.1 Absolute Basophils 0.1 Sodium 137.5 Potassium 4.6 Chloride 99 Carbon Dioxide 26 Anion Gap 13 BUN 53 H D Creatinine 7.09 H Est GFR ( Amer) 9 L Est GFR (Non-Af Amer) 8 L Glucose 138 H Calcium 9.4 Total Bilirubin 0.4 AST 12 L ALT 15 L Alkaline Phosphatase 87 Total Protein 6.4 Albumin 2.8 L 12/08/18 12/08/18 12/08/18 00:15 00:15 06:45 Creatine Kinase 33 L 26 L CK-MB (CK-2) < 0.22 Troponin I 0.041 12/08/18 12/08/18 12/08/18 06:45 13:08 13:08 Creatine Kinase 25 L CK-MB (CK-2) < 0.22 0.25 Troponin I 0.046 0.041 Assessment & Plan - Diagnosis (1) Gangrene of left foot Is this a current diagnosis for this admission?: Yes (2) T2DM (type 2 diabetes mellitus) Qualifiers: Diabetes mellitus intermediate school teacher insulin use: with intermediate school teacher use Diabetes mellitus complication status: with kidney complications Diabetes mellitus complication detail: with chronic kidney disease Chronic kidney disease stage: on chronic dialysis Qualified Code(s): E11.22 - Type 2 diabetes mellitus with diabetic chronic kidney disease; N18.6 - End stage renal disease; Z79.4 - termite control servicer (current) use of insulin; Z99.2 - Dependence on renal dialysis Is this a current diagnosis for this admission?: Yes (3) Chronic kidney disease, stage V requiring chronic dialysis Is this a current diagnosis for this admission?: Yes - Time Time Spent with patient: 25-34 minutes Medications reviewed and adjusted accordingly: Yes Anticipated discharge: Home with Homehealth Within: Other - Inpatient Certification Based on my medical assessment, after consideration of the patient's comorbidities, presenting symptoms, or acuity I expect that the services needed warrant INPATIENT care.: Yes I certify that my determination is in accordance with my understanding of Medicare's requirements for reasonable and necessary INPATIENT services [42 CFR 412.3e].: Yes Medical Necessity: Significant Comorbidiites Make Outpatient Treatment Too Risky, Need Close Monitoring Due to Risk of Patient Decompensation, Need For IV Fluids, Need for IV Antibiotics, Risk of Complication if Not Cared For in Hospital, Risk of Diagnosis Which Will Require Inpatient Eval/Care/Monitoring Post Hospital Care: D/C Associate Manager Affiliate Marketing Documentation - Plan Summary Plan Summary: Continue current medication management. Follow up on blood and wound cultures.
--- NOTE | 2018-12-10 21:58 | PDOC PROGRESS REPORT ---
Subjective Progress Note for:: 12/10/18 Reason For Visit: GANGRENE LEFT FOOT,ESRD Physical Exam Vital Signs: Temp Pulse Resp BP Pulse Ox 98.2 F 80 13 145/59 H 96 12/10/18 16:28 12/10/18 19:00 12/10/18 16:28 12/10/18 16:28 12/10/18 16:28 Intake & Output 12/09/18 12/10/18 12/11/18 06:59 06:59 06:59 Intake Total 700 1180 1600 Output Total 2105 120 Balance -1405 1180 1480 Weight 63.5 kg 63.6 kg Results Laboratory Results: 12/10/18 04:25 12/10/18 04:25 12/10/18 12/10/18 04:25 04:25 WBC 8.0 RBC 3.44 L Hgb 9.9 L Hct 30.0 L MCV 87 MCH 28.9 MCHC 33.1 RDW 17.4 H Plt Count 368 Seg Neutrophils % 71.2 Lymphocytes % 14.3 Monocytes % 12.2 Eosinophils % 1.7 Basophils % 0.6 Absolute Neutrophils 5.7 Absolute Lymphocytes 1.1 Absolute Monocytes 1.0 Absolute Eosinophils 0.1 Absolute Basophils 0.1 Sodium 137.5 Potassium 4.6 Chloride 99 Carbon Dioxide 26 Anion Gap 13 BUN 53 H D Creatinine 7.09 H Est GFR ( Amer) 9 L Est GFR (Non-Af Amer) 8 L Glucose 138 H Calcium 9.4 Total Bilirubin 0.4 AST 12 L ALT 15 L Alkaline Phosphatase 87 Total Protein 6.4 Albumin 2.8 L 12/08/18 12/08/18 12/08/18 00:15 00:15 06:45 Creatine Kinase 33 L 26 L CK-MB (CK-2) < 0.22 Troponin I 0.041 12/08/18 12/08/18 12/08/18 06:45 13:08 13:08 Creatine Kinase 25 L CK-MB (CK-2) < 0.22 0.25 Troponin I 0.046 0.041 Assessment & Plan - Diagnosis (1) Diabetic foot infection Is this a current diagnosis for this admission?: Yes (2) Gangrene of left foot Is this a current diagnosis for this admission?: Yes - Plan Summary Plan Summary: This is a 73-year-old male status post amputation of a portion of the left lateral foot for a necrotizing diabetic foot infection. The wound is open. I have removed the dressing and inspected it again today. There is no evidence of necrosis or purulence at present. The remaining tissue appears healthy. Cont damp dressing changes twice daily. The patient may benefit from wound VAC therapy. The patient's foot is still considered threatened due to the large wound currently present. I have discussed this with the patient and his at length. The patient will require a significant amount of rehabilitation and wound care, which may ultimately be unsuccessful. The patient wishes to continue on with this course of action, in an attempt to save the foot. He understands that it may be ultimately unsuccessful.
[2018-12-11] MEDS: HEPARIN SOD (PORCINE) 5,000 UNIT/ML 1 ML SYRINGE SUBCUT SCH ×3 (05:23→21:09)
[2018-12-11] MEDS: CLINDAMYCIN 600 MG/D5W RTU 600 MG/50 ML RTUPB IV SCH ×3 (06:12→21:14)
[2018-12-11] MEDS: INSULIN LISPRO 100 UNIT/ML 3 ML VIAL SUBCUT SCH ×4 (08:51→21:12)
[2018-12-11 09:17] LABS: ABSOLUTE BASOPHILS # (AUTO) 0.1 10^3/uL (0.0-0.2); ABSOLUTE EOSINOPHILS # (AUTO) 0.2 10^3/uL (0.0-0.6); ABSOLUTE LYMPHOCYTES (AUTO) 1.1 10^3/uL (0.5-4.7); ABSOLUTE MONOCYTES (AUTO) 0.9 10^3/uL (0.1-1.4); ABSOLUTE NEUT (AUTO) 5.8 10^3/uL (1.7-8.2); EOSINOPHILS % (AUTO) 2.5 % (0-6); HEMATOCRIT 30.5 % (37.9-51.0); HEMOGLOBIN 10.1 g/dL (13.5-17.0); LYMPHOCYTES % (AUTO) 13.5 % (13-45); MEAN CORPUSCULAR HEMOGLOBIN 28.8 pg (27.0-33.4); MEAN CORPUSCULAR HGB CONC 33.1 g/dL (32.0-36.0); MEAN CORPUSCULAR VOLUME 87 fl (80-97); MONOCYTES % (AUTO) 11.2 % (3-13); PLATELET COUNT 405 10^3/uL (150-450); RED BLOOD COUNT 3.52 10^6/uL (4.35-5.55); RED CELL DISTRIBUTION WIDTH 17.4 % (11.5-14.0); SEGMENTED NEUTROPHILS % (AUTO) 71.8 % (42-78); TOTAL CELLS COUNTED % (AUTO) 100 %
[2018-12-11 09:31] LABS: ANION GAP 14 (5-19); BLOOD UREA NITROGEN 57 mg/dL (7-20); CALCIUM 9.9 mg/dL (8.4-10.2); CARBON DIOXIDE 21 mmol/L (22-30); CHLORIDE 103 mmol/L (98-107); GLUCOSE 106 mg/dL (75-110); POTASSIUM 4.7 mmol/L (3.6-5.0); SODIUM 137.5 mmol/L (137-145)
--- NOTE | 2018-12-11 12:02 | PDOC PROGRESS REPORT ---
Subjective Progress Note for:: 12/11/18 Reason For Visit: Patient seen on dialysis. He is undergoing dialysis without any issues. Patient went on to have surgery on his left foot for his diabetic wet gangrene and is bandaged. Is looking comfortable and denies any severe pain, fever or chills. Labs and medications were reviewed. Dialysis orders were reviewed with the treating dialysis nurse. Physical Exam Vital Signs: Temp Pulse Resp BP Pulse Ox 98.6 F 78 16 135/53 H 94 12/11/18 04:07 12/11/18 04:07 12/11/18 04:07 12/11/18 04:07 12/11/18 04:07 Intake & Output 12/10/18 12/11/18 12/12/18 06:59 06:59 06:59 Intake Total 1180 1970 Output Total 320 Balance 1180 1650 Weight 63.6 kg 63.5 kg General appearance: PRESENT: no acute distress Respiratory exam: PRESENT: clear to auscultation lala. ABSENT: crackles Cardiovascular exam: PRESENT: +S1, +S2 GI/Abdominal exam: PRESENT: normal bowel sounds, soft. ABSENT: organomegaly, tenderness Extremities exam: ABSENT: pedal edema Neurological exam: PRESENT: alert, awake, oriented to person, oriented to place Psychiatric exam: PRESENT: appropriate affect Results Laboratory Results: 12/11/18 07:54 12/11/18 07:54 12/11/18 12/11/18 07:54 07:54 WBC 8.0 RBC 3.52 L Hgb 10.1 L Hct 30.5 L MCV 87 MCH 28.8 MCHC 33.1 RDW 17.4 H Plt Count 405 Seg Neutrophils % 71.8 Lymphocytes % 13.5 Monocytes % 11.2 Eosinophils % 2.5 Basophils % 1.0 Absolute Neutrophils 5.8 Absolute Lymphocytes 1.1 Absolute Monocytes 0.9 Absolute Eosinophils 0.2 Absolute Basophils 0.1 Sodium 137.5 Potassium 4.7 Chloride 103 Carbon Dioxide 21 L Anion Gap 14 BUN 57 H Creatinine 8.45 H Est GFR ( Amer) 8 L Est GFR (Non-Af Amer) 6 L Glucose 106 Calcium 9.9 12/08/18 16:07 Toe - Left Fifth Gram Stain - Final 12/08/18 16:07 Toe - Left Fifth Wound Culture - Final Enterococcus Faecalis(Group D) Proteus Mirabilis No Anaerobic Organisms 12/08/18 02:25 Foot - Left Side Abscess Gram Stain - Final 12/08/18 02:25 Foot - Left Side Abscess Wound Culture - Final Enterococcus Faecalis(Group D) Proteus Mirabilis Skin Julissa 12/08/18 12/08/18 12/08/18 00:15 00:15 06:45 Creatine Kinase 33 L 26 L CK-MB (CK-2) < 0.22 Troponin I 0.041 12/08/18 12/08/18 12/08/18 06:45 13:08 13:08 Creatine Kinase 25 L CK-MB (CK-2) < 0.22 0.25 Troponin I 0.046 0.041 Assessment & Plan - Diagnosis (1) Diabetic foot infection Is this a current diagnosis for this admission?: Yes Plan: Is underwent surgery of his left foot. Further management and orders as per hospitalist/surgery. (2) Anemia Plan: CKD. Stable. No indications for erythropoietin on this dialysis. Will monitor. (3) Chronic kidney disease, stage V requiring chronic dialysis Is this a current diagnosis for this admission?: Yes Plan: Patient undergoing dialysis without any issues. Dialysis is being supervised to ensure safe and smooth procedure. Vital signs are stable. Plan to remove approximately 2 L as tolerated. Dialysis orders were reviewed with the treating dialysis nurse cirrhosis. (4) Hypertension Qualifiers: Hypertension type: essential hypertension Plan: Well controlled. Monitor. See response to dialysis. (5) Hypoglycemia Plan: Monitor blood sugars appropriately.
--- NOTE | 2018-12-11 15:22 | PDOC PROGRESS REPORT ---
Subjective Progress Note for:: 12/11/18 Subjective:: Nothing specifically. Reason For Visit: GANGRENE LEFT FOOT,ESRD Physical Exam Vital Signs: Temp Pulse Resp BP Pulse Ox 97.9 F 80 20 142/56 H 98 12/11/18 12:00 12/11/18 12:00 12/11/18 12:00 12/11/18 12:00 12/11/18 12:00 Intake & Output 12/10/18 12/11/18 12/12/18 06:59 06:59 06:59 Intake Total 1180 1970 50 Output Total 320 Balance 1180 1650 50 Weight 63.6 kg 63.5 kg General appearance: PRESENT: no acute distress Vascular exam: PRESENT: other - Palpable left femoral pulse only unable to palpate a popliteal pulse. Musculoskeletal exam: PRESENT: other - Left lower extremity dressing removed. The distal foot is ischemic. The open wound is approximately Ethicon sutures x5. And there is no granulation tissue. The skin of the forefoot is tight and discolored. Results Laboratory Results: 12/11/18 07:54 12/11/18 07:54 12/11/18 12/11/18 07:54 07:54 WBC 8.0 RBC 3.52 L Hgb 10.1 L Hct 30.5 L MCV 87 MCH 28.8 MCHC 33.1 RDW 17.4 H Plt Count 405 Seg Neutrophils % 71.8 Lymphocytes % 13.5 Monocytes % 11.2 Eosinophils % 2.5 Basophils % 1.0 Absolute Neutrophils 5.8 Absolute Lymphocytes 1.1 Absolute Monocytes 0.9 Absolute Eosinophils 0.2 Absolute Basophils 0.1 Sodium 137.5 Potassium 4.7 Chloride 103 Carbon Dioxide 21 L Anion Gap 14 BUN 57 H Creatinine 8.45 H Est GFR ( Amer) 8 L Est GFR (Non-Af Amer) 6 L Glucose 106 Calcium 9.9 12/08/18 16:07 Toe - Left Fifth Gram Stain - Final 12/08/18 16:07 Toe - Left Fifth Wound Culture - Final Enterococcus Faecalis(Group D) Proteus Mirabilis No Anaerobic Organisms 12/08/18 02:25 Foot - Left Side Abscess Gram Stain - Final 12/08/18 02:25 Foot - Left Side Abscess Wound Culture - Final Enterococcus Faecalis(Group D) Proteus Mirabilis Skin Julissa 12/08/18 12/08/18 12/08/18 00:15 00:15 06:45 Creatine Kinase 33 L 26 L CK-MB (CK-2) < 0.22 Troponin I 0.041 12/08/18 12/08/18 12/08/18 06:45 13:08 13:08 Creatine Kinase 25 L CK-MB (CK-2) < 0.22 0.25 Troponin I 0.046 0.041 Assessment & Plan - Diagnosis (1) Gangrene of left foot Is this a current diagnosis for this admission?: Yes Plan: Pression: 73-year-old F [place] male with end-stage renal failure, on dialysis, prison patient, bedridden, status post right BKA with a nonhealing partial amputation of left foot in the setting of an ischemic extremity. Recommendations: 1. Because of the constellation of comorbidities, and the bedridden status patient, he is not a candidate for reconstructive surgery. 2. We will continue local wound care until the patient has come to accept an amputation. He has a right BKA; strategically a left AKA would be the simplest operation in this patient. I did mention this to him today. He will give it some thought. (2) Chronic kidney disease, stage V requiring chronic dialysis Is this a current diagnosis for this admission?: Yes
--- NOTE | 2018-12-11 20:34 | PDOC PROGRESS REPORT ---
Subjective Progress Note for:: 12/11/18 Subjective:: Patient was seen by the bedside, is status post amputation of 2 toes of left foot, he needs to have arterial Doppler Reason For Visit: GANGRENE LEFT FOOT,ESRD Physical Exam Vital Signs: Temp Pulse Resp BP Pulse Ox 98.5 F 81 16 134/53 H 99 12/11/18 14:55 12/11/18 19:00 12/11/18 14:55 12/11/18 14:55 12/11/18 14:55 Intake & Output 12/10/18 12/11/18 12/12/18 06:59 06:59 06:59 Intake Total 1180 1970 600 Output Total 320 Balance 1180 1650 600 Weight 63.6 kg 63.5 kg General appearance: PRESENT: no acute distress Eye exam: PRESENT: PERRLA Respiratory exam: PRESENT: clear to auscultation lala Cardiovascular exam: PRESENT: +S1, +S2 GI/Abdominal exam: PRESENT: soft Results Laboratory Results: 12/11/18 07:54 12/11/18 07:54 12/11/18 12/11/18 07:54 07:54 WBC 8.0 RBC 3.52 L Hgb 10.1 L Hct 30.5 L MCV 87 MCH 28.8 MCHC 33.1 RDW 17.4 H Plt Count 405 Seg Neutrophils % 71.8 Lymphocytes % 13.5 Monocytes % 11.2 Eosinophils % 2.5 Basophils % 1.0 Absolute Neutrophils 5.8 Absolute Lymphocytes 1.1 Absolute Monocytes 0.9 Absolute Eosinophils 0.2 Absolute Basophils 0.1 Sodium 137.5 Potassium 4.7 Chloride 103 Carbon Dioxide 21 L Anion Gap 14 BUN 57 H Creatinine 8.45 H Est GFR ( Amer) 8 L Est GFR (Non-Af Amer) 6 L Glucose 106 Calcium 9.9 12/08/18 16:07 Toe - Left Fifth Gram Stain - Final 12/08/18 16:07 Toe - Left Fifth Wound Culture - Final Enterococcus Faecalis(Group D) Proteus Mirabilis No Anaerobic Organisms 12/08/18 02:25 Foot - Left Side Abscess Gram Stain - Final 12/08/18 02:25 Foot - Left Side Abscess Wound Culture - Final Enterococcus Faecalis(Group D) Proteus Mirabilis Skin Julissa 12/08/18 12/08/18 12/08/18 00:15 00:15 06:45 Creatine Kinase 33 L 26 L CK-MB (CK-2) < 0.22 Troponin I 0.041 12/08/18 12/08/18 12/08/18 06:45 13:08 13:08 Creatine Kinase 25 L CK-MB (CK-2) < 0.22 0.25 Troponin I 0.046 0.041 Assessment & Plan - Diagnosis (1) Gangrene of left foot Is this a current diagnosis for this admission?: Yes (2) Gangrene of toe Is this a current diagnosis for this admission?: Yes (3) Hypoglycemia Is this a current diagnosis for this admission?: Yes (4) End stage chronic kidney disease Is this a current diagnosis for this admission?: Yes (5) PAD (peripheral artery disease) Is this a current diagnosis for this admission?: Yes Plan: Arterial Dopplers ordered (6) T2DM (type 2 diabetes mellitus) Qualifiers: Diabetes mellitus nursing home insulin use: with nursing home use Diabetes mellitus complication status: with kidney complications Diabetes mellitus complication detail: with chronic kidney disease Chronic kidney disease stage: on chronic dialysis Qualified Code(s): E11.22 - Type 2 diabetes mellitus with diabetic chronic kidney disease; N18.6 - End stage renal disease; Z79.4 - MCFP (current) use of insulin; Z99.2 - Dependence on renal dialysis Is this a current diagnosis for this admission?: Yes
[2018-12-12] MEDS: HEPARIN SOD (PORCINE) 5,000 UNIT/ML 1 ML SYRINGE SUBCUT SCH ×3 (05:41→22:42)
[2018-12-12] MEDS: CLINDAMYCIN 600 MG/D5W RTU 600 MG/50 ML RTUPB IV SCH ×3 (05:41→22:42)
[2018-12-12] MEDS: INSULIN LISPRO 100 UNIT/ML 3 ML VIAL SUBCUT SCH ×4 (08:23→22:37)
--- NOTE | 2018-12-12 10:39 | PDOC PROGRESS REPORT ---
Subjective Progress Note for:: 12/12/18 Subjective:: No complaints Reason For Visit: GANGRENE LEFT FOOT,ESRD Physical Exam Vital Signs: Temp Pulse Resp BP Pulse Ox 98.7 F 83 16 134/60 H 98 12/12/18 07:32 12/12/18 07:32 12/12/18 07:32 12/12/18 07:32 12/12/18 07:32 Intake & Output 12/11/18 12/12/18 12/13/18 06:59 06:59 06:59 Intake Total 1970 1150 Output Total 320 2000 Balance 1650 -850 Weight 63.5 kg 63.4 kg General appearance: PRESENT: no acute distress, cooperative Respiratory exam: PRESENT: chest wall tenderness Cardiovascular exam: PRESENT: RRR Extremities exam: PRESENT: other - Left foot wound is clean but with no granulation tissue. No palpable pedal pulses. Femoral pulse is 2+ however. Results Laboratory Results: 12/11/18 07:54 12/11/18 07:54 12/08/18 16:07 Toe - Left Fifth Gram Stain - Final 12/08/18 16:07 Toe - Left Fifth Wound Culture - Final Enterococcus Faecalis(Group D) Proteus Mirabilis No Anaerobic Organisms 12/08/18 02:25 Foot - Left Side Abscess Gram Stain - Final 12/08/18 02:25 Foot - Left Side Abscess Wound Culture - Final Enterococcus Faecalis(Group D) Proteus Mirabilis Skin Julissa 12/08/18 12/08/18 12/08/18 00:15 00:15 06:45 Creatine Kinase 33 L 26 L CK-MB (CK-2) < 0.22 Troponin I 0.041 12/08/18 12/08/18 12/08/18 06:45 13:08 13:08 Creatine Kinase 25 L CK-MB (CK-2) < 0.22 0.25 Troponin I 0.046 0.041 Assessment & Plan - Diagnosis (1) Gangrene of left foot Is this a current diagnosis for this admission?: Yes Plan: Status post fourth and fifth toe amputations. The wounds appear clean but there is no granulation tissue and it is unlikely to heal on its own. Patient underwent arterial duplex studies today. Will await results of the study.
--- NOTE | 2018-12-12 11:46 | XCELERA REPORT ---
[address] [address] Lower Extremity Arterial Evaluation Name: CATHERINE HUNGDAMON JR Age: 73 yrs Gender: Male : 1945 Patient Status: Inpatient Patient Location: [address] [place] [address] Study Date: 12/12/2018 09:24 AM Procedure: A color flow and duplex scan of the lower extremity arteries was performed on the left with velocity and waveform anaylsis. Reason For Study: PAD Ordering Physician: MITCH LEONARD Performed By: Mikie Khan Measurements and Calculations Right Left COMPUTER SYSTEMS TECHNOLOGY INSTRUCTOR PSV 158.9 cm/sec Prox PFA PSV -124.5cm/sec Prox SFA PSV 91.0 cm/sec Mid SFA PSV -752.6cm/sec Dist SFA PSV -35.0 cm/sec Prox Pop A PSV 27.2 cm/sec Dist CHAU PSV -20.4 cm/sec Dist STONE DERRICKMAN AND RIGGER PSV 39.0 cm/sec Prox Emil A 31.6 cm/sec PSV Dist Eiml A 13.4 cm/sec PSV Left Side Arterial Evaluation Normal velocity and triphasic waveforms noted in the Common Femoral artery. Biphasic with very high velocity in the Femoral artery. Monophasic with low velocity, spectral broadening, in the infrageniculate vessels. Very poor flow. Ankle Brachial index not obtained due to bandaging. Interpretation Summary Severe hemodynamically significant lesions in the left lower extremity only, on duplex imaging, at rest. High grade, possible over 90% stenosis in the left Femoral artery, with predictably diminished flow distally. : MITCH LEONARD > Jimenez Blank
--- NOTE | 2018-12-12 20:24 | PDOC PROGRESS REPORT ---
Subjective Progress Note for:: 12/12/18 Subjective:: Patient seen by the bedside, the arterial Doppler demonstrated severe hemodynamically significant lesion in the left lower extremity with high-grade possible over 90% stenosis of the left femoral artery Reason For Visit: GANGRENE LEFT FOOT,ESRD Physical Exam Vital Signs: Temp Pulse Resp BP Pulse Ox 98.7 F 87 16 135/64 H 99 12/12/18 10:47 12/12/18 19:00 12/12/18 10:47 12/12/18 10:47 12/12/18 10:47 Intake & Output 12/11/18 12/12/18 12/13/18 06:59 06:59 06:59 Intake Total 1970 1150 750 Output Total 320 2000 Balance 1650 -850 750 Weight 63.5 kg 63.4 kg General appearance: PRESENT: no acute distress Eye exam: PRESENT: PERRLA Cardiovascular exam: PRESENT: +S1, +S2 GI/Abdominal exam: PRESENT: soft Neurological exam: PRESENT: alert Results Laboratory Results: 12/11/18 07:54 12/11/18 07:54 12/07/18 20:13 Blood Blood Culture - Final NO GROWTH IN 5 DAYS 12/07/18 17:50 Blood Blood Culture - Final NO GROWTH IN 5 DAYS 12/08/18 12/08/18 12/08/18 00:15 00:15 06:45 Creatine Kinase 33 L 26 L CK-MB (CK-2) < 0.22 Troponin I 0.041 12/08/18 12/08/18 12/08/18 06:45 13:08 13:08 Creatine Kinase 25 L CK-MB (CK-2) < 0.22 0.25 Troponin I 0.046 0.041 Assessment & Plan - Diagnosis (1) Gangrene of left foot Is this a current diagnosis for this admission?: Yes (2) Gangrene of toe Is this a current diagnosis for this admission?: Yes (3) Hypoglycemia Is this a current diagnosis for this admission?: Yes (4) End stage chronic kidney disease Is this a current diagnosis for this admission?: Yes (5) PAD (peripheral artery disease) Is this a current diagnosis for this admission?: Yes (6) T2DM (type 2 diabetes mellitus) Qualifiers: Diabetes mellitus custodial insulin use: with termite treater helper use Diabetes mellitus complication status: with kidney complications Diabetes mellitus complication detail: with chronic kidney disease Chronic kidney disease stage: on chronic dialysis Qualified Code(s): E11.22 - Type 2 diabetes mellitus with diabetic chronic kidney disease; N18.6 - End stage renal disease; Z79.4 - FPC (current) use of insulin; Z99.2 - Dependence on renal dialysis Is this a current diagnosis for this admission?: Yes (7) Stenosis of left femoral artery Is this a current diagnosis for this admission?: Yes Plan: We will consult with vascular surgeon
[2018-12-13] MEDS ORDERED: EPOETIN ALFA INJ 20000 UNIT/1 ML VIAL (RENAL) IV PRN (05:00)
[2018-12-13] MEDS: HEPARIN SOD (PORCINE) 5,000 UNIT/ML 1 ML SYRINGE SUBCUT SCH ×3 (06:04→23:07)
[2018-12-13] MEDS: CLINDAMYCIN 600 MG/D5W RTU 600 MG/50 ML RTUPB IV SCH ×3 (06:13→23:07)
[2018-12-13 07:40] LABS: HEMATOCRIT 32.8 % (37.9-51.0); HEMOGLOBIN 10.7 g/dL (13.5-17.0); MEAN CORPUSCULAR HEMOGLOBIN 28.4 pg (27.0-33.4); MEAN CORPUSCULAR HGB CONC 32.7 g/dL (32.0-36.0); MEAN CORPUSCULAR VOLUME 87 fl (80-97); PLATELET COUNT 430 10^3/uL (150-450); RED BLOOD COUNT 3.77 10^6/uL (4.35-5.55); RED CELL DISTRIBUTION WIDTH 17.7 % (11.5-14.0); WHITE BLOOD COUNT 9.2 10^3/uL (4.0-10.5)
[2018-12-13 07:50] LABS: ANION GAP 14 (5-19); BLOOD UREA NITROGEN 48 mg/dL (7-20); CALCIUM 9.9 mg/dL (8.4-10.2); CARBON DIOXIDE 24 mmol/L (22-30); CHLORIDE 101 mmol/L (98-107); GLUCOSE 143 mg/dL (75-110); POTASSIUM 4.4 mmol/L (3.6-5.0); SODIUM 139.4 mmol/L (137-145)
[2018-12-13] MEDS: INSULIN LISPRO 100 UNIT/ML 3 ML VIAL SUBCUT SCH ×4 (08:13→23:07)
--- NOTE | 2018-12-13 10:00 | PDOC PROGRESS REPORT ---
Subjective Progress Note for:: 12/13/18 Subjective:: feels ok, on dialysis, n/o pain Reason For Visit: GANGRENE LEFT FOOT,ESRD Physical Exam Vital Signs: Temp Pulse Resp BP Pulse Ox 98.3 F 80 16 134/48 H 98 12/13/18 07:20 12/13/18 07:20 12/13/18 07:20 12/13/18 07:20 12/13/18 07:20 Intake & Output 12/12/18 12/13/18 12/14/18 06:59 06:59 06:59 Intake Total 1150 800 50 Output Total 2000 300 Balance -850 500 50 Weight 63.4 kg 59 kg General appearance: PRESENT: no acute distress Head exam: PRESENT: normocephalic Eye exam: PRESENT: EOMI Mouth exam: PRESENT: moist Neck exam: PRESENT: full ROM Respiratory exam: PRESENT: clear to auscultation lala Cardiovascular exam: PRESENT: RRR Pulses: PRESENT: other - min palp femoral pulse left groin popliteal not palp GI/Abdominal exam: PRESENT: soft Rectal exam: PRESENT: deferred Extremities exam: PRESENT: other - left foot s/p amputation left 4,5 toes site min bleeding, no evidence of healing Neurological exam: PRESENT: alert Psychiatric exam: PRESENT: appropriate affect Skin exam: PRESENT: dry Results Laboratory Results: 12/13/18 06:58 12/13/18 06:58 12/13/18 12/13/18 06:58 06:58 WBC 9.2 RBC 3.77 L Hgb 10.7 L Hct 32.8 L MCV 87 MCH 28.4 MCHC 32.7 RDW 17.7 H Plt Count 430 Sodium 139.4 Potassium 4.4 Chloride 101 Carbon Dioxide 24 Anion Gap 14 BUN 48 H Creatinine 7.38 H Est GFR ( Amer) 9 L Est GFR (Non-Af Amer) 7 L Glucose 143 H Calcium 9.9 12/07/18 20:13 Blood Blood Culture - Final NO GROWTH IN 5 DAYS 12/07/18 17:50 Blood Blood Culture - Final NO GROWTH IN 5 DAYS 12/08/18 12/08/18 12/08/18 00:15 00:15 06:45 Creatine Kinase 33 L 26 L CK-MB (CK-2) < 0.22 Troponin I 0.041 12/08/18 12/08/18 12/08/18 06:45 13:08 13:08 Creatine Kinase 25 L CK-MB (CK-2) < 0.22 0.25 Troponin I 0.046 0.041 Assessment & Plan - Diagnosis (1) Diabetic foot infection Is this a current diagnosis for this admission?: Yes - Plan Summary Plan Summary: pt s/p doppler art studies Dr Blank reviewd pt with tight stenosis lef femoral artery may benifit from angioplasty Dr Blank will see and arrange.
[2018-12-13] MEDS ORDERED: EPOETIN ALFA 10,000 UNIT in SYRINGE, DISPOSABLE, 1 EACH IV PRN (10:28)
--- NOTE | 2018-12-13 12:01 | PDOC PROGRESS REPORT ---
Subjective Progress Note for:: 12/13/18 Reason For Visit: Patient seen on dialysis. Undergoing dialysis without any issues. He denies any complaints of any chest pain or shortness of breath. Labs and medications were reviewed. Apparently the Doppler of his left leg shows tight femoral artery stenosis and plan for interventions by transfer. Dialysis orders were reviewed and discussed with the treating dialysis nurse. Physical Exam Vital Signs: Temp Pulse Resp BP Pulse Ox 98.3 F 80 16 134/48 H 98 12/13/18 07:20 12/13/18 07:20 12/13/18 07:20 12/13/18 07:20 12/13/18 07:20 Intake & Output 12/12/18 12/13/18 12/14/18 06:59 06:59 06:59 Intake Total 1150 800 50.5 Output Total 2000 300 Balance -850 500 50.5 Weight 63.4 kg 59 kg General appearance: PRESENT: no acute distress Respiratory exam: PRESENT: clear to auscultation lala. ABSENT: crackles Cardiovascular exam: PRESENT: +S1, +S2 GI/Abdominal exam: PRESENT: normal bowel sounds, soft. ABSENT: organomegaly, tenderness Neurological exam: PRESENT: alert, awake, oriented to person, oriented to place Results Laboratory Results: 12/13/18 06:58 12/13/18 06:58 12/13/18 12/13/18 06:58 06:58 WBC 9.2 RBC 3.77 L Hgb 10.7 L Hct 32.8 L MCV 87 MCH 28.4 MCHC 32.7 RDW 17.7 H Plt Count 430 Sodium 139.4 Potassium 4.4 Chloride 101 Carbon Dioxide 24 Anion Gap 14 BUN 48 H Creatinine 7.38 H Est GFR ( Amer) 9 L Est GFR (Non-Af Amer) 7 L Glucose 143 H Calcium 9.9 12/07/18 20:13 Blood Blood Culture - Final NO GROWTH IN 5 DAYS 12/07/18 17:50 Blood Blood Culture - Final NO GROWTH IN 5 DAYS 12/08/18 12/08/18 12/08/18 00:15 00:15 06:45 Creatine Kinase 33 L 26 L CK-MB (CK-2) < 0.22 Troponin I 0.041 12/08/18 12/08/18 12/08/18 06:45 13:08 13:08 Creatine Kinase 25 L CK-MB (CK-2) < 0.22 0.25 Troponin I 0.046 0.041 Assessment & Plan - Diagnosis (1) Diabetic foot infection Is this a current diagnosis for this admission?: Yes Plan: Is underwent surgery of his left foot. Further management and orders as per hospitalist/surgery.Now Doppler reveals tight femoral artery stenosis which is amenable to interventions and awaiting transfer. (2) Anemia Plan: CKD. Stable. Adjust erythropoietin on this dialysis. Will monitor. (3) Chronic kidney disease, stage V requiring chronic dialysis Is this a current diagnosis for this admission?: Yes Plan: Patient undergoing dialysis without any issues. Dialysis is being supervised to ensure safe and smooth procedure. Vital signs are stable. Plan to remove approximately 2 L as tolerated. Dialysis orders were reviewed with the treating dialysis nurse. (4) Hypertension Qualifiers: Hypertension type: essential hypertension Plan: Well controlled. Monitor. See response to dialysis. (5) PAD (peripheral artery disease) Is this a current diagnosis for this admission?: Yes Plan: Doppler showing tight femoral artery stenosis amenable to interventions. Awaiting transfer.
--- NOTE | 2018-12-13 14:21 | PDOC TRANSFER SUMMARY ---
General Admission Date/PCP: 12/07/18 23:11 AMY ISIDRO MD Transfer Date: 12/13/18 Accepting Facility: [facility] Resuscitation Status: Full Code - Transfer Diagnosis (1) Gangrene of left foot Is this a current diagnosis for this admission?: Yes (2) Gangrene of toe Is this a current diagnosis for this admission?: Yes (3) Hypoglycemia Is this a current diagnosis for this admission?: Yes (4) End stage chronic kidney disease Is this a current diagnosis for this admission?: Yes (5) PAD (peripheral artery disease) Is this a current diagnosis for this admission?: Yes (6) T2DM (type 2 diabetes mellitus) Is this a current diagnosis for this admission?: Yes (7) Stenosis of left femoral artery Is this a current diagnosis for this admission?: Yes - Transfer Medications Home Medications: Cinacalcet HCl [Sensipar 30 mg Tablet] 30 mg PO DAILY 02/07/18 Calcium Carbonate [Tums Chewable 500 mg Tab.chew] 500 mg PO DAILY 09/25/18 Insulin Detemir [Levemir Insulin 100 units/mL] 5 unit SUBCUT QAM 09/25/18 Insulin Lispro [Humalog Insulin (Lispro) 100 unit/mL] 3 unit SUBCUT MEALS 09/25/18 Linagliptin [Tradjenta] 5 mg PO DAILY 09/25/18 Sitagliptin Phosphate [Januvia 25 mg Tablet] 25 mg PO DAILY 09/25/18 Amlodipine Besylate [Norvasc 10 mg Tablet] 10 mg PO DAILY 12/08/18 Aspirin [Ecotrin 81 mg EC Tablet] 81 mg PO DAILY 12/08/18 Insulin Lispro [Humalog Insulin 100 Unit/1 ml 3 ml Vial] 0 unit SUBCUT .SLD SCALE 12/08/18 Nut.tx.impaired Renal Fxn,Soy [Novasource Renal 2 Gigi] 237 ml PO MEALS 12/08/18 Transfer Medications: Current Medications Dextrose (Dextrose Inj 50% Syringe (25 Gm/50 Ml)) 12.5 gm IV PRN PRN; Protocol PRN Reason: FOR BG 50-69 IN ALERT PATIENT Stop: 01/06/19 23:04 Dextrose (Dextrose Inj 50% Syringe (25 Gm/50 Ml)) 25 gm IV PRN PRN; Protocol PRN Reason: PER PROTOCOL Stop: 01/06/19 23:04 Last Admin: 12/08/18 11:30 Dose: 25 gm Documented by: Glucagon (Glucagen Inj 1 Mg Vial) 1 mg IM PRN PRN; Protocol PRN Reason: Evaluate for BG < 70 Stop: 01/06/19 23:04 Glucose (Glutose 40% Gel 15 Gm Tube) 30 gm PO PRN PRN; Protocol PRN Reason: FOR BG < 50 IN ALERT PATIENT Stop: 01/06/19 23:04 Glucose (Glutose 40% Gel 15 Gm Tube) 15 gm PO PRN PRN; Protocol PRN Reason: FOR BG 50-69 IN ALERT PATIENT Stop: 01/06/19 23:04 Heparin Sodium (Porcine) (Heparin Inj 5,000 Units/Ml 1 Ml Syringe) 5,000 unit SUBCUT Q8 CHAD Stop: 01/07/19 05:59 Last Admin: 12/13/18 06:04 Dose: Not Given Documented by: Clindamycin Phosphate/Dextrose (Cleocin Rtu 600 Mg/D5w 50 Ml Premix) 600 mg in 50 mls @ 50 mls/hr IV Q8 CHAD Stop: 12/15/18 05:59 Last Infusion: 12/13/18 07:48 Dose: Infused Documented by: Dextrose (D10w 1000 Ml Iv Soln) 1,000 mls @ 25 mls/hr IV CONTINUOUS PRN PRN Reason: THIS MED IS NOT "PRN" Stop: 01/07/19 12:17 Last Infusion: 12/10/18 09:33 Dose: Infused Documented by: Epoetin Héctor 10,000 unit/ (Syringe) 0.5 mls @ 0 mls/hr IV .DIALYSIS PRN PRN Reason: NPNR Stop: 12/13/18 23:59 Last Infusion: 12/13/18 11:22 Dose: Infused Documented by: Insulin Human Lispro (Humalog Insulin 100 Unit/1 Ml 3 Ml Vial) 0 - 12 unit SUBCUT ACHS [facility]; Protocol Stop: 01/07/19 07:59 Last Admin: 12/13/18 13:39 Dose: Not Given Documented by: - Allergies Allergies/Adverse Reactions: No Known Allergies Allergy (Verified 12/07/18 16:06) Hospital Course Hospital Course: Patient with end-stage renal disease on hemodialysis, he was admitted for the management of gangrene of the left toe, #4 #5, he was seen by his surgeon he underwent amputation of the toes, arterial Doppler was done demonstrated severe stenosis of the left femoral artery amenable to intervention. He has a history of amputation of the right leg, the plan is to transfer him to [place]. He had hemodialysis in the hospital, he was seen by nephrology Physical Exam Vital Signs: Temp Pulse Resp BP Pulse Ox 97.6 F 84 18 123/56 L 100 12/13/18 12:00 12/13/18 12:00 12/13/18 12:00 12/13/18 12:00 12/13/18 12:00 Intake & Output 12/12/18 12/13/18 12/14/18 06:59 06:59 06:59 Intake Total 1150 800 50.5 Output Total 2000 300 1300 Balance -850 500 -1249.5 Weight 63.4 kg 59 kg General appearance: PRESENT: no acute distress Eye exam: PRESENT: PERRLA Respiratory exam: PRESENT: clear to auscultation lala Cardiovascular exam: PRESENT: +S1, +S2 Neurological exam: PRESENT: alert Results Laboratory Results: 12/13/18 06:58 12/13/18 06:58 12/13/18 12/13/18 06:58 06:58 WBC 9.2 RBC 3.77 L Hgb 10.7 L Hct 32.8 L MCV 87 MCH 28.4 MCHC 32.7 RDW 17.7 H Plt Count 430 Sodium 139.4 Potassium 4.4 Chloride 101 Carbon Dioxide 24 Anion Gap 14 BUN 48 H Creatinine 7.38 H Est GFR ( Amer) 9 L Est GFR (Non-Af Amer) 7 L Glucose 143 H Calcium 9.9 12/07/18 20:13 Blood Blood Culture - Final NO GROWTH IN 5 DAYS 12/07/18 17:50 Blood Blood Culture - Final NO GROWTH IN 5 DAYS 12/08/18 12/08/18 12/08/18 00:15 00:15 06:45 Creatine Kinase 33 L 26 L CK-MB (CK-2) < 0.22 Troponin I 0.041 12/08/18 12/08/18 12/08/18 06:45 13:08 13:08 Creatine Kinase 25 L CK-MB (CK-2) < 0.22 0.25 Troponin I 0.046 0.041
[2018-12-13] MEDS ORDERED: BISACODYL 5 MG TABEC PO ONE (19:30)
[2018-12-14] MEDS: HEPARIN SOD (PORCINE) 5,000 UNIT/ML 1 ML SYRINGE SUBCUT SCH ×3 (06:20→22:31)
[2018-12-14] MEDS: CLINDAMYCIN 600 MG/D5W RTU 600 MG/50 ML RTUPB IV SCH ×3 (06:20→22:30)
[2018-12-14] MEDS: INSULIN LISPRO 100 UNIT/ML 3 ML VIAL SUBCUT SCH ×4 (07:54→22:31)
[2018-12-15] MEDS: HEPARIN SOD (PORCINE) 5,000 UNIT/ML 1 ML SYRINGE SUBCUT SCH (05:23)
[2018-12-15] MEDS: INSULIN LISPRO 100 UNIT/ML 3 ML VIAL SUBCUT SCH (08:13)
[2018-12-15 08:16] VITALS: BP 139/53
== END 2018-12-15 09:00 | disposition short-term general hospital (02) | DRG 255 ==
LOC: ER 16:02 → EH 23:11 → 4S 12-08 01:41
PROVIDERS: ADMIT Internal Medicine; ATTEND Internal Medicine
PROC: 0Y6Y0Z0 Detachment at Left 5th Toe, Complete, Open Approach (ICD-10-PCS; 2018-12-08)
PROC: 5A1D70Z Performance of Urinary Filtration, Intermittent, Less than 6 Hours Per Day (ICD-10-PCS; 2018-12-08)
PROC: 0Y6W0Z0 Detachment at Left 4th Toe, Complete, Open Approach (ICD-10-PCS; principal; 2018-12-08 15:00)
PROC: 5A1D70Z Performance of Urinary Filtration, Intermittent, Less than 6 Hours Per Day (ICD-10-PCS; 2018-12-11)
PROC: 5A1D70Z Performance of Urinary Filtration, Intermittent, Less than 6 Hours Per Day (ICD-10-PCS; 2018-12-13)
DX: E11.52 Type 2 diabetes mellitus with diabetic peripheral angiopathy with gangrene (principal); N18.6 End stage renal disease; I96 Gangrene, not elsewhere classified; I12.0 Hypertensive chronic kidney disease with stage 5 chronic kidney disease or end stage renal disease; N25.81 Secondary hyperparathyroidism of renal origin; L03.116 Cellulitis of left lower limb; E11.621 Type 2 diabetes mellitus with foot ulcer; L97.529 Non-pressure chronic ulcer of other part of left foot with unspecified severity; E11.22 Type 2 diabetes mellitus with diabetic chronic kidney disease; E11.649 Type 2 diabetes mellitus with hypoglycemia without coma; I73.9 Peripheral vascular disease, unspecified; Z99.2 Dependence on renal dialysis; Z89.511 Acquired absence of right leg below knee; I25.2 Old myocardial infarction; K21.9 Gastro-esophageal reflux disease without esophagitis; Z87.891 Personal history of nicotine dependence; Z79.4 Long term (current) use of insulin; Z79.82 Long term (current) use of aspirin; Z79.899 Other long term (current) drug therapy; D63.1 Anemia in chronic kidney disease; Z91.19 Patient's noncompliance with other medical treatment and regimen
CPT/HCPCS: 01480; 36415; 80048; 80053; 80061; 80076; 82140; 82150; 82550; 82553; 82962; 83036; 83605; 83690; 83735; 84100; 84439; 84443; 84484; 85025; 85027; 85610; 85730; 86140; 87040; 87070; 87075; 87077; 87186; 87205; 88305; 88311; 93005; 93010; 93926; 93971; 99284; 99285; J1644; J1815; J2001; J2250; J2405; J2704; J3010; J3490; Q4081

== ENCOUNTER 2019-12-20 19:18 | Emergency (ER) | payer MEDICARE, MEDICAID ==
--- NOTE | 2019-12-20 20:08 | ER Document Report ---
ED Medical Screen (RME) - General Chief Complaint: Psych Problem Stated Complaint: ALTERED MENTAL STATUS Time Seen by Provider: 12/20/19 20:01 Primary Care Provider: AMY ISIDRO MD [Primary Care Provider] - Follow up as needed Mode of Arrival: Ambulatory Information source: Law Enforcement Notes: 74-year-old male presented to ED for altered mental status and IVC paperwork taken out by his . She stated that he was a threat to himself and others. She stated he had mental health problems and was not taking his medications properly. He states he is not a danger to himself or anybody else. He denies any thoughts of homicide or suicide or injuring anyone else. He states he argues with his like a normal person does. I have greeted and performed a rapid initial assessment of this patient. A comprehensive ED assessment and evaluation of the patient, analysis of test results and completion of medical decision making process will be conducted by an additional ED providers. TRAVEL OUTSIDE OF THE [place] IN LAST 30 DAYS: No - Related Data Allergies/Adverse Reactions: No Known Allergies Allergy (Verified 12/07/18 16:06) Past Medical History - Past Medical History Cardiac Medical History: Reports: Hx Heart Attack, Hx Hypertension, Hx Peripheral Vascular Disease Denies: Hx Coronary Artery Disease - PVD Pulmonary Medical History: Reports: Hx Pneumonia - Hx of Denies: Hx Asthma, Hx Bronchitis, Hx COPD Neurological Medical History: Denies: Hx Cerebrovascular Accident, Hx Seizures Endocrine Medical History: Reports: Hx Diabetes Mellitus Type 2 Renal/ Medical History: Reports: Hx End Stage Renal Disease, Hx Hemodialysis. Denies: Hx Peritoneal Dialysis GI Medical History: Reports: Hx Gastroesophageal Reflux Disease Musculoskeltal Medical History: Denies Hx Arthritis Psychiatric Medical History: Denies: Hx Depression Past Surgical History: Reports: Hx Orthopedic Surgery - right BKA, Hx Vascular Surgery - Immunizations Hx Diphtheria, Pertussis, Tetanus Vaccination: No Physical Exam - Vital signs Vitals: Temp Pulse Resp BP Pulse Ox 98.7 F 92 16 132/86 H 100 12/20/19 19:22 12/20/19 19:22 12/20/19 19:22 12/20/19 19:22 12/20/19 19:22 Course - Vital Signs Vital signs: Temp Pulse Resp BP Pulse Ox 98.7 F 92 16 132/86 H 100 12/20/19 19:22 12/20/19 19:22 12/20/19 19:22 12/20/19 19:22 12/20/19 19:22 Doctor's Discharge - Discharge Referrals: AMY ISIDRO MD [Primary Care Provider] - Follow up as needed
[2019-12-20 21:10] LABS: ABSOLUTE BASOPHILS # (AUTO) 0.1 10^3/uL (0.0-0.2); ABSOLUTE EOSINOPHILS # (AUTO) 0.2 10^3/uL (0.0-0.6); ABSOLUTE LYMPHOCYTES (AUTO) 1.4 10^3/uL (0.5-4.7); ABSOLUTE MONOCYTES (AUTO) 0.6 10^3/uL (0.1-1.4); ABSOLUTE NEUT (AUTO) 3.9 10^3/uL (1.7-8.2); BASOPHILS % (AUTO) 1.1 % (0-2); EOSINOPHILS % (AUTO) 2.7 % (0-6); HEMATOCRIT 40.6 % (37.9-51.0); HEMOGLOBIN 13.9 g/dL (13.5-17.0); LYMPHOCYTES % (AUTO) 23.1 % (13-45); MEAN CORPUSCULAR HEMOGLOBIN 31.8 pg (27.0-33.4); MEAN CORPUSCULAR HGB CONC 34.2 g/dL (32.0-36.0); MEAN CORPUSCULAR VOLUME 93 fl (80-97); MONOCYTES % (AUTO) 9.2 % (3-13); PLATELET COUNT 250 10^3/uL (150-450); RED BLOOD COUNT 4.35 10^6/uL (4.35-5.55); RED CELL DISTRIBUTION WIDTH 14.6 % (11.5-14.0); SEGMENTED NEUTROPHILS % (AUTO) 63.9 % (42-78); TOTAL CELLS COUNTED % (AUTO) 100 %; WHITE BLOOD COUNT 6.1 10^3/uL (4.0-10.5)
[2019-12-20 21:20] LABS: ALBUMIN 4.7 g/dL (3.5-5.0); ALKALINE PHOSPHATASE 107 U/L (38-126); ANION GAP 16 (5-19); ASPARTATE AMINO TRANSFERASE 17 U/L (17-59); BILIRUBIN,DIRECT 0.2 mg/dL (0.0-0.4); BILIRUBIN,TOTAL 0.5 mg/dL (0.2-1.3); BLOOD UREA NITROGEN 33 mg/dL (7-20); CALCIUM 9.9 mg/dL (8.4-10.2); CARBON DIOXIDE 29 mmol/L (22-30); CHLORIDE 96 mmol/L (98-107); GLUCOSE 219 mg/dL (75-110); POTASSIUM 4.3 mmol/L (3.6-5.0); TOTAL PROTEIN 8.3 g/dL (6.3-8.2)
[2019-12-20 21:24] LABS: ACETAMINOPHEN < 10 ug/mL (10-30); ALCOHOL < 10 mg/dL (NONE DETECTED); SALICYLATE < 1.0 mg/dL (2.0-20.0)
--- NOTE | 2019-12-21 00:18 | ER Document Report ---
ED General - General Chief Complaint: Psych Problem Stated Complaint: ALTERED MENTAL STATUS Time Seen by Provider: 12/20/19 20:01 Primary Care Provider: AMY ISIDRO MD [Primary Care Provider] - Follow up as needed Mode of Arrival: Ambulatory TRAVEL OUTSIDE OF THE [place] IN LAST 30 DAYS: No - HPI Notes: Chief complaint: Mental health evaluation HPI: 74-year-old man with history of end-stage renal disease on dialysis and previous bilateral BKA's. He is seen now for mental health evaluation after his took out IVC petition stating that he was being argumentative and refusing to take medications at home. Patient tells a different story stating that wants to get him out of the house and does not want to cook and care for him. Patient has no prior documented mental health history. There is no documented history of dementia. He denies hallucinations auditory or visual. He denies any intent to harm himself or others and specifically denies any intent to harm his . Patient denies any use of alcohol or drugs. Primary care physician is Dr. Tio Isidro. Patient takes dialysis Tuesday and Tuesday. His last dialysis was 2 days ago. He is scheduled for dialysis 730 tomorrow morning. - Related Data Allergies/Adverse Reactions: No Known Allergies Allergy (Verified 12/07/18 16:06) Past Medical History - General Information source: Patient, Law Enforcement, [facility] Records - Social History Smoking Status: Never Smoker Family History: Reviewed & Not Pertinent Patient has homicidal ideation: No - Past Medical History Cardiac Medical History: Reports: Hx Heart Attack, Hx Hypertension, Hx Peripheral Vascular Disease Denies: Hx Coronary Artery Disease - PVD Pulmonary Medical History: Reports: Hx Pneumonia - Hx of Denies: Hx Asthma, Hx Bronchitis, Hx COPD Neurological Medical History: Denies: Hx Cerebrovascular Accident, Hx Seizures Endocrine Medical History: Reports: Hx Diabetes Mellitus Type 2 Renal/ Medical History: Reports: Hx End Stage Renal Disease, Hx Hemodialysis. Denies: Hx Peritoneal Dialysis GI Medical History: Reports: Hx Gastroesophageal Reflux Disease Musculoskeletal Medical History: Denies Hx Arthritis Psychiatric Medical History: Denies: Hx Depression Past Surgical History: Reports: Hx Orthopedic Surgery - right BKA, Hx Vascular Surgery - Immunizations Hx Diphtheria, Pertussis, Tetanus Vaccination: No Review of Systems - Review of Systems Notes: Constitutional: Negative for fever. HENT: Negative for sore throat. Eyes: Negative for visual changes. Cardiovascular: Negative for chest pain. Respiratory: Negative for shortness of breath. Gastrointestinal: Negative for abdominal pain, vomiting or diarrhea. Genitourinary: Negative for dysuria. Musculoskeletal: Negative for back pain. Skin: Negative for rash. Neurological: Negative for headaches, weakness or numbness. 10 point ROS negative except as marked above and in HPI. Physical Exam - Vital signs Vitals: Temp Pulse Resp BP Pulse Ox 98.7 F 92 16 132/86 H 100 12/20/19 19:22 12/20/19 19:22 12/20/19 19:22 12/20/19 19:22 12/20/19 19:22 - Notes Notes: GENERAL: Calm elderly man appearing in no acute distress. SKIN: Good turgor no rashes. HEAD: Normocephalic atraumatic. EYES: PERRLA. EOMI. Conjunctivae and sclerae clear. EARS: CANALS AND TMS CLEAR. NOSE: CLEAR. MOUTH: Moist mucosa. Good dentition. No stridor or edema. No drooling. NECK: Supple. No masses or thyromegaly. No adenopathy. Carotids 2+ without bruits. No JVD. BACK: Symmetrical without tenderness. CHEST: Respirations unlabored. Breath sounds clear and symmetrical. HEART: Regular rhythm. No murmur gallop or rub. ABDOMEN: Soft nontender without masses, organomegaly or rebound. Bowel sounds normally active. No bruits. GENITALIA: Deferred. EXTREMITIES: AV shunt right upper extremity with positive thrill and bruit. Bilateral BKA's. No edema. NEUROLOGICAL: GCS 15. Alert and oriented x3. Fluent speech. Cranial nerves II through XII intact. Sensorimotor and cerebellar normal. Normal tone. PSYCHIATRIC: Appropriate affect. Course - Re-evaluation Re-evalutation: 12/21/19 00:16 This man certainly does not state any intent to harm himself or others. I do not detect any delusional thought pattern or any evidence of current hallucinations or substance abuse. Patient was seen by behavioral health team. We have reviewed the IVC petition taken out by the and the allegations are rather vague. Behavioral health worker spoke with by telephone and she could not substantiate any specific verbal or physical threats. This man does not currently appear to meet criteria for IVC. We have rescinded the petition and he will be discharged. - Vital Signs Vital signs: Temp Pulse Resp BP Pulse Ox 98.3 F 81 18 162/66 H 100 12/20/19 23:47 12/20/19 23:47 12/20/19 23:47 12/20/19 23:47 12/20/19 23:47 - Laboratory Result Diagrams: 12/20/19 20:40 12/20/19 20:40 Laboratory results interpreted by me: 12/20/19 12/20/19 20:40 20:40 RDW 14.6 H Chloride 96 L BUN 33 H Creatinine 8.05 H Est GFR ( Amer) 8 L Est GFR (MDRD) Non-Af 7 L Glucose 219 H Total Protein 8.3 H Salicylates < 1.0 L Acetaminophen < 10 L Discharge - Discharge Clinical Impression: Mental health evaluation, End-stage renal disease, Chronic kidney disease, stage V requiring chronic dialysis Condition: Stable Disposition: HOME, SELF-CARE Referrals: AMY ISIDRO MD [Primary Care Provider] - Follow up as needed
--- NOTE | 2019-12-21 00:33 | PSYCHOLOGICAL NOTE ---
Psych Note - Psych Note Date seen by psych provider: 12/20/19 Time seen by psych provider: 21:40 Psych Note: Patient is a 74 year old make who presents to ED on IVC petition filed by his with concerns of being a danger to himself and others due to medication noncompliance, arguing with his spouse, and threats of suicide. Patients medical history notable for end stage renal failure, type 2 diabetes, history of amputation, and receives regular dialysis. Patient states he has no concerns or objections with taking medications but he needs to take the medication with food. Patient reports his did not cook today so he could not take his medication. Patient described a relationship with his that was strained as described as limited communication and little quality time ( leaves the home frequently or goes to the bedroom). The following information was obtained by patients , Leticia ([phone]). A dental sales representative from [employer] came to the home and informed her that the patient could be suicidal or homicidal after they talke d. was unable to elaborate. reports patient has never been physically violent with her but has a pattern of verbal threats. Patient has no mental health diagnosis, no history of suicidal ideation, no history of suicide attempts. Patient resided in a long-term after his amputation for approximately 14 months and signed himself out and took a cab home. Patients primary care physician wanted patient to be evaluated by a neurologist for concerns of dementia and Alzheimers due to patient being unable to answer questions appropriately, however patient refused to engage in the evaluation. Patient has been observed speaks out foolish things such as calling me a lesbian. Patient needs help with performing his ADLs, but patient is described as someone who does what he wants to do when he gets ready. Furthermore, patient is described as having a jealous controlling spirit. has noted patient has always been skeptical but reports hes getting worse gradually. states she does not trust him due to his verbal threats. would not elaborate on specifics. is unable to provide the care that patient requires. reports she was told he would receive a mental evaluation while at the ED. Clinician contacted [facility] [employer] since patient and were unable to provide details. A dental sales representative from [facility] did respond and subsequently opened up a case with the family today. Shasta took the call this morning from the due to patients reported aggressive statements. Shasta informed that she could not come to the home for a face to face without [employer] involvement, so hung up and go law enforcement involved. Shasta and law enforcement watched a video in which was telling to go and threats to slap her in the head. In the video, Shasta states patient was in the bed unable to walk away and is egging him on in the video. Shasta notes patient seemed to be unable to track with the focus of the conversation and frequently remarked about going to [employer] and making his own breakfast. Shasta stated the recommendation was for patient to follow up with his primary care doc as this is not a mental health concern. Shasta notes law enforcement was pushing the issue to IVC despite her insistence this is not a mental health crisis. Clinician contacted to inform her of discharge. was informed patient would be returned to the home via EMS. Discussed speaking with the [employer] at the dialysis clinic for available supports in the home. Patient was alert and oriented to person, place, circumstance, and situation. Mood was cooperative and affect was mood congruent and with full expression. Patient denied suicidal / homicidal ideation, intent or plan or a history of the same. When asked about auditory/visual hallucinations, patient reported that the Lord tells me things. Patient would not elaborate. Thought processes were generally linear, rational, and organized- some confusion was noted. When asked how an apple and orange were similar, patient responded they were both round and was able to identify they were both fruit after continued inquiry. Patient reported no medical concerns despite receiving dialysis 3 times a week, diabetes. Conversational speech was within normal limits for rate, tone, and prosody. Eye contact was well maintained. Attention and concentration was good, and insight, judgment, and impulse control was fair. Diagnosis: 1. Deferred IVC as put in place with no mental health history 2. R/O Neurocognitive Issues Therapeutic Intervention: Psycho-education on importance of taking his medication as prescribed daily. Impression / Plan: Patient is recommended rescind of IVC and is clear from acute psychiatric services. Patient has no mental health history. Patient denies suicidal /homicidal ideation. It is recommended that patient follow up with his primary care provider to discuss the benefit of a neurological exam to rule out neurocognitive issues. was informed patient would be discharged and transportation would be provided by ambulance transport. Discussed with the importance of speaking with the [employer] at the dialysis center during patient's appointment tomorrow to discuss available supports in the home. Dr. Gardner was consulted on the care and management of this patient; attending physician is in agreement with recommendations and disposition.
[2019-12-21 04:42] VITALS: BP 155/67
--- NOTE | 2019-12-21 14:28 | EKG REPORT ---
SEVERITY:- ABNORMAL ECG - SINUS RHYTHM LEFT ANTERIOR FASCICULAR BLOCK LVH WITH SECONDARY REPOLARIZATION ABNORMALITY : Confirmed by: Sandra Hough MD 21-Dec-2019 14:27:21
== END 2019-12-21 04:45 | disposition home or self-care (01) ==
LOC: ER 19:18
DX: Z04.6 Encounter for general psychiatric examination, requested by authority (principal); I12.0 Hypertensive chronic kidney disease with stage 5 chronic kidney disease or end stage renal disease; E11.22 Type 2 diabetes mellitus with diabetic chronic kidney disease; N18.9 Chronic kidney disease, unspecified; Z99.2 Dependence on renal dialysis; E11.51 Type 2 diabetes mellitus with diabetic peripheral angiopathy without gangrene; Z63.0 Problems in relationship with spouse or partner; Z89.511 Acquired absence of right leg below knee
CPT/HCPCS: 36415; 80053; 80307; 85025; 93005; 93010; 99285